=== PATIENT | male | born 1950 | race Caucasian/White ===

== ENCOUNTER 2016-03-26 00:15 | Emergency (ER) | payer OTHER ==
[~2016-03-26] VITALS: Ht 186.7 cm; Wt 114.0 kg
[2016-03-26 00:21] VITALS: TEMP 36.7; Ht 186.7 cm; Wt 114.0 kg
[2016-03-26] MEDS ORDERED: MoRPHine SULFATE 4 MG/ML 1 ML CARP\\VIAL IV STA (00:26)
[2016-03-26] MEDS ORDERED: ONDANSETRON INJ 2 MG/ML 2 ML VIAL IV STA (00:26)
[2016-03-26] MEDS ORDERED: LOSA1TAB38 PO (00:41)
[2016-03-26] MEDS ORDERED: METF500T PO (00:41)
[2016-03-26] MEDS ORDERED: AMLO10TA2 PO (00:41)
[2016-03-26 00:43] VITALS: O2SAT 94
[2016-03-26] MEDS ORDERED: FLUT0.0529 (00:52)
[2016-03-26] MEDS ORDERED: MULTTAB58 PO (00:52)
[2016-03-26] MEDS ORDERED: CHOL1TAB42 PO (00:52)
[2016-03-26] MEDS ORDERED: OMEGCAP2 PO (00:52)
[2016-03-26] MEDS ORDERED: VNTHFA/IN (00:52)
[2016-03-26] MEDS ORDERED: MOME200A (00:52)
[2016-03-26 01:03] LABS: ALT/SGPT 35 U/L (12-78); AST/SGOT 18 U/L (15-37); BLOOD UREA NITROGEN 23 mg/dl (7-18); BUN/CREATININE RATIO 23.7 (10-20); CARBON DIOXIDE 26 mmol/L (21-32); CHLORIDE 108 mmol/L (98-107); CREATININE 0.95 mg/dl (0.60-1.40); GLUCOSE 125 mg/dl (70-99); SODIUM 143 mmol/L (136-145)
[2016-03-26 01:06] LABS: ALB/GLOB RATIO 1.3 (0.9-2); ALKALINE PHOSPHATASE 40 U/L (45-117)
[2016-03-26 01:07] LABS: URINE APPEARANCE CLEAR (CLEAR); URINE BILIRUBIN NEG (NEG); URINE COLOR YELLOW; URINE EPITHELIAL CELL AUTO 0-5 /lpf (0-5); URINE NITRITE NEG (NEG); URINE SPECIFIC GRAVITY 1.016 (1.000-1.030); UROBILINOGEN NEG (NEG); ZZUR CULT IF INDIC CLEAN CATCH NO
[2016-03-26 01:13] LABS: MANUAL MICROSCOPIC REQUIRED? NO; REVIEW REQ? NO
[2016-03-26 01:13] LABS: HEMATOCRIT 41.5 % (42-52); MEAN CELL VOLUME 91.8 fL (80-100); MEAN CORPUSCULAR HEMOGLOBIN 32.7 pg (25-34); MEAN CORPUSCULAR HGB CONC 35.7 g/dl (32-36); MEAN PLATELET VOLUME 11.3 fL (7.4-10.4); PLATELET COUNT 93 K/uL (130-400); RED BLOOD COUNT 4.52 M/uL (4.7-6.1); WHITE BLOOD COUNT 14.36 K/uL (4.8-10.8)
[2016-03-26 01:26] LABS: BASO % 0.1 %; BASO ABS # 0.02 K/uL (0-0.2); COMPLETE YES; EOS % 1.4 %; IG% 0.3 %; LYMPH % 75.5 %; LYMPH ABS # 10.84 K/uL (1.2-3.4); MONO % 3.1 %; NEUT % 19.6 %; PLT ESTIMATE DECREASED
[2016-03-26] MEDS ORDERED: ONDANSETRON HOME PACK 4MG OD TAB PO ONE (01:45)
[2016-03-26] MEDS ORDERED: OXYCODONE IR HOME PACK PO ONE (01:45)
[2016-03-26 01:59] VITALS: BP 140/77; PULSE 70; O2SAT 95
--- NOTE | 2016-03-26 02:50 | EMERGENCY ROOM VISIT NOTE ---
ED Visit Note First contact with patient: 00:23 I have personally seen and evaluated the patient with the physician pastrycook's assistant. I agree with the diagnostic/management decisions and have personally been involved in these decisions and agree with the diagnosis.
--- NOTE | 2016-03-26 02:50 | EMERGENCY ROOM VISIT NOTE ---
History First contact with patient: 00:23 Chief Complaint: FLANK PAIN Stated Complaint: FLANK PAIN History of Present Illness The patient is a 65 year old male who presents to the Emergency Room with complaints of sudden onset of left flank pain that raised his groin for the past few hours. No history kidney stones. Patient has been urinating more without dysuria. He had prostate removal for prostate carcinoma. Patient denies chest pain, dyspnea, fever, chills, vomiting, diarrhea, penile pain, testicular pain, dysuria. Review of Systems See HPI for pertinent positives & negatives. A total of 10 systems reviewed and were otherwise negative. Past Medical/Surgical History DM2, HTN, Asthma, leukemia Social History Smoking Status: Never Smoker Smokeless Tobacco Use: No Alcohol Use: occasionally Drug Use: none Marital Status: Housing Status: lives with family Current/Historical Medications Scheduled Amlodipine Besylate (Norvasc), 10 MG PO QAM Cholecalciferol (Vitamin D), 5,000 INTUNIT PO QAM Losartan Potassium (Cozaar), 100 MG PO DAILY Metformin Hcl (Glucophage), 500 MG PO BID Mometasone Furoate-Formoterol (Dulera 200/5 Mcg), BID Multiple Vitamin (Multivitamin), PO QAM [place]-3 Fatty Acids (Fish Oil), PO QAM Miscellaneous Medications Albuterol Hfa (Ventolin Hfa) Fluticasone Propionate (Nasal) (Flonase) Allergies Coded Allergies: Sulfa Antibiotics (Verified Allergy, Mild, HIVES, 03/26/16) STACIE Inhibitors (Verified Adverse Reaction, Unknown, cough, 03/26/16) Physical Exam Vital Signs Date Time Temp Pulse Resp B/P Pulse Ox O2 Delivery O2 Flow Rate FiO2 03/26/16 01:59 70 19 140/77 95 03/26/16 00:43 94 Room Air 03/26/16 00:21 36.7 78 20 114/93 95 Room Air Pain Rating (0-10): 4.0 Physical Exam VITALS: Vitals are noted on the nurse's note and reviewed by myself. Vital signs stable. GENERAL: Pleasant male who feels more comfortable after receiving morphine and Zofran by EMS, in no acute distress, nondiaphoretic, well-developed well- nourished. SKIN: The skin was without rashes, erythema, edema, or bruising. There is no tenting of the skin. Capillary reflex less than 2 seconds. HEAD: Normocephalic atraumatic. EARS: External auditory canals clear, tympanic membranes pearly page without erythema or effusion bilaterally. EYES: Pupils equal round and reactive to light and accommodation. Conjunctivae without injection, sclerae without icterus. Extraocular movements intact. NOSE: Patent, turbinates without inflammation or discharge. MOUTH: Mucous membranes moist. Pharynx without erythema or exudate. Uvula midline. Airway patent. Tongue does not deviate. NECK: Supple without nuchal rigidity. No lymphadenopathy. No thyromegaly. Cervical spine is nontender. No JVD. HEART: Regular rate and rhythm LUNGS: Clear to auscultation bilaterally without wheezes, rales or rhonchi. No dullness to percussion. No retractions or accessory muscle use. ABDOMEN: Positive bowel sounds x 4. Normal tympanic percussion. Soft, nontender, without masses or organomegaly. Willett sign negative. No guarding or rebound tenderness. No CVA tenderness MUSCULOSKELETAL: No muscle atrophy, erythema, or edema noted. NEURO: Patient was alert and oriented to person place and time. Normal sensation to light and sharp touch. No focal neurological deficits. Medical Decision & Procedures Laboratory Results 03/26/16 00:10 Red Blood Count 4.52, Mean Corpuscular Volume 91.8, Mean Corpuscular Hemoglobin 32.7, Mean Corpuscular Hemoglobin Concent 35.7, Mean Platelet Volume 11.3, Neutrophils (%) (Auto) 19.6, Lymphocytes (%) (Auto) 75.5, Monocytes (%) (Auto) 3.1, Eosinophils (%) (Auto) 1.4, Basophils (%) (Auto) 0.1, Neutrophils # (Auto) 2.81, Lymphocytes # (Auto) 10.84, Monocytes # (Auto) 0.45, Eosinophils # (Auto) 0.20, Basophils # (Auto) 0.02 03/26/16 00:10 Test 03/26/16 00:10 03/26/16 00:40 White Blood Count 14.36 K/uL (4.8-10.8) Red Blood Count 4.52 M/uL (4.7-6.1) Hemoglobin 14.8 g/dL (14.0-18.0) Hematocrit 41.5 % (42-52) Mean Corpuscular Volume 91.8 fL (80-100) Mean Corpuscular Hemoglobin 32.7 pg (25-34) Mean Corpuscular Hemoglobin Concent 35.7 g/dl (32-36) Platelet Count 93 K/uL (130-400) Mean Platelet Volume 11.3 fL (7.4-10.4) Neutrophils (%) (Auto) 19.6 % Lymphocytes (%) (Auto) 75.5 % Monocytes (%) (Auto) 3.1 % Eosinophils (%) (Auto) 1.4 % Basophils (%) (Auto) 0.1 % Neutrophils # (Auto) 2.81 K/uL (1.4-6.5) Lymphocytes # (Auto) 10.84 K/uL (1.2-3.4) Monocytes # (Auto) 0.45 K/uL (0.11-0.59) Eosinophils # (Auto) 0.20 K/uL (0-0.5) Basophils # (Auto) 0.02 K/uL (0-0.2) RDW Standard Deviation 42.8 fL (36.4-46.3) RDW Coefficient of Variation 12.8 % (11.5-14.5) Immature Granulocyte % (Auto) 0.3 % Immature Granulocyte # (Auto) 0.04 K/uL (0.00-0.02) Platelet Estimate DECREASED Red Blood Cell Morphology Unremarkable Anion Gap 9.0 mmol/L (3-11) Est Creatinine Clear Calc Drug Dose 103.3 ml/min Estimated GFR () 97.0 Estimated GFR (Non- 83.7 BUN/Creatinine Ratio 23.7 (10-20) Calcium Level 9.0 mg/dl (8.5-10.1) Total Bilirubin 0.3 mg/dl (0.2-1) Direct Bilirubin < 0.1 mg/dl (0-0.2) Aspartate Amino Transf (AST/SGOT) 18 U/L (15-37) Alanine Aminotransferase (ALT/SGPT) 35 U/L (12-78) Alkaline Phosphatase 40 U/L (45-117) Total Protein 7.0 gm/dl (6.4-8.2) Albumin 4.0 gm/dl (3.4-5.0) Globulin 3.0 gm/dl (2.5-4.0) Albumin/Globulin Ratio 1.3 (0.9-2) Urine Color YELLOW Urine Appearance CLEAR (CLEAR) Urine pH 5.0 (4.5-7.5) Urine Specific [place] 1.016 (1.000-1.030) Urine Protein 1+ (NEG) Urine Glucose (UA) NEG (NEG) Urine Ketones NEG (NEG) Urine Occult Blood 3+ (NEG) Urine Nitrite NEG (NEG) Urine Bilirubin NEG (NEG) Urine Urobilinogen NEG (NEG) Urine Leukocyte Esterase NEG (NEG) Urine WBC (Auto) 1-5 /hpf (0-5) Urine RBC (Auto) 10-30 /hpf (0-4) Urine Hyaline Casts (Auto) 0 /lpf (0-5) Urine Epithelial Cells (Auto) 0-5 /lpf (0-5) Urine Bacteria (Auto) NEG (NEG) Medications Administered Medications (Trade) Dose Ordered Sig/Ned Route Start Time Stop Time Status Last Admin Dose Admin Oxycodone HCl (Roxicodone Immediate Rel 5MG Home Pack) 1 homepack UD ONCE PO 03/26/16 01:45 03/26/16 01:46 DC 03/26/16 01:45 1 HOMEPACK Ondansetron HCl (ZOFRAN ODT 4MG Home Pack) 1 homepack UD ONCE PO 03/26/16 01:45 03/26/16 01:46 DC 03/26/16 01:54 1 HOMEPACK ED Course Prior records/ancillary studies reviewed. Triage Nursing notes reviewed. Additional history obtained from the family. The patient's history was concerning for left flank pain. Differential diagnosis: Etiologies such as renal colic, appendicitis, diverticulitis, mesenteric ischemia, aortic pathology, infections, inflammatory bowel disease, PUD, biliary pathology, UTI, as well as others were entertained. Physical examination findings: As above. ER treatment provided: Morphine, Zofran, IV fluids On reassessment the patient felt better. Diagnostic interpretation by me: The labs revealed stable leukocytosis has known leukemia and currently followed by oncology not actively receiving treatment. Urinalysis revealed hematuria. There was no sign of UTI. Imaging studies: CT of the abdomen and pelvis read by stat radiology and reviewed by myself and concerning for kidney stone that is now currently in the bladder with multiple nonobstructing stones in the left kidney. It appears that the patient has isolated renal colic from a left sided stone. Patient felt much better after being medicated by EMS. He was asymptotic while in the ER. I did review his prior CBC and blood counts are the same. There is a minimal drop and his platelets. Patient's pain was managed. He was advised to follow-up with his urologist in a few days and to strain his urine. He was advised to return to the ER really for severe pain, fevers, vomiting, worsening signs or symptoms or as needed. By the evaluation outlined above emergent etiologies such as appendicitis, diverticulitis, mesenteric ischemia, aortic pathology, infections, inflammatory bowel disease, PUD, biliary pathology, UTI, as well as others were deemed relatively unlikely. The pt informed about the findings as listed above. All questions were answered and pleased with the treatment. Return instructions were outlined and the patient was discharged in stable condition. Outpatient prescription management: Oxy IR 5mg 1-2 po Q4 hrs prn Referral: The pt was referred to [facility] for follow up care regarding their stone. or The patient was referred back to their primary care physician for follow-up in 2 to 3 days for a recheck of the current condition. Case reviewed with my attending. Medical Decision As above Impression Primary Impression: Renal colic on left side Departure Information Dispostion Home / Self-Care Condition GOOD Forms HOME CARE DOCUMENTATION FORM, IMPORTANT VISIT INFORMATION Patient Instructions Kidney Stones - [facility], My [facility] Additional Instructions DO NOT drive, drink alcohol, operate machinery, or perform dangerous activities today. You were given medications in the ER that can affect your ability to safely function or operate a vehicle. Oxycodone Immediate Release (OxyIR) 5mg: Take 1-2 pills every four hours for pain. Avoid alcohol, operating machinery or dangerous equipment, working on ladders or roofs, DRIVING, or situations where being under the influence may be dangerous. It is recommended to use an [id number] stool softener such as Colace, 100mg twice daily while taking this medication to avoid constipation. Zofran 4 mg: Take one every six hours as needed for nausea. Avoid alcohol, operating machinery or dangerous equipment, working on ladders or roofs, DRIVING , or situations where being under the influence may be dangerous. Acetaminophen(Tylenol) may be used for fever or pain. Use 1000mg every six hours as needed. Avoid using more than 3000mg in a 24 hour period. This medication can be taken if you need to drive, work, or perform activities which may be dangerous when taking narcotic pain medication. Strain your urine and collect all the stones or debris for the urologists. Rest and avoid strenuous activity until your stone passes and symptoms resolve. Drink plenty of fluids. Continue current medications. Return to the ER for worsening abdominal or back pain, vomiting, fevers, passing out, or as needed. Follow up with your Urologist in 2-3 days. Call for appointment.
--- NOTE | 2016-03-26 07:24 | DIAGNOSTIC IMAGING REPORT ---
ABDOMEN AND PELVIS CT WITHOUT CONTRAST CT DOSE: 1662.58 mGy.cm HISTORY: left flank pain, ? Stone TECHNIQUE: Multiaxial CT images of the abdomen and pelvis were performed without the use of intravenous and oral contrast according to the standard department stone protocol. COMPARISON STUDY: None. FINDINGS: An 11 mm hypodense lesion within the lower pole the left kidney. This is incompletely characterized on this noncontrast study but statistically represents a cyst. There bilateral renal calculi, left greater than right. The largest in the left kidney measures 4 mm. No right-sided hydronephrosis. There is a 2 mm stone either within or just beyond the left ureterovesical junction. There is mild fullness of the left renal collecting system and left ureter. Multiple brachytherapy seeds within the prostate gland. Punctate calcified granulomas and a few small faint groundglass opacities within the lung bases. The unenhanced liver, gallbladder, pancreas, spleen, adrenal glands are unremarkable. No retroperitoneal lymphadenopathy. No bowel wall thickening or obstruction. Multiple colonic diverticula. Normal appendix. Degenerative changes within the lumbar spine. Questionable thickening of the sigmoid colon is likely due to muscular hypertrophy. IMPRESSION: 1. A 2 mm stone either within or just beyond the left ureterovesical junction. There is associated mild fullness within the left renal collecting system and left ureter. 2. Bilateral nephrolithiasis. 3. Colonic diverticulosis. 4. A few small patchy ground glass airspace opacities within the lung bases. This is nonspecific and could be due to an acute or chronic pneumonitis. Electronically signed by: Shahzad Amaya M.D. 03/26/2016 7:22 AM Dictated Date/Time: 03/26/2016 7:16 AM
== END 2016-03-26 02:01 | disposition home or self-care (01) ==
LOC: EDBD 00:15 → C.EDB 00:17
DX: N23 Unspecified renal colic (principal); E11.9 Type 2 diabetes mellitus without complications; I10 Essential (primary) hypertension; J45.909 Unspecified asthma, uncomplicated

== ENCOUNTER 2016-08-31 23:40 | Emergency (ER) | payer OTHER ==
[~2016-08-31] VITALS: Ht 188 cm; Wt 120.2 kg
[~2016-08-31 23:40] MED LIST: AMLO10TA2 PO; CHOL1TAB42 PO; FLUT0.0529; LOSA1TAB38 PO; METF500T PO; MOME200A; MULTTAB58 PO; OMEGCAP2 PO; VNTHFA/IN
[2016-08-31 23:42] VITALS: TEMP 36.8; Ht 188 cm; Wt 120.2 kg
[2016-08-31] MEDS ORDERED: SODIUM CHLORIDE 0.9% 1000ML 1,000 ML IV STA (23:59)
[2016-08-31] MEDS ORDERED: ONDANSETRON INJ 2 MG/ML 2 ML VIAL IV STA (23:59)
[2016-09-01] MEDS: MoRPHine SULFATE 4 MG/ML 1 ML CARP\\VIAL IV PRN ×2 (00:07→01:02)
--- NOTE | 2016-09-01 00:25 | EMERGENCY ROOM VISIT NOTE ---
History Report prepared by [place]: Kelly Dobson Under the Supervision of: Dr. Douglas Adrian D.O. First contact with patient: 23:57 Chief Complaint: FLANK PAIN Stated Complaint: BACK PAIN/FLANK PAIN History of Present Illness The patient is a 66 year old male who presents to the Emergency Room with complaints of persistent left sided flank pain that began around 2029 this evening. He was brought to the ED via EMS. He rates his pain as a 4/10 and states the Zofran and Fentanyl he was given en route provided minimal relief. He admits to a history of kidney stones with the most recent stone being in March 2016. He underwent a CT scan earlier this year and states several small stones were seen on CT. Source of History: patient Onset: 2029 this evening Position: back (left sided flank) Symptom Intensity: 4/10 Timing: other (persistent) Modifying Factors (Relieving): narcotics (Fentanyl), anti-emetics (Zofran) Review of Systems See HPI for pertinent positives & negatives. A total of 10 systems reviewed and were otherwise negative. Past Medical & Surgical Medical Problems: (1) Kidney stones (2) Leukemia (3) Prostate cancer Social History Smoking Status: Never Smoker Alcohol Use: occasionally Drug Use: none Marital Status: Housing Status: lives with family Occupation Status: retired Current/Historical Medications Scheduled Amlodipine Besylate (Norvasc), 10 MG PO QAM Fluticasone Propionate (Nasal) (Flonase Allergy Relief), 2 SPRY JOSE DAILY Losartan Potassium (Cozaar), 100 MG PO DAILY Metformin Hcl (Glucophage), 500 MG PO BID Mometasone Furoate-Formoterol (Dulera 200/5 Mcg), BID Multiple Vitamin (Multivitamin), PO QAM [place]-3 Fatty Acids (Fish Oil), PO QAM Tamsulosin Hcl (Flomax), 0.4 MG PO DAILY Scheduled PRN Oxycodone Immediate Rel Tab (Roxicodone Ir), 1-2 TAB PO Q4H PRN for Severe Pain Miscellaneous Medications Albuterol Hfa (Ventolin Hfa) Allergies Coded Allergies: Sulfa Antibiotics (Verified Allergy, Mild, HIVES, 09/01/16) STACIE Inhibitors (Verified Adverse Reaction, Unknown, cough, 09/01/16) Physical Exam Vital Signs Date Time Temp Pulse Resp B/P (MAP) Pulse Ox O2 Delivery O2 Flow Rate FiO2 09/01/16 02:06 82 16 142/81 95 Room Air 09/01/16 00:48 77 16 130/81 94 Room Air 08/31/16 23:56 83 08/31/16 23:42 36.8 77 20 153/78 95 Room Air Physical Exam GENERAL: Patient is awake, alert, very anxious appearing and appears to be in significant pain. EYES: The conjunctivae are clear. The pupils are round and reactive. EARS, NOSE, MOUTH AND THROAT: The nose is without any evidence of any deformity. Mucous membranes are moist tongue is midline NECK: The neck is nontender and supple. RESPIRATORY: Normal respiratory effort is noted there is no evidence of wheezing rhonchi or rales CARDIOVASCULAR: Regular rate and rhythm noted there no murmurs rubs or gallops normal S1 normal S2 GASTROINTESTINAL: The abdomen is mildly distended but soft. No specific guarding or rigidity noted. BACK: Left sided CVA tenderness to percussion. No midline tenderness noted. ROM appeared intact. MUSCULOSKELETAL/EXTREMITIES: There is no evidence of gross deformity full range of motion is noted in the hips and shoulders SKIN: There is no obvious evidence of any rash. There are no petechiae, pallor or cyanosis noted. NEUROLOGIC: Patient is awake alert and oriented x3 Medical Decision & Procedures ER Provider Diagnostic Interpretation: Radiology results as stated below per my review and interpretation: KUB X-RAY Multiple calcifications noted in the left hemipelvis. No acute disease. Calcifications could reflect distal ureteral calculi. Laboratory Results 08/31/16 23:02 Red Blood Count 4.61, Mean Corpuscular Volume 94.4, Mean Corpuscular Hemoglobin 32.3, Mean Corpuscular Hemoglobin Concent 34.3, Mean Platelet Volume 11.5, Neutrophils (%) (Auto) 24.7, Lymphocytes (%) (Auto) 69.8, Monocytes (%) (Auto) 3.9, Eosinophils (%) (Auto) 1.3, Basophils (%) (Auto) 0.1, Neutrophils # (Auto) 3.31, Lymphocytes # (Auto) 9.37, Monocytes # (Auto) 0.53, Eosinophils # (Auto) 0.17, Basophils # (Auto) 0.02 08/31/16 23:02 Test 08/31/16 23:02 08/31/16 23:55 White Blood Count 13.43 K/uL (4.8-10.8) Red Blood Count 4.61 M/uL (4.7-6.1) Hemoglobin 14.9 g/dL (14.0-18.0) Hematocrit 43.5 % (42-52) Mean Corpuscular Volume 94.4 fL (80-100) Mean Corpuscular Hemoglobin 32.3 pg (25-34) Mean Corpuscular Hemoglobin Concent 34.3 g/dl (32-36) Platelet Count 99 K/uL (130-400) Mean Platelet Volume 11.5 fL (7.4-10.4) Neutrophils (%) (Auto) 24.7 % Lymphocytes (%) (Auto) 69.8 % Monocytes (%) (Auto) 3.9 % Eosinophils (%) (Auto) 1.3 % Basophils (%) (Auto) 0.1 % Neutrophils # (Auto) 3.31 K/uL (1.4-6.5) Lymphocytes # (Auto) 9.37 K/uL (1.2-3.4) Monocytes # (Auto) 0.53 K/uL (0.11-0.59) Eosinophils # (Auto) 0.17 K/uL (0-0.5) Basophils # (Auto) 0.02 K/uL (0-0.2) RDW Standard Deviation 44.2 fL (36.4-46.3) RDW Coefficient of Variation 12.9 % (11.5-14.5) Immature Granulocyte % (Auto) 0.2 % Immature Granulocyte # (Auto) 0.03 K/uL (0.00-0.02) Platelet Estimate DECREASED Anion Gap 10.0 mmol/L (3-11) Est Creatinine Clear Calc Drug Dose 83.4 ml/min Estimated GFR () 72.6 Estimated GFR (Non- 62.6 BUN/Creatinine Ratio 19.7 (10-20) Calcium Level 9.0 mg/dl (8.5-10.1) Total Bilirubin 0.4 mg/dl (0.2-1) Direct Bilirubin < 0.1 mg/dl (0-0.2) Aspartate Amino Transf (AST/SGOT) 21 U/L (15-37) Alanine Aminotransferase (ALT/SGPT) 37 U/L (12-78) Alkaline Phosphatase 47 U/L (45-117) Total Protein 6.8 gm/dl (6.4-8.2) Albumin 3.9 gm/dl (3.4-5.0) Lipase 122 U/L (73-393) Urine Color YELLOW Urine Appearance CLEAR (CLEAR) Urine pH 5.0 (4.5-7.5) Urine Specific [place] 1.028 (1.000-1.030) Urine Protein 1+ (NEG) Urine Glucose (UA) NEG (NEG) Urine Ketones TRACE (NEG) Urine Occult Blood 3+ (NEG) Urine Nitrite NEG (NEG) Urine Bilirubin NEG (NEG) Urine Urobilinogen NEG (NEG) Urine Leukocyte Esterase NEG (NEG) Urine WBC (Auto) 1-5 /hpf (0-5) Urine RBC (Auto) >30 /hpf (0-4) Urine Hyaline Casts (Auto) 0 /lpf (0-5) Urine Epithelial Cells (Auto) 0-5 /lpf (0-5) Urine Bacteria (Auto) NEG (NEG) Laboratory results per my review. Medications Administered Medications (Trade) Dose Ordered Sig/Ned Route Start Time Stop Time Status Last Admin Dose Admin Morphine Sulfate (MoRPHine SULFATE INJ) 4 mg Q15M PRN IV 09/01/16 00:00 09/01/16 03:39 DC 09/01/16 01:02 4 MG Ondansetron HCl (Zofran Inj) 4 mg NOW STAT IV 08/31/16 23:59 09/01/16 00:00 DC 09/01/16 00:06 4 MG Sodium Chloride 1,000 ml @ 999 mls/hr Q1H1M STAT IV 08/31/16 23:59 09/01/16 00:59 DC 09/01/16 00:06 999 MLS/HR Tamsulosin HCl (Flomax Cap) 0.4 mg NOW ONCE PO 09/01/16 02:15 09/01/16 02:16 DC 09/01/16 02:25 0.4 MG Ondansetron HCl (ZOFRAN ODT 4MG Home Pack) 1 homepack UD ONCE PO 09/01/16 02:15 09/01/16 02:16 DC 09/01/16 02:25 1 HOMEPACK Oxycodone HCl (Roxicodone Immediate Rel 5MG Home Pack) 1 homepack UD ONCE PO 09/01/16 02:15 09/01/16 02:16 DC 09/01/16 02:25 1 HOMEPACK ED Course 2358: The patient was evaluated in room B4. A complete history and physical examination were performed. 2359: NSS 1000 ml @ 999 mls/hr IV, Zofran 4 mg IV. 0000: Morphine Sulfate 4 mg IV. 0155: I reevaluated the patient. He is feeling much better. I discussed his results and discharge instructions and he verbalized complete understanding and agreement. 0215: Oxycodone 5 mg 1 homepack PO, Zofran 4 mg 1 homepack PO, Flomax 0.4 mg PO. Medical Decision Prior records/ancillary studies reviewed. Triage Nursing notes reviewed. Additional history obtained from the family. The patient's history was concerning for kidney pain. Differential diagnosis: Etiologies such as renal colic, appendicitis, diverticulitis, mesenteric ischemia, aortic pathology, infections, inflammatory bowel disease, PUD, biliary pathology, UTI, as well as others were entertained. The patient is a 66-year-old male who presented to emergency department for evaluation of left flank pain. The patient has a history of kidney stone and his presentation appear to be consistent with renal colic. He was treated with IV fluids IV pain medicine and IV antiemetics. On subsequent reevaluation he was feeling much better. I discussed the patient's laboratory and radiographic studies with him. He was encouraged to rest and avoid any strenuous activity. He was also encouraged to follow-up with his urologist this week for reevaluation but return to the emergency Department immediately if symptoms change worsen or the need arises. Medication Reconcilliation Current Medication List: was personally reviewed by me Blood Pressure Screening Patient's blood pressure: Elevated blood pressure Blood pressure disposition: Elevated BP felt to be situational Impression Primary Impression: Kidney stone Additional Impression: Left flank pain Scribe Attestation The scribe's documentation has been prepared under my direction and personally reviewed by me in its entirety. I confirm that the note above accurately reflects all work, treatment, procedures, and medical decision making performed by me. Departure Information Dispostion Home / Self-Care Prescriptions Tamsulosin Hcl (FLOMAX) 0.4 Mg Cap 0.4 MG PO DAILY, #10 CAP Prov: Douglas Adrian, DO 09/01/16 Oxycodone Immediate Rel Tab (ROXICODONE IR) 5 Mg Tab 1-2 TAB PO Q4H Y for Severe Pain, #24 TAB Prov: Douglas Adrian, DO 09/01/16 Referrals Adriel Lopez M.D. (PCP) Patient Instructions Kidney Stones [facility], [facility] Additional Instructions Continue all medications as prescribed. Call the urologist in the morning to schedule a follow-up appointment. Drink plenty clear liquids. Continue using Motrin and Tylenol as directed for mild pain. Problem Qualifiers
[2016-09-01 00:28] LABS: URINE APPEARANCE CLEAR (CLEAR); URINE BILIRUBIN NEG (NEG); URINE COLOR YELLOW; URINE EPITHELIAL CELL AUTO 0-5 /lpf (0-5); URINE NITRITE NEG (NEG); URINE SPECIFIC GRAVITY 1.028 (1.000-1.030); UROBILINOGEN NEG (NEG)
[2016-09-01 00:38] LABS: ALT/SGPT 37 U/L (12-78); AST/SGOT 21 U/L (15-37); BLOOD UREA NITROGEN 24 mg/dl (7-18); BUN/CREATININE RATIO 19.7 (10-20); CARBON DIOXIDE 24 mmol/L (21-32); CHLORIDE 106 mmol/L (98-107); GLUCOSE 178 mg/dl (70-99); POTASSIUM 4.1 mmol/L (3.5-5.1); SODIUM 140 mmol/L (136-145)
[2016-09-01 00:41] LABS: ALKALINE PHOSPHATASE 47 U/L (45-117)
[2016-09-01 00:44] LABS: MANUAL MICROSCOPIC REQUIRED? NO; REVIEW REQ? NO
[2016-09-01 01:45] LABS: HEMATOCRIT 43.5 % (42-52); MEAN CELL VOLUME 94.4 fL (80-100); MEAN CORPUSCULAR HEMOGLOBIN 32.3 pg (25-34); MEAN CORPUSCULAR HGB CONC 34.3 g/dl (32-36); MEAN PLATELET VOLUME 11.5 fL (7.4-10.4); PLATELET COUNT 99 K/uL (130-400); RED BLOOD COUNT 4.61 M/uL (4.7-6.1); WHITE BLOOD COUNT 13.43 K/uL (4.8-10.8)
[2016-09-01] MEDS ORDERED: FLUT0.15 NAE (01:51)
[2016-09-01 02:06] VITALS: BP 142/81; PULSE 82; O2SAT 95
[2016-09-01] MEDS ORDERED: TAMS0.4C38 PO (02:12)
[2016-09-01] MEDS ORDERED: OXYC1TAB3 PO (02:12)
[2016-09-01] MEDS ORDERED: OXYCODONE IR HOME PACK PO ONE (02:15)
[2016-09-01] MEDS ORDERED: TAMSULOSIN HCL 0.4 MG CAP PO ONE (02:15)
[2016-09-01] MEDS ORDERED: ONDANSETRON HOME PACK 4MG OD TAB PO ONE (02:15)
[2016-09-01 02:21] LABS: BASO % 0.1 %; BASO ABS # 0.02 K/uL (0-0.2); COMPLETE YES; EOS % 1.3 %; IG% 0.2 %; LYMPH % 69.8 %; LYMPH ABS # 9.37 K/uL (1.2-3.4); MONO % 3.9 %; NEUT % 24.7 %; PLT ESTIMATE DECREASED
--- NOTE | 2016-09-01 06:45 | DIAGNOSTIC IMAGING REPORT ---
KUB HISTORY: 66 years-old Male acute left-sided flank pain, hx of kidney stones COMPARISON: CT abdomen and pelvis 03/26/2016 TECHNIQUE: KUB radiograph FINDINGS: Brachytherapy seeds noted within the prostate. There is a linear 4 x 2 mm calcification within the left hemipelvis which appears atypical for a phlebolith and is suspicious for left distal ureteral calculus. Phlebolith is noted within the right hemipelvis. The previously noted left-sided renal calculi seen on CT study dated 03/26/2016 are not as clearly seen on today's exam secondary to obscuring bowel gas pattern is nonobstructive. No fracture. Degenerative changes are seen within the lower lumbar spine. IMPRESSION: 1. 4 x 2 mm calcification of the left hemipelvis is suspicious for a calculus within the region of the distal left ureter. Alternatively, this may reflect a phlebolith. 2. Left-sided nephrolithiasis partially secured by bowel gas. The above report was generated using voice recognition software. It may contain grammatical, syntax or spelling errors. Electronically signed by: Nik Kapadia M.D. 09/01/2016 6:44 AM Dictated Date/Time: 09/01/2016 6:39 AM
== END 2016-09-01 02:28 | disposition home or self-care (01) ==
LOC: EDBD 23:40 → C.EDB 23:41
DX: N20.0 Calculus of kidney (principal); R10.32 Left lower quadrant pain; R10.12 Left upper quadrant pain; Z87.442 Personal history of urinary calculi; Z85.6 Personal history of leukemia; Z85.46 Personal history of malignant neoplasm of prostate; Z79.84 Long term (current) use of oral hypoglycemic drugs

== ENCOUNTER → 2016-11-27 | Outpatient (CLI) | payer OTHER ==
[~2016-11-27] MED LIST changes: -CHOL1TAB42 PO; -FLUT0.0529; +FLUT0.15 NAE; +OXYC1TAB3 PO
== END | disposition home or self-care (01) ==
LOC: C.LAB 11:12
PROVIDERS: ATTEND Internal Medicine Hematology & Oncology
DX: C91.10 Chronic lymphocytic leukemia of B-cell type not having achieved remission (principal)

== ENCOUNTER 2021-01-08 14:23 | Inpatient (IN) ==
--- NOTE | 2021-01-08 16:32 | XRay Report ---
XR chest 2V PA/lateral HISTORY: Shortness of breath. cough COMPARISON: None. FINDINGS: No pneumothorax. No pleural effusions. The cardiac silhouette is mildly enlarged. No eviden ce for pulmonary edema. The right lung appears clear. A few small linear scarlike densities within th e left midlung zone. Otherwise, no focal lung consolidations to suggest pneumonia. No evidence for pu lmonary edema. IMPRESSION: Mild cardiomegaly. Otherwise, no acute process within the chest. ACT 112: Negative or not required by law. Electronically signed by: Shahzad Amaya M.D. 01/08/2021 4:31 PM
[2021-01-08] MEDS ORDERED: SODIUM CHLORIDE 0.9% 1000ML 1,000 ML IV SCH (18:00)
[2021-01-08] MEDS ORDERED: ALBUT/IPRATROP 3MG/0.5MG NEB 3 ML VIAL NEB STA (18:16)
[2021-01-08] MEDS ORDERED: dexAMETHasone 6 MG in SYRINGE 0 ML IV ONE (18:39)
[2021-01-08] MEDS ORDERED: DEXAMETHASONE SOD INJ 4 MG/ML VIAL ONE (18:44)
[2021-01-08 18:47] LABS: Partial Thromboplastin Time 25.9 Seconds (21.0-31.0); Prothrombin Time 10.3 Seconds (9.0-12.0)
[2021-01-08 18:57] LABS: Alanine Aminotransferase 46 U/L (12-78); Aspartate Aminotransferase 37 U/L (15-37); BUN Creatinine Ratio 19.4 (10-20); Blood Urea Nitrogen 18 mg/dl (7-18); Calcium 9.4 mg/dl (8.5-10.1); Carbon Dioxide 24 mmol/L (21-32); Chloride 101 mmol/L (98-107); Creatinine Clr Calc Pharmacy 97.6 ml/min; Est GFR (African American) 94.8 ml/min; Est GFR (Non-African American) 81.8 ml/min; Glucose 137 mg/dl (70-99); Magnesium 2.4 mg/dl (1.8-2.4); Potassium 3.6 mmol/L (3.5-5.1); Sodium 133 mmol/L (136-145)
[2021-01-08 19:01] LABS: Alkaline Phosphatase 52 U/L (45-117); Bilirubin,Total 1.3 mg/dl (0.2-1); Globulin 4.1 gm/dl (2.5-4.0); Total Protein 8.1 gm/dl (6.4-8.2); Troponin I < 0.015 ng/ml (0-0.045)
--- NOTE | 2021-01-08 19:07 | Emergency Department Note ---
History of Present Illness General Chief complaint: Illness Stated complaint: ILLNESS, SOB Time Seen by Provider: 01/08/21 17:52 History of Present Illness Provider complaint: Cough difficulty breathing diarrhea fatigue muscle aches Onset (ago): day(s) 3 Maximum Pain Intensity: 2 Associated symptoms: + cough and + shortness of breath; no chest pain, no headaches or no nausea/vomiting 70-year-old male with history of CLL not on chemotherapy, asthma, and sarcoidosis presents emergency department for cough, difficulty breathing, diarrhea, fatigue, body aches. Patient states his is recently tested positive for COVID-19. He states his symptoms started 3 days ago. He reports subjective fevers. Home Medications Medication Instructions Recorded Confirmed Type albuterol sulfate 90 mcg/actuation 2 puff INHALATION Q4 PRN 08/10/19 01/08/21 History aerosol inhaler aspirin 81 mg chewable tablet 81 mg PO DAILY 08/10/19 01/08/21 History fluticasone furoate 100 1 ea INHALATION DAILY 08/10/19 01/08/21 History mcg-vilanterol 25 mcg/dose inhalation powder (Breo Ellipta) fluticasone propionate 50 2 spray INTRANASAL DAILY PRN 08/10/19 01/08/21 History mcg/actuation nasal spray,suspension (Flonase Allergy Relief) hydrochlorothiazide 12.5 mg capsule 12.5 mg PO DAILY 08/10/19 01/08/21 History losartan 100 mg tablet (Cozaar) 100 mg PO DAILY 08/10/19 01/08/21 History multivitamin 1 tab PO DAILY 08/10/19 01/08/21 History mupirocin 2 % topical ointment 1 applic TOPICAL BID PRN 08/10/19 01/08/21 History turmeric 400 mg capsule 400 mg PO DAILY 08/10/19 01/08/21 History amlodipine 10 mg tablet 10 mg PO DAILY 09/18/19 01/08/21 History lactobacillus combination no.4 3 3,000 mmu cells PO DAILY 01/08/21 01/08/21 History billion cell capsule (Probiotic) metformin 500 mg tablet 500 mg PO BID 01/08/21 01/08/21 History omega-3 fatty acids 1,000 mg PO DAILY 01/08/21 01/08/21 History tamsulosin 0.4 mg capsule 0.4 mg PO UD 01/08/21 01/08/21 History Allergies Allergy/AdvReac Type Severity Reaction Status Date / Time Sulfa (Sulfonamide Allergy Mild HIVES Verified 01/08/21 18:14 Antibiotics) clindamycin Allergy RED RASH, Verified 01/08/21 18:14 ITCHY STACIE Inhibitors AdvReac Unknown cough Verified 01/08/21 18:14 metoprolol AdvReac Cough Verified 01/08/21 18:14 mometasone furoate AdvReac sore throat Verified 01/08/21 18:14 [From Dulera] Past Med/Surg History Medical History (Updated 01/08/21 @ 20:34 by Rustam Coleman) Asthma CLL (chronic lymphocytic leukemia) Prostate cancer Status post brachytherapy 2008 Type 2 diabetes mellitus Surgical History H/O prostatectomy Hx of spinal fusion Family History Mother Diabetes Heart disease Hypertension Social History Smoking Status: Never smoker Hx Alcohol Use: Yes Hx Substance Use: No Preferred Language: Italian Visual Impairment: No Limitations Hearing Ability: Normal Beliefs That Will Affect Care: None marital status: Current Living Situation: Spouse current occupational status: retired Feels Safe at Home: Yes Review of Systems A total of 10 systems reviewed and were otherwise negative Physical Exam Vital Signs Vital Signs - 24 hr 01/08/21 14:31 01/08/21 18:06 01/08/21 18:41 Temperature 36.4 C L Temperature Source Temporal Artery Scan Pulse Rate 85 105 H Pulse Rate [Right Finger] Pulse Rate from SpO2 Sensor 105 H Pulse Rhythm Regular Pulse Strength Normal Respiratory Rate 20 16 Respiratory Effort / Characteristics Non-Labored Spontaneous Respiratory Depth Normal Respiratory Pattern Regular Blood Pressure 140/74 Blood Pressure [Right Arm] Blood Pressure Mean 96 Blood Pressure Mean [Right Arm] Blood Pressure Position Sitting Pulse Oximetry 96 96 97 Oxygen Delivery Method Room Air Room Air Oxygen Flow Rate Sepsis Recent Fever Within 48 Hours No Sepsis New/Unexplained Change in Mental Status No Sepsis Action Taken by Nursing No Action Required 01/08/21 18:42 01/08/21 19:15 Temperature Temperature Source Pulse Rate Pulse Rate [Right Finger] 100 H Pulse Rate from SpO2 Sensor Pulse Rhythm Pulse Strength Respiratory Rate 17 Respiratory Effort / Characteristics Non-Labored Respiratory Depth Respiratory Pattern Blood Pressure Blood Pressure [Right Arm] 168/73 H Blood Pressure Mean Blood Pressure Mean [Right Arm] 104 Blood Pressure Position Pulse Oximetry 89 L 94 Oxygen Delivery Method Room Air Nasal Cannula Oxygen Flow Rate 2 Sepsis Recent Fever Within 48 Hours Sepsis New/Unexplained Change in Mental Status Sepsis Action Taken by Nursing Physical Exam GENERAL: He is oriented to person, place, and time. He appears well-developed and well-nourished. He does not appear distressed. HENT: Exam performed. - Head: Normocephalic and atraumatic. - Right Ear: External ear normal. No mastoid tenderness. - Left Ear: External ear normal. No mastoid tenderness. - Mouth/Throat: The oropharynx is clear and moist. No trismus in the jaw. No dental abscesses or uvula swelling. No oropharyngeal exudate or tonsillar abscesses. EYES: Conjunctivae and EOM are normal. Pupils are equal, round, and reactive to light. Right eye exhibits no discharge. Left eye exhibits no discharge. No scleral icterus. NECK: Normal range of motion. Neck supple. No JVD present. No spinous process tenderness present. No carotid bruit present. No rigidity. No tracheal deviation and normal range of motion present. No Brudzinski's sign and no Kernig's sign noted. CV: Normal rate, regular rhythm, normal heart sounds and intact distal pulses. There is no peripheral edema. Palpable radial pulses bue. PULM/CHEST: Rhonchi bilaterally. ABD: The abdomen is soft. Bowel sounds are normal. He has no distension. No mass is present. There is no tenderness. There is no rebound, no guarding, no Willett's sign and no tenderness at McBurney's point. Rovsig negative. MUSC/SKEL: Normal range of motion. There is no peripheral edema, tenderness or deformity. LYMPH: No cervical adenopathy. NEURO: He is alert and oriented to person, place, and time. He has normal strength. No cranial nerve deficit or sensory deficit. Coordination and gait normal. GCS eye subscore is 4. GCS verbal subscore is 5. GCS motor subscore is 6. Cerebellar tests wnl. SKIN: Skin is warm and dry. He is not diaphoretic. PSYCH: He has a normal mood and affect. Behavior is normal. Judgment and thought content normal. Course Course 1751: The patient was evaluated in room A12. A complete history and physical exam was performed Cardiac monitoring: An order was placed for continuous cardiac monitoring. The monitor shows a rate of 90 with sinus rhythm Administered Medications Discontinued Medications Albuterol (Albut/Ipratrop 3mg/0.5mg Neb 3 Ml Vial) 3 ml NEB NOW STA Stop: 01/08/21 18:17 Last Admin: 01/08/21 18:35 Dose: 3 ml Documented by: [id number] Dexamethasone (Dexamethasone Sod Inj 4 Mg/Ml Vial) Confirm Administered Dose 8 mg .ROUTE .STK-MED ONE Stop: 01/08/21 18:45 Last Admin: 01/08/21 18:48 Dose: Not Given Documented by: [id number] Sodium Chloride (Nss 1000ml) 1,000 mls @ 999 mls/hr IV .Q1H1M JC Stop: 01/08/21 19:00 Last Admin: 01/08/21 18:35 Dose: 999 mls/hr Documented by: [id number] Dexamethasone 6 mg/ Syringe 1.5 mls @ 1 mls/min IV ONE ONE Stop: 01/08/21 18:40 Last Admin: 01/08/21 18:48 Dose: 1 mls/min Documented by: [id number] Ioversol (Optiray 320 125ml) 119 ml IV ONCE ONE Stop: 01/08/21 19:37 Last Admin: 01/08/21 19:40 Dose: 119 ml Documented by: [id number] Critical Care Time Critical Care Time: Yes Total Critical Care Time: 38 I have personally spent greater than 38 minutes of critical care time in the direct management of this patient. This includes bedside care, interpretation of diagnostic studies, and testing, discussion with consultants, patient, and family members, and other required patient management activities. This 38 minutes is in excess of all separately billable procedures. Medical Decision Making Laboratory Data Result diagrams: 01/08/21 18:22 01/08/21 18:22 Lab Results 01/08/21 01/08/21 01/08/21 Range/Units 18:22 18:22 18:22 WBC 9.83 (4.8-10.8) K/uL RBC 4.03 L (4.7-6.1) M/uL Hgb 13.7 L (14.0-18.0) g/dL Hct 39.4 L (42-52) % MCV 97.8 (80-100) fL MCH 34.0 (25-34) pg MCHC 34.8 (32-36) g/dL RDW Std Deviation 45.7 (36.4-46.3) fL RDW Coeff of Roxie 12.8 (11.5-14.5) % Plt Count 91 L (130-400) K/uL MPV 11.1 H (7.4-10.4) fL Immature Gran % (Auto) 0.3 % Neut % (Auto) 57.5 % Lymph % (Auto) 38.4 % [place] % (Auto) 3.7 % Eos % (Auto) 0.0 % Baso % (Auto) 0.1 % Neut # (Auto) 5.66 (1.4-6.5) K/uL Lymph # (Auto) 3.77 H (1.2-3.4) K/uL [place] # (Auto) 0.36 (0.11-0.59) K/uL Eos # (Auto) 0.00 (0-0.5) K/uL Baso # (Auto) 0.01 (0-0.2) K/uL Immature Gran # (Auto) 0.03 H (0.00-0.02) K/uL Platelet Estimate Decreased L (Normal) Polychromasia 1+ PT 10.3 (9.0-12.0) Seconds INR 1.0 (0.9-1.1) APTT 25.9 (21.0-31.0) Seconds PTT Ratio 1.0 Sodium 133 L (136-145) mmol/L Potassium 3.6 (3.5-5.1) mmol/L Chloride 101 (98-107) mmol/L Carbon Dioxide 24 (21-32) mmol/L Anion Gap 8.0 (3-11) BUN 18 (7-18) mg/dl Creatinine 0.94 (0.6-1.4) mg/dl Est Cr Clr Drug Dosing 97.6 ml/min Est GFR ( Amer) 94.8 ml/min Est GFR (Non-Af Amer) 81.8 ml/min BUN/Creatinine Ratio 19.4 (10-20) Glucose 137 H (70-99) mg/dl Lactate (0.4-2.0) mmol/L Calcium 9.4 (8.5-10.1) mg/dl Magnesium 2.4 (1.8-2.4) mg/dl Total Bilirubin 1.3 H (0.2-1) mg/dl AST 37 (15-37) U/L ALT 46 (12-78) U/L Alkaline Phosphatase 52 (45-117) U/L Troponin I < 0.015 (0-0.045) ng/ml Total Protein 8.1 (6.4-8.2) gm/dl Albumin 4.0 (3.4-5.0) gm/dl Globulin 4.1 H (2.5-4.0) gm/dl Albumin/Globulin Ratio 1.0 (0.9-2) Procalcitonin (0-0.5) ng/ml 01/08/21 01/08/21 Range/Units 18:22 18:22 WBC (4.8-10.8) K/uL RBC (4.7-6.1) M/uL Hgb (14.0-18.0) g/dL Hct (42-52) % MCV (80-100) fL MCH (25-34) pg MCHC (32-36) g/dL RDW Std Deviation (36.4-46.3) fL RDW Coeff of Roxie (11.5-14.5) % Plt Count (130-400) K/uL MPV (7.4-10.4) fL Immature Gran % (Auto) % Neut % (Auto) % Lymph % (Auto) % [place] % (Auto) % Eos % (Auto) % Baso % (Auto) % Neut # (Auto) (1.4-6.5) K/uL Lymph # (Auto) (1.2-3.4) K/uL [place] # (Auto) (0.11-0.59) K/uL Eos # (Auto) (0-0.5) K/uL Baso # (Auto) (0-0.2) K/uL Immature Gran # (Auto) (0.00-0.02) K/uL Platelet Estimate (Normal) Polychromasia PT (9.0-12.0) Seconds INR (0.9-1.1) APTT (21.0-31.0) Seconds PTT Ratio Sodium (136-145) mmol/L Potassium (3.5-5.1) mmol/L Chloride (98-107) mmol/L Carbon Dioxide (21-32) mmol/L Anion Gap (3-11) BUN (7-18) mg/dl Creatinine (0.6-1.4) mg/dl Est Cr Clr Drug Dosing ml/min Est GFR ( Amer) ml/min Est GFR (Non-Af Amer) ml/min BUN/Creatinine Ratio (10-20) Glucose (70-99) mg/dl Lactate 1.3 (0.4-2.0) mmol/L Calcium (8.5-10.1) mg/dl Magnesium (1.8-2.4) mg/dl Total Bilirubin (0.2-1) mg/dl AST (15-37) U/L ALT (12-78) U/L Alkaline Phosphatase (45-117) U/L Troponin I (0-0.045) ng/ml Total Protein (6.4-8.2) gm/dl Albumin (3.4-5.0) gm/dl Globulin (2.5-4.0) gm/dl Albumin/Globulin Ratio (0.9-2) Procalcitonin < 0.05 (0-0.5) ng/ml Imaging Data Radiologist's Impression: Chest X-Ray 01/08/21 14:36 XR chest 2V PA/lateral HISTORY: Shortness of breath. cough COMPARISON: None. FINDINGS: No pneumothorax. No pleural effusions. The cardiac silhouette is mildly enlarged. No evidence for pulmonary edema. The right lung appears clear. A few small linear scarlike densities within the left midlung zone. Otherwise, no focal lung consolidations to suggest pneumonia. No evidence for pulmonary edema. IMPRESSION: Mild cardiomegaly. Otherwise, no acute process within the chest. ACT 112: Negative or not required by law. Electronically signed by: Shahzad Amaya M.D. 01/08/2021 4:31 PM Chest CTA 01/08/21 18:16 CT angio chest PE protocol CLINICAL HISTORY: Cough and mild shortness of breath. Evaluate for pulmonary em bolus COMPARISON STUDY: Chest radiograph from 01/08/2021 CT DOSE: 587.53 mGy.cm TECHNIQUE: CT Angio of the chest was performed.followed by image post processing with coronal, and sagittal MIP reformats. Contrast Volume: Optiray 320, 119 ml FINDINGS: Vasculature: There is homogeneous perfusion of the pulmonary vasculature bilaterally. No intraluminal filling defects or evidence for pulmonary embolus is seen. Airway: The airway is clear. No endobronchial lesion is identified. Lungs: Patchy groundglass opacities are present throughout both lungs characteristic of a viral type pneumonitis and early Covid 19 pneumonia. The lungs are otherwise clear of confluent alveolar opacities, air bronchograms or pulmonary nodules. Pleura: There is no evidence for pleural effusion. There is no evidence for pneumothorax. Mediastinum: There is no evidence for pathologic adenopathy. The heart size is within normal limits. The thoracic aorta is within normal limits. There is no evidence for pericardial effusion. Upper abdomen:The adrenal glands are normal bilaterally. Osseous structures: There is no acute osseous pathology. Impression: 1. No CTA evidence for pulmonary embolus. 2. Patchy groundglass opacities are present throughout both lungs characteristic of a viral type pneumonitis and early Covid 19 pneumonia. ACT 112: Negative or not required by law. Electronically signed by: Pablo Bonner M.D. 01/08/2021 7:53 PM ECG Data Indication: + SOB/dyspnea Rate (beats per minute): 92 Rhythm: + normal sinus ECG Intervals/blocks: + Normal QRS, + Normal VA and + Normal QT-c ECG ST segments: + Normal ST segments ECG Findings: + PVCs MDM Narrative Patient became hypoxic on ambulation to the restroom. Patient was placed on supplemental oxygen which improved his oxygen saturation. Patient was treated with Decadron 6 mg IV push. CTA shows no PE. Labs within normal limits. Imaging does show Covid pneumonia. Patient will be admitted for Covid pneumonia and hypoxia discussed the case with [facility] hospitalist Dr. Shane who will evaluate the patient. Impression & Plan Hypoxia, Pneumonia due to Discharge Plan Visit Data Chief Complaint: Illness Stated Complaint: ILLNESS, SOB ED Provider: Rustam Coleman Discharge Problem: Hypoxia, Pneumonia due to V Patient Disposition: Admitted As Inpatient Forms Stand Alone Forms: [facility] Prescriptions Prescriptions: No Action amlodipine 10 mg tablet 10 mg PO DAILY RF: 0 multivitamin Tablet 1 tab PO DAILY RF: 0 hydrochlorothiazide 12.5 mg capsule 12.5 mg PO DAILY RF: 0 aspirin 81 mg Tablet,Chewable 81 mg PO DAILY RF: 0 mupirocin 2 % Ointment 1 applic TOPICAL BID PRN (Reason: apply to nares) RF: 0 albuterol sulfate 90 mcg/actuation HFA aerosol inhaler 2 puff INHALATION Q4 PRN (Reason: Shortness Of Breath) RF: 0 losartan [Cozaar] 100 mg tablet 100 mg PO DAILY RF: 0 fluticasone propionate [Flonase Allergy Relief] 50 mcg/actuation spray,suspension 2 spray INTRANASAL DAILY PRN (Reason: Nasal Congestion) RF: 0 Breo Ellipta 100-25 mcg/dose blister with device 1 ea INHALATION DAILY RF: 0 turmeric 400 mg Capsule 400 mg PO DAILY RF: 0 metformin 500 mg tablet 500 mg PO BID RF: 0 tamsulosin 0.4 mg capsule 0.4 mg PO UD RF: 0 [place] 3 Fish Oil Concentrate Capsule 1,000 mg PO DAILY RF: 0 Probiotic 3 billion cell Capsule 3,000 mmu cells PO DAILY RF: 0 Referrals Referrals: Adriel Lopez MD [Outside Practitioners] -
[2021-01-08] MEDS ORDERED: OPTIRAY 320 125ml IV ONE (19:36)
[2021-01-08 19:50] LABS: Basophils # (auto) 0.01 K/uL (0-0.2); Basophils % (auto) 0.1 %; Hematocrit (blood only) 39.4 % (42-52); Hemoglobin 13.7 g/dL (14.0-18.0); Immature Granulocytes # (auto) 0.03 K/uL (0.00-0.02); Immature Granulocytes % (auto) 0.3 %; Lymphocytes # (auto) 3.77 K/uL (1.2-3.4); Lymphocytes % (auto) 38.4 %; Mean Corpuscular Hgb Conc 34.8 g/dL (32-36); Mean Corpuscular Volume 97.8 fL (80-100); Mean Platelet Volume 11.1 fL (7.4-10.4); Monocytes # (auto) 0.36 K/uL (0.11-0.59); Monocytes % (auto) 3.7 %; Neutrophils # (auto) 5.66 K/uL (1.4-6.5); Neutrophils % (auto) 57.5 %; Platelet Count 91 K/uL (130-400); Platelet Estimate Decreased (Normal); Polychromasia 1+; RDW Coefficient of Variation 12.8 % (11.5-14.5); RDW Standard Deviation 45.7 fL (36.4-46.3); Red Blood Count 4.03 M/uL (4.7-6.1); White Blood Count 9.83 K/uL (4.8-10.8)
--- NOTE | 2021-01-08 19:54 | CT Scan Report ---
CT angio chest PE protocol CLINICAL HISTORY: Cough and mild shortness of breath. Evaluate for pulmonary embolus COMPARISON STUDY: Chest radiograph from 01/08/2021 CT DOSE: 587.53 mGy.cm TECHNIQUE: CT Angio of the chest was performed.followed by image post processing with coronal, and s agittal MIP reformats. Contrast Volume: Optiray 320, 119 ml FINDINGS: Vasculature: There is homogeneous perfusion of the pulmonary vasculature bilaterally. No intraluminal filling defects or evidence for pulmonary embolus is seen. Airway: The airway is clear. No endobronchial lesion is identified. Lungs: Patchy groundglass opacities are present throughout both lungs characteristic of a viral type pneumonitis and early Covid 19 pneumonia. The lungs are otherwise clear of confluent alveolar opaciti es, air bronchograms or pulmonary nodules. Pleura: There is no evidence for pleural effusion. There is no evidence for pneumothorax. Mediastinum: There is no evidence for pathologic adenopathy. The heart size is within normal limits. The thoracic aorta is within normal limits. There is no evidence for pericardial effusion. Upper abdomen:The adrenal glands are normal bilaterally. Osseous structures: There is no acute osseous pathology. Impression: 1. No CTA evidence for pulmonary embolus. 2. Patchy groundglass opacities are present throughout both lungs characteristic of a viral type pneu monitis and early Covid 19 pneumonia. ACT 112: Negative or not required by law. Electronically signed by: Pablo Bonner M.D. 01/08/2021 7:53 PM
[2021-01-08] MEDS ORDERED: POTASSIUM CHLORIDE CRTAB 20 MEQ TABCR PO STA (20:29)
[2021-01-08] MEDS ORDERED: DOXYCYCLINE HYCLATE 100 MG in DEXTROSE 5% 100 ML IV STA (20:54)
[2021-01-08] MEDS ORDERED: REMDESIVIR 200 MG in SODIUM CHLORIDE 0.9% 210 ML IV STA (20:57)
[2021-01-08] MEDS ORDERED: INSULIN GLARGINE SOLOSTAR 100 UNITS/ML 3 ML PEN SC STA (21:06)
--- NOTE | 2021-01-08 21:47 | History & Physical Report ---
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 (Patient was counseled regarding potential adverse effects from Remdesivir therapy and provided with patient education sheet.) Doxycycline for superimposed bacterial infection. MDI RTC given expiratory wheezes Pulmonary consult if without improvement. Basal insulin, ISS BG goal 1 10-1 40, carb count coverage. DVT prophylaxis SCDs RE thrombocytopenia Full code Text document was generated using [employer] voice recognition software. It may contain grammatical or spelling errors. Kindly contact undersigned for clarification of any documentation item in question. History of Present Illness Chief Complaint: Cough, shortness of breath, COVID-19 Primary Care Provider: Leonel Wang DO History obtained from patient and records. Medical history significant for hypertension, hyperlipidemia, asthma, ARCELIA on CPAP, lung nodules/hilar adenopathy as per records, DM2 on oral medications, prostate cancer status post radiation, CLL, chronic anemia (baseline hemoglobin of 13), chronic thrombocytopenia. 3 days history of cough symptoms later productive of junky yellow sputum with worsening shortness of breath. No actual chest pain as per patient. Illness somewhat different from usual asthma attack. Sick COVID-19 contacts at home. Patient completed COVID-19 vaccination. Outpatient COVID-19 test from 2 days ago was positive. Patient directed to ER by PCP's office. Lowest O2 sats at the ER 89% on room air Patient given Decadron and neb treatment at the ER. 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 Allergies Allergy/AdvReac Type Severity Reaction Status Date / Time Sulfa (Sulfonamide Allergy Mild HIVES Verified 01/08/21 18:14 Antibiotics) clindamycin Allergy RED RASH, Verified 01/08/21 18:14 ITCHY STACIE Inhibitors AdvReac Unknown cough Verified 01/08/21 18:14 metoprolol AdvReac Cough Verified 01/08/21 18:14 mometasone furoate AdvReac sore throat Verified 01/08/21 18:14 [From [facility]] Home Medications Medication Instructions Recorded Confirmed Type albuterol sulfate 90 mcg/actuation 2 puff INHALATION Q4 PRN 08/10/19 01/08/21 History aerosol inhaler aspirin 81 mg chewable tablet 81 mg PO DAILY 08/10/19 01/08/21 History fluticasone furoate 100 1 ea INHALATION DAILY 08/10/19 01/08/21 History mcg-vilanterol 25 mcg/dose inhalation powder (Breo Ellipta) fluticasone propionate 50 2 spray INTRANASAL DAILY PRN 08/10/19 01/08/21 History mcg/actuation nasal spray,suspension (Flonase Allergy Relief) hydrochlorothiazide 12.5 mg capsule 12.5 mg PO DAILY 08/10/19 01/08/21 History losartan 100 mg tablet (Cozaar) 100 mg PO DAILY 08/10/19 01/08/21 History multivitamin 1 tab PO DAILY 08/10/19 01/08/21 History mupirocin 2 % topical ointment 1 applic TOPICAL BID PRN 08/10/19 01/08/21 History turmeric 400 mg capsule 400 mg PO DAILY 08/10/19 01/08/21 History amlodipine 10 mg tablet 10 mg PO DAILY 09/18/19 01/08/21 History lactobacillus combination no.4 3 3,000 mmu cells PO DAILY 01/08/21 01/08/21 History billion cell capsule (Probiotic) metformin 500 mg tablet 500 mg PO BID 01/08/21 01/08/21 History omega-3 fatty acids 1,000 mg PO DAILY 01/08/21 01/08/21 History tamsulosin 0.4 mg capsule 0.4 mg PO UD 01/08/21 01/08/21 History Past Med/Surg History Medical History (Updated 01/09/21 @ 05:08 by Carlos Allen MD) Asthma CLL (chronic lymphocytic leukemia) Prostate cancer Status post brachytherapy 2008 Type 2 diabetes mellitus Surgical History H/O prostatectomy Hx of spinal fusion Family History Mother Diabetes Heart disease Hypertension Social History Smoking Status: Never smoker Hx Alcohol Use: Yes Hx Substance Use: No Preferred Language: Lithuanian Visual Impairment: No Limitations Hearing Ability: Normal Beliefs That Will Affect Care: None marital status: Current Living Situation: Spouse current occupational status: retired Feels Safe at Home: Yes Review of Systems Review of Systems: As per HPI, all 10 systems reviewed, all other ROS negative Physical Exam Physical Exam: GENERAL: Slightly uncomfortable, pleasant, obese, no respiratory distress SKIN: Normal color, warm HEENT: Partial alopecia, bespectacled, [place] palpebral conjunctivae, no ptosis, dry buccal mucosa, nasal cannula in place NECK : Supple, no tenderness CHEST : Decreased breath sounds, occasional expiratory wheezes, no tenderness HEART : RRR, no obvious murmurs ABDOMEN: Some distention, nontender EXTREMITIES : No LE swelling/tenderness, no other conspicuous deformities noted NEUROLOGIC : Coherent, no facial asymmetry, no other gross focality Results & Data Results & Data ([facility]) Vital Signs (Past 12 Hours) Vital Signs Temp Pulse Pulse Resp BP BP Pulse Ox 01/08/21 21:00 95 H 20 156/90 H 97 01/08/21 20:00 94 H 20 168/73 H 96 01/08/21 19:15 100 H 17 168/73 H 94 01/08/21 18:42 89 L 01/08/21 18:41 105 H 16 97 01/08/21 18:06 96 01/08/21 14:31 36.4 C L 85 20 140/74 96 Laboratory Results Laboratory Results WBC 9.83 K/uL (4.8-10.8) 01/08/21 18:22 RBC 4.03 M/uL (4.7-6.1) L 01/08/21 18:22 Hgb 13.7 g/dL (14.0-18.0) L 01/08/21 18:22 Hct 39.4 % (42-52) L 01/08/21 18:22 MCV 97.8 fL (80-100) 01/08/21 18:22 MCH 34.0 pg (25-34) 01/08/21 18: MCHC 34.8 g/dL (32-36) 01/08/21 18: RDW Std Deviation 45.7 fL (36.4-46.3) 01/08/21 18: RDW Coeff of Roxie 12.8 % (11.5-14.5) 01/08/21 18: Plt Count 91 K/uL (130-400) L 01/08/21 18: MPV 11.1 fL (7.4-10.4) H 01/08/21 18: Immature Gran % (Auto) 0.3 % 01/08/21 18: Neut % (Auto) 57.5 % 01/08/21 18: Lymph % (Auto) 38.4 % 01/08/21 18: [place] % (Auto) 3.7 % 01/08/21 18: Eos % (Auto) 0.0 % 01/08/21 18: Baso % (Auto) 0.1 % 01/08/21 18: Neut # (Auto) 5.66 K/uL (1.4-6.5) 01/08/21 18: Lymph # (Auto) 3.77 K/uL (1.2-3.4) H 01/08/21 18: [place] # (Auto) 0.36 K/uL (0.11-0.59) 01/08/21 18: Eos # (Auto) 0.00 K/uL (0-0.5) 01/08/21 18: Baso # (Auto) 0.01 K/uL (0-0.2) 01/08/21 18: Immature Gran # (Auto) 0.03 K/uL (0.00-0.02) H 01/08/21 18: Platelet Estimate Decreased (Normal) L 01/08/21 18: Polychromasia 1+ 01/08/21 18: PT 10.3 Seconds (9.0-12.0) 01/08/21 18: INR 1.0 (0.9-1.1) 01/08/21 18: APTT 25.9 Seconds (21.0-31.0) 01/08/21 18:22 PTT Ratio 1.0 01/08/21 18:22 Sodium 133 mmol/L (136-145) L 01/08/21 18:22 Potassium 3.6 mmol/L (3.5-5.1) 01/08/21 18:22 Chloride 101 mmol/L (98-107) 01/08/21 18:22 Carbon Dioxide 24 mmol/L (21-32) 01/08/21 18:22 Anion Gap 8.0 (3-11) 01/08/21 18:22 BUN 18 mg/dl (7-18) 01/08/21 18:22 Creatinine 0.94 mg/dl (0.6-1.4) 01/08/21 18: Est Cr Clr Drug Dosing 97.6 ml/min 01/08/21 18:22 Est GFR ( Amer) 94.8 ml/min 01/08/21 18:22 Est GFR (Non-Af Amer) 81.8 ml/min 01/08/21 18:22 BUN/Creatinine Ratio 19.4 (10-20) 01/08/21 18:22 Glucose 137 mg/dl (70-99) H 01/08/21 18:22 Lactate 1.3 mmol/L (0.4-2.0) 01/08/21 18: Calcium 9.4 mg/dl (8.5-10.1) 01/08/21 18: Magnesium 2.4 mg/dl (1.8-2.4) 01/08/21 18:22 Total Bilirubin 1.3 mg/dl (0.2-1) H 01/08/21 18:22 AST 37 U/L (15-37) 01/08/21 18:22 ALT 46 U/L (12-78) 01/08/21 18:22 Alkaline Phosphatase 52 U/L (45-117) 01/08/21 18:22 Troponin I < 0.015 ng/ml (0-0.045) 01/08/21 18:22 Total Protein 8.1 gm/dl (6.4-8.2) 01/08/21 18:22 Albumin 4.0 gm/dl (3.4-5.0) 01/08/21 18:22 Globulin 4.1 gm/dl (2.5-4.0) H 01/08/21 18:22 Albumin/Globulin Ratio 1.0 (0.9-2) 01/08/21 18:22 Procalcitonin < 0.05 ng/ml (0-0.5) 01/08/21 18:22 SARS-CoV-2 RNA ([facility]) Cancelled 01/08/21 14:35 Impressions Chest X-Ray 01/08/21 14:36 XR chest 2V PA/lateral HISTORY: Shortness of breath. cough COMPARISON: None. FINDINGS: No pneumothorax. No pleural effusions. The cardiac silhouette is mildly enlarged. No evidence for pulmonary edema. The right lung appears clear. A few small linear scarlike densities within the left midlung zone. Otherwise, no focal lung consolidations to suggest pneumonia. No evidence for pulmonary edema. IMPRESSION: Mild cardiomegaly. Otherwise, no acute process within the chest. ACT 112: Negative or not required by law. Electronically signed by: Shahzad Amaya M.D. 01/08/2021 4:31 PM Chest CTA 01/08/21 18:16 CT angio chest PE protocol CLINICAL HISTORY: Cough and mild shortness of breath. Evaluate for pulmonary embolus COMPARISON STUDY: Chest radiograph from 01/08/2021 CT DOSE: 587.53 mGy.cm TECHNIQUE: CT Angio of the chest was performed.followed by image post pro cessing with coronal, and sagittal MIP reformats. Contrast Volume: Optiray 320, 119 ml FINDINGS: Vasculature: There is homogeneous perfusion of the pulmonary vasculature bilaterally. No intraluminal filling defects or evidence for pulmonary embolus is seen. Airway: The airway is clear. No endobronchial lesion is identified. Lungs: Patchy groundglass opacities are present throughout both lungs characteristic of a viral type pneumonitis and early Covid 19 pneumonia. The lungs are otherwise clear of confluent alveolar opacities, air bronchograms or pulmonary nodules. Pleura: There is no evidence for pleural effusion. There is no evidence for pneumothorax. Mediastinum: There is no evidence for pathologic adenopathy. The heart size is within normal limits. The thoracic aorta is within normal limits. There is no evidence for pericardial effusion. Upper abdomen:The adrenal glands are normal bilaterally. Osseous structures: There is no acute osseous pathology. Impression: 1. No CTA evidence for pulmonary embolus. 2. Patchy groundglass opacities are present throughout both lungs characteristic of a viral type pneumonitis and early Covid 19 pneumonia. ACT 112: Negative or not required by law. Electronically signed by: Pablo Bonner M.D. 01/08/2021 7:53 PM Diagnostic Findings EKG as per my interpretation rate 90, NSR, normal axis, no ischemia, PVCs Code Status & VTE Plan VTE Prophylaxis Plan VTE Prophylaxis will be ordered: Yes
[2021-01-08] MEDS ORDERED: SODIUM CHLORIDE 0.9% 10ML FLUSH IV ONE (22:00)
[2021-01-08 22:08] LABS: Influenza A virus by PCR Negative (Neg); Influenza B virus by PCR Negative (Neg); RSV by PCR Negative (Neg)
[2021-01-08] MEDS: TAMSULOSIN HCL 0.4 MG CAP PO SCH (22:13)
[2021-01-08 22:16] LABS: SARS CoV2 RNA(COVID-19) InHosp POSITIVE (Negative)
[2021-01-08 23:21] LABS: Appearance Urine Clear (Clear); Bacteria Urine Automated Negative (Negative); Bilirubin Urine Negative (Negative); Blood Urine 3+ (Negative); Cast Urine Automated 0 /lpf (0-5); Color Urine Yellow; Epithelial Cell Urine Auto 0-5 /lpf (0-5); Glucose Urine UA Negative (Negative); Ketones Urine 3+ (Negative); Leukocyte Esterase Urine Negative (Negative); Nitrite Urine Negative (Negative); Protein Urine Trace (Negative); Specific Gravity Urine > 1.045 (1.000-1.030); Urobilinogen Urine Negative (Negative)
[2021-01-09] MEDS ORDERED: DEXTROSE 50% 50 ML SYRINGE IV PRN (00:20)
[2021-01-09] MEDS ORDERED: GLUCAGON FOR INJ 1 MG VIAL SQ PRN (00:20)
[2021-01-09] MEDS ORDERED: GLUCOSE 10 TABS/TUBE PO PRN (00:20)
[2021-01-09] MEDS ORDERED: CARBOHYDRATES FOR HYPOGLYCEMIA PO PRN (00:20)
[2021-01-09] MEDS ORDERED: PROMETHAZINE HCL 12.5 MG in SODIUM CHLORIDE 0.9% 50 ML IV PRN (00:20)
[2021-01-09] MEDS ORDERED: GLUCOSE 40% GEL 15 GM TUBE PO PRN (00:20)
[2021-01-09] MEDS: SODIUM CHLORIDE 0.9% 10ML FLUSH IV SCH ×2 (00:37→22:15)
[2021-01-09] MEDS: LEVALBUTEROL TARTRATE 15 GM HFA.AER.AD INH SCH ×2 (01:31→08:18)
[2021-01-09] MEDS: INSULIN ASPART 100 UNITS/ML 3 ML PEN SC SCH ×6 (02:55→21:49)
[2021-01-09 06:56] LABS: Hematocrit (blood only) 37.4 % (42-52); Hemoglobin 12.7 g/dL (14.0-18.0); Mean Corpuscular Hemoglobin 33.2 pg (25-34); Mean Corpuscular Volume 97.7 fL (80-100); Mean Platelet Volume 11.2 fL (7.4-10.4); Platelet Count 91 K/uL (130-400); RDW Coefficient of Variation 12.9 % (11.5-14.5); RDW Standard Deviation 45.9 fL (36.4-46.3); Red Blood Count 3.83 M/uL (4.7-6.1); White Blood Count 11.47 K/uL (4.8-10.8)
[2021-01-09 07:27] LABS: Basophils # (auto) 0.01 K/uL (0-0.2); Basophils % (auto) 0.1 %; Immature Granulocytes # (auto) 0.04 K/uL (0.00-0.02); Immature Granulocytes % (auto) 0.3 %; Lymphocytes # (auto) 5.14 K/uL (1.2-3.4); Lymphocytes % (auto) 44.8 %; Monocytes # (auto) 0.21 K/uL (0.11-0.59); Monocytes % (auto) 1.8 %; Neutrophils # (auto) 6.07 K/uL (1.4-6.5)
[2021-01-09 07:36] LABS: Albumin Level 3.4 gm/dl (3.4-5.0); BUN Creatinine Ratio 21.9 (10-20); Creatinine Clr Calc Pharmacy 110.5 ml/min; Est GFR (African American) 103.3 ml/min; Est GFR (Non-African American) 89.2 ml/min
[2021-01-09] MEDS: amLODIPine BESYLATE 5 MG TAB PO SCH (07:54)
[2021-01-09] MEDS: LOSARTAN POTASSIUM 50 MG TAB PO SCH (07:55)
[2021-01-09] MEDS: ADVANCED PROBIOTIC 1250 MG CAPSULE PO SCH (07:55)
[2021-01-09] MEDS: ASPIRIN 81 MG ECTAB PO SCH (07:55)
[2021-01-09] MEDS: MULTIVITAMIN TAB PO SCH (07:56)
[2021-01-09] MEDS: OMEGA-3 (PURIFIED FISH OIL) 1 GM CAP PO SCH (07:56)
[2021-01-09] MEDS: DOXYCYCLINE HYCLATE 100 MG CAP PO SCH ×2 (07:57→21:49)
[2021-01-09 08:15] LABS: Albumin Globulin Ratio 0.9 (0.9-2); Bilirubin,Total 0.7 mg/dl (0.2-1); C Reactive Protein 13.4 mg/dl (0-0.29); Globulin 3.9 gm/dl (2.5-4.0); Total Protein 7.3 gm/dl (6.4-8.2)
[2021-01-09] MEDS: dexAMETHasone 6 MG in SYRINGE 0 ML IV SCH (08:17)
[2021-01-09] MEDS: FLUTICASONE/VILANTEROL 100/25MCG 14 PUFFS/INHALER INH SCH (08:19)
[2021-01-09] MEDS ORDERED: INSULIN GLARGINE SOLOSTAR 100 UNITS/ML 3 ML PEN SC SCH (09:00)
[2021-01-09] MEDS ORDERED: PHARMACY GLYCEMIC MGMT CONSULT PRN (10:08)
[2021-01-09] MEDS ORDERED: INSULIN HUMAN NPH SC ONE (10:30)
[2021-01-09] MEDS ORDERED: INSULIN ASPART 100 UNITS/ML 3 ML PEN SC ONE (10:30)
--- NOTE | 2021-01-09 15:08 | Pharmacy Report ---
Pharmacy Glycemic Short Note 2 - Date of Service January 09, 2021 - Glycemic Short BSG Results (Last 24 hours): 01/08/21 01/09/21 01/09/21 18:22 03:24 06:29 Glucose 137 H 180 H POC Glucose 196 H 01/09/21 01/09/21 07:53 11:42 Glucose POC Glucose 192 H 158 H OUTPATIENT ANTIDIABETIC REGIMEN: * metformin 500mg PO BID * A1c = ? ASSESSMENT: * Type 2 diabetic admitted with COVID viral pna * He is managed with metformin monotherapy as outpt. Level of glycemic control with this therapy unclear. Will check A1c * Only mild hyperglycemia observed thus far despite receipt of IV dexamethasone. * Plan to increase current basal insulin order to "low" stress Lantus dosing based upon weight. May transition to NPH if pt later exhibits post-prandial hyperglycemia following steroid provision * Plan to continue Novolog CF / CR doses based upon weight and "severe" stress level PLAN FOR INPATIENT GLYCEMIC CONTROL: * Check A1c * Hold outpatient oral diabetes medications (metformin) * Basal insulin * Lantus 5 units SQ x 1 given this AM. Give additional 10 units x 1 w/ dinner. Then begin 15 units Q AM on 01/10 * Bolus insulin * NovoLog per scale ACHS or Q6hrs while NPO * Goal Range: Low 110 mg/dL - High 140 mg/dL * Correction Factor: 15 mg/dL/unit * Nutritional / Prandial insulin per carb ratio of 1 unit per 5 grams CHO consumed PLAN FOR DISCHARGE: * to be determined
[2021-01-09] MEDS ORDERED: FUROSEMIDE INJ 20 MG/2 ML VIAL IV ONE (16:07)
--- NOTE | 2021-01-09 16:12 | Hospitalist Progress Note ---
Date of Service January 09, 2021 Assessment & Plan (1) Acute hypoxemic respiratory failure: Plan: Acute respiratory failure with hypoxia COVID-19 pneumonia --CTA:Patchy groundglass opacities are present throughout both lungs characteristic of a viral type pneumonitis and early Covid 19 pneumonia. 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 DM II Hold oral medications HbA1c 6.8 Continue insulin therapy while hospitalized Monitor BGs Prostate cancer S/P radiation CLL Follows with [facility] Oncology Anemia of chronic disease 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 Monitor CBC Microscopic hematuria History of prostate cancer Follow-up with urology as outpatient unless develops gross hematuria We will recheck urinalysis tomorrow DVT Px: SCDs RE thrombocytopenia, Microscopic hematuria Code Status Full code Admission and Anticipated Discharge Date Admission Date: January 08, 2021 Subjective Patient is seen and examined bedside Dyspnea better since time of admission Still has productive cough Denies any chest pain, dizziness, nausea, abdominal pain, diarrhea Currently on 2 L supplemental oxygen Offers no other complaints Review of Systems Review of Systems: All systems reviewed & are unremarkable except as noted in Subjective Physical Exam Physical Exam: Physical Exam: Vitals signs as noted above General Appearance:Moderately built and nourished, no apparent distress Head: normocephalic, Atraumatic Eyes: normal inspection, EOMI Neck: supple, Trachea midline Respiratory/Chest: Decreased breath sounds, scattered wheezes and crackles at bases Cardiovascular: S1, S2, No murmur Abdomen/GI:Soft, Non tender, Bowel sounds present Extremities/Musculoskeletal:normal inspection, no edema Neurologic/Psych:AAOX3, grossly no focal neurological deficits Skin: normal color, warm Results & Data Results & Data ([facility]) Vital Signs (Past 12 Hours) Vital Signs Pulse Resp BP Pulse Ox 01/09/21 15:24 86 20 94 01/09/21 11:52 93 H 20 138/75 96 01/09/21 09:32 87 18 145/81 H 93 01/09/21 09:18 86 20 145/81 H 95 01/09/21 06:00 83 17 156/83 H 97 Laboratory Results Short CBC 01/08/21 01/09/21 Range/Units 18:22 06:29 WBC 9.83 11.47 H (4.8-10.8) K/uL Hgb 13.7 L 12.7 L (14.0-18.0) g/dL Hct 39.4 L 37.4 L (42-52) % Plt Count 91 L 91 L (130-400) K/uL BMP 01/08/21 01/09/21 18:22 06:29 Sodium 133 L 135 L Potassium 3.6 4.0 Chloride 101 106 Carbon Dioxide 24 22 BUN 18 18 Creatinine 0.94 0.83 Glucose 137 H 180 H Calcium 9.4 9.0 Cardiac Enzymes 01/08/21 Range/Units 18:22 Troponin I < 0.015 (0-0.045) ng/ml Liver Function 01/08/21 01/09/21 Range/Units 18:22 06:29 Total Bilirubin 1.3 H 0.7 D (0.2-1) mg/dl AST 37 35 (15-37) U/L ALT 46 45 (12-78) U/L Alkaline Phosphatase 52 45 (45-117) U/L Albumin 4.0 3.4 (3.4-5.0) gm/dl Urine 01/08/21 Range/Units 22:25 Urine Color Yellow Urine Appearance Clear (Clear) Urine pH 5.0 (4.5-7.5) Ur Specific [place] > 1.045 H (1.000-1.030) Urine Protein Trace H (Negative) Urine Glucose (UA) Negative (Negative)
[2021-01-09] MEDS ORDERED: INSULIN GLARGINE SOLOSTAR 100 UNITS/ML 3 ML PEN SC ONE (16:30)
[2021-01-09] MEDS: REMDESIVIR 100 MG in SODIUM CHLORIDE 0.9% 230 ML IV SCH (20:36)
[2021-01-09] MEDS: TAMSULOSIN HCL 0.4 MG CAP PO SCH (21:51)
[2021-01-10 06:12] LABS: Hematocrit (blood only) 37.2 % (42-52); Hemoglobin 12.5 g/dL (14.0-18.0); Mean Corpuscular Hemoglobin 33.2 pg (25-34); Mean Corpuscular Hgb Conc 33.6 g/dL (32-36); Mean Corpuscular Volume 98.7 fL (80-100); RDW Coefficient of Variation 13.2 % (11.5-14.5); RDW Standard Deviation 47.6 fL (36.4-46.3); Red Blood Count 3.77 M/uL (4.7-6.1); White Blood Count 16.12 K/uL (4.8-10.8)
[2021-01-10 06:33] LABS: Mean Platelet Volume 10.5 fL (7.4-10.4); Platelet Count 95 K/uL (130-400)
[2021-01-10 06:51] LABS: Albumin Level 3.2 gm/dl (3.4-5.0); BUN Creatinine Ratio 37.5 (10-20); Calcium 8.7 mg/dl (8.5-10.1); Creatinine Clr Calc Pharmacy 97.6 ml/min; Est GFR (African American) 94.8 ml/min; Est GFR (Non-African American) 81.8 ml/min; Potassium 3.8 mmol/L (3.5-5.1)
[2021-01-10 06:54] LABS: Albumin Globulin Ratio 0.9 (0.9-2); Bilirubin,Total 0.4 mg/dl (0.2-1); C Reactive Protein 6.48 mg/dl (0-0.29); Globulin 3.6 gm/dl (2.5-4.0); Total Protein 6.8 gm/dl (6.4-8.2)
[2021-01-10] MEDS: INSULIN ASPART 100 UNITS/ML 3 ML PEN SC SCH ×4 (07:49→21:36)
[2021-01-10 07:57] LABS: Estimated Average Glucose 143 mg/dl; Hemoglobin A1C 6.6 % (4.5-5.6)
[2021-01-10] MEDS: INSULIN HUMAN NPH SC SCH (08:36)
[2021-01-10] MEDS: dexAMETHasone 6 MG in SYRINGE 0 ML IV SCH (08:52)
[2021-01-10] MEDS: DOXYCYCLINE HYCLATE 100 MG CAP PO SCH ×2 (08:53→21:07)
[2021-01-10] MEDS: amLODIPine BESYLATE 5 MG TAB PO SCH (08:55)
[2021-01-10] MEDS: MULTIVITAMIN TAB PO SCH (08:55)
[2021-01-10] MEDS: ASPIRIN 81 MG ECTAB PO SCH (08:55)
[2021-01-10] MEDS: OMEGA-3 (PURIFIED FISH OIL) 1 GM CAP PO SCH (08:56)
[2021-01-10] MEDS: LOSARTAN POTASSIUM 50 MG TAB PO SCH (08:56)
[2021-01-10] MEDS: ADVANCED PROBIOTIC 1250 MG CAPSULE PO SCH (08:56)
[2021-01-10] MEDS ORDERED: INSULIN GLARGINE SOLOSTAR 100 UNITS/ML 3 ML PEN SC SCH (09:00)
[2021-01-10] MEDS: FLUTICASONE/VILANTEROL 100/25MCG 14 PUFFS/INHALER INH SCH (10:47)
--- NOTE | 2021-01-10 12:41 | Pharmacy Report ---
Pharmacy Glycemic Short Note 2 - Date of Service January 10, 2021 - Glycemic Short BSG Results (Last 24 hours): 01/09/21 01/09/21 01/10/21 16:44 21:33 05:59 Glucose 116 H POC Glucose 127 H 105 H 01/10/21 01/10/21 09:49 11:50 Glucose POC Glucose 115 H 118 H OUTPATIENT ANTIDIABETIC REGIMEN: * metformin 500mg PO BID * A1c = 6.6% ASSESSMENT: 01/10 * BSGs well controlled over last 24 hrs * Fasting BSG 116 this AM w/ 15 units Lantus + 30 units NPH on board - will continue this combo today however will likely d/c Lantus tomorrow given new A1c results * Post-prandial BSGs well controlled with current Novolog doses. Given several post-prandial BSGs less than 140, will reduce NPH dose given in AM 01/09 * Type 2 diabetic admitted with COVID viral pna * He is managed with metformin monotherapy as outpt. Level of glycemic control with this therapy unclear. Will check A1c * Only mild hyperglycemia observed thus far despite receipt of IV dexamethasone. * Plan to increase current basal insulin order to "low" stress Lantus dosing based upon weight. May transition to NPH if pt later exhibits post-prandial hyperglycemia following steroid provision * Plan to continue Novolog CF / CR doses based upon weight and "severe" stress level PLAN FOR INPATIENT GLYCEMIC CONTROL: * Check A1c * Hold outpatient oral diabetes medications (metformin) * Basal insulin * Lantus 51 units SQ x 1 given this AM. Reevaluate need tomorrow AM * NPH 20 units SQ Q AM w/ IV dexamethasone * Bolus insulin * NovoLog per scale ACHS or Q6hrs while NPO * Goal Range: Low 110 mg/dL - High 140 mg/dL * Correction Factor: 15 mg/dL/unit * Nutritional / Prandial insulin per carb ratio of 1 unit per 5 grams CHO consumed PLAN FOR DISCHARGE: * to be determined
[2021-01-10] MEDS ORDERED: FUROSEMIDE 40 MG/4 ML VIAL IV ONE (17:30)
--- NOTE | 2021-01-10 18:08 | Hospitalist Progress Note ---
Date of Service January 10, 2021 Assessment & Plan (1) Acute hypoxemic respiratory failure: Plan: Acute respiratory failure with hypoxia COVID-19 pneumonia --CTA:Patchy groundglass opacities are present throughout both lungs characteristic of a viral type pneumonitis and early Covid 19 pneumonia. 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 DM II Hold oral medications HbA1c 6.8 Continue insulin therapy while hospitalized Monitor BGs Prostate cancer S/P radiation CLL Follows with [facility] Oncology Anemia of chronic disease 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 Monitor CBC Microscopic hematuria History of prostate cancer Follow-up with urology as outpatient unless develops gross hematuria No hematuria currently DVT Px: SCDs RE thrombocytopenia, Microscopic hematuria Code Status Full code Admission and Anticipated Discharge Date Admission Date: January 08, 2021 Subjective Patient is seen and examined bedside States feeling better today Less dyspnea and cough No new complaints Denies any chest pain, dizziness, nausea, abdominal pain, diarrhea Currently on 2 L supplemental oxygen Review of Systems Review of Systems: All systems reviewed & are unremarkable except as noted in Subjective Physical Exam Physical Exam: Physical Exam: Vitals signs as noted above General Appearance:Moderately built and nourished, no apparent distress Head: normocephalic, Atraumatic Eyes: normal inspection, EOMI Neck: supple, Trachea midline Respiratory/Chest: Decreased breath sounds, minimal crackles at bases Cardiovascular: S1, S2, No murmur Abdomen/GI:Soft, Non tender, Bowel sounds present Extremities/Musculoskeletal:normal inspection, no edema Neurologic/Psych:AAOX3, grossly no focal neurological deficits Skin: normal color, warm Results & Data Results & Data ([facility]) Vital Signs (Past 12 Hours) Vital Signs Pulse Pulse Resp BP BP Pulse Ox Pulse Ox 01/10/21 10:50 79 18 142/77 H 93 01/10/21 07:47 95 01/10/21 06:30 75 21 139/67 94 Laboratory Results Short CBC 01/10/21 Range/Units 05:59 WBC 16.12 H (4.8-10.8) K/uL Hgb 12.5 L (14.0-18.0) g/dL Hct 37.2 L (42-52) % Plt Count 95 L (130-400) K/uL BMP 01/10/21 05:59 Sodium 138 Potassium 3.8 Chloride 108 H Carbon Dioxide 24 BUN 35 H D Creatinine 0.94 Glucose 116 H Calcium 8.7 Liver Function 01/10/21 Range/Units 05:59 Total Bilirubin 0.4 (0.2-1) mg/dl AST 43 H (15-37) U/L ALT 49 (12-78) U/L Alkaline Phosphatase 43 L (45-117) U/L Albumin 3.2 L (3.4-5.0) gm/dl
[2021-01-10 18:45] LABS: Appearance Urine Clear (Clear); Bilirubin Urine Negative (Negative); Blood Urine Negative (Negative); Color Urine Yellow; Glucose Urine UA Negative (Negative); Ketones Urine Negative (Negative); Leukocyte Esterase Urine Negative (Negative); Nitrite Urine Negative (Negative); Protein Urine Negative (Negative); Specific Gravity Urine 1.019 (1.000-1.030); Urobilinogen Urine Negative (Negative); pH Urine 5.5 (4.5-7.5)
[2021-01-10] MEDS: REMDESIVIR 100 MG in SODIUM CHLORIDE 0.9% 230 ML IV SCH (20:03)
[2021-01-10] MEDS: TAMSULOSIN HCL 0.4 MG CAP PO SCH (21:07)
[2021-01-10] MEDS: SODIUM CHLORIDE 0.9% 10ML FLUSH IV SCH (21:48)
[2021-01-11] MEDS: dexAMETHasone 6 MG in SYRINGE 0 ML IV SCH (08:28)
[2021-01-11] MEDS: FLUTICASONE/VILANTEROL 100/25MCG 14 PUFFS/INHALER INH SCH (08:29)
[2021-01-11] MEDS: ASPIRIN 81 MG ECTAB PO SCH (08:30)
[2021-01-11] MEDS: MULTIVITAMIN TAB PO SCH (08:30)
[2021-01-11] MEDS: DOXYCYCLINE HYCLATE 100 MG CAP PO SCH ×2 (08:30→20:42)
[2021-01-11] MEDS: OMEGA-3 (PURIFIED FISH OIL) 1 GM CAP PO SCH (08:30)
[2021-01-11] MEDS: ADVANCED PROBIOTIC 1250 MG CAPSULE PO SCH (08:30)
[2021-01-11] MEDS: amLODIPine BESYLATE 5 MG TAB PO SCH (08:31)
[2021-01-11] MEDS: INSULIN ASPART 100 UNITS/ML 3 ML PEN SC SCH ×4 (08:34→20:38)
[2021-01-11] MEDS: INSULIN HUMAN NPH SC SCH (08:37)
[2021-01-11] MEDS: LOSARTAN POTASSIUM 50 MG TAB PO SCH (08:37)
[2021-01-11] MEDS: INSULIN GLARGINE SOLOSTAR 100 UNITS/ML 3 ML PEN SC SCH (09:50)
[2021-01-11 10:22] LABS: Hematocrit (blood only) 41.1 % (42-52); Hemoglobin 13.7 g/dL (14.0-18.0); Mean Corpuscular Hgb Conc 33.3 g/dL (32-36); Mean Platelet Volume 11.2 fL (7.4-10.4); Platelet Count 130 K/uL (130-400); RDW Coefficient of Variation 13.1 % (11.5-14.5); RDW Standard Deviation 47.4 fL (36.4-46.3); Red Blood Count 4.15 M/uL (4.7-6.1); White Blood Count 18.99 K/uL (4.8-10.8)
[2021-01-11 10:50] LABS: Albumin Level 3.6 gm/dl (3.4-5.0); BUN Creatinine Ratio 36.5 (10-20); Calcium 8.8 mg/dl (8.5-10.1); Creatinine Clr Calc Pharmacy 91.7 ml/min; Est GFR (Non-African American) 75.9 ml/min; Potassium 3.6 mmol/L (3.5-5.1)
[2021-01-11 10:53] LABS: Albumin Globulin Ratio 0.9 (0.9-2); Bilirubin,Total 0.6 mg/dl (0.2-1); Globulin 3.9 gm/dl (2.5-4.0); Total Protein 7.5 gm/dl (6.4-8.2)
--- NOTE | 2021-01-11 10:56 | Pharmacy Report ---
Pharmacy Glycemic Short Note 2 - Date of Service January 11, 2021 - Glycemic Short BSG Results (Last 24 hours): 01/10/21 01/10/21 01/10/21 11:50 18:36 21:05 Glucose POC Glucose 118 H 149 H 162 H 01/11/21 01/11/21 08:13 09:26 Glucose 213 H POC Glucose 105 H OUTPATIENT ANTIDIABETIC REGIMEN: * metformin 500mg PO BID * A1c = 6.6% ASSESSMENT: 01/11 * BSGs agin well controlled * Fasting BSG 105 this AM w/ 15 units Lantus and 20 units NPH given yesterday. Pt also received 2 units correctional insulin last night. Will titrate down Lantus today as we approach steady state with repeat insulin doses. * Post-prandial BSGs well controlled with current Novolog parameters - no change * Dexamethasone 6mg IV Q AM continues 01/10 * BSGs well controlled over last 24 hrs * Fasting BSG 116 this AM w/ 15 units Lantus + 30 units NPH on board - will continue this combo today however will likely d/c Lantus tomorrow given new A1c results * Post-prandial BSGs well controlled with current Novolog doses. Given several post-prandial BSGs less than 140, will reduce NPH dose given in AM 01/09 * Type 2 diabetic admitted with COVID viral pna * He is managed with metformin monotherapy as outpt. Level of glycemic control with this therapy unclear. Will check A1c * Only mild hyperglycemia observed thus far despite receipt of IV dexamethasone. * Plan to increase current basal insulin order to "low" stress Lantus dosing based upon weight. May transition to NPH if pt later exhibits post-prandial hyperglycemia following steroid provision * Plan to continue Novolog CF / CR doses based upon weight and "severe" stress level PLAN FOR INPATIENT GLYCEMIC CONTROL: * Check A1c * Hold outpatient oral diabetes medications (metformin) * Basal insulin * Lantus 10 units SQ Q AM * NPH 20 units SQ Q AM w/ IV dexamethasone * Bolus insulin * NovoLog per scale ACHS or Q6hrs while NPO * Goal Range: Low 110 mg/dL - High 140 mg/dL * Correction Factor: 15 mg/dL/unit * Nutritional / Prandial insulin per carb ratio of 1 unit per 5 grams CHO consumed * Reevaluate insulin doses if steroid dose changes or d/c'd PLAN FOR DISCHARGE: * to be determined
[2021-01-11] MEDS: POLYETHYLENE (MIRALAX) 17 GM PACK PO PRN (15:56)
[2021-01-11] MEDS: DOCUSATE SODIUM 100 MG CAP PO PRN (15:57)
[2021-01-11] MEDS ORDERED: FUROSEMIDE INJ 20 MG/2 ML VIAL IV SCH (16:16)
[2021-01-11] MEDS ORDERED: FUROSEMIDE INJ 20 MG/2 ML VIAL IV ONE (16:16)
--- NOTE | 2021-01-11 19:41 | Hospitalist Progress Note ---
Date of Service January 11, 2021 Assessment & Plan (1) Acute hypoxemic respiratory failure: Plan: Acute respiratory failure with hypoxia COVID-19 pneumonia --CTA:Patchy groundglass opacities are present throughout both lungs characteristic of a viral type pneumonitis and early Covid 19 pneumonia. 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 DM II Hold oral medications HbA1c 6.8 Continue insulin therapy while hospitalized Monitor BGs Prostate cancer S/P radiation CLL Follows with [facility] [place] Oncology Anemia of chronic disease 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 Monitor CBC Thrombocytopenia resolved H/O nephrolithiasis Microscopic hematuria History of prostate cancer Follow-up with urology as outpatient unless develops gross hematuria No hematuria currently DVT Px: SCDs Initially RE thrombocytopenia, Microscopic hematuria Trial on Heparin SQ Code Status Full code Admission and Anticipated Discharge Date Admission Date: January 08, 2021 Subjective Patient is seen and examined bedside Subjectively feels improving Less dyspnea today Still has some cough with expectoration Denies any chest pain, dizziness, nausea, abdominal pain, diarrhea Currently on 4 L supplemental oxygen Review of Systems Review of Systems: All systems reviewed & are unremarkable except as noted in Subjective Physical Exam Physical Exam: Physical Exam: Vitals signs as noted above General Appearance:Moderately built and nourished, no apparent distress Head: normocephalic, Atraumatic Eyes: normal inspection, EOMI Neck: supple, Trachea midline Respiratory/Chest: Decreased breath sounds, minimal crackles at bases Cardiovascular: S1, S2, No murmur Abdomen/GI:Soft, Non tender, Bowel sounds present Extremities/Musculoskeletal:normal inspection, no edema Neurologic/Psych:AAOX3, grossly no focal neurological deficits Skin: normal color, warm Results & Data Results & Data ([facility]) Vital Signs (Past 12 Hours) Vital Signs Temp Pulse Pulse Resp BP BP Pulse Ox 01/11/21 16:30 66 01/11/21 15:40 36.6 C 77 20 134/72 93 01/11/21 11:39 36.7 C 76 20 129/71 92 01/11/21 08:03 37.0 C 76 20 127/73 92 Laboratory Results Short CBC 01/11/21 Range/Units 09:26 WBC 18.99 H (4.8-10.8) K/uL Hgb 13.7 L (14.0-18.0) g/dL Hct 41.1 L (42-52) % Plt Count 130 (130-400) K/uL BMP 01/11/21 09:26 Sodium 138 Potassium 3.6 Chloride 104 Carbon Dioxide 26 BUN 37 H Creatinine 1.00 Glucose 213 H Calcium 8.8 Liver Function 01/11/21 Range/Units 09:26 Total Bilirubin 0.6 (0.2-1) mg/dl AST 51 H (15-37) U/L ALT 61 (12-78) Alkaline Phosphatase 50 (45-117) U/L Albumin 3.6 (3.4-5.0) gm/dl
[2021-01-11] MEDS: REMDESIVIR 100 MG in SODIUM CHLORIDE 0.9% 230 ML IV SCH (19:43)
[2021-01-11] MEDS: SODIUM CHLORIDE 0.9% 10ML FLUSH IV SCH (20:39)
[2021-01-11] MEDS: TAMSULOSIN HCL 0.4 MG CAP PO SCH (20:42)
[2021-01-11] MEDS: HEPARIN SOD 5,000 UNIT/0.5 ML VIAL SQ SCH (20:57)
--- NOTE | 2021-01-12 08:08 | XRay Report ---
XR chest 1V portable CLINICAL HISTORY: COVID COMPARISON STUDY: Chest radiograph and chest CT January 08, 2021. FINDINGS: There is no pneumothorax or pleural effusion. Cardiomegaly is unchanged. There is no eviden ce for pulmonary edema. Bilateral airspace opacities, greater on the left are again noted. Left basil ar opacity is slightly progressed. IMPRESSION: Slight progression of bilateral airspace opacities, greater within the left lung, consis tent with viral pneumonia. ACT 112: Negative or not required by law. Electronically signed by: Cyrus Green M.D. 01/12/2021 8:07 AM
[2021-01-12] MEDS: dexAMETHasone 6 MG in SYRINGE 0 ML IV SCH (09:01)
[2021-01-12] MEDS: amLODIPine BESYLATE 5 MG TAB PO SCH (09:02)
[2021-01-12] MEDS: ADVANCED PROBIOTIC 1250 MG CAPSULE PO SCH (09:02)
[2021-01-12] MEDS: OMEGA-3 (PURIFIED FISH OIL) 1 GM CAP PO SCH (09:02)
[2021-01-12] MEDS: MULTIVITAMIN TAB PO SCH (09:02)
[2021-01-12] MEDS: LOSARTAN POTASSIUM 50 MG TAB PO SCH (09:02)
[2021-01-12] MEDS: ASPIRIN 81 MG ECTAB PO SCH (09:02)
[2021-01-12] MEDS: DOXYCYCLINE HYCLATE 100 MG CAP PO SCH ×2 (09:02→19:53)
[2021-01-12] MEDS: FLUTICASONE/VILANTEROL 100/25MCG 14 PUFFS/INHALER INH SCH (09:03)
[2021-01-12] MEDS: INSULIN HUMAN NPH SC SCH (09:05)
[2021-01-12] MEDS: INSULIN GLARGINE SOLOSTAR 100 UNITS/ML 3 ML PEN SC SCH (09:05)
[2021-01-12] MEDS: INSULIN ASPART 100 UNITS/ML 3 ML PEN SC SCH ×4 (09:06→21:16)
[2021-01-12] MEDS: HEPARIN SOD 5,000 UNIT/0.5 ML VIAL SQ SCH ×2 (10:31→19:52)
[2021-01-12 11:33] LABS: Hematocrit (blood only) 40.5 % (42-52); Hemoglobin 13.5 g/dL (14.0-18.0); Mean Corpuscular Hgb Conc 33.3 g/dL (32-36); Mean Platelet Volume 10.9 fL (7.4-10.4); Platelet Count 140 K/uL (130-400); RDW Coefficient of Variation 12.9 % (11.5-14.5); RDW Standard Deviation 46.8 fL (36.4-46.3); Red Blood Count 4.09 M/uL (4.7-6.1)
[2021-01-12 11:56] LABS: Albumin Level 3.4 gm/dl (3.4-5.0); BUN Creatinine Ratio 39.5 (10-20); C Reactive Protein 2.89 mg/dl (0-0.29); Calcium 9.1 mg/dl (8.5-10.1); Creatinine Clr Calc Pharmacy 109.2 ml/min; Est GFR (African American) 102.8 ml/min; Est GFR (Non-African American) 88.7 ml/min; Potassium 3.4 mmol/L (3.5-5.1)
[2021-01-12 11:59] LABS: Albumin Globulin Ratio 0.8 (0.9-2); Bilirubin,Total 0.6 mg/dl (0.2-1); Total Protein 7.4 gm/dl (6.4-8.2)
[2021-01-12] MEDS ORDERED: POTASSIUM CHLORIDE CRTAB 20 MEQ TABCR PO ONE (13:24)
[2021-01-12] MEDS ORDERED: FUROSEMIDE INJ 20 MG/2 ML VIAL IV ONE (13:26)
[2021-01-12] MEDS: POLYETHYLENE (MIRALAX) 17 GM PACK PO PRN (14:26)
--- NOTE | 2021-01-12 15:38 | Hospitalist Progress Note ---
Date of Service January 12, 2021 Assessment & Plan (1) Acute hypoxemic respiratory failure: Plan: Acute respiratory failure with hypoxia COVID-19 pneumonia --CTA:Patchy groundglass opacities are present throughout both lungs characteristic of a viral type pneumonitis and early Covid 19 pneumonia. No PE -Had COVID Vaccination in May 2020 per patient H/O Asthma H/O ARCELIA on CPAP Procalcitonin 0.05 CRP 13.4> 6.48 Blood cultures: Negative to date -Continue remdesivir Day #5/5 Continue dexamethasone Also on doxycycline Lasix , Nebs as needed Continue home inhalers Currently on 4 L supplemental oxygen Encourage to prone on heparin SQ for DVT prophylaxis Continue current management Hypertension Continue amlodipine, losartan Also on tamsulosin ARCELIA on CPAP Lung nodules/hilar adenopathy as per records [place] [facility] [place] DM II Hold oral medications HbA1c 6.8 Continue insulin therapy while hospitalized Monitor BGs Prostate cancer S/P radiation CLL [place] [facility] [place] Anemia of chronic disease 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 Monitor CBC Thrombocytopenia resolved H/O nephrolithiasis Microscopic hematuria History of prostate cancer Follow-up with urology as outpatient unless develops gross hematuria No hematuria currently DVT Px: SCDs Initially RE thrombocytopenia, Microscopic hematuria Heparin SQ--monitor platelets, normal hemoglobin Code Status Full code Admission and Anticipated Discharge Date Admission Date: January 08, 2021 Subjective Patient is seen and examined bedside No new complaints Had small bowel movement Cough, dyspnea much improved Denies any chest pain, dizziness, nausea, abdominal pain, diarrhea Currently on 4 L supplemental oxygen Review of Systems Review of Systems: All systems reviewed & are unremarkable except as noted in Subjective Physical Exam Physical Exam: Physical Exam: Vitals signs as noted above General Appearance:Moderately built and nourished, no apparent distress Head: normocephalic, Atraumatic Eyes: normal inspection, EOMI Neck: supple, Trachea midline Respiratory/Chest: Decreased breath sounds, CTA Cardiovascular: S1, S2, No murmur Abdomen/GI:Soft, Non tender, Bowel sounds present Extremities/Musculoskeletal:normal inspection, no edema Neurologic/Psych:AAOX3, grossly no focal neurological deficits Skin: normal color, warm Results & Data Results & Data ([facility]) Vital Signs (Past 12 Hours) Vital Signs Temp Pulse Pulse Resp BP Pulse Ox 01/12/21 11:59 37.1 C 76 18 123/71 92 01/12/21 08:02 36.9 C 70 20 147/77 H 95 01/12/21 07:36 76 Laboratory Results Short CBC 01/12/21 Range/Units 10:02 WBC 16.20 H (4.8-10.8) K/uL Hgb 13.5 L (14.0-18.0) g/dL Hct 40.5 L (42-52) % Plt Count 140 (130-400) K/uL BMP 01/12/21 10:02 Sodium 140 Potassium 3.4 L Chloride 104 Carbon Dioxide 26 BUN 33 H Creatinine 0.84 Glucose 141 H Calcium 9.1 Liver Function 01/12/21 Range/Units 10:02 Total Bilirubin 0.6 (0.2-1) mg/dl AST 48 H (15-37) U/L ALT 66 (12-78) Alkaline Phosphatase 55 (45-117) U/L Albumin 3.4 (3.4-5.0) gm/dl
[2021-01-12] MEDS: SODIUM CHLORIDE 0.9% 10ML FLUSH IV SCH (19:52)
[2021-01-12] MEDS: REMDESIVIR 100 MG in SODIUM CHLORIDE 0.9% 230 ML IV SCH (19:52)
[2021-01-12] MEDS: TAMSULOSIN HCL 0.4 MG CAP PO SCH (19:53)
[2021-01-13] MEDS ORDERED: COUGH DROP (SUGAR FREE) LOZ 24 LOZ/1 BOX BUCCAL ONE (04:53)
[2021-01-13] MEDS: LEVALBUTEROL TARTRATE 15 GM HFA.AER.AD INH PRN (05:05)
[2021-01-13] MEDS ORDERED: ALBUT/IPRATROP 3MG/0.5MG NEB 3 ML VIAL NEB STA (05:27)
[2021-01-13] MEDS ORDERED: dexAMETHasone 6 MG in SYRINGE 0 ML IV SCH (05:30)
[2021-01-13] MEDS: FLUTICASONE PROPIONATE NA SPR 16 GM BTL PRN (05:35)
[2021-01-13 06:09] LABS: Allen Test Pos (Pos); Base Excess ABG 0.7 mEq/L (-9-1.8); HCO3 ABG 24 mmol/L (19-24); Oxygen Saturation ABG 90.4 % (90-95); PCO2 ABG 32 mmHg (35-46); PO2 ABG 56 mmHg (80-95); pH ABG 7.48 (7.35-7.45)
[2021-01-13 06:38] LABS: Albumin Globulin Ratio 0.8 (0.9-2); Albumin Level 3.1 gm/dl (3.4-5.0); Bilirubin,Total 0.8 mg/dl (0.2-1); Creatinine Clr Calc Pharmacy 125.7 ml/min; Est GFR (African American) 108.9 ml/min; Globulin 3.7 gm/dl (2.5-4.0); Magnesium 2.9 mg/dl (1.8-2.4); Potassium 3.9 mmol/L (3.5-5.1); Total Protein 6.8 gm/dl (6.4-8.2)
[2021-01-13 06:40] LABS: C Reactive Protein 3.51 mg/dl (0-0.29)
--- NOTE | 2021-01-13 07:20 | XRay Report ---
XR chest 1V portable CLINICAL HISTORY: low o2 COMPARISON STUDY: Chest CT January 08, 2021. Chest radiograph January 12, 2021. FINDINGS: Lung volumes are normal. There is no pneumothorax or pleural effusion. Bilateral airspace o pacities, greater within the left lung, persists. Appearance is similar to prior exam. Cardiomegaly i s unchanged. IMPRESSION: No significant change in bilateral airspace opacities suggestive of viral pneumonia. ACT 112: Negative or not required by law. Electronically signed by: yCrus Green M.D. 01/13/2021 7:19 AM
[2021-01-13] MEDS ORDERED: INSULIN HUMAN NPH SC SCH (08:30)
[2021-01-13] MEDS: amLODIPine BESYLATE 5 MG TAB PO SCH (09:09)
[2021-01-13] MEDS: ASPIRIN 81 MG ECTAB PO SCH (09:09)
[2021-01-13] MEDS: DOXYCYCLINE HYCLATE 100 MG CAP PO SCH ×2 (09:09→20:53)
[2021-01-13] MEDS: MULTIVITAMIN TAB PO SCH (09:09)
[2021-01-13] MEDS: ADVANCED PROBIOTIC 1250 MG CAPSULE PO SCH (09:09)
[2021-01-13] MEDS: LOSARTAN POTASSIUM 50 MG TAB PO SCH (09:09)
[2021-01-13] MEDS: OMEGA-3 (PURIFIED FISH OIL) 1 GM CAP PO SCH (09:09)
[2021-01-13] MEDS: HEPARIN SOD 5,000 UNIT/0.5 ML VIAL SQ SCH ×2 (09:10→20:52)
[2021-01-13] MEDS: FLUTICASONE/VILANTEROL 100/25MCG 14 PUFFS/INHALER INH SCH (09:10)
[2021-01-13] MEDS: INSULIN GLARGINE SOLOSTAR 100 UNITS/ML 3 ML PEN SC SCH (09:16)
[2021-01-13] MEDS: INSULIN ASPART 100 UNITS/ML 3 ML PEN SC SCH ×4 (09:20→20:52)
[2021-01-13] MEDS ORDERED: FUROSEMIDE INJ 20 MG/2 ML VIAL IV ONE (11:10)
--- NOTE | 2021-01-13 12:41 | Pharmacy Report ---
Pharmacy Glycemic Short Note 2 - Date of Service January 13, 2021 - Glycemic Short BSG Results (Last 24 hours): 01/12/21 01/12/21 01/13/21 16:29 20:04 05:41 Glucose 115 H POC Glucose 171 H 147 H 01/13/21 01/13/21 07:52 11:45 Glucose POC Glucose 127 H 289 H OUTPATIENT ANTIDIABETIC REGIMEN: * Metformin 500 mg PO BIDM * HbA1c = 6.6% (01/10/21) ASSESSMENT: 01/13: * Abbe received a total of 63 units of insulin yesterday (10 units Lantus + 20 units NPH + 33 units bolus) * BSGs were acceptable: 25-240-327-147 mg/dL * Fasting BSG was 127 mg/dL this AM - at goal * Despite being at goal, fasting BSG is trending upwards so will increase Lantus slightly this AM * BSGs continue to increase throughout the day, likely due to IV steroids * Increased NPH to be given with IV dexamethasone * No adjustment to Novolog today. May need to tighten parameters with breakfast tomorrow. 01/11: * BSGs agin well controlled * Fasting BSG 105 this AM w/ 15 units Lantus and 20 units NPH given yesterday. Pt also received 2 units correctional insulin last night. Will titrate down Lantus today as we approach steady state with repeat insulin doses. * Post-prandial BSGs well controlled with current Novolog parameters - no change * Dexamethasone 6mg IV Q AM continues PLAN FOR INPATIENT GLYCEMIC CONTROL: * Hold outpatient oral diabetes medications (metformin) * Basal insulin - increased Lantus and NPH * Lantus 15 units SC AM * NPH 25 units SC AM with IV dexamethasone * Bolus insulin * NovoLog per scale ACHS or Q6hrs while NPO * Goal Range: Low 110 mg/dL - High 140 mg/dL * Correction Factor: 15 mg/dL/unit * Nutritional / Prandial insulin per carb ratio of 1 unit per 5 grams CHO consumed PLAN FOR DISCHARGE: * HbA1c was 6.6% from this admission which is at goal. No adjustments necessary to outpatient insulin regimen.
[2021-01-13] MEDS: POLYETHYLENE (MIRALAX) 17 GM PACK PO PRN (14:14)
[2021-01-13] MEDS: DOCUSATE SODIUM 100 MG CAP PO PRN (14:14)
--- NOTE | 2021-01-13 19:31 | Hospitalist Progress Note ---
Date of Service January 13, 2021 Assessment & Plan (1) Acute hypoxemic respiratory failure: Plan: Acute respiratory failure with hypoxia COVID-19 pneumonia --CTA:Patchy groundglass opacities are present throughout both lungs characteristic of a viral type pneumonitis and early Covid 19 pneumonia. No PE -Had COVID Vaccination in May 2020 per patient H/O Asthma H/O ARCELIA on CPAP Procalcitonin 0.05 CRP 13.4> 6.48 Blood cultures: Negative to date -Completed Remdesivir course for 5 days Continue dexamethasone Also on doxycycline Lasix , Nebs as needed Continue home inhalers Encourage to prone on heparin SQ for DVT prophylaxis Currently on 9 L supplemental oxygen Hypertension Continue amlodipine, losartan Also on tamsulosin ARCELIA on CPAP Lung nodules/hilar adenopathy as per records [place] [facility] [place] DM II Hold oral medications HbA1c 6.8 Continue insulin therapy while hospitalized Monitor BGs Prostate cancer S/P radiation CLL Follows [place] [facility] [place] Anemia of chronic disease 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 Monitor CBC Thrombocytopenia resolved H/O nephrolithiasis Microscopic hematuria History of prostate cancer Follow-up with urology as outpatient unless develops gross hematuria No hematuria currently DVT Px: SCDs Initially RE thrombocytopenia, Microscopic hematuria Heparin SQ--monitor platelets, normal hemoglobin Code Status Full code Admission and Anticipated Discharge Date Admission Date: January 08, 2021 Subjective Patient is seen and examined bedside Patient's oxygen requirement trending up Subjectively feels no significant change from yesterday Cough, dyspnea about the same as yesterday Denies any chest pain, dizziness, nausea, abdominal pain, diarrhea Currently on 9 L supplemental oxygen Review of Systems Review of Systems: All systems reviewed & are unremarkable except as noted in Subjective Physical Exam Physical Exam: Physical Exam: Vitals signs as noted above General Appearance:Moderately built and nourished, no apparent distress Head: normocephalic, Atraumatic Eyes: normal inspection, EOMI Neck: supple, Trachea midline Respiratory/Chest: Decreased breath sounds, scattered wheezes Cardiovascular: S1, S2, No murmur Abdomen/GI:Soft, Non tender, Bowel sounds present Extremities/Musculoskeletal:normal inspection, no edema Neurologic/Psych:AAOX3, grossly no focal neurological deficits Skin: normal color, warm Results & Data Results & Data ([facility]) Vital Signs (Past 12 Hours) Vital Signs Temp Pulse Pulse Resp BP Pulse Ox 01/13/21 17:09 36.7 C 81 24 131/68 89 L 01/13/21 15:00 83 01/13/21 12:04 36.7 C 79 20 144/76 H 94 01/13/21 07:38 37.0 C 111 H 18 168/64 H 96 Laboratory Results [facility] 01/13/21 05:41 Sodium 138 Potassium 3.9 Chloride 108 H Carbon Dioxide 23 BUN 34 H Creatinine 0.73 Glucose 115 H Calcium 9.0 Liver Function 01/13/21 Range/Units 05:41 Total Bilirubin 0.8 (0.2-1) mg/dl AST 34 (15-37) U/L ALT 60 (12-78) Alkaline Phosphatase 52 (45-117) U/L Albumin 3.1 L (3.4-5.0) gm/dl
[2021-01-13] MEDS: TAMSULOSIN HCL 0.4 MG CAP PO SCH (20:53)
[2021-01-14] MEDS ORDERED: XOPENEX/ATROVENT 1.25mg/0.5MG NEB COMBO NEB PRN (06:31)
[2021-01-14] MEDS: LEVALBUTEROL TARTRATE 15 GM HFA.AER.AD INH PRN (06:31)
[2021-01-14] MEDS: dexAMETHasone 6 MG in SYRINGE 0 ML IV SCH (06:39)
[2021-01-14] MEDS ORDERED: LEVALBUTEROL 1.25MG/0.5ML NEB INH SCH (07:00)
[2021-01-14] MEDS ORDERED: IPRATROPIUM BROMIDE NEB SOLN 0.02% 2.5 ML VIAL INH SCH (07:00)
[2021-01-14] MEDS: IPRATROPIUM BROMIDE NEB SOLN 0.02% 2.5 ML VIAL INH PRN ×2 (07:10→21:19)
[2021-01-14] MEDS: LEVALBUTEROL 1.25MG/0.5ML NEB INH PRN ×2 (07:10→21:19)
[2021-01-14 07:32] LABS: Hematocrit (blood only) 38.1 % (42-52); Hemoglobin 12.9 g/dL (14.0-18.0); Mean Corpuscular Hemoglobin 33.6 pg (25-34); Mean Corpuscular Hgb Conc 33.9 g/dL (32-36); Mean Corpuscular Volume 99.2 fL (80-100); Mean Platelet Volume 10.6 fL (7.4-10.4); Platelet Count 118 K/uL (130-400); RDW Standard Deviation 46.9 fL (36.4-46.3); Red Blood Count 3.84 M/uL (4.7-6.1); White Blood Count 9.89 K/uL (4.8-10.8)
[2021-01-14 08:03] LABS: BUN Creatinine Ratio 37.7 (10-20); C Reactive Protein 6.87 mg/dl (0-0.29); Calcium 9.2 mg/dl (8.5-10.1); Est GFR (African American) 102.8 ml/min; Est GFR (Non-African American) 88.7 ml/min; Potassium 4.4 mmol/L (3.5-5.1)
[2021-01-14] MEDS: LOSARTAN POTASSIUM 50 MG TAB PO SCH (08:25)
[2021-01-14] MEDS: DOXYCYCLINE HYCLATE 100 MG CAP PO SCH ×2 (08:25→20:56)
[2021-01-14] MEDS: amLODIPine BESYLATE 5 MG TAB PO SCH (08:26)
[2021-01-14] MEDS: ADVANCED PROBIOTIC 1250 MG CAPSULE PO SCH (08:26)
[2021-01-14] MEDS: MULTIVITAMIN TAB PO SCH (08:26)
[2021-01-14] MEDS: ASPIRIN 81 MG ECTAB PO SCH (08:26)
[2021-01-14] MEDS: FLUTICASONE/VILANTEROL 100/25MCG 14 PUFFS/INHALER INH SCH (08:28)
[2021-01-14] MEDS: HEPARIN SOD 5,000 UNIT/0.5 ML VIAL SQ SCH ×2 (08:28→20:55)
[2021-01-14] MEDS: INSULIN HUMAN NPH SC SCH (08:29)
[2021-01-14] MEDS: OMEGA-3 (PURIFIED FISH OIL) 1 GM CAP PO SCH (08:29)
[2021-01-14] MEDS: INSULIN GLARGINE SOLOSTAR 100 UNITS/ML 3 ML PEN SC SCH (08:30)
[2021-01-14] MEDS: INSULIN ASPART 100 UNITS/ML 3 ML PEN SC SCH ×4 (08:32→20:57)
--- NOTE | 2021-01-14 18:15 | Hospitalist Progress Note ---
Date of Service January 14, 2021 Assessment & Plan (1) Acute hypoxemic respiratory failure: Plan: Acute respiratory failure with hypoxia COVID-19 pneumonia --CTA:Patchy groundglass opacities are present throughout both lungs characteristic of a viral type pneumonitis and early Covid 19 pneumonia. 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 DM II Hold oral medications HbA1c 6.8 Continue insulin therapy while hospitalized Monitor BGs Prostate cancer S/P radiation CLL Follows with [facility] [place] Anemia of chronic disease 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 Monitor CBC Thrombocytopenia resolved H/O nephrolithiasis Microscopic hematuria History of prostate cancer Follow-up with urology as outpatient unless develops gross hematuria No hematuria currently DVT Px: SCDs Initially RE thrombocytopenia, Microscopic hematuria Heparin SQ--monitor platelets, normal hemoglobin Code Status Full code Admission and Anticipated Discharge Date Admission Date: January 08, 2021 Subjective Patient is seen and examined bedside Continue on oxygen mask Blood pressure relatively low today States that his dyspnea worsens at bedtime Poor appetite Less cough, congestion today Offers no other complaints Proning during my encounter Review of Systems Review of Systems: All systems reviewed & are unremarkable except as noted in Subjective Physical Exam Physical Exam: Physical Exam: Vitals signs as noted above General Appearance:Moderately built and nourished, no apparent distress Head: normocephalic, Atraumatic Eyes: normal inspection, EOMI Neck: supple, Trachea midline Respiratory/Chest: Decreased breath sounds, CTA Cardiovascular: S1, S2, No murmur Abdomen/GI:Soft, Non tender, Bowel sounds present Extremities/Musculoskeletal:normal inspection, no edema Neurologic/Psych:AAOX3, grossly no focal neurological deficits Skin: normal color, warm Results & Data Results & Data ([facility]) Vital Signs (Past 12 Hours) Vital Signs Temp Pulse Pulse Resp BP Pulse Ox 01/14/21 15:30 82 01/14/21 15:04 36.8 C 103 H 20 95/60 L 91 01/14/21 11:06 37.1 C 84 20 128/72 90 01/14/21 07:59 37.6 C 69 20 103/54 L 91 01/14/21 07:32 72 01/14/21 07:11 88 18 91 01/14/21 06:24 85 L Laboratory Results Short CBC 01/14/21 Range/Units 06:59 WBC 9.89 (4.8-10.8) K/uL Hgb 12.9 L (14.0-18.0) g/dL Hct 38.1 L (42-52) % Plt Count 118 L (130-400) K/uL BMP 01/14/21 06:59 Sodium 137 Potassium 4.4 Chloride 105 Carbon Dioxide 26 BUN 32 H Creatinine 0.84 Glucose 141 H Calcium 9.2
[2021-01-14] MEDS: TAMSULOSIN HCL 0.4 MG CAP PO SCH (20:57)
[2021-01-14] MEDS: FLUTICASONE PROPIONATE NA SPR 16 GM BTL PRN (21:01)
[2021-01-14] MEDS ORDERED: methylPREDNISolone 40 MG in SYRINGE 0 ML IV STA (21:42)
[2021-01-14 22:58] LABS: Allen Test POS (Pos); HCO3 ABG 21 mmol/L (19-24); Oxygen Saturation ABG 95.7 % (90-95); PCO2 ABG 28 mmHg (35-46); PO2 ABG 71 mmHg (80-95)
[2021-01-14] MEDS ORDERED: Nursing to Pharmacy Communication SCH (23:00)
[2021-01-15 06:59] LABS: Hematocrit (blood only) 36.2 % (42-52); Hemoglobin 11.8 g/dL (14.0-18.0); Mean Corpuscular Hemoglobin 33.1 pg (25-34); Mean Corpuscular Hgb Conc 32.6 g/dL (32-36); Mean Corpuscular Volume 101.4 fL (80-100); Mean Platelet Volume 10.7 fL (7.4-10.4); Platelet Count 128 K/uL (130-400); RDW Coefficient of Variation 12.8 % (11.5-14.5); RDW Standard Deviation 47.3 fL (36.4-46.3); Red Blood Count 3.57 M/uL (4.7-6.1); White Blood Count 9.38 K/uL (4.8-10.8)
[2021-01-15] MEDS: OMEGA-3 (PURIFIED FISH OIL) 1 GM CAP PO SCH (07:00)
[2021-01-15] MEDS: dexAMETHasone 6 MG in SYRINGE 0 ML IV SCH (07:00)
[2021-01-15] MEDS: DOXYCYCLINE HYCLATE 100 MG CAP PO SCH (07:01)
[2021-01-15] MEDS: FLUTICASONE/VILANTEROL 100/25MCG 14 PUFFS/INHALER INH SCH (07:01)
[2021-01-15] MEDS: HEPARIN SOD 5,000 UNIT/0.5 ML VIAL SQ SCH ×2 (07:02→21:19)
[2021-01-15] MEDS: MULTIVITAMIN TAB PO SCH (07:05)
[2021-01-15] MEDS: ASPIRIN 81 MG ECTAB PO SCH (07:05)
[2021-01-15] MEDS: ADVANCED PROBIOTIC 1250 MG CAPSULE PO SCH (07:06)
--- NOTE | 2021-01-15 07:12 | XRay Report ---
XR chest 1V portable CLINICAL HISTORY: low o2. Bilateral airspace opacities COMPARISON STUDY: 01/13/2021 TECHNIQUE: 1 view of the chest FINDINGS: Single frontal view of the chest demonstrates the cardiomediastinal silhouette to be within normal li mits. Compared to the previous examination, there has been slight interval worsening of bilateral int erstitial and alveolar opacities, particularly at the left lung base. The presence of small left pleu ral effusion cannot be excluded. There is no evidence for vascular congestion. There is no acute osse ous pathology. IMPRESSION: Slight interval worsening of bilateral interstitial and alveolar opacities particularly a t the left lung base with findings also suspicious for left pleural effusion. The findings are again characteristic of a viral type pneumonitis and Covid pneumonia. ACT 112: Negative or not required by law. Electronically signed by: Pablo Bonner M.D. 01/15/2021 7:11 AM
[2021-01-15 07:40] LABS: Calcium 8.9 mg/dl (8.5-10.1); Est GFR (African American) 102.8 ml/min; Est GFR (Non-African American) 88.7 ml/min; Magnesium 2.9 mg/dl (1.8-2.4); Potassium 4.7 mmol/L (3.5-5.1)
[2021-01-15 07:41] LABS: C Reactive Protein 9.43 mg/dl (0-0.29); Phosphorus 4.9 mg/dl (2.5-4.9)
--- NOTE | 2021-01-15 08:36 | XRay Report ---
XR chest 1V portable CLINICAL HISTORY: covid COMPARISON STUDY: Chest CT January 08, 2021. Chest radiograph January 14, 2021. FINDINGS: There is no pneumothorax or pleural effusion. Cardiomediastinal silhouette is stable. Moder ate multifocal bilateral airspace opacities are similar to prior examination. There is no evidence fo r pulmonary edema. IMPRESSION: No significant change in moderate bilateral airspace opacities consistent with viral pne umonia. ACT 112: Negative or not required by law. Electronically signed by: Cyrus Green M.D. 01/15/2021 8:35 AM
[2021-01-15] MEDS: INSULIN GLARGINE SOLOSTAR 100 UNITS/ML 3 ML PEN SC SCH ×2 (08:48→09:14)
[2021-01-15] MEDS: INSULIN ASPART 100 UNITS/ML 3 ML PEN SC SCH ×5 (08:48→21:21)
[2021-01-15] MEDS: INSULIN HUMAN NPH SC SCH (08:49)
[2021-01-15] MEDS ORDERED: LOSARTAN POTASSIUM 50 MG TAB PO SCH (09:00)
--- NOTE | 2021-01-15 09:47 | Pulmonary Consultation ---
Date of Consultation January 15, 2021 Assessment & Plan (1) Pneumonia due to 2019-nCoV: (2) Acute hypoxemic respiratory failure: (3) ARCELIA (obstructive sleep apnea): (4) DVT prophylaxis: Attending: Dr. Morgan Impression: 70-year-old male that was fully vaccinated with second vaccination 05/09/2020. Admitted 01/08/2021 for shortness of breath and hypoxia. Symptoms started the Wednesday before admission. Patient received 5 days of remdesivir. He continues on dexamethasone 6 mg IV daily. (Day #8). ARCELIA at home with CPAP. Patient using his own mask with hospital machine HS. currently on high flow oxygen 60 L/min and FiO2 of 80%. Respiratory rate 18. No use of accessory muscles. No acute respiratory distress. Chest x-ray yesterday showed some moderate increase in infiltrate and possible left pleural effusion. Chest x-ray this morning is stable. Recommendations: 1. Covid19/ARDS: * Patient with positive serology 01/08/2021 for COVID-19 * Status post 5 days remdesivir. Continues on dexamethasone 6 mg IV (day #8) * Patient is outside of the window for baricitinib or tocilizumab although his CRP is still above 8. * Will continue with high flow supplemental oxygen and encourage self proning * Explained to patient this could be a prolonged admission until we get oxygen levels down * At this time, we will continue with high flow oxygen during the day and CPAP at night and continue self proning as frequently as possible * Continue with flutter valve. We will also add incentive spirometry * Continue to monitor on Covid unit * If patient symptoms should worsen, consult bookkeeping machine mechanic for intubation and mechanical ventilation 2. Obstructive sleep apnea: * Home CPAP compliance. * Continue CPAP at bedtime 3. Acute hypoxia: * No hypercapnia * BMI 29.9 kg/m * No history of pulmonary disease * No tobacco abuse history * Attributed to COVID-19 * Continue supportive care and titrate supplemental oxygen as tolerated to maintain SaO2 greater than 90% 4. DVT prophylaxis: * No new evidence for Wells criteria to support PE * If patient does worsen, will consider repeat CTA of chest to rule out PE * Currently patient is on heparin 5000 units every 12 hours subcutaneously. Would consider changing to enoxaparin twice daily dosing as Covid is a hypercoagulable disorder. Thank you for including us in the care of this patient. Please refer to Dr. Morgan's addendum for further recommendations and corrections. At this time the pulmonary service will sign off. Please feel free to consult the bookkeeping machine mechanic should the patient condition deteriorate and is felt to need endotracheal intubation with mechanical ventilation. Supervising Physician Co-Signing Physician Notes Patient seen and examined. EMR reviewed. Discussed with critical care PAULINA and agree with assessment plan as noted. No utility in continuing to trend CRP at this point in time. Patient is outside the window for additional immunosuppressive agents. He had minimal parenchymal disease on his initial CT scan and his chest x-ray does not appear markedly worse. Additional work-up for his hypoxemia including echocardiogram with b ubble study could be considered to evaluate for shunt physiology. Unclear if this would have any significant impact in his overall treatment. CO2 levels were appropriate. CT angiogram performed on presentation over a week ago was negative however given the patient has been hospitalized and immobile with escalation of his oxygen requirement, a CT angiogram might be appropriate to exclude PE and allow for better assessment of the pulmonary parenchyma. Discontinue doxycycline as his procalcitonin was normal his white count is normal and there is no evidence of fever or lower respiratory infectious symptomatology. We will sign off. Should the patient's clinical status worsen requiring intu bation mechanical ventilation (inability to maintain oxygen saturations on max noninvasive delivery, increased work of breathing, tachypnea, or respiratory muscle fatigue), please let us know. Would be appropriate to address CODE STATUS in this 70-year-old gentleman should he deteriorate. These discussions sitting include potential need for tracheostomy, long-term ventilatory support, renal replacement therapy etc. This is deferred to the primary admitting service. History of Present Illness Reason for Consultation: COVID19 ARDs Requesting Physician: Portia Attending Physician: Junito Bernard MD History of Present Illness Attending Dr. Morgan This is a 70 yo male with PMH of IDDMII, HTN, arthritis, CLL, kidney stones, prostate CA, ARCELIA on CPAP at home Patient admitted for SOB with hypoxia secondary to COVID-19. Serology positive. Vaccinated X 2 with last dose 05/09/2020. Currently requiring High [place] O2 at 60L/min and FiO2 0f 80%. Using CPAP at night HS. No chest pain or tightness. No fever or chills. Difficult to self prone but will continue to try. No other acute complaints. Patient admitted 01/08/2021. Completed remdesivir. Elevated CRP. Symptoms started the Wednesday before admission. Day #8 Dexamethasone 6mg IV. Heparin 5000 units SQ Q12h. Never a smoker. Compliant with home CPAP. Allergies Allergy/AdvReac Type Severity Reaction Status Date / Time Sulfa (Sulfonamide Allergy Mild HIVES Verified 01/08/21 18:14 Antibiotics) clindamycin Allergy RED RASH, Verified 01/08/21 18:14 ITCHY STACIE Inhibitors AdvReac Unknown cough Verified 01/08/21 18:14 metoprolol AdvReac Cough Verified 01/08/21 18:14 mometasone furoate AdvReac sore throat Verified 01/08/21 18:14 [From [facility]] Home Medications Medication Instructions Recorded Confirmed Type albuterol sulfate 90 mcg/actuation 2 puff INHALATION Q4 PRN 08/10/19 01/08/21 History aerosol inhaler aspirin 81 mg chewable tablet 81 mg PO DAILY 08/10/19 01/08/21 History fluticasone furoate 100 1 ea INHALATION DAILY 08/10/19 01/08/21 History mcg-vilanterol 25 mcg/dose inhalation powder (Breo Ellipta) fluticasone propionate 50 2 spray INTRANASAL DAILY PRN 08/10/19 01/08/21 History mcg/actuation nasal spray,suspension (Flonase Allergy Relief) hydrochlorothiazide 12.5 mg capsule 12.5 mg PO DAILY 08/10/19 01/08/21 History losartan 100 mg tablet (Cozaar) 100 mg PO DAILY 08/10/19 01/08/21 History multivitamin 1 tab PO DAILY 08/10/19 01/08/21 History mupirocin 2 % topical ointment 1 applic TOPICAL BID PRN 08/10/19 01/08/21 History turmeric 400 mg capsule 400 mg PO DAILY 08/10/19 01/08/21 History amlodipine 10 mg tablet 10 mg PO DAILY 09/18/19 01/08/21 History lactobacillus combination no.4 3 3,000 mmu cells PO DAILY 01/08/21 01/08/21 History billion cell capsule (Probiotic) metformin 500 mg tablet 500 mg PO BID 01/08/21 01/08/21 History omega-3 fatty acids 1,000 mg PO DAILY 01/08/21 01/08/21 History tamsulosin 0.4 mg capsule 0.4 mg PO UD 01/08/21 01/08/21 History Patient History Medical History (Updated 01/15/21 @ 09:53 by Lee Mesa PA-C) Asthma CLL (chronic lymphocytic leukemia) ARCELIA (obstructive sleep apnea) Prostate cancer Status post brachytherapy 2008 Type 2 diabetes mellitus Surgical History H/O prostatectomy Hx of spinal fusion Family History Mother Diabetes Heart disease Hypertension Social History Smoking Status: Never smoker Hx Alcohol Use: Yes Alcohol type: beer Hx Substance Use: No Preferred Language: Greek Communication Ability: Effective Visual Impairment: No Limitations Hearing Ability: Normal Electric Serviceman Required: No Beliefs That Will Affect Care: None marital status: Current Living Situation: Spouse current occupational status: retired Feels Safe at Home: Yes Safety Concerns: Feels Safe At This Time Assistive Devices: Glasses and Oxygen - Continuous Review of Systems Review of Systems: All systems reviewed & are unremarkable except as noted in Subjective Physical Exam Constitutional: No acute distress. Pleasant Eyes: PERRL, conjunctivae normal, anicteric sclerae Neck: No appreciation of stridor or carotid bruits Respiratory: normal respiratory effort; no respiratory distress Auscultation: lungs clear to auscultation bilaterally and + diminished lung sounds Cardiovascular: Rate/Rhythm: regular rate and regular rhythm Musculoskeletal: Head/Neck/Chest: + abnormal palpation of chest wall Neurologic: A&OX3. Results & Data Results & Data ([facility]) Vital Signs (Past 12 Hours) Vital Signs Temp Pulse Pulse Resp BP BP Pulse Ox 01/15/21 09:34 73 01/15/21 08:19 83 20 94 01/15/21 07:58 36.5 C 94 H 20 144/79 H 90 01/15/21 03:28 24 89 L 01/15/21 03:15 36.9 C 70 20 122/69 94 01/15/21 01:00 88 01/14/21 23:20 26 H 94 01/14/21 23:07 37.3 C 89 20 131/74 97 01/14/21 22:04 88 22 98 Laboratory Results 01/15/21 05:41 01/15/21 05:41 01/13/21 01/14/21 05:47 22:41 ABG pH 7.48 H 7.50 H ABG pCO2 32 L 28 L ABG pO2 56 L 71 L ABG HCO3 24 21 ABG O2 Saturation 90.4 95.7 H ABG Base Excess 0.7 -1.0 COVID-19 Results 01/08/21 14:35 SARS-CoV-2 (PCR) POSITIVE A* Diagnostic Findings Chest X-Ray 01/14/21 21:43 XR chest 1V portable CLINICAL HISTORY: low o2. Bilateral airspace opacities COMPARISON STUDY: 01/13/2021 TECHNIQUE: 1 view of the chest FINDINGS: Single frontal view of the chest demonstrates the cardiomediastinal silhouette to be within normal limits. Compared to the previous examination, there has been slight interval worsening of bilateral interstitial and alveolar opacities, particularly at the left lung base. The presence of small left pleural effusion cannot be excluded. There is no evidence for vascular congestion. There is no acute osseous pathology. IMPRESSION: Slight interval worsening of bilateral interstitial and alveolar opacities particularly at the left lung base with findings also suspicious for left pleural effusion. The findings are again characteristic of a viral type pneumonitis and Covid pneumonia. ACT 112: Negative or not required by law. Electronically signed by: Pablo Bonner M.D. 01/15/2021 7:11 AM Chest X-Ray 01/15/21 07:00 XR chest 1V portable CLINICAL HISTORY: covid COMPARISON STUDY: Chest CT January 08, 2021. Chest radiograph January 14, 2021. FINDINGS: There is no pneumothorax or pleural effusion. Cardiomediastinal silhouette is stable. Moderate multifocal bilateral airspace opacities are similar to prior examination. There is no evidence for pulmonary edema. IMPRESSION: No significant change in moderate bilateral airspace opacities consistent with viral pneumonia. ACT 112: Negative or not required by law. Electronically signed by: Cyrus Green M.D. 01/15/2021 8:35 AM PG Care Time/CCT Total # of Minutes Spent Total Time Spent with Patient: Total time spent is greater than 50% in coordination of care (as documented) at patient's floor/unit and/or counseling patient: 60 minutes Coding Level of Care Code 87192 Inpt Consult Level 4 Diagnoses Pneumonia due to 2019-nCoV U07.1; J12.82 Acute hypoxemic respiratory failure J96.01 ARCELIA (obstructive sleep apnea) G47.33 DVT prophylaxis Z29.9 Time Spent (min) 60
--- NOTE | 2021-01-15 10:15 | Hospitalist Progress Note ---
Date of Service January 15, 2021 Assessment & Plan (1) Acute hypoxemic respiratory failure: Plan: Acute respiratory failure with hypoxia COVID-19 pneumonia --CTA:Patchy groundglass opacities are present throughout both lungs kvein acteristic of a viral type pneumonitis and early Covid 19 pneumonia. 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 DM II Hold oral medications HbA1c 6.8 Continue insulin therapy while hospitalized Monitor BGs Prostate cancer S/P radiation CLL Follows with [facility] Oncology Anemia of chronic disease 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 failure d/t covid 19 pna Was on 8-9L yesterday, but now on HF NC Pulmonary medicine consulted Currently he is sitting up on the edge of the bed, he is able to speak in full sentences, not in acute distress No accessory muscle use or increased work of breathing No chest pain, fever chills, abdominal pain nausea vomiting Review of Systems Review of Systems: All systems reviewed & are unremarkable except as noted in Subjective Physical Exam Physical Exam: General Appearance:Moderately built and nourished, no apparent distress, on HF NC Head: normocephalic, Atraumatic Eyes: normal inspection, EOMI Neck: supple Respiratory/Chest: Decreased breath sounds, CTA Cardiovascular: S1, S2, No murmur Abdomen/GI:Soft, Non tender, Bowel sounds present Extremities/Musculoskeletal:normal inspection, no edema Neurologic/Psych:AAOX3, no facial symmetry, speech fluent, moves extremities Skin: normal color, warm Results & Data Results & Data ([facility]) Vital Signs (Past 12 Hours) Vital Signs Temp Pulse Pulse Resp BP BP Pulse Ox 01/15/21 09:34 73 01/15/21 08:19 83 20 94 01/15/21 07:58 36.5 C 94 H 20 144/79 H 90 01/15/21 03:28 24 89 L 01/15/21 03:15 36.9 C 70 20 122/69 94 01/15/21 01:00 88 01/14/21 23:20 26 H 94 01/14/21 23:07 37.3 C 89 20 131/74 97 Laboratory Results 01/15/21 01/15/21 01/15/21 Range/Units 07:46 05:41 05:41 WBC 9.38 (4.8-10.8) K/uL RBC 3.57 L (4.7-6.1) M/uL Hgb 11.8 L (14.0-18.0) g/dL Hct 36.2 L (42-52) % MCV 101.4 H (80-100) fL MCH 33.1 (25-34) pg MCHC 32.6 (32-36) g/dL RDW Std Deviation 47.3 H (36.4-46.3) fL RDW Coeff of Roxie 12.8 (11.5-14.5) % Plt Count 128 L (130-400) K/uL MPV 10.7 H (7.4-10.4) fL ABG pH (7.35-7.45) ABG pCO2 (35-46) mmHg ABG pO2 (80-95) mmHg ABG HCO3 (19-24) mmol/L ABG O2 Saturation (90-95) % ABG Base Excess (-9-1.8) mEq/L Suresh Test (Pos) Barometric Pressure mm/Hg Oxygen Given Sodium 136 (136-145) mmol/L Potassium 4.7 (3.5-5.1) mmol/L Chloride 105 (98-107) mmol/L Carbon Dioxide 27 (21-32) mmol/L Anion Gap 4.0 (3-11) BUN 34 H (7-18) mg/dl Creatinine 0.84 (0.6-1.4) mg/dl Est Cr Clr Drug Dosing 106.0 ml/min Est GFR ( Amer) 102.8 ml/min Est GFR (Non-Af Amer) 88.7 ml/min BUN/Creatinine Ratio 41.0 H (10-20) Glucose 163 H (70-99) mg/dl POC Glucose 157 H (70-99) mg/dl Calcium 8.9 (8.5-10.1) mg/dl Phosphorus 4.9 (2.5-4.9) mg/dl Magnesium 2.9 H (1.8-2.4) mg/dl C-Reactive Protein 9.43 H (0-0.29) mg/dl 01/14/21 01/14/21 01/14/21 Range/Units 22:41 20:36 16:18 WBC (4.8-10.8) K/uL RBC (4.7-6.1) M/uL Hgb (14.0-18.0) g/dL Hct (42-52) % MCV (80-100) fL MCH (25-34) pg MCHC (32-36) g/dL RDW Std Deviation (36.4-46.3) fL RDW Coeff of Roxie (11.5-14.5) % Plt Count (130-400) K/uL MPV (7.4-10.4) fL ABG pH 7.50 H (7.35-7.45) ABG pCO2 28 L (35-46) mmHg ABG pO2 71 L (80-95) mmHg ABG HCO3 21 (19-24) mmol/L ABG O2 Saturation 95.7 H (90-95) % ABG Base Excess -1.0 (-9-1.8) mEq/L Suresh Test POS (Pos) Barometric Pressure 735.1 mm/Hg Oxygen Given 80% FiO2 Sodium (136-145) mmol/L Potassium (3.5-5.1) mmol/L Chloride (98-107) mmol/L Carbon Dioxide (21-32) mmol/L Anion Gap (3-11) BUN (7-18) mg/dl Creatinine (0.6-1.4) mg/dl Est Cr Clr Drug Dosing ml/min Est GFR ( Amer) ml/min Est GFR (Non-Af Amer) ml/min BUN/Creatinine Ratio (10-20) Glucose (70-99) mg/dl POC Glucose 94 102 H (70-99) mg/dl Calcium (8.5-10.1) mg/dl Phosphorus (2.5-4.9) mg/dl Magnesium (1.8-2.4) mg/dl C-Reactive Protein (0-0.29) mg/dl 01/14/21 01/14/21 Range/Units 11:17 06:59 WBC (4.8-10.8) K/uL RBC (4.7-6.1) M/uL Hgb (14.0-18.0) g/dL Hct (42-52) % MCV (80-100) fL MCH (25-34) pg MCHC (32-36) g/dL RDW Std Deviation (36.4-46.3) fL RDW Coeff of Roxie (11.5-14.5) % Plt Count (130-400) K/uL MPV (7.4-10.4) fL ABG pH (7.35-7.45) ABG pCO2 (35-46) mmHg ABG pO2 (80-95) mmHg ABG HCO3 (19-24) mmol/L ABG O2 Saturation (90-95) % ABG Base Excess (-9-1.8) mEq/L Suresh Test (Pos) Barometric Pressure mm/Hg Oxygen Given Sodium (136-145) mmol/L Potassium (3.5-5.1) mmol/L Chloride (98-107) mmol/L Carbon Dioxide (21-32) mmol/L Anion Gap (3-11) BUN (7-18) mg/dl Creatinine (0.6-1.4) mg/dl Est Cr Clr Drug Dosing ml/min Est GFR ( Amer) ml/min Est GFR (Non-Af Amer) ml/min BUN/Creatinine Ratio (10-20) Glucose (70-99) mg/dl POC Glucose 291 H (70-99) mg/dl Calcium (8.5-10.1) mg/dl Phosphorus (2.5-4.9) mg/dl Magnesium 2.7 H (1.8-2.4) mg/dl C-Reactive Protein (0-0.29) mg/dl Medications Administered Current Inpatient Medications Acetaminophen (Acetaminophen 325 Mg Tab) 650 mg PO Q4H PRN PRN Reason: Pain or Fever Stop: 02/08/21 00:19 Amlodipine Besylate (Amlodipine Besylate 5 Mg Tab) 10 mg PO DAILY [facility] Stop: 02/08/21 08:59 Last Admin: 01/14/21 08:26 Dose: 10 mg Documented by: Aspirin (Aspirin 81 Mg Ectab) 81 mg PO DAILY JC Stop: 02/08/21 08:59 Last Admin: 01/15/21 07:05 Dose: 81 mg Documented by: Dextrose (Dextrose 50% 50 Ml Syringe) 25 - 50 ml IV UD PRN; Protocol PRN Reason: Hypoglycemia Protocol Stop: 02/08/21 00:19 Docusate Sodium (Docusate Sodium 100 Mg Cap) 100 mg PO BID PRN PRN Reason: Constipation Stop: 02/10/21 20:59 Last Admin: 01/13/21 14:14 Dose: 100 mg Documented by: Doxycycline Hyclate (Doxycycline Hyclate 100 Mg Cap) 100 mg PO BID [facility] Stop: 01/16/21 08:59 Last Admin: 01/15/21 07:01 Dose: 100 mg Documented by: Fish Oil ([place]-3 (Purified Fish Oil) 1 Gm Cap) 1 gm PO DAILY JC Stop: 02/08/21 08:59 Last Admin: 01/15/21 07:00 Dose: 1 gm Documented by: Fluticasone Propionate (Fluticasone Propionate Na Spr 16 Gm Btl) 2 sprays NA DAILY PRN PRN Reason: Nasal Congestion Stop: 02/08/21 00:19 Last Admin: 01/14/21 21:01 Dose: 2 sprays Documented by: Fluticasone/Vilanterol (Fluticasone/Vilanterol 100/25mcg 14 Puffs/Inhaler) 1 puffs INH DAILY JC Stop: 02/08/21 08:59 Last Admin: 01/15/21 07:01 Dose: 1 puffs Documented by: Glucagon (Glucagon For Inj 1 Mg Vial) 1 mg SQ UD PRN; Protocol PRN Reason: Hypoglycemia Protocol Stop: 02/08/21 00:19 Glucose (Glucose 10 Tabs/Tube) 4 - 8 tabs PO UD PRN; Protocol PRN Reason: Hypoglycemia Protocol Stop: 02/08/21 00:19 Glucose (Glucose 40% Gel 15 Gm Tube) 15 - 30 gm PO UD PRN; Protocol PRN Reason: Hypoglycemia Protocol Stop: 02/08/21 00:19 Heparin Sodium (Porcine) (Heparin Sod 5,000 Unit/0.5 Ml Vial) 5,000 units SQ Q12 [facility] Stop: 02/10/21 20:59 Last Admin: 01/15/21 07:02 Dose: 5,000 units Documented by: Promethazine HCl 12.5 mg/ (Sodium Chloride) 50.5 mls @ 202 mls/hr IV Q6H PRN PRN Reason: Nausea And Vomiting Stop: 02/08/21 00:19 Dexamethasone 6 mg/ Syringe 1.5 mls @ 1 mls/min IV DAILY JC Stop: 02/13/21 06:44 Last Admin: 01/15/21 07:00 Dose: 1 mls/min Documented by: Insulin Aspart (Insulin Aspart 100 Units/Ml 3 Ml Pen) 0 units SC ACHS [facility]; Protocol Stop: 02/08/21 00:59 Last Admin: 01/15/21 08:48 Dose: 15 units Documented by: Insulin Glargine (Insulin Glargine Solostar 100 Units/Ml 3 Ml Pen) 20 units SC QAM [facility]; Protocol Stop: 02/12/21 08:59 Last Admin: 01/15/21 09:14 Dose: Not Given Documented by: Insulin Human NPH (Insulin Human Nph) 25 units SC Q24H [facility]; Protocol Stop: 02/13/21 08:59 Last Admin: 01/15/21 08:49 Dose: 25 units Documented by: Ipratropium [place] (Ipratropium [place] Neb Soln 0.02% 2.5 Ml Vial) 0.5 mg INH Q4R PRN PRN Reason: Shortness Of Breath Or Wheezing Stop: 02/13/21 06:59 Last Admin: 01/14/21 21:19 Dose: 0.5 mg Documented by: Lactobacillus Acidoph/Casei/[place]ham[place] (Advanced Probiotic 1250 Mg Capsule) 2 cap PO DAILY [facility] Stop: 02/08/21 08:59 Last Admin: 01/15/21 07:06 Dose: 2 cap Documented by: Levalbuterol HCl (Levalbuterol Tartrate 15 Gm Hfa.Aer.Ad) 2 puffs INH Q4R PRN PRN Reason: Shortness Of Breath Or Wheezing Stop: 02/08/21 10:59 Last Admin: 12/07/21 06:31 Dose: 2 puffs Documented by: Levalbuterol HCl (Levalbuterol 1.25mg/0.5ml Neb) 1.25 mg INH Q4R PRN PRN Reason: Shortness Of Breath Or Wheezing Stop: 02/13/21 06:59 Last Admin: 01/14/21 21:19 Dose: 1.25 mg Documented by: Losartan Potassium (Losartan Potassium 50 Mg Tab) 50 mg PO DAILY [facility] Stop: 02/14/21 08:59 Last Admin: 01/15/21 07:07 Dose: 50 mg Documented by: Miscellaneous (Carbohydrates For Hypoglycemia ) 15 - 30 gm PO UD PRN PRN Reason: Hypoglycemia Protocol Stop: 02/08/21 00:19 Miscellaneous Information (Pharmacy Glycemic Mgmt Consult) 1 ea N/A UD PRN PRN Reason: Consult Stop: 02/08/21 10:07 Multivitamins (Multivitamin Tab) 1 tab PO QAM [facility] Stop: 02/08/21 08:59 Last Admin: 01/15/21 07:05 Dose: 1 tab Documented by: Polyethylene Glycol (Polyethylene (Miralax) 17 Gm Pack) 17 gm PO DAILY PRN PRN Reason: Constipation Stop: 02/10/21 14:11 Last Admin: 01/13/21 14:14 Dose: 17 gm Documented by: Tamsulosin HCl (Tamsulosin Hcl 0.4 Mg Cap) 0.4 mg PO DAILY@1700 [facility] Stop: 02/07/21 23:59
--- NOTE | 2021-01-15 13:31 | Pharmacy Report ---
Pharmacy Glycemic Short Note 2 - Date of Service January 15, 2021 - Glycemic Short BSG Results (Last 24 hours): 01/14/21 01/14/21 01/15/21 16:18 20:36 05:41 Glucose 163 H POC Glucose 102 H 94 01/15/21 01/15/21 07:46 11:56 Glucose POC Glucose 157 H 163 H OUTPATIENT ANTIDIABETIC REGIMEN: * Metformin 500 mg PO BIDM * HbA1c = 6.6% (01/10/21) ASSESSMENT: 01/15: * Patient received a total of 84 units of insulin (25 units NPH + 15 units Lantus + 44 units Novolog) * BSGs were acceptable: 330-247-803-94 mg/dL * Fasting BSG was 157 today - acceptable * Plan to increase Lantus tomorrow to get fasting BSGs at goal * After lunch, BSGs trended down yesterday. Will monitor today and may need to adjust carb ratio/correction factor * Remains on 6 mg of IV dexamethasone 01/13: * Abbe received a total of 63 units of insulin yesterday (10 units Lantus + 20 units NPH + 33 units bolus) * BSGs were acceptable: [phone] mg/dL * Fasting BSG was 127 mg/dL this AM - at goal * Despite being at goal, fasting BSG is trending upwards so will increase Lantus slightly this AM * BSGs continue to increase throughout the day, likely due to IV steroids * Increased NPH to be given with IV dexamethasone * No adjustment to Novolog today. May need to tighten parameters with breakfast tomorrow. PLAN FOR INPATIENT GLYCEMIC CONTROL: * Hold outpatient oral diabetes medications (metformin) * Basal insulin * Lantus 15 units SC AM * NPH 25 units SC AM with IV dexamethasone * Bolus insulin - tightened with breakfast * NovoLog per scale ACHS or Q6hrs while NPO * Goal Range: Low 110 mg/dL - High 140 mg/dL * Breakfast: Correction Factor: 12 mg/dL/unit; Nutritional / Prandial insulin per carb ratio of 1 unit per 4 grams CHO consumed * Lunch, Dinner, Bedtime: Correction Factor: 15 mg/dL/unit; Nutritional / Prandial insulin per carb ratio of 1 unit per 5 grams CHO consumed PLAN FOR DISCHARGE: * HbA1c was 6.6% from this admission which is at goal. No adjustments necessary to outpatient insulin regimen.
[2021-01-15] MEDS: TAMSULOSIN HCL 0.4 MG CAP PO SCH (17:06)
[2021-01-15] MEDS: LEVALBUTEROL 1.25MG/0.5ML NEB INH PRN (17:20)
[2021-01-15] MEDS: IPRATROPIUM BROMIDE NEB SOLN 0.02% 2.5 ML VIAL INH PRN (17:20)
[2021-01-15] MEDS: LEVALBUTEROL TARTRATE 15 GM HFA.AER.AD INH PRN (22:37)
[2021-01-16] MEDS: BENZONATATE 100 MG CAPSULE PO PRN ×2 (03:12→16:12)
--- NOTE | 2021-01-16 07:10 | Hospitalist Progress Note ---
Date of Service January 16, 2021 Assessment & Plan (1) Acute hypoxemic respiratory failure: Plan: Acute respiratory failure with hypoxia COVID-19 pneumonia --CTA:Patchy groundglass opacities are present throughout both lungs kevin acteristic of a viral type pneumonitis and early Covid 19 pneumonia. No PE -Had COVID Vaccination in May 2020 per patient H/O Asthma H/O ARCELIA on CPAP Procalcitonin 0.05 CRP 13.4> 6.48 Blood cultures: Negative to date -Completed Remdesivir course for 5 days Continue dexamethasone (day 9) Also on doxycycline - now stopped (01/16) Lasix , Nebs as needed Continue home inhalers Encourage to prone on heparin SQ for DVT prophylaxis Currently on HF NC Pulmonary medicine consulted, appreciate their input Hypertension Hold amlodipine, losartan Also on tamsulosin BP controlled ARCELIA on CPAP Lung nodules/hilar adenopathy as per records [place] [facility] [place] tester DM II Hold oral medications HbA1c 6.8 Continue insulin therapy while hospitalized Monitor BGs Prostate cancer S/P radiation CLL [place] [facility] [place] Anemia of chronic disease 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 failure d/t Covid 19 pna Was on 8-9L but then yesterday on HF NC Pulmonary medicine consulted This morning made aware by nursing staff, that patient was on max high flow nasal cannula, and in addition on oxygen mask Breathing treatment given Patient more anxious, with some increased work of breathing No accessory muscle use on my exam Patient is able to speak, in full sentences, he is alert and oriented Health Information Management Director/electromechanical equipment tester made aware Patient's also updated over the phone this morning. She says patient is Sikh, and would appreciate if senior administrative assistant could stop by however explained that unfortunately due to Covid status, this would not be possible. Pt denies any chest pain, fever chills, abdominal pain nausea vomiting STAT chest x-ray, STAT ABG ordered as well Review of Systems Review of Systems: All systems reviewed & are unremarkable except as noted in Subjective Physical Exam Physical Exam: General Appearance:Moderately built and nourished,on HF NC, + somewhat anxious Head: normocephalic, Atraumatic Eyes: normal inspection, EOMI Neck: supple Respiratory/Chest: Decreased breath sounds, CTA Cardiovascular: S1, S2, No murmur Abdomen/GI: Soft, Non tender, Bowel sounds present Extremities/Musculoskeletal: normal inspection, no edema Neurologic/Psych: AAOX3, no facial asymmetry, speech fluent, moves extremities Skin: normal color, warm Results & Data Results & Data ([facility]) Vital Signs (Past 12 Hours) Vital Signs Temp Pulse Pulse Resp BP BP Pulse Ox 01/16/21 04:03 36.9 C 89 18 132/85 91 01/16/21 02:50 100 H 24 90 01/16/21 00:06 36.9 C 81 20 142/83 H 92 01/15/21 23:39 94 H 01/15/21 22:42 97 H 24 95 01/15/21 22:38 102 H 24 85 L 01/15/21 21:00 01/15/21 20:15 89 20 90 01/15/21 20:10 37.0 C 86 20 150/71 H 90 Pulse Ox 01/16/21 04:03 01/16/21 02:50 01/16/21 00:06 01/15/21 23:39 01/15/21 22:42 01/15/21 22:38 01/15/21 21:00 91 01/15/21 20:15 01/15/21 20:10 Laboratory Results 01/16/21 01/16/21 01/15/21 Range/Units 08:14 07:50 20:23 ABG pH 7.48 H (7.35-7.45) ABG pCO2 32 L (35-46) mmHg ABG pO2 84 (80-95) mmHg ABG HCO3 23 (19-24) mmol/L ABG O2 Saturation 97.0 H (90-95) % ABG Base Excess 0.5 (-9-1.8) mEq/L Suresh Test Pos (Pos) Barometric Pressure 734.7 mm/Hg Oxygen Given 60% POC Glucose 147 H 151 H (70-99) mg/dl 01/15/21 01/15/21 Range/Units 16:27 11:56 ABG pH (7.35-7.45) ABG pCO2 (35-46) mmHg ABG pO2 (80-95) mmHg ABG HCO3 (19-24) mmol/L ABG O2 Saturation (90-95) % ABG Base Excess (-9-1.8) mEq/L Suresh Test (Pos) Barometric Pressure mm/Hg Oxygen Given POC Glucose 131 H 163 H (70-99) mg/dl Medications Administered Current Inpatient Medications Acetaminophen (Acetaminophen 325 Mg Tab) 650 mg PO Q4H PRN PRN Reason: Pain or Fever Stop: 02/08/21 00:19 Amlodipine Besylate (Amlodipine Besylate 5 Mg Tab) 10 mg PO DAILY JC Stop: 02/08/21 08:59 Last Admin: 01/14/21 08:26 Dose: 10 mg Documented by: Aspirin (Aspirin 81 Mg Ectab) 81 mg PO DAILY JC Stop: 02/08/21 08:59 Last Admin: 01/15/21 07:05 Dose: 81 mg Documented by: Benzonatate (Benzonatate 100 Mg Capsule) 100 mg PO TID PRN PRN Reason: Cough Stop: 02/15/21 03:02 Last Admin: 01/16/21 03:12 Dose: 100 mg Documented by: Dextrose (Dextrose 50% 50 Ml Syringe) 25 - 50 ml IV UD PRN; Protocol PRN Reason: Hypoglycemia Protocol Stop: 02/08/21 00:19 Docusate Sodium (Docusate Sodium 100 Mg Cap) 100 mg PO BID PRN PRN Reason: Constipation Stop: 02/10/21 20:59 Last Admin: 01/13/21 14:14 Dose: 100 mg Documented by: Fish Oil ([place]-3 (Purified Fish Oil) 1 Gm Cap) 1 gm PO DAILY JC Stop: 02/08/21 08:59 Last Admin: 01/15/21 07:00 Dose: 1 gm Documented by: Fluticasone Propionate (Fluticasone Propionate Na Spr 16 Gm Btl) 2 sprays NA DAILY PRN PRN Reason: Nasal Congestion Stop: 02/08/21 00:19 Last Admin: 01/14/21 21:01 Dose: 2 sprays Documented by: Fluticasone/Vilanterol (Fluticasone/Vilanterol 100/25mcg 14 Puffs/Inhaler) 1 puffs INH DAILY JC Stop: 02/08/21 08:59 Last Admin: 01/15/21 07:01 Dose: 1 puffs Documented by: Glucagon (Glucagon For Inj 1 Mg Vial) 1 mg SQ UD PRN; Protocol PRN Reason: Hypoglycemia Protocol Stop: 02/08/21 00:19 Glucose (Glucose 10 Tabs/Tube) 4 - 8 tabs PO UD PRN; Protocol PRN Reason: Hypoglycemia Protocol Stop: 02/08/21 00:19 Glucose (Glucose 40% Gel 15 Gm Tube) 15 - 30 gm PO UD PRN; Protocol PRN Reason: Hypoglycemia Protocol Stop: 02/08/21 00:19 Guaifenesin (Guaifenesin 600 Mg Tabcr) 600 mg PO Q12 [facility] Stop: 02/15/21 08:59 Heparin Sodium (Porcine) (Heparin Sod 5,000 Unit/0.5 Ml Vial) 5,000 units SQ Q12 [facility] Stop: 02/10/21 20:59 Last Admin: 01/15/21 21:19 Dose: 5,000 units Documented by: Promethazine HCl 12.5 mg/ (Sodium Chloride) 50.5 mls @ 202 mls/hr IV Q6H PRN PRN Reason: Nausea And Vomiting Stop: 02/08/21 00:19 Dexamethasone 6 mg/ Syringe 1.5 mls @ 1 mls/min IV DAILY [facility] Stop: 02/13/21 06:44 Last Admin: 01/15/21 07:00 Dose: 1 mls/min Documented by: Insulin Aspart (Insulin Aspart 100 Units/Ml 3 Ml Pen) 0 units NE 0730 [facility]; Protocol Stop: 02/08/21 00:59 Last Admin: 01/15/21 17:08 Dose: 10 units Documented by: Insulin Aspart (Insulin Aspart 100 Units/Ml 3 Ml Pen) 0 units SC 1130,1630,2100 [facility]; Protocol Stop: 02/14/21 16:29 Last Admin: 01/15/21 21:21 Dose: 1 units Documented by: Insulin Glargine (Insulin Glargine Solostar 100 Units/Ml 3 Ml Pen) 20 units SC QAM [facility]; Protocol Stop: 02/12/21 08:59 Last Admin: 01/15/21 09:14 Dose: Not Given Documented by: Insulin Human NPH (Insulin Human Nph) 25 units SC Q24H [facility]; Protocol Stop: 02/13/21 08:59 Last Admin: 01/15/21 08:49 Dose: 25 units Documented by: Ipratropium Counce (Ipratropium Counce Neb Soln 0.02% 2.5 Ml Vial) 0.5 mg INH Q4R PRN PRN Reason: Shortness Of Breath Or Wheezing Stop: 02/13/21 06:59 Last Admin: 01/15/21 17:20 Dose: 0.5 mg Documented by: Lactobacillus Acidoph/Casei/Rhamnos (Advanced Probiotic 1250 Mg Capsule) 2 cap PO DAILY [facility] Stop: 02/08/21 08:59 Last Admin: 01/15/21 07:06 Dose: 2 cap Documented by: Levalbuterol HCl (Levalbuterol Tartrate 15 Gm Hfa.Aer.Ad) 2 puffs INH Q4R PRN PRN Reason: Shortness Of Breath Or Wheezing Stop: 02/08/21 10:59 Last Admin: 01/15/21 22:37 Dose: 2 puffs Documented by: Levalbuterol HCl (Levalbuterol 1.25mg/0.5ml Neb) 1.25 mg INH Q4R PRN PRN Reason: Shortness Of Breath Or Wheezing Stop: 02/13/21 06:59 Last Admin: 01/15/21 17:20 Dose: 1.25 mg Documented by: Losartan Potassium (Losartan Potassium 50 Mg Tab) 50 mg PO DAILY [facility] Stop: 02/14/21 08:59 Last Admin: 01/15/21 07:07 Dose: 50 mg Documented by: Miscellaneous (Carbohydrates For Hypoglycemia ) 15 - 30 gm PO UD PRN PRN Reason: Hypoglycemia Protocol Stop: 02/08/21 00:19 Miscellaneous Information (Pharmacy Glycemic Mgmt Consult) 1 ea N/A UD PRN PRN Reason: Consult Stop: 02/08/21 10:07 Multivitamins (Multivitamin Tab) 1 tab PO QAM [facility] Stop: 02/08/21 08:59 Last Admin: 01/15/21 07:05 Dose: 1 tab Documented by: Polyethylene Glycol (Polyethylene (Miralax) 17 Gm Pack) 17 gm PO DAILY PRN PRN Reason: Constipation Stop: 02/10/21 14:11 Last Admin: 01/13/21 14:14 Dose: 17 gm Documented by: Tamsulosin HCl (Tamsulosin Hcl 0.4 Mg Cap) 0.4 mg PO DAILY@1700 [facility] Stop: 02/07/21 23:59 Last Admin: 01/15/21 17:06 Dose: 0.4 mg Documented by:
[2021-01-16 08:30] LABS: Base Excess ABG 0.5 mEq/L (-9-1.8); HCO3 ABG 23 mmol/L (19-24); PCO2 ABG 32 mmHg (35-46); PO2 ABG 84 mmHg (80-95); pH ABG 7.48 (7.35-7.45)
[2021-01-16 08:31] LABS: Allen Test Pos (Pos)
[2021-01-16] MEDS: ASPIRIN 81 MG ECTAB PO SCH (08:31)
[2021-01-16] MEDS: guaiFENesin 600 MG TABCR PO SCH ×2 (08:31→20:02)
--- NOTE | 2021-01-16 08:31 | XRay Report ---
XR chest 1V portable CLINICAL HISTORY: incr. O2 req. TECHNIQUE: Single frontal radiograph of the chest was obtained. Comparison: Comparison is made to chest one view 01/15/2031 FINDINGS: No lines and tubes are seen. The cardiomediastinal silhouette is normal. Multifocal airspace opacitie s are seen. No evidence of pleural effusion or pneumothorax. IMPRESSION: Multifocal airspace opacities may represent atelectasis, pneumonia, and/or aspiration. ACT 112: Negative or not required by law. Electronically signed by: Huber Allen M.D. 01/16/2021 8:30 AM
[2021-01-16] MEDS: ADVANCED PROBIOTIC 1250 MG CAPSULE PO SCH (08:32)
[2021-01-16] MEDS: HEPARIN SOD 5,000 UNIT/0.5 ML VIAL SQ SCH ×2 (08:34→20:02)
[2021-01-16] MEDS: dexAMETHasone 6 MG in SYRINGE 0 ML IV SCH (08:34)
[2021-01-16] MEDS: FLUTICASONE/VILANTEROL 100/25MCG 14 PUFFS/INHALER INH SCH (08:37)
[2021-01-16] MEDS: MULTIVITAMIN TAB PO SCH (08:37)
[2021-01-16] MEDS: OMEGA-3 (PURIFIED FISH OIL) 1 GM CAP PO SCH (08:38)
[2021-01-16] MEDS: INSULIN GLARGINE SOLOSTAR 100 UNITS/ML 3 ML PEN SC SCH (08:45)
[2021-01-16] MEDS: INSULIN HUMAN NPH SC SCH (08:45)
--- NOTE | 2021-01-16 11:43 | Pulmonology Progress Note ---
Date of Service January 16, 2021 Assessment & Plan (1) Pneumonia due to 2019-nCoV: (2) Acute hypoxemic respiratory failure: (3) ARCELIA (obstructive sleep apnea): (4) DVT prophylaxis: Plan: Impression: 70-year-old male that was fully vaccinated with second v accination 05/09/2020. Admitted 01/08/2021 for shortness of breath and hypoxia. Patient received 5 days of remdesivir. He continues on dexamethasone 6 mg IV daily. (Day #9). ARCELIA at home with CPAP. Patient using his own mask with hospital machine HS. currently on high flow oxygen 60 L/min and FiO2 of 80% with supplemental FM oxygen and appears comfortable. Respiratory rate 18. No use of accessory muscles. No acute respiratory distress. Chest x-ray stable. Recommendations: 1. Covid19/ARDS: Patient completed remdesivir as well as dexamethasone. He remains on dexamethasone 6 mg a day as well as several inhalers. Will defer increasing his steroids until we are able to see what kind of parenchymal opacities he has on his CT scan. Agree with high flow oxygen supplemented by facemask currently. Only indication for intubation would be increased work of breathing, tachypnea, or refractory hypoxemia, none of which he needs currently. 2. Obstructive sleep apnea: Continue nocturnal CPAP with comments as noted above. 3. Acute hypoxia: Appears out of proportion to the infiltrate noted on the patient's chest x-ray. Would recommend proceeding with a CT angiogram to exclude potential PE contributing to his hypoxemia. This would also allow for interrogation of the patient's pulmonary parenchyma. Patient is comfortable currently. Could consider additional work-up including echocardiogram with bubble study to evaluate for intracardiac or intrapulmonary shunts. Would await CT scan. We'll recheck a BnP as well. Patient remains critically ill at this point in time with significant possibility of clinical deterioration and/or . We'll continue to follow closely with you. Total of 35 minutes critical care time was spent in evaluation management stabilization as patient including discussion with respiratory therapy, hospitalist service, and critical care PAULINA. Admission and Anticipated Discharge Date Admission Date: January 08, 2021 Subjective Asked by hospitalist to reevaluate this patient. He is seen and examined. He reports that his breathing is okay currently. He is currently on high flow supplemented by facemask. He states he gets winded with any significant physical activity but as long as he sits still he does okay. He was on BiPAP last night. He is trying to proning as much as possible. He is currently comfortable Review of Systems Review of Systems: All systems reviewed & are unremarkable except as noted in Subjective Physical Exam Constitutional: WD/WN, vitals as above Neck: trachea midline, no thyromegaly Respiratory: normal respiratory effort; no respiratory distress, no labored breathing and not tachypneic Auscultation: + crackles Cardiovascular: RRR, no murmur, no edema Gastrointestinal (Abdomen): normal bowel sounds, soft, nontender, no hepatosplenomegaly Musculoskeletal: Extremities: extremities normal to inspection Skin: no rashes, warm and dry Neurologic: Nonfocal exam Lymphatic: no cervical lymphadenopathy Results & Data Results & Data ([facility]) Vital Signs (Past 12 Hours) Vital Signs Temp Pulse Pulse Resp BP BP Pulse Ox 01/16/21 11:26 37.4 C 88 20 123/74 96 01/16/21 09:27 78 01/16/21 08:30 87 24 91 01/16/21 08:29 37.1 C 84 20 125/71 94 01/16/21 04:03 36.9 C 89 18 132/85 91 01/16/21 02:50 100 H 24 90 01/16/21 00:06 36.9 C 81 20 142/83 H 92 01/15/21 23:39 94 H Laboratory Results 01/15/21 05:41 01/15/21 05:41 Critical Care Results & Data Vital Signs (Past 12 Hours) Vital Signs Temp Pulse Pulse Resp BP BP Pulse Ox 01/16/21 11:26 37.4 C 88 20 123/74 96 01/16/21 09:27 78 01/16/21 08:30 87 24 91 01/16/21 08:29 37.1 C 84 20 125/71 94 01/16/21 04:03 36.9 C 89 18 132/85 91 01/16/21 02:50 100 H 24 90 01/16/21 00:06 36.9 C 81 20 142/83 H 92 Lab & Micro Results (Past 24 Hours) No Data to Display No Data to Display Blood Gas Barometric Pressure 734.7 mm/Hg 01/16/21 08:14 01/16/21 Arterial Blood pH 7.48 (7.35-7.45) H 01/16/21 08:14 01/16/21 Arterial Blood Partial Pressure CO2 32 mmHg (35-46) L 01/16/21 08:14 01/16/21 Arterial Blood Partial Pressure O2 84 mmHg (80-95) 01/16/21 08:14 01/16/21 Arterial Blood HCO3 23 mmol/L (19-24) 01/16/21 08:14 01/16/21 Arterial Blood Base Excess 0.5 mEq/L (-9-1.8) 01/16/21 08:14 01/16/21 Arterial Blood Oxygen Saturation 97.0 % (90-95) H 01/16/21 08:14 01/16/21 Blood Gas Oxygen Given 60% 01/16/21 08:14 01/16/21 Suresh Test Pos (Pos) 01/16/21 08:14 01/16/21 Blood Gas Barometric Pressure 734.7 mm/Hg 01/16/21 08:14 01/16/21 Diagnostic Findings (Past 24 Hours) Chest X-Ray 01/16/21 07:41 XR chest 1V portable CLINICAL HISTORY: incr. O2 req. TECHNIQUE: Single frontal radiograph of the chest was obtained. Comparison: Comparison is made to chest one view 01/15/2031 FINDINGS: No lines and tubes are seen. The cardiomediastinal silhouette is normal. Multifocal airspace opacities are seen. No evidence of pleural effusion or pneumothorax. IMPRESSION: Multifocal airspace opacities may represent atelectasis, pneumonia, and/or aspiration. ACT 112: Negative or not required by law. Electronically signed by: Huber Allen M.D. 01/16/2021 8:30 AM I & O Totals 24 Hours 01/15/21 01/16/21 01/17/21 06:59 06:59 06:59 Intake Total 360 / 360 890 / 890 Output Total 800 / 800 1375 / 1375 Balance -440 / -440 -485 / -485 Cumulative 01/08/21 14:08 thru 01/16/21 06:40 Intake Total 6020 Output Total 3726 Balance -2706 RT Ventilator Mngmt (Last Documented) Ventilator Ordered Settings Respiratory Rate 20 01/16/21 11:26 Fraction of Inspired Oxygen 95 12/09/21 08:30 Ventilator - PT Measurements Respiratory Rate 20 PG Care Time/CCT Total # of Minutes Spent Total Time Spent with Patient: Total time spent is greater than 50% in coordination of care (as documented) at patient's floor/unit and/or counseling patient: Coding Level of Care Code Critical Care 1st 30-74 mins Diagnoses Pneumonia due to 2019-nCoV U07.1; J12.82 Acute hypoxemic respiratory failure J96.01 ARCELIA (obstructive sleep apnea) G47.33 DVT prophylaxis Z29.9 Time Spent (min) 35
[2021-01-16] MEDS: INSULIN ASPART 100 UNITS/ML 3 ML PEN SC SCH ×4 (12:34→20:44)
[2021-01-16 12:45] LABS: Hematocrit (blood only) 38.7 % (42-52); Hemoglobin 12.9 g/dL (14.0-18.0); Mean Corpuscular Hemoglobin 33.6 pg (25-34); Mean Corpuscular Hgb Conc 33.3 g/dL (32-36); Mean Corpuscular Volume 100.8 fL (80-100); Mean Platelet Volume 10.8 fL (7.4-10.4); Platelet Count 147 K/uL (130-400); RDW Coefficient of Variation 12.7 % (11.5-14.5); RDW Standard Deviation 46.7 fL (36.4-46.3); Red Blood Count 3.84 M/uL (4.7-6.1); White Blood Count 11.53 K/uL (4.8-10.8)
[2021-01-16 13:03] LABS: BUN Creatinine Ratio 39.8 (10-20); Calcium 9.2 mg/dl (8.5-10.1); Creatinine Clr Calc Pharmacy 99.1 ml/min; Est GFR (African American) 99.9 ml/min; Est GFR (Non-African American) 86.2 ml/min; Potassium 4.8 mmol/L (3.5-5.1)
[2021-01-16 13:10] LABS: C Reactive Protein 9.51 mg/dl (0-0.29)
[2021-01-16] MEDS: IPRATROPIUM BROMIDE NEB SOLN 0.02% 2.5 ML VIAL INH SCH ×4 (13:43→23:08)
[2021-01-16] MEDS: LEVALBUTEROL 1.25MG/0.5ML NEB INH SCH ×4 (13:44→23:09)
[2021-01-16] MEDS ORDERED: OPTIRAY 320 125ml IV ONE (15:22)
--- NOTE | 2021-01-16 15:38 | CT Scan Report ---
CT angio chest PE protocol CLINICAL HISTORY: PE Covid pneumonia. TECHNIQUE: Multidetector row helical CT of the chest was performed. Coronal and sagittal reformations were obtained. Automated dose lowering techniques and/or adjustment according to patient size were u tilized for this exam. Comparison: Comparison is made to CT chest 01/08/2021 FINDINGS: Lungs and pleura: Multifocal groundglass opacities are again seen. Heart and pericardium: There is cardiomegaly without evidence of pericardial effusion. Vessels: No evidence of pulmonary embolism. Mediastinum and khari: Nodes are seen measuring up to 14 mm in diameter. Scattered calcified lymph nod es are also seen. Chest wall and lower neck: Unremarkable. Abdomen: Unremarkable. Bones: Unremarkable. IMPRESSION: 1. No evidence of pulmonary embolism. 2. Multifocal groundglass opacities compatible with viral pneumonia. Reactive lymphadenopathy is see n. ACT 112: Negative or not required by law. Electronically signed by: Huber Allen M.D. 01/16/2021 3:37 PM
[2021-01-16] MEDS: LEVALBUTEROL TARTRATE 15 GM HFA.AER.AD INH PRN (15:48)
[2021-01-16] MEDS: TAMSULOSIN HCL 0.4 MG CAP PO SCH (16:13)
[2021-01-17] MEDS: IPRATROPIUM BROMIDE NEB SOLN 0.02% 2.5 ML VIAL INH SCH ×4 (04:45→14:13)
[2021-01-17] MEDS: LEVALBUTEROL 1.25MG/0.5ML NEB INH SCH ×3 (04:45→11:45)
[2021-01-17 06:42] LABS: Hemoglobin 12.3 g/dL (14.0-18.0); Mean Corpuscular Hemoglobin 33.1 pg (25-34); Mean Corpuscular Hgb Conc 33.2 g/dL (32-36); Mean Corpuscular Volume 99.5 fL (80-100); Mean Platelet Volume 10.4 fL (7.4-10.4); Platelet Count 130 K/uL (130-400); RDW Coefficient of Variation 12.6 % (11.5-14.5); RDW Standard Deviation 45.9 fL (36.4-46.3); Red Blood Count 3.72 M/uL (4.7-6.1); White Blood Count 9.35 K/uL (4.8-10.8)
[2021-01-17 07:24] LABS: BUN Creatinine Ratio 35.5 (10-20); Calcium 8.4 mg/dl (8.5-10.1); Creatinine Clr Calc Pharmacy 108.7 ml/min; Est GFR (African American) 103.8 ml/min; Est GFR (Non-African American) 89.6 ml/min; Potassium 4.2 mmol/L (3.5-5.1)
[2021-01-17 07:34] LABS: Phosphorus 3.4 mg/dl (2.5-4.9)
--- NOTE | 2021-01-17 08:07 | Hospitalist Progress Note ---
Date of Service January 17, 2021 Assessment & Plan (1) Acute hypoxemic respiratory failure: Plan: Acute respiratory failure with hypoxia COVID-19 pneumonia --CTA:Patchy groundglass opacities are present throughout both lungs jayme racteristic of a viral type pneumonitis and early Covid 19 pneumonia. No PE -Had COVID Vaccination in May 2020 per patient H/O Asthma H/O ARCELIA on CPAP Procalcitonin 0.05 CRP 13.4> 6.48 Blood cultures: Negative to date -Completed Remdesivir course for 5 days Continue dexamethasone (day 10) Also on doxycycline - now stopped (01/16) Lasix , Nebs as needed Continue home inhalers Encourage to prone on heparin SQ for DVT prophylaxis Currently on HF NC Pulmonary medicine consulted, appreciate their input Repeat CT PE - negative for PE, Multifocal groundglass opacities compatible with viral pneumonia. Reactive lymphadenopathy is seen. 01/17 - patient has been on high flow nasal cannula, however now tiring. 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 failure d/t Covid 19 pna Patient has been on high flow nasal cannula However this morning seems to be tiring Contacted by pulmonary/shrimp picker doctor about the plan to intubate Currently patient is alert oriented answering questions appropriately, anesthesia at the bedside, with plan to intubate the patient Tried to contact patient's and update her, only able to leave a message for now When I discussed with patient's yesterday,she said patient was Druze, and would appreciate if inverform machine operator could stop by however I explained that unfortunately due to Covid status, this would not be possible. Review of Systems Review of Systems: All systems reviewed & are unremarkable except as noted in Subjective Physical Exam Physical Exam: General Appearance:Moderately built and nourished,on HF NC, + somewhat anxious Head: normocephalic, Atraumatic Eyes: normal inspection, EOMI Neck: supple Respiratory/Chest: Decreased breath sounds, CTA Cardiovascular: S1, S2, No murmur Abdomen/GI: Soft, Non tender, Bowel sounds present Extremities/Musculoskeletal: normal inspection, no edema Neurologic/Psych: AAOX3, no facial asymmetry, speech fluent, moves extremities Skin: normal color, warm Results & Data Results & Data ([facility]) Vital Signs (Past 12 Hours) Vital Signs Temp Pulse Pulse Resp BP BP Pulse Ox 01/17/21 07:58 86 01/17/21 07:31 36.9 C 95 H 22 146/70 H 87 L 01/17/21 07:09 91 H 26 H 91 01/17/21 06:48 104 H 01/17/21 03:22 82 20 92 01/17/21 03:00 37.0 C 90 20 152/84 H 94 01/16/21 23:10 95 H 24 96 01/16/21 22:41 37.9 C H 102 H 22 142/84 H 86 L 01/16/21 21:00 01/16/21 20:08 37.4 C 104 H 24 147/76 H 90 Pulse Ox 01/17/21 07:58 01/17/21 07:31 01/17/21 07:09 01/17/21 06:48 01/17/21 03:22 01/17/21 03:00 01/16/21 23:10 01/16/21 22:41 01/16/21 21:00 90 01/16/21 20:08 Laboratory Results 01/17/21 01/17/21 01/17/21 Range/Units 08:00 06:28 06:28 WBC 9.35 (4.8-10.8) K/uL RBC 3.72 L (4.7-6.1) M/uL Hgb 12.3 L (14.0-18.0) g/dL Hct 37.0 L (42-52) % MCV 99.5 (80-100) fL MCH 33.1 (25-34) pg MCHC 33.2 (32-36) g/dL RDW Std Deviation 45.9 (36.4-46.3) fL RDW Coeff of Roxie 12.6 (11.5-14.5) % Plt Count 130 (130-400) K/uL MPV 10.4 (7.4-10.4) fL ABG pH (7.35-7.45) ABG pCO2 (35-46) mmHg ABG pO2 (80-95) mmHg ABG HCO3 (19-24) mmol/L ABG O2 Saturation (90-95) % ABG Base Excess (-9-1.8) mEq/L Suresh Test (Pos) Barometric Pressure mm/Hg Oxygen Given Sodium 138 (136-145) mmol/L Potassium 4.2 (3.5-5.1) mmol/L Chloride 106 (98-107) mmol/L Carbon Dioxide 26 (21-32) mmol/L Anion Gap 7.0 (3-11) BUN 29 H (7-18) mg/dl Creatinine 0.82 (0.6-1.4) mg/dl Est Cr Clr Drug Dosing 108.7 ml/min Est GFR ( Amer) 103.8 ml/min Est GFR (Non-Af Amer) 89.6 ml/min BUN/Creatinine Ratio 35.5 H (10-20) Glucose 150 H (70-99) mg/dl POC Glucose 155 H (70-99) mg/dl Calcium 8.4 L (8.5-10.1) mg/dl Phosphorus 3.4 (2.5-4.9) mg/dl Magnesium 3.0 H (1.8-2.4) mg/dl C-Reactive Protein (0-0.29) mg/dl NT-Pro-B Natriuret Pep (0-900) pg/ml 01/16/21 01/16/21 01/16/21 Range/Units 19:58 16:21 11:52 WBC (4.8-10.8) K/uL RBC (4.7-6.1) M/uL Hgb (14.0-18.0) g/dL Hct (42-52) % MCV (80-100) fL MCH (25-34) pg MCHC (32-36) g/dL RDW Std Deviation (36.4-46.3) fL RDW Coeff of Roxie (11.5-14.5) % Plt Count (130-400) K/uL MPV (7.4-10.4) fL ABG pH (7.35-7.45) ABG pCO2 (35-46) mmHg ABG pO2 (80-95) mmHg ABG HCO3 (19-24) mmol/L ABG O2 Saturation (90-95) % ABG Base Excess (-9-1.8) mEq/L Suresh Test (Pos) Barometric Pressure mm/Hg Oxygen Given Sodium (136-145) mmol/L Potassium (3.5-5.1) mmol/L Chloride (98-107) mmol/L Carbon Dioxide (21-32) mmol/L Anion Gap (3-11) BUN (7-18) mg/dl Creatinine (0.6-1.4) mg/dl Est Cr Clr Drug Dosing ml/min Est GFR ( Amer) ml/min Est GFR (Non-Af Amer) ml/min BUN/Creatinine Ratio (10-20) Glucose (70-99) mg/dl POC Glucose 149 H 132 H 167 H (70-99) mg/dl Calcium (8.5-10.1) mg/dl Phosphorus (2.5-4.9) mg/dl Magnesium (1.8-2.4) mg/dl C-Reactive Protein (0-0.29) mg/dl NT-Pro-B Natriuret Pep (0-900) pg/ml 01/16/21 01/16/21 01/16/21 Range/Units 08:14 08:07 08:07 WBC 11.53 H (4.8-10.8) K/uL RBC 3.84 L (4.7-6.1) M/uL Hgb 12.9 L (14.0-18.0) g/dL Hct 38.7 L (42-52) % MCV 100.8 H (80-100) fL MCH 33.6 (25-34) pg MCHC 33.3 (32-36) g/dL RDW Std Deviation 46.7 H (36.4-46.3) fL RDW Coeff of Roxie 12.7 (11.5-14.5) % Plt Count 147 (130-400) K/uL MPV 10.8 H (7.4-10.4) fL ABG pH 7.48 H (7.35-7.45) ABG pCO2 32 L (35-46) mmHg ABG pO2 84 (80-95) mmHg ABG HCO3 23 (19-24) mmol/L ABG O2 Saturation 97.0 H (90-95) % ABG Base Excess 0.5 (-9-1.8) mEq/L Suresh Test Pos (Pos) Barometric Pressure 734.7 mm/Hg Oxygen Given 60% Sodium 136 (136-145) mmol/L Potassium 4.8 (3.5-5.1) mmol/L Chloride 104 (98-107) mmol/L Carbon Dioxide 27 (21-32) mmol/L Anion Gap 5.0 (3-11) BUN 36 H (7-18) mg/dl Creatinine 0.90 (0.6-1.4) mg/dl Est Cr Clr Drug Dosing 99.1 ml/min Est GFR ( Amer) 99.9 ml/min Est GFR (Non-Af Amer) 86.2 ml/min BUN/Creatinine Ratio 39.8 H (10-20) Glucose 154 H (70-99) mg/dl POC Glucose (70-99) mg/dl Calcium 9.2 (8.5-10.1) mg/dl Phosphorus (2.5-4.9) mg/dl Magnesium (1.8-2.4) mg/dl C-Reactive Protein 9.51 H (0-0.29) mg/dl NT-Pro-B Natriuret Pep 183 (0-900) pg/ml Medications Administered Current Inpatient Medications Acetaminophen (Acetaminophen 325 Mg Tab) 650 mg PO Q4H PRN PRN Reason: Pain or Fever Stop: 02/08/21 00:19 Amlodipine Besylate (Amlodipine Besylate 5 Mg Tab) 10 mg PO DAILY FOR[facility], [facility]1983 Stop: 02/08/21 08:59 Last Admin: 01/14/21 08:26 Dose: 10 mg Documented by: Aspirin (Aspirin 81 Mg Ectab) 81 mg PO DAILY JC Stop: 02/08/21 08:59 Last Admin: 01/16/21 08:31 Dose: 81 mg Documented by: Benzonatate (Benzonatate 100 Mg Capsule) 100 mg PO TID PRN PRN Reason: Cough Stop: 02/15/21 03:02 Last Admin: 01/16/21 16:12 Dose: 100 mg Documented by: Dextrose (Dextrose 50% 50 Ml Syringe) 25 - 50 ml IV UD PRN; Protocol PRN Reason: Hypoglycemia Protocol Stop: 02/08/21 00:19 Docusate Sodium (Docusate Sodium 100 Mg Cap) 100 mg PO BID PRN PRN Reason: Constipation Stop: 02/10/21 20:59 Last Admin: 01/13/21 14:14 Dose: 100 mg Documented by: Fish Oil (Weston-3 (Purified Fish Oil) 1 Gm Cap) 1 gm PO DAILY JC Stop: 02/08/21 08:59 Last Admin: 01/16/21 08:38 Dose: 1 gm Documented by: Fluticasone Propionate (Fluticasone Propionate Na Spr 16 Gm Btl) 2 sprays NA DAILY PRN PRN Reason: Nasal Congestion Stop: 02/08/21 00:19 Last Admin: 01/14/21 21:01 Dose: 2 sprays Documented by: Fluticasone/Vilanterol (Fluticasone/Vilanterol 100/25mcg 14 Puffs/Inhaler) 1 puffs INH DAILY JC Stop: 02/08/21 08:59 Last Admin: 01/16/21 08:37 Dose: 1 puffs Documented by: Glucagon (Glucagon For Inj 1 Mg Vial) 1 mg SQ UD PRN; Protocol PRN Reason: Hypoglycemia Protocol Stop: 02/08/21 00:19 Glucose (Glucose 10 Tabs/Tube) 4 - 8 tabs PO UD PRN; Protocol PRN Reason: Hypoglycemia Protocol Stop: 02/08/21 00:19 Glucose (Glucose 40% Gel 15 Gm Tube) 15 - 30 gm PO UD PRN; Protocol PRN Reason: Hypoglycemia Protocol Stop: 02/08/21 00:19 Guaifenesin (Guaifenesin 600 Mg Tabcr) 600 mg PO Q12 JC Stop: 02/15/21 08:59 Last Admin: 01/16/21 20:02 Dose: 600 mg Documented by: Heparin Sodium (Porcine) (Heparin Sod 5,000 Unit/0.5 Ml Vial) 5,000 units SQ Q12 JC Stop: 02/10/21 20:59 Last Admin: 01/16/21 20:02 Dose: 5,000 units Documented by: Promethazine HCl 12.5 mg/ (Sodium Chloride) 50.5 mls @ 202 mls/hr IV Q6H PRN PRN Reason: Nausea And Vomiting Stop: 02/08/21 00:19 Dexamethasone 6 mg/ Syringe 1.5 mls @ 1 mls/min IV DAILY [facility], [facility]1983 Stop: 02/13/21 06:44 Last Admin: 01/16/21 08:34 Dose: 1 mls/min Documented by: Insulin Aspart (Insulin Aspart 100 Units/Ml 3 Ml Pen) 0 units SC 0730 [facility], [facility]; Protocol Stop: 02/08/21 00:59 Last Admin: 01/15/21 17:08 Dose: 10 units Documented by: Insulin Aspart (Insulin Aspart 100 Units/Ml 3 Ml Pen) 0 units SC 1130,1630,2100 [facility], [facility]; Protocol Stop: 02/14/21 16:29 Last Admin: 01/16/21 20:44 Dose: 1 units Documented by: Insulin Glargine (Insulin Glargine Solostar 100 Units/Ml 3 Ml Pen) 20 units SC QAM [facility], [facility]; Protocol Stop: 02/12/21 08:59 Last Admin: 01/16/21 08:45 Dose: 20 units Documented by: Insulin Human NPH (Insulin Human Nph) 25 units SC Q24H [facility], [facility]; Protocol Stop: 02/13/21 08:59 Last Admin: 01/16/21 08:45 Dose: 25 units Documented by: Ipratropium [place] (Ipratropium [place] Neb Soln 0.02% 2.5 Ml Vial) 0.5 mg INH Q4R JC Stop: 02/15/21 10:59 Last Admin: 01/17/21 07:09 Dose: 0.5 mg Documented by: Lactobacillus Acidoph/Casei/Rhamnos (Advanced Probiotic 1250 Mg Capsule) 2 cap PO DAILY [facility], [facility]1983 Stop: 02/08/21 08:59 Last Admin: 01/16/21 08:32 Dose: 2 cap Documented by: Levalbuterol HCl (Levalbuterol Tartrate 15 Gm Hfa.Aer.Ad) 2 puffs INH Q4R PRN PRN Reason: Shortness Of Breath Or Wheezing Stop: 02/08/21 10:59 Last Admin: 01/16/21 15:48 Dose: 2 puffs Documented by: Levalbuterol HCl (Levalbuterol 1.25mg/0.5ml Neb) 1.25 mg INH Q4R JC Stop: 02/15/21 10:59 Last Admin: 01/17/21 07:09 Dose: 1.25 mg Documented by: Losartan Potassium (Losartan Potassium 50 Mg Tab) 50 mg PO DAILY [facility], [facility]1983 Stop: 02/14/21 08:59 Last Admin: 01/15/21 07:07 Dose: 50 mg Documented by: Miscellaneous (Carbohydrates For Hypoglycemia ) 15 - 30 gm PO UD PRN PRN Reason: Hypoglycemia Protocol Stop: 02/08/21 00:19 Miscellaneous Information (Pharmacy Glycemic Mgmt Consult) 1 ea N/A UD PRN PRN Reason: Consult Stop: 02/08/21 10:07 Multivitamins (Multivitamin Tab) 1 tab PO QAM [facility] Stop: 02/08/21 08:59 Last Admin: 01/16/21 08:37 Dose: 1 tab Documented by: Polyethylene Glycol (Polyethylene (Miralax) 17 Gm Pack) 17 gm PO DAILY PRN PRN Reason: Constipation Stop: 02/10/21 14:11 Last Admin: 01/13/21 14:14 Dose: 17 gm Documented by: Tamsulosin HCl (Tamsulosin Hcl 0.4 Mg Cap) 0.4 mg PO DAILY@1700 [facility], [facility]1983 Stop: 02/07/21 23:59 Last Admin: 01/16/21 16:13 Dose: 0.4 mg Documented by:
[2021-01-17] MEDS: dexAMETHasone 6 MG in SYRINGE 0 ML IV SCH (08:34)
[2021-01-17] MEDS: guaiFENesin 600 MG TABCR PO SCH ×3 (08:36→20:40)
[2021-01-17] MEDS: OMEGA-3 (PURIFIED FISH OIL) 1 GM CAP PO SCH ×2 (08:37→08:43)
[2021-01-17] MEDS: ASPIRIN 81 MG ECTAB PO SCH (08:43)
[2021-01-17] MEDS: MULTIVITAMIN TAB PO SCH (08:43)
[2021-01-17] MEDS: ADVANCED PROBIOTIC 1250 MG CAPSULE PO SCH (08:43)
[2021-01-17] MEDS: INSULIN ASPART 100 UNITS/ML 3 ML PEN SC SCH ×4 (09:18→20:34)
[2021-01-17] MEDS: INSULIN GLARGINE SOLOSTAR 100 UNITS/ML 3 ML PEN SC SCH (09:20)
[2021-01-17] MEDS: INSULIN HUMAN NPH SC SCH (09:23)
[2021-01-17] MEDS: FLUTICASONE/VILANTEROL 100/25MCG 14 PUFFS/INHALER INH SCH (09:24)
[2021-01-17] MEDS ORDERED: PROPOFOL IV EMULSION 10 MG/ML 100 ML VIAL IV ONE (09:26)
[2021-01-17] MEDS ORDERED: STAT IV Infusion **Titration per Protocol STA ×2 (09:27)
[2021-01-17] MEDS ORDERED: CISATRACURIUM BOLUS FROM BAG IV ONE (09:45)
[2021-01-17] MEDS: propofoL 1,000 MG/100 ML VIAL IV SCH ×5 (09:50→22:15)
[2021-01-17] MEDS: fentaNYL DRIP 1,250 MCG/250 ML BAG IV SCH ×2 (10:30→19:35)
[2021-01-17] MEDS: MIDAZOLAM HCL 125 MG/250 ML BAG IV SCH (10:30)
--- NOTE | 2021-01-17 11:29 | Anesthesia Procedure Note ---
Anesthesia Procedure Note Arterial Line Note Patient medical history, medications, allergies and vitals reviewed. Date of procedure: 01/17/21 Consent: Risk / Benefits Reviewed With: PT / POA / Parent / Guardian, Accepts Plan and Emergency Monitors attached: Blood Pressure, CO2, EKG and Pulse Oximetry Oxygen delivery method: ETT Time out completed: Yes Premedication: None Laterality: Right Location: Radial Hand hygeine: Soap and water and Alcohol based hand rub Equipment/Supplies: Cap, Mask, Sterile gown, Sterile gloves and Sterile procedures used Skin prep: Chloraprep Ultrasound used: No Attempts: 1 Procedure Summary: 20 gauge angiocath advanced until return of bright red blood. Catheter threaded using seldinger technique with return of pulsatile, bright red blood. Catheter secured with tape and covered with occlusive dressing. Waveform consistent with correct arterial placement. After placement, normal perfusion was observed distal to the site of catheter placement. Post-Procedure: Pt hemodynamically stable, Pt tolerates well and No complication Central Line Note Last set of vitals: Patient medical history, medications, allergies and vitals reviewed. Date of procedure: 01/17/21 Consent: Risk / Benefits Reviewed With: PT / POA / Parent / Guardian, Accepts Plan, Informed Consent Obtained and All Questions Answered Monitors attached: Blood Pressure, CO2, EKG and Pulse Oximetry Oxygen delivery method: ETT Time out completed: Yes Premedication: None Laterality: Right Location: Internal Jugular Surgical Prep: Hand hygeine: Soap and water and Alcohol based hand rub Equipment/Supplies: Cap, Mask, Sterile gown, Sterile gloves, Sterile drapes and Sterile procedures used Skin prep: Chloraprep Ultrasound Guidance: Ultrasound used: Yes US equipment and supplies: Sterile Gel and Sterile Probe Cover Central line lumen: Triple Catheter sutured at: CM Attempts: 2 Procedure Summary: Patient was positioned with cannulated vein in dependent position. Good return of dark, nonpulsatile blood after needle placement. Guidewire threaded easily and was verified in the vein by ultrasound. Accessed vessel was transduced prior to dilation. After dilation, unable to pass catheter. The guidewire may have passed through the vein. no signs of hematoma on ultrasound. Decision made to replace the catheter following the above steps again. After dilation, the catheter advanced easily over the guide wire. Guide wire was removed and the catheter was sutured in place. Antibiotic disc placed and site covered with occlusive dressing. All ports aspirated and flushed Post-Procedure: Pt hemodynamically stable, Pt tolerates well, No complication and Post placement CXR ordered Intubation Note Vital Signs: Patient medical history, medication, allergies and vitals reviewed. Indication for intubation: Failure to oxygenate and Unable to maintain airway patency Consent: Risk / Benefits Reviewed With: PT / POA / Parent / Guardian, Accepts Plan, All Questions Answered and Emergency Monitors attached: Blood Pressure, CO2, EKG and Pulse Oximetry Time out completed: Yes Premedication: Propofol (mg) (100) Paralytic medication: Succinylcholine (mg) (100) Intubation technique: RSI and Cricoid pressure Equipment: Glidescope View: Grade 1 Endotracheal tube: Oral (8.5), with Stylet, Tube secured @ cm (26) and Balloon inflated Attempts: 1 and Atraumatic Tube placement confirmation: auscultation and Positive CO2 detection Post-procedure: Pt hemodynamically stable, Pt tolerates well, No complication and Post placement CXR ordered Anesthesia Charges Arterial Line A Line Charges: 80253 Insert Art line Samp/Mon/Beckman
--- NOTE | 2021-01-17 11:38 | XRay Report ---
XR chest 1V portable CLINICAL HISTORY: intubation, central line placement. COMPARISON STUDY: 01/16/2021 TECHNIQUE: 1 view of the chest FINDINGS: Single frontal view of the chest demonstrates the heart size to be at the upper limits of normal to m ildly enlarged. Endotracheal tube has been placed with its tip approximately 6.5 cm above the gaviota. Right jugular catheter is in place with its tip in the distal SVC. There is no evidence for pneumoth orax. NG tube is in place with its tip extending into the upper body of the stomach. There is been interval development of left basilar atelectasis and small left pleural effusion. Mild interstitial and alveolar opacities are again seen bilaterally . There is no evidence for vascular co ngestion. There is no acute osseous pathology. IMPRESSION: 1. Tubes and catheters appear in satisfactory position as described. 2. Left basilar atelectasis and small left pleural effusion. 3. Mild interstitial and alveolar opacities are again seen bilaterally. ACT 112: Negative or not required by law. Electronically signed by: Pablo Bonner M.D. 01/17/2021 11:37 AM
--- NOTE | 2021-01-17 11:48 | Critical Care Progress Note ---
Date of Service January 17, 2021 Assessment & Plan (1) Pneumonia due to 2019-nCoV: (2) Acute hypoxemic respiratory failure: (3) ARCELIA (obstructive sleep apnea): (4) DVT prophylaxis: Plan: Impression: 70-year-old male that was fully vaccinated with second vaccination 05/09/2020. Admitted 01/08/2021 for shortness of breath and hypoxia. Patient received 5 days of remdesivir. He continues on dexamethasone 6 mg IV daily. (Day #9). ARCELIA at home with CPAP. Patient using his own mask with hospital machine HS. currently on high flow oxygen 60 L/min and FiO2 of 80% with supplemental FM oxygen and appears comfortable. Respiratory rate 18. No use of accessory muscles. No acute respiratory distress. Chest x-ray stable. 24-hour events: The patient is now failing positive pressure ventilation in the form of CPAP as he states he is short of breath and we cannot maintain his oxygen saturations. In addition his saturations are in the mid 80% range despite her high flow oxygen. Long discussion with the patient. He is agreeable to intubation mechanical ventilation. We discussed other interventions which may be necessary including tracheostomy, PEG tube, and dialysis. He is open to us doing what ever needs to be done. We did briefly discuss CPR. He is aware of the poor outcomes in patients undergoing CPR once they are ventilated. He is agreeable to not have CPR performed however would like to have all other interventions conducted if he can save his life. Recommendations: 1. Neuro: Patient will be intubated. Will initiate sedation with propofol, fentanyl, and Versed. Will initiate neuromuscular blockade initially and see how the patient does. He may require proning. 2. Cardiovascular: Hemodynamically stable but may develop hypotension associated with sedation. Norepinephrine as needed. 3. Pulmonary: Severe ARDS. Intubation by anesthesia with central line and arterial line. [place] ARDS net ventilator strategy with low PEEP high FiO2 to prevent additional barotrauma. No PE identified on CT angiogram. Diffuse groundglass opacities were identified. Continue dexamethasone 6 mg daily. We will trend CRP. If it increases, may consider increase to late-phase ARDS protocol. Not a candidate for Baricitinib or ECMO. may consider inhaled flolan or MARTÍN depending on course. 4. Renal: No acute issues. Electrolyte replacement protocol will be initiated. Hold on diuresis for now. Keep I/O even. 5. GI: We will hold on tube feeds until we see how he does. GI prophylaxis will be initiated. 6. ID: No current issues. Will obtain respiratory cultures as baseline. We will request PJP/fungal stains given the atypical appearance on his CT scan. 7. Heme-onc: No current issues. Continue to follow for now. Continue DVT proph. 8. Endocrine: ICU glycemic protocol. The patient's overall prognosis is guarded at this point time. He understands the implications of being intubated. Again he did agree to no compressions in the event he should suffer a cardiac arrest. CODE STATUS will be updated. Patient remains critically ill at this point in time with significant possibility of clinical deterioration and/or . We'll continue to follow closely with you. Total of 85 minutes critical care time was spent in evaluation management stabilization as patient including discussion with respiratory therapy, hospitalist service, and critical care PAULINA. Admission and Anticipated Discharge Date Admission Date: January 08, 2021 Subjective Patient seen and examined this morning. He is experiencing increased work of breathing and despite maximal high flow settings, his oxygen saturations are in the mid 80% range. He feels that he is fatiguing out. He did use CPAP overnight but felt very short of breath with it and states he could not catch his breath despite oxygen bleed in high settings. We discussed intubation mechanical ventilation this morning and the patient is agreeable to proceed. He thinks he is wearing out. He understands the potential mortality and is also amenable to tracheostomy and PEG tube placement if it should be necessary. He is coughing and expectorating some clear phlegm. Review of Systems Review of Systems: All systems reviewed & are unremarkable except as noted in Subjective Physical Exam Constitutional: Increased respiratory rate. Mildly tachypneic. Desaturates with conversation. Neck: trachea midline, no thyromegaly Respiratory: + labored breathing and + tachypneic Auscultation: + crackles Cardiovascular: RRR, no murmur, no edema Gastrointestinal (Abdomen): normal bowel sounds, soft, nontender, no hepatosplenomegaly Musculoskeletal: Extremities: extremities normal to inspection Skin: no rashes, warm and dry Lymphatic: no cervical lymphadenopathy Results & Data Results & Data ([facility]) Vital Signs (Past 12 Hours) Vital Signs Temp Pulse Pulse Pulse Resp BP BP 01/17/21 10:40 92 H 24 140/73 01/17/21 10:30 92 H 24 130/70 01/17/21 10:15 91 H 24 122/70 01/17/21 10:10 93 H 24 128/69 01/17/21 10:05 95 H 24 132/72 01/17/21 10:00 99 H 24 116/66 01/17/21 09:50 97 H 24 139/70 01/17/21 09:46 97 H 24 126/67 01/17/21 09:45 100 H 24 126/67 01/17/21 09:40 100 H 166/87 H 01/17/21 09:35 96 H 01/17/21 09:30 98 H 20 01/17/21 07:58 86 01/17/21 07:31 36.9 C 95 H 22 01/17/21 07:09 91 H 26 H 01/17/21 06:48 104 H 01/17/21 03:22 82 20 01/17/21 03:00 37.0 C 90 20 152/84 H BP Pulse Ox 01/17/21 10:40 94 01/17/21 10:30 96 01/17/21 10:15 96 01/17/21 10:10 95 01/17/21 10:05 95 01/17/21 10:00 96 01/17/21 09:50 93 01/17/21 09:46 94 01/17/21 09:45 94 01/17/21 09:40 93 01/17/21 09:35 92 01/17/21 09:30 90 01/17/21 07:58 01/17/21 07:31 146/70 H 87 L 01/17/21 07:09 91 01/17/21 06:48 01/17/21 03:22 92 01/17/21 03:00 94 Critical Care Results & Data Vital Signs (Past 12 Hours) Vital Signs Temp Pulse Pulse Pulse Resp BP BP 01/17/21 10:40 92 H 24 140/73 01/17/21 10:30 92 H 24 130/70 01/17/21 10:15 91 H 24 122/70 01/17/21 10:10 93 H 24 128/69 01/17/21 10:05 95 H 24 132/72 01/17/21 10:00 99 H 24 116/66 01/17/21 09:50 97 H 24 139/70 01/17/21 09:46 97 H 24 126/67 01/17/21 09:45 100 H 24 126/67 01/17/21 09:40 100 H 166/87 H 01/17/21 09:35 96 H 01/17/21 09:30 98 H 20 01/17/21 07:58 86 01/17/21 07:31 36.9 C 95 H 22 01/17/21 07:09 91 H 26 H 01/17/21 06:48 104 H 01/17/21 03:22 82 20 01/17/21 03:00 37.0 C 90 20 152/84 H BP Pulse Ox 01/17/21 10:40 94 01/17/21 10:30 96 01/17/21 10:15 96 01/17/21 10:10 95 01/17/21 10:05 95 01/17/21 10:00 96 01/17/21 09:50 93 01/17/21 09:46 94 01/17/21 09:45 94 01/17/21 09:40 93 01/17/21 09:35 92 01/17/21 09:30 90 01/17/21 07:58 01/17/21 07:31 146/70 H 87 L 01/17/21 07:09 91 01/17/21 06:48 01/17/21 03:22 92 01/17/21 03:00 94 Lab & Micro Results (Past 24 Hours) RBC 3.72 M/uL (4.7-6.1) L 01/17/21 WBC 9.35 K/uL (4.8-10.8) 01/17/21 Hgb 12.3 g/dL (14.0-18.0) L 01/17/21 Hct 37.0 % (42-52) L 01/17/21 MCV 99.5 fL (80-100) 01/17/21 MCH 33.1 pg (25-34) 01/17/21 MCHC 33.2 g/dL (32-36) 01/17/21 RDW Standard Deviation 45.9 fL (36.4-46.3) 01/17/21 RDW Coefficient of Variation 12.6 % (11.5-14.5) 01/17/21 Plt Count 130 K/uL (130-400) 01/17/21 MPV 10.4 fL (7.4-10.4) 01/17/21 Na 138 mmol/L (136-145) 01/17/21 K 4.2 mmol/L (3.5-5.1) 01/17/21 Cl 106 mmol/L (98-107) 01/17/21 CO2 26 mmol/L (21-32) 01/17/21 Anion Gap 7.0 (3-11) 01/17/21 BUN 29 mg/dl (7-18) H 01/17/21 Creatinine 0.82 mg/dl (0.6-1.4) 01/17/21 Estimated GFR ( Amer) 103.8 ml/min 01/17/21 Estimated GFR (Non-Af Amer) 89.6 ml/min 01/17/21 BUN/Creatinine Ratio 35.5 (10-20) H 01/17/21 Glu 150 mg/dl (70-99) H 01/17/21 Ca 8.4 mg/dl (8.5-10.1) L 01/17/21 Phosphorus Level 3.4 mg/dl (2.5-4.9) 01/17/21 Mg 3.0 mg/dl (1.8-2.4) H 01/17/21 06:28 01/17/21 Calcium Level 8.4 mg/dl (8.5-10.1) L 01/17/21 06:28 01/17/21 Diagnostic Findings (Past 24 Hours) Chest CTA 01/16/21 11:39 CT angio chest PE protocol CLINICAL HISTORY: PE Covid pneumonia. TECHNIQUE: Multidetector row helical CT of the chest was performed. Coronal and sagittal reformations were obtained. Automated dose lowering techniques and/or adjustment according to patient size were utilized for this exam. Comparison: Comparison is made to CT chest 01/08/2021 FINDINGS: Lungs and pleura: Multifocal groundglass opacities are again seen. Heart and pericardium: There is cardiomegaly without evidence of pericardial effusion. Vessels: No evidence of pulmonary embolism. Mediastinum and khari: Nodes are seen measuring up to 14 mm in diameter. Scattered calcified lymph nodes are also seen. Chest wall and lower neck: Unremarkable. Abdomen: Unremarkable. Bones: Unremarkable. IMPRESSION: 1. No evidence of pulmonary embolism. 2. Multifocal groundglass opacities compatible with viral pneumonia. Reactive lymphadenopathy is seen. ACT 112: Negative or not required by law. Electronically signed by: Huber Allen M.D. 01/16/2021 3:37 PM Chest X-Ray 01/17/21 10:48 XR chest 1V portable CLINICAL HISTORY: intubation, central line placement. COMPARISON STUDY: 01/16/2021 TECHNIQUE: 1 view of the chest FINDINGS: Single frontal view of the chest demonstrates the heart size to be at the upper limits of normal to mildly enlarged. Endotracheal tube has been placed with its tip approximately 6.5 cm above the g[place]. Right jugular catheter is in place with its tip in the distal SVC. There is no evidence for pneumothorax. NG tube is in place with its tip extending into the upper body of the stomach. There is been interval development of left basilar atelectasis and small left pleural effusion. Mild interstitial and alveolar opacities are again seen bilaterally . There is no evidence for vascular congestion. There is no acute osseous pathology. IMPRESSION: 1. Tubes and catheters appear in satisfactory position as described. 2. Left basilar atelectasis and small left pleural effusion. 3. Mild interstitial and alveolar opacities are again seen bilaterally. ACT 112: Negative or not required by law. Electronically signed by: Pablo Bonner M.D. 01/17/2021 11:37 AM I & O Totals 24 Hours 01/16/21 01/17/21 01/18/21 06:59 06:59 06:59 Intake Total 890 / 890 51.41 / 51.41 Output Total 1375 / 1375 125 / 125 75 / 75 Balance -485 / -485 -125 / -125 -23.59 / -23.59 Cumulative 01/08/21 14:08 thru 01/17/21 11:36 Intake Total 6071.41 Output Total 8926 Balance -2854.59 RT Ventilator Mngmt (Last Documented) Ventilator Ordered Settings Ventilator Support Mode Assist Control 01/17/21 09:55 Respiratory Rate 24 01/17/21 10:40 Ventilator Tidal Volume 450 01/17/21 09:55 Setting Minute Ventilation 10.8 01/17/21 09:45 Positive End Expiratory 12 01/17/21 09:55 Pressure Fraction of Inspired Oxygen 100 01/17/21 10:40 Ventilator - PT Measurements Respiratory Rate 24 Exhaled Tidal Volume 455 Minute Ventilation 10.8 Peak Inspiratory Airway 24 Pressure Plateau Pressure 20 Respiratory Cycle Inspiratory: 1:2.6 Expiratory Ratio Inspiratory Phase Time 0.7 Static Lung Compliance 56.88 Dynamic Lung Compliance 37.92 Normal Static Lung Compliance 48.00 Coding Level of Care Code Critical Care ea addt'l 30 min Diagnoses Pneumonia due to 2019-nCoV U07.1; J12.82 Acute hypoxemic respiratory failure J96.01 ARCELIA (obstructive sleep apnea) G47.33 DVT prophylaxis Z29.9 Time Spent (min) 85 Comment [id number] and [id number]
[2021-01-17] MEDS: CISATRACURIUM BESYLATE 40 MG in 0.9 % SODIUM CHLORIDE 80 ML IV SCH ×4 (11:49→22:38)
[2021-01-17] MEDS: HEPARIN SOD 5,000 UNIT/0.5 ML VIAL SQ SCH ×3 (11:51→21:05)
[2021-01-17 12:01] LABS: iSTAT Allen Test Pass; iSTAT Arterial Blood Gas HCO3 24 meg/L (19-24); iSTAT Arterial Blood Gas pCO2 43 mmHg (35-46); iSTAT Arterial Blood Gas pH 7.35 (7.35-7.45); iSTAT Arterial Blood Gas pO2 143 mmHg (80-95); iSTAT Carbon Dioxide 25 mmol/L (24-31); iSTAT FiO2 100 %; iSTAT Site R Radial
[2021-01-17] MEDS ORDERED: PROPOFOL IV EMULSION 10 MG/ML 20 ML VIAL IV ONE (12:07)
[2021-01-17] MEDS ORDERED: SUCCINYLCHOLINE CHLORIDE 20 MG/ML 10 ML VIAL IV ONE (12:07)
--- NOTE | 2021-01-17 12:13 | Pharmacy Report ---
Pharmacy Glycemic Short Note 2 - Date of Service January 17, 2021 - Glycemic Short BSG Results (Last 24 hours): 01/16/21 01/16/21 01/16/21 08:07 16:21 19:58 Glucose 154 H POC Glucose 132 H 149 H 01/17/21 01/17/21 06:28 08:00 Glucose 150 H POC Glucose 155 H OUTPATIENT ANTIDIABETIC REGIMEN: * Metformin 500 mg PO BIDM * HbA1c = 6.6% (01/10/21) ASSESSMENT: 01/17 * BSG's had been well controlled on current regimen and still are at this time. 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 * Will change to q4h Novolog * Will eliminate AM Lantus for now * BSG's may decrease 2nd NPO or increase 2nd increased stressors - may require PM adjustments today 01/15: * Patient received a total of 84 units of insulin (25 units NPH + 15 units Lantus + 44 units Novolog) * BSGs were acceptable: [phone] mg/dL * Fasting BSG was 157 today - acceptable * Plan to increase Lantus tomorrow to get fasting BSGs at goal * After lunch, BSGs trended down yesterday. Will monitor today and may need to adjust carb ratio/correction factor * Remains on 6 mg of IV dexamethasone 01/13: * Abbe received a total of 63 units of insulin yesterday (10 units Lantus + 20 units NPH + 33 units bolus) * BSGs were acceptable: [phone] mg/dL * Fasting BSG was 127 mg/dL this AM - at goal * Despite being at goal, fasting BSG is trending upwards so will increase Lantus slightly this AM * BSGs continue to increase throughout the day, likely due to IV steroids * Increased NPH to be given with IV dexamethasone * No adjustment to Novolog today. May need to tighten parameters with breakfast tomorrow. PLAN FOR INPATIENT GLYCEMIC CONTROL: * Hold outpatient oral diabetes medications (metformin) * Basal insulin * Lantus 15 units SC AM * NPH 25 units SC AM with IV dexamethasone * Bolus insulin - tightened with breakfast * NovoLog per scale ACHS or Q6hrs while NPO * Goal Range: Low 110 mg/dL - High 140 mg/dL * Breakfast: Correction Factor: 12 mg/dL/unit; Nutritional / Prandial insulin per carb ratio of 1 unit per 4 grams CHO consumed * Lunch, Dinner, Bedtime: Correction Factor: 15 mg/dL/unit; Nutritional / Prandial insulin per carb ratio of 1 unit per 5 grams CHO consumed PLAN FOR DISCHARGE: * HbA1c was 6.6% from this admission which is at goal. No adjustments necessary to outpatient insulin regimen.
[2021-01-17] MEDS: NOREPINEPHRINE/D5W 8 MG/508 ML BAG IV SCH (14:39)
[2021-01-17] MEDS: SENNOSIDES 8.8 MG/5 ML UDC PO SCH ×2 (15:03→20:05)
[2021-01-17] MEDS: ARTIFICIAL TEARS OP OINT 3.5 GM TUBE OP SCH ×4 (15:03→20:05)
[2021-01-17] MEDS: PANTOprazole 40 MG in SYRINGE 0 ML IV SCH (15:03)
[2021-01-17] MEDS: ICU ELECTROLYTE REPLACEMENT PROTOCOL SCH (17:04)
[2021-01-18] MEDS: INSULIN ASPART 100 UNITS/ML 3 ML PEN SC SCH
[2021-01-18] MEDS: propofoL 1,000 MG/100 ML VIAL IV SCH ×10 (01:17→23:40)
[2021-01-18] MEDS: ARTIFICIAL TEARS OP OINT 3.5 GM TUBE OP SCH ×6 (01:23→21:41)
[2021-01-18] MEDS: CISATRACURIUM BESYLATE 40 MG in 0.9 % SODIUM CHLORIDE 80 ML IV SCH ×5 (02:45→23:41)
[2021-01-18] MEDS: INSULIN ASPART PER UNIT SC SCH ×5 (04:30→20:39)
[2021-01-18 05:00] LABS: iSTAT Arterial Blood Gas HCO3 26 meg/L (19-24); iSTAT Arterial Blood Gas pCO2 38 mmHg (35-46); iSTAT Arterial Blood Gas pH 7.44 (7.35-7.45); iSTAT Arterial Blood Gas pO2 54 mmHg (80-95); iSTAT Carbon Dioxide 27 mmol/L (24-31); iSTAT FiO2 60 %; iSTAT Site Art Line
[2021-01-18] MEDS: PROPOFOL BOLUS FROM BAG IV PRN (06:25)
[2021-01-18] MEDS: HEPARIN SOD 5,000 UNIT/0.5 ML VIAL SQ SCH ×3 (06:26→21:41)
[2021-01-18] MEDS: fentaNYL DRIP 1,250 MCG/250 ML BAG IV SCH ×2 (06:27→17:41)
[2021-01-18] MEDS: MIDAZOLAM BOLUS FROM BAG IV PRN (06:37)
--- NOTE | 2021-01-18 07:27 | Hospitalist Progress Note ---
Date of Service January 18, 2021 Assessment & Plan (1) Acute hypoxemic respiratory failure: Plan: Acute respiratory failure with hypoxia COVID-19 pneumonia --CTA:Patchy groundglass opacities are present throughout both lungs jayme racteristic of a viral type pneumonitis and early Covid 19 pneumonia. No PE -Had COVID Vaccination in May 2020 per patient H/O Asthma H/O ARCELIA on CPAP Procalcitonin 0.05 CRP 13.4> 6.48 Blood cultures: Negative to date -Completed Remdesivir course for 5 days Continue dexamethasone (day 10) Also on doxycycline - now stopped (01/16) Lasix , Nebs as needed Continued home inhalers Pulmonary medicine consulted, appreciate their input 01/17 - intubated, sedated (propofol, fentanyl, and Versed) Repeat CT PE - negative for PE, Multifocal groundglass opacities compatible with viral pneumonia. Reactive lymphadenopathy is seen. P/F 77 consistent with severe ARDS. Advance steroids to 20 mg a day for 5 days followed by 10 mg a day for 5 days. Not a candidate for Baricitinib or ECMO. 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 failure d/t Covid 19 pna, ards Pt was intubated yesterday Now febrile Pulmonary/ ICU following closely Review of Systems Review of Systems: Unobtainable due to cognitive status and Unobtainable due to endotracheal tube Physical Exam Physical Exam: General Appearance:Moderately built and nourished,intubated, sedated Head: normocephalic, Atraumatic Eyes: normal inspection Respiratory/Chest: Decreased breath sounds, CTA Cardiovascular: S1, S2, No murmur Abdomen/GI: Soft, Non tender, Bowel sounds present Extremities/Musculoskeletal: normal inspection, no edema Neurologic/Psych: AAOX3, no facial asymmetry, speech fluent, moves extremities Skin: normal color, warm Results & Data Results & Data ([facility]) Vital Signs (Past 12 Hours) Vital Signs Temp Pulse Resp BP Pulse Ox Pulse Ox 01/18/21 06:00 85 24 137/71 93 01/18/21 05:45 79 24 120/65 93 01/18/21 05:30 69 24 119/60 94 01/18/21 05:15 66 24 106/62 94 01/18/21 05:00 65 24 106/60 93 01/18/21 04:46 24 01/18/21 04:45 66 24 109/59 L 92 01/18/21 04:30 66 24 114/64 91 01/18/21 04:15 68 24 91 01/18/21 04:00 37.2 C 84 24 122/50 L 91 01/18/21 03:45 69 24 135/73 91 01/18/21 03:30 69 24 132/73 92 01/18/21 03:15 73 24 133/73 90 01/18/21 03:00 75 24 126/75 91 01/18/21 02:45 71 24 90 01/18/21 02:30 73 23 127/73 90 01/18/21 02:27 70 24 91 01/18/21 02:15 75 24 149/78 H 90 01/18/21 02:00 76 24 89 L 01/18/21 01:45 75 24 139/76 88 L 01/18/21 01:30 73 24 90 01/18/21 01:15 72 24 140/75 90 01/18/21 01:00 73 24 138/73 90 01/18/21 00:45 77 24 01/18/21 00:30 72 24 01/18/21 00:15 72 24 145/74 H 91 01/18/21 00:00 36.9 C 71 24 92 01/17/21 23:45 72 24 01/17/21 23:30 72 24 01/17/21 23:15 70 24 143/73 H 92 01/17/21 23:01 70 24 92 01/17/21 23:00 75 24 01/17/21 22:45 71 24 144/77 H 92 01/17/21 22:30 69 24 01/17/21 22:15 71 24 01/17/21 22:00 70 24 01/17/21 21:45 71 24 01/17/21 21:30 70 24 01/17/21 21:15 70 24 145/76 H 92 01/17/21 21:00 71 24 93 01/17/21 20:45 69 24 01/17/21 20:30 72 24 146/75 H 92 01/17/21 20:15 64 24 89 L 01/17/21 20:00 36.8 C 74 24 150/77 H 92 01/17/21 19:45 72 24 01/17/21 19:30 70 24 Laboratory Results 01/18/21 01/18/21 01/18/21 Range/Units 12:52 08:10 07:08 WBC (4.8-10.8) K/uL RBC (4.7-6.1) M/uL Hgb (14.0-18.0) g/dL Hct (42-52) % MCV (80-100) fL MCH (25-34) pg MCHC (32-36) g/dL RDW Std Deviation (36.4-46.3) fL RDW Coeff of Roxie (11.5-14.5) % Plt Count (130-400) K/uL MPV (7.4-10.4) fL Sample Site POC pH (7.35-7.45) POC pCO2 (35-46) mmHg POC pO2 (80-95) mmHg POC HCO3 (19-24) magaly/L POC Total CO2 (24-31) mmol/L POC Base Excess (-9-1.8) magaly/L POC ABG O2 Sat (90-95) % Suresh Test O2 Delivery Device POC O2 Rate Minute Ventilation POC FiO2 % Tidal Volume PEEP Sodium 139 (136-145) mmol/L Potassium 4.0 (3.5-5.1) mmol/L Chloride 108 H (98-107) mmol/L Carbon Dioxide 25 (21-32) mmol/L Anion Gap 6.0 (3-11) BUN 22 H (7-18) mg/dl Creatinine 0.57 L (0.6-1.4) mg/dl Est Cr Clr Drug Dosing 156.4 ml/min Est GFR ( Amer) 120.6 ml/min Est GFR (Non-Af Amer) 104.0 ml/min BUN/Creatinine Ratio 38.6 H (10-20) Glucose 126 H (70-99) mg/dl POC Glucose 132 H 110 H (70-99) mg/dl POC Glucose (other) (70-99) mg/dl Calcium 8.1 L (8.5-10.1) mg/dl Phosphorus 2.5 (2.5-4.9) mg/dl Magnesium 3.2 H (1.8-2.4) mg/dl C-Reactive Protein 15.00 H (0-0.29) mg/dl 01/18/21 01/18/21 01/18/21 Range/Units 07:08 04:43 04:18 WBC 7.39 (4.8-10.8) K/uL RBC 3.50 L (4.7-6.1) M/uL Hgb 11.5 L (14.0-18.0) g/dL Hct 34.8 L (42-52) % MCV 99.4 (80-100) fL MCH 32.9 (25-34) pg MCHC 33.0 (32-36) g/dL RDW Std Deviation 46.5 H (36.4-46.3) fL RDW Coeff of Roxie 12.8 (11.5-14.5) % Plt Count 127 L (130-400) K/uL MPV 10.7 H (7.4-10.4) fL Sample Site Art Line POC pH 7.44 (7.35-7.45) POC pCO2 38 (35-46) mmHg POC pO2 54 L (80-95) mmHg POC HCO3 26 H (19-24) magaly/L POC Total CO2 27 (24-31) mmol/L POC Base Excess 2.0 H (-9-1.8) magaly/L POC ABG O2 Sat 89.0 L (90-95) % Suresh Test NA O2 Delivery Device Ventilator POC O2 Rate 24 Minute Ventilation 10.8 POC FiO2 60 % Tidal Volume 450 PEEP 10 Sodium (136-145) mmol/L Potassium (3.5-5.1) mmol/L Chloride (98-107) mmol/L Carbon Dioxide (21-32) mmol/L Anion Gap (3-11) BUN (7-18) mg/dl Creatinine (0.6-1.4) mg/dl Est Cr Clr Drug Dosing ml/min Est GFR ( Amer) ml/min Est GFR (Non-Af Amer) ml/min BUN/Creatinine Ratio (10-20) Glucose (70-99) mg/dl POC Glucose 135 H (70-99) mg/dl POC Glucose (other) (70-99) mg/dl Calcium (8.5-10.1) mg/dl Phosphorus (2.5-4.9) mg/dl Magnesium (1.8-2.4) mg/dl C-Reactive Protein (0-0.29) mg/dl 01/17/21 01/17/21 Range/Units 23:55 16:58 WBC (4.8-10.8) K/uL RBC (4.7-6.1) M/uL Hgb (14.0-18.0) g/dL Hct (42-52) % MCV (80-100) fL MCH (25-34) pg MCHC (32-36) g/dL RDW Std Deviation (36.4-46.3) fL RDW Coeff of Roxie (11.5-14.5) % Plt Count (130-400) K/uL MPV (7.4-10.4) fL Sample Site POC pH (7.35-7.45) POC pCO2 (35-46) mmHg POC pO2 (80-95) mmHg POC HCO3 (19-24) magaly/L POC Total CO2 (24-31) mmol/L POC Base Excess (-9-1.8) magaly/L POC ABG O2 Sat (90-95) % Suresh Test O2 Delivery Device POC O2 Rate Minute Ventilation POC FiO2 % Tidal Volume PEEP Sodium (136-145) mmol/L Potassium (3.5-5.1) mmol/L Chloride (98-107) mmol/L Carbon Dioxide (21-32) mmol/L Anion Gap (3-11) BUN (7-18) mg/dl Creatinine (0.6-1.4) mg/dl Est Cr Clr Drug Dosing ml/min Est GFR ( Amer) ml/min Est GFR (Non-Af Amer) ml/min BUN/Creatinine Ratio (10-20) Glucose (70-99) mg/dl POC Glucose 185 H (70-99) mg/dl POC Glucose (other) 175 H (70-99) mg/dl Calcium (8.5-10.1) mg/dl Phosphorus (2.5-4.9) mg/dl Magnesium (1.8-2.4) mg/dl C-Reactive Protein (0-0.29) mg/dl Medications Administered Current Inpatient Medications Acetaminophen (Acetaminophen 325 Mg Tab) 650 mg PO Q4H PRN PRN Reason: Pain or Fever Stop: 02/08/21 00:19 Aspirin (Aspirin 81 Mg Ectab) 81 mg PO DAILY JC Stop: 02/08/21 08:59 Last Admin: 01/17/21 08:43 Dose: Not Given Documented by: Benzonatate (Benzonatate 100 Mg Capsule) 100 mg PO TID PRN PRN Reason: Cough Stop: 02/15/21 03:02 Last Admin: 01/16/21 16:12 Dose: 100 mg Documented by: Dextrose (Dextrose 50% 50 Ml Syringe) 25 - 50 ml IV UD PRN; Protocol PRN Reason: Hypoglycemia Protocol Stop: 02/08/21 00:19 Docusate Sodium (Docusate Sodium 100 Mg Cap) 100 mg PO BID PRN PRN Reason: Constipation Stop: 02/10/21 20:59 Last Admin: 01/13/21 14:14 Dose: 100 mg Documented by: Fentanyl Citrate (Fentanyl Bolus From Bag) 50 mcg IV Q60M PRN PRN Reason: Pain or Agitation Stop: 01/31/21 09:26 Fish Oil ([place]-3 (Purified Fish Oil) 1 Gm Cap) 1 gm PO DAILY JC Stop: 02/08/21 08:59 Last Admin: 01/17/21 08:43 Dose: Not Given Documented by: Fluticasone Propionate (Fluticasone Propionate Na Spr 16 Gm Btl) 2 sprays NA DAILY PRN PRN Reason: Nasal Congestion Stop: 02/08/21 00:19 Last Admin: 01/14/21 21:01 Dose: 2 sprays Documented by: Fluticasone/Vilanterol (Fluticasone/Vilanterol 100/25mcg 14 Puffs/Inhaler) 1 puffs INH DAILY JC Stop: 02/08/21 08:59 Last Admin: 01/17/21 09:24 Dose: Not Given Documented by: Glucagon (Glucagon For Inj 1 Mg Vial) 1 mg SQ UD PRN; Protocol PRN Reason: Hypoglycemia Protocol Stop: 02/08/21 00:19 Glucose (Glucose 10 Tabs/Tube) 4 - 8 tabs PO UD PRN; Protocol PRN Reason: Hypoglycemia Protocol Stop: 02/08/21 00:19 Glucose (Glucose 40% Gel 15 Gm Tube) 15 - 30 gm PO UD PRN; Protocol PRN Reason: Hypoglycemia Protocol Stop: 02/08/21 00:19 Guaifenesin (Guaifenesin 600 Mg Tabcr) 600 mg PO Q12 JC Stop: 02/15/21 08:59 Last Admin: 01/17/21 20:40 Dose: Not Given Documented by: Heparin Sodium (Porcine) (Heparin Sod 5,000 Unit/0.5 Ml Vial) 5,000 units SQ Q8 [facility] Stop: 02/16/21 13:59 Last Admin: 01/18/21 06:26 Dose: 5,000 units Documented by: Promethazine HCl 12.5 mg/ (Sodium Chloride) 50.5 mls @ 202 mls/hr IV Q6H PRN PRN Reason: Nausea And Vomiting Stop: 02/08/21 00:19 Dexamethasone 6 mg/ Syringe 1.5 mls @ 1 mls/min IV DAILY [facility] Stop: 02/13/21 06:44 Last Admin: 01/17/21 08:34 Dose: 1 mls/min Documented by: Cisatracurium Besylate 40 mg/ (Sodium Chloride) 100 mls @ 12.3 mls/hr IV .Q8H8M JC; Protocol Stop: 02/16/21 09:29 Last Admin: 01/18/21 02:45 Dose: 2 mcg/kg/min, 24.6 mls/hr Documented by: Propofol (Diprivan) 1,000 mg in 100 mls @ 31.8 mls/hr IV .Q3H9M JC; Protocol Stop: 01/20/21 09:29 Last Titration: 01/18/21 06:40 Dose: 50 mcg/kg/min, 31.8 mls/hr Documented by: Midazolam HCl (Versed) 125 mg in 250 mls @ 8 mls/hr IV .[id number] JC; Protocol Stop: 02/16/21 09:29 Last Titration: 01/18/21 06:37 Dose: 4 mg/hr, 8 mls/hr Documented by: Fentanyl Citrate (Fentanyl Drip) 1,250 mcg in 250 mls @ 25 mls/hr IV .Q10H [facility]; Protocol Stop: 01/31/21 09:29 Last Admin: 01/18/21 06:27 Dose: 125 mcg/hr, 25 mls/hr Documented by: Norepinephrine Bitartrate (Levophed/D5w) 8 mg in 508 mls @ 0 mls/hr IV .Q0M [facility]; Protocol Stop: 02/16/21 09:29 Last Titration: 01/18/21 04:05 Dose: 0 mcg/kg/min, 0 mls/hr Documented by: Pantoprazole Sodium 40 mg/ (Syringe) 10 mls @ 5 mls/min IV DAILY@1100 JC Stop: 02/16/21 11:59 Last Admin: 01/17/21 15:03 Dose: 5 mls/min Documented by: Insulin Aspart (Insulin Aspart Per Unit) 0 units SC Q4 [facility]; Protocol Stop: 02/17/21 03:59 Last Admin: 01/18/21 04:30 Dose: Not Given Documented by: Insulin Human NPH (Insulin Human Nph) 25 units SC Q24H [facility]; Protocol Stop: 02/13/21 08:59 Last Admin: 01/17/21 09:23 Dose: 25 units Documented by: Lactobacillus Acidoph/Casei/Rhamnos (Advanced Probiotic 1250 Mg Capsule) 2 cap PO DAILY [facility] Stop: 02/08/21 08:59 Last Admin: 01/17/21 08:43 Dose: Not Given Documented by: Midazolam HCl (Midazolam Bolus From Bag) 2 mg IV Q60M PRN PRN Reason: Sedation Stop: 02/16/21 09:26 Last Admin: 01/18/21 06:37 Dose: 2 mg Documented by: Miscellaneous (Carbohydrates For Hypoglycemia ) 15 - 30 gm PO UD PRN PRN Reason: Hypoglycemia Protocol Stop: 02/08/21 00:19 Miscellaneous (Icu Electrolyte Replacement Protocol) 1 ea N/A BID@06,18 [facility]; Protocol Stop: 01/24/21 17:59 Last Admin: 01/17/21 17:04 Dose: Not Given Documented by: Miscellaneous Information (Pharmacy Glycemic Mgmt Consult) 1 ea N/A UD PRN PRN Reason: Consult Stop: 02/08/21 10:07 Multi-Ingredient Cream (Artificial Tears Op Oint 3.5 Gm Tube) 1 appln OP Q4H [facility] Stop: 02/16/21 09:29 Last Admin: 01/18/21 06:37 Dose: 1 appln Documented by: Multivitamins (Multivitamin Tab) 1 tab PO QAM [facility] Stop: 02/08/21 08:59 Last Admin: 01/17/21 08:43 Dose: Not Given Documented by: Polyethylene Glycol (Polyethylene (Miralax) 17 Gm Pack) 17 gm PO DAILY PRN PRN Reason: Constipation Stop: 02/10/21 14:11 Last Admin: 01/13/21 14:14 Dose: 17 gm Documented by: Propofol (Propofol Bolus From Bag) 20 mg IV Q5M PRN PRN Reason: Sedation Stop: 01/20/21 09:26 Last Admin: 01/18/21 06:25 Dose: 20 mg Documented by: Sennosides (Sennosides 8.8 Mg/5 Ml Udc) 8.8 mg PO BID [facility] Stop: 02/16/21 11:59 Last Admin: 01/17/21 20:05 Dose: 8.8 mg Documented by:
[2021-01-18 07:36] LABS: Hematocrit (blood only) 34.8 % (42-52); Hemoglobin 11.5 g/dL (14.0-18.0); Mean Corpuscular Hemoglobin 32.9 pg (25-34); Mean Corpuscular Volume 99.4 fL (80-100); Mean Platelet Volume 10.7 fL (7.4-10.4); Platelet Count 127 K/uL (130-400); RDW Coefficient of Variation 12.8 % (11.5-14.5); RDW Standard Deviation 46.5 fL (36.4-46.3); White Blood Count 7.39 K/uL (4.8-10.8)
[2021-01-18 08:10] LABS: BUN Creatinine Ratio 38.6 (10-20); Calcium 8.1 mg/dl (8.5-10.1); Creatinine Clr Calc Pharmacy 156.4 ml/min; Est GFR (African American) 120.6 ml/min; Magnesium 3.2 mg/dl (1.8-2.4)
[2021-01-18 08:30] LABS: Phosphorus 2.5 mg/dl (2.5-4.9)
[2021-01-18] MEDS: ICU ELECTROLYTE REPLACEMENT PROTOCOL SCH ×2 (08:39→18:07)
[2021-01-18] MEDS ORDERED: SODIUM PHOSPHATE 3 MMOL/1 ML INFUSION IV STA (08:40)
[2021-01-18] MEDS ORDERED: SODIUM PHOSPHATE 15 MMOL in SODIUM CHLORIDE 0.9% 250 ML IV ONE (09:00)
--- NOTE | 2021-01-18 09:13 | XRay Report ---
XR chest 1V portable CLINICAL HISTORY: resp failure. Follow-up bilateral interstitial and alveolar opacities, left lower lobe atelectasis and left pleural effusion COMPARISON STUDY: 01/17/2021 TECHNIQUE: 1 view of the chest FINDINGS: Single frontal view of the chest demonstrates the heart to again be enlarged. Tubes and catheters are unchanged. There are again diffuse interstitial and alveolar opacities present bilaterally. There is again evidence for left lower lobe atelectasis/collapse and left pleural effusion. There is also rig ht basilar atelectasis. There is no definite right pleural effusion. There is no evidence for vascula r congestion. There is no acute osseous pathology. IMPRESSION: Bilateral interstitial and alveolar opacities are again seen along with left lower lobe a telectasis/collapse and left pleural effusion. There is also been interval development of right basil ar atelectasis. ACT 112: Negative or not required by law. Electronically signed by: Pablo Bonner M.D. 01/18/2021 9:11 AM
[2021-01-18] MEDS: PANTOprazole 40 MG in SYRINGE 0 ML IV SCH (09:28)
[2021-01-18] MEDS: dexAMETHasone 6 MG in SYRINGE 0 ML IV SCH (09:31)
[2021-01-18] MEDS: FLUTICASONE/VILANTEROL 100/25MCG 14 PUFFS/INHALER INH SCH (09:32)
[2021-01-18] MEDS: ASPIRIN 81 MG ECTAB PO SCH (09:32)
[2021-01-18] MEDS: guaiFENesin 600 MG TABCR PO SCH (09:32)
[2021-01-18] MEDS: OMEGA-3 (PURIFIED FISH OIL) 1 GM CAP PO SCH (09:32)
[2021-01-18] MEDS: INSULIN HUMAN NPH SC SCH (09:34)
[2021-01-18] MEDS: MULTIVITAMIN TAB PO SCH (09:36)
[2021-01-18] MEDS: SENNOSIDES 8.8 MG/5 ML UDC PO SCH ×2 (09:37→21:39)
[2021-01-18] MEDS: ADVANCED PROBIOTIC 1250 MG CAPSULE PO SCH (09:37)
[2021-01-18] MEDS: ACETAMINOPHEN 325 MG TAB PO PRN (11:02)
--- NOTE | 2021-01-18 12:43 | Critical Care Progress Note ---
Date of Service January 18, 2021 Assessment & Plan (1) Pneumonia due to 2019-nCoV: (2) Acute hypoxemic respiratory failure: (3) ARCELIA (obstructive sleep apnea): (4) DVT prophylaxis: Plan: Impression: 70-year-old male that was fully vaccinated with second vaccination 05/09/2020. Admitted 01/08/2021 for shortness of breath and hypoxia. Patient received 5 days of remdesivir. He continues on dexamethasone 6 mg IV daily. (Day #9). ARCELIA at home with CPAP. Patient using his own mask with hospital machine HS. currently on high flow oxygen 60 L/min and FiO2 of 80% with supplemental FM oxygen and appears comfortable. Respiratory rate 18. No use of accessory muscles. No acute respiratory distress. Chest x-ray stable. 24-hour events: Patient intubated and central line and arterial line placed. He was initiated on 100% oxygen through the ventilator but this has been weaned down to 60 or 70%. He has been hemodynamically stable. He is now febrile. Recommendations: 1. Neuro: Patient will be intubated. Will initiate sedation with propofol, fentanyl, and Versed. Will initiate neuromuscular blockade initially and see how the patient does. He may require proning. 2. Cardiovascular: Hemodynamically stable but may develop hypotension associated with sedation. Norepinephrine as needed. 3. Pulmonary: Severe ARDS. Continue ARDS net ventilator strategy with low PEEP high FiO2 to prevent additional barotrauma. Current vent settings assist control: 24/450/12/0.7 with a plateau of 23. Most recent blood gas 7.44/38/54. P/F 77 consistent with severe ARDS. Poor lung compliance. No PE identified on CT angiogram. Diffuse groundglass opacities were identified. CRP is climbing so we will advance steroids to 20 mg a day for 5 days followed by 10 mg a day for 5 days. Not a candidate for Baricitinib or ECMO. may consider inhaled flolan or MARTÍN depending on course. Continue daily chest x-ray 4. Renal: No acute issues. Electrolyte replacement protocol will be continued. Hold on diuresis for now. Keep I/O even. 5. GI: Hold tube feeding until we can ascertain whether or not the patient needs proning or not GI prophylaxis will be initiated. 6. ID: No current issues. Will obtain respiratory cultures as baseline. We will request PJP/fungal stains given the atypical appearance on his CT scan. Depending on clinical course may consider bronchoscopy with BAL. 7. Heme-onc: No current issues. Continue to follow for now. Continue DVT proph. 8. Endocrine: ICU glycemic protocol. The patient's overall prognosis is guarded at this point time. Patient remains critically ill at this point in time with significant possibility of clinical deterioration and/or . We'll continue to follow closely with you. Total of 50 minutes critical care time was spent in evaluation management stabilization as patient including discussion with respiratory therapy, hospitalist service, and critical care PAULINA. Admission and Anticipated Discharge Date Admission Date: January 08, 2021 Subjective Patient is intubated sedated and paralyzed Review of Systems Review of Systems: Unobtainable due to endotracheal tube Physical Exam Constitutional: WD/WN, vitals as above Neck: trachea midline, no thyromegaly Respiratory: + labored breathing and + tachypneic Auscultation: + crackles Cardiovascular: RRR, no murmur, no edema Gastrointestinal (Abdomen): normal bowel sounds, soft, nontender, no hepatosplenomegaly Musculoskeletal: Extremities: extremities normal to inspection Skin: no rashes, warm and dry Lymphatic: no cervical lymphadenopathy Results & Data Results & Data ([facility]) Vital Signs (Past 12 Hours) Vital Signs Temp Pulse Resp BP Pulse Ox 01/18/21 11:30 91 H 24 124/68 88 L 01/18/21 11:15 89 24 130/72 88 L 01/18/21 11:00 89 24 114/65 87 L 01/18/21 10:45 86 24 125/64 87 L 01/18/21 10:30 91 H 24 140/74 86 L 01/18/21 10:15 86 24 109/64 90 01/18/21 10:00 85 24 109/62 89 L 01/18/21 09:45 87 24 107/59 L 90 01/18/21 09:30 86 24 116/60 91 01/18/21 09:15 86 24 109/59 L 90 01/18/21 09:14 87 24 90 01/18/21 09:00 38.2 C H 84 24 116/61 90 01/18/21 08:45 84 24 118/60 90 01/18/21 08:30 84 24 110/59 L 89 L 01/18/21 08:15 81 24 118/62 87 L 12/11/21 08:00 78 24 100/46 L 87 L 01/18/21 07:45 78 24 99/53 L 87 L 01/18/21 07:30 83 17 106/59 L 01/18/21 07:15 83 24 121/65 90 01/18/21 07:00 87 24 133/71 81 L 01/18/21 06:45 89 24 145/69 H 88 L 01/18/21 06:30 91 H 24 153/79 H 89 L 01/18/21 06:15 97 H 24 150/83 H 95 01/18/21 06:00 85 24 137/71 93 01/18/21 05:45 79 24 120/65 93 01/18/21 05:30 69 24 119/60 94 01/18/21 05:15 66 24 106/62 94 01/18/21 05:00 65 24 106/60 93 01/18/21 04:46 24 01/18/21 04:45 66 24 109/59 L 92 01/18/21 04:30 66 24 114/64 91 01/18/21 04:15 68 24 91 01/18/21 04:00 37.2 C 84 24 122/50 L 91 01/18/21 03:45 69 24 135/73 91 01/18/21 03:30 69 24 132/73 92 01/18/21 03:15 73 24 133/73 90 01/18/21 03:00 75 24 126/75 91 01/18/21 02:45 71 24 90 01/18/21 02:30 73 23 127/73 90 01/18/21 02:27 70 24 91 01/18/21 02:15 75 24 149/78 H 90 01/18/21 02:00 76 24 89 L 01/18/21 01:45 75 24 139/76 88 L 01/18/21 01:30 73 24 90 01/18/21 01:15 72 24 140/75 90 01/18/21 01:00 73 24 138/73 90 01/18/21 00:45 77 24 Critical Care Results & Data Vital Signs (Past 12 Hours) Vital Signs Temp Pulse Resp BP Pulse Ox 01/18/21 11:30 91 H 24 124/68 88 L 01/18/21 11:15 89 24 130/72 88 L 01/18/21 11:00 89 24 114/65 87 L 01/18/21 10:45 86 24 125/64 87 L 01/18/21 10:30 91 H 24 140/74 86 L 01/18/21 10:15 86 24 109/64 90 01/18/21 10:00 85 24 109/62 89 L 01/18/21 09:45 87 24 107/59 L 90 01/18/21 09:30 86 24 116/60 91 01/18/21 09:15 86 24 109/59 L 90 01/18/21 09:14 87 24 90 01/18/21 09:00 38.2 C H 84 24 116/61 90 01/18/21 08:45 84 24 118/60 90 01/18/21 08:30 84 24 110/59 L 89 L 01/18/21 08:15 81 24 118/62 87 L 01/18/21 08:00 78 24 100/46 L 87 L 01/18/21 07:45 78 24 99/53 L 87 L 01/18/21 07:30 83 17 106/59 L 01/18/21 07:15 83 24 121/65 90 01/18/21 07:00 87 24 133/71 81 L 01/18/21 06:45 89 24 145/69 H 88 L 01/18/21 06:30 91 H 24 153/79 H 89 L 01/18/21 06:15 97 H 24 150/83 H 95 01/18/21 06:00 85 24 137/71 93 01/18/21 05:45 79 24 120/65 93 01/18/21 05:30 69 24 119/60 94 01/18/21 05:15 66 24 106/62 94 01/18/21 05:00 65 24 106/60 93 01/18/21 04:46 24 01/18/21 04:45 66 24 109/59 L 92 01/18/21 04:30 66 24 114/64 91 01/18/21 04:15 68 24 91 01/18/21 04:00 37.2 C 84 24 122/50 L 91 01/18/21 03:45 69 24 135/73 91 01/18/21 03:30 69 24 132/73 92 01/18/21 03:15 73 24 133/73 90 01/18/21 03:00 75 24 126/75 91 01/18/21 02:45 71 24 90 01/18/21 02:30 73 23 127/73 90 01/18/21 02:27 70 24 91 01/18/21 02:15 75 24 149/78 H 90 01/18/21 02:00 76 24 89 L 01/18/21 01:45 75 24 139/76 88 L 01/18/21 01:30 73 24 90 01/18/21 01:15 72 24 140/75 90 01/18/21 01:00 73 24 138/73 90 01/18/21 00:45 77 24 Lab & Micro Results (Past 24 Hours) RBC 3.50 M/uL (4.7-6.1) L 01/18/21 WBC 7.39 K/uL (4.8-10.8) 01/18/21 Hgb 11.5 g/dL (14.0-18.0) L 01/18/21 Hct 34.8 % (42-52) L 01/18/21 MCV 99.4 fL (80-100) 01/18/21 MCH 32.9 pg (25-34) 01/18/21 MCHC 33.0 g/dL (32-36) 01/18/21 RDW Standard Deviation 46.5 fL (36.4-46.3) H 01/18/21 RDW Coefficient of Variation 12.8 % (11.5-14.5) 01/18/21 Plt Count 127 K/uL (130-400) L 01/18/21 MPV 10.7 fL (7.4-10.4) H 01/18/21 Na 139 mmol/L (136-145) 01/18/21 K 4.0 mmol/L (3.5-5.1) 01/18/21 Cl 108 mmol/L (98-107) H 01/18/21 CO2 25 mmol/L (21-32) 01/18/21 Anion Gap 6.0 (3-11) 01/18/21 BUN 22 mg/dl (7-18) H 01/18/21 Creatinine 0.57 mg/dl (0.6-1.4) L 01/18/21 Estimated GFR ( Amer) 120.6 ml/min 01/18/21 Estimated GFR (Non-Af Amer) 104.0 ml/min 01/18/21 BUN/Creatinine Ratio 38.6 (10-20) H 01/18/21 Glu 126 mg/dl (70-99) H 01/18/21 Ca 8.1 mg/dl (8.5-10.1) L 01/18/21 Phosphorus Level 2.5 mg/dl (2.5-4.9) 01/18/21 Mg 3.2 mg/dl (1.8-2.4) H 01/18/21 07:08 01/18/21 Calcium Level 8.1 mg/dl (8.5-10.1) L 01/18/21 07:08 01/18/21 Suresh Test NA 01/18/21 04:43 01/18/21 Diagnostic Findings (Past 24 Hours) Chest X-Ray 01/18/21 07:00 XR chest 1V portable CLINICAL HISTORY: resp failure. Follow-up bilateral interstitial and alveolar opacities, left lower lobe atelectasis and left pleural effusion COMPARISON STUDY: 01/17/2021 TECHNIQUE: 1 view of the chest FINDINGS: Single frontal view of the chest demonstrates the heart to again be enlarged. Tu bes and catheters are unchanged. There are again diffuse interstitial and alveolar opacities present bilaterally. There is again evidence for left lower lobe atelectasis/collapse and left pleural effusion. There is also right basilar atelectasis. There is no definite right pleural effusion. There is no evidence for vascular congestion. There is no acute osseous pathology. IMPRESSION: Bilateral interstitial and alveolar opacities are again seen along with left lower lobe atelectasis/collapse and left pleural effusion. There is also been interval development of right basilar atelectasis. ACT 112: Negative or not required by law. Electronically signed by: Pablo Bonner M.D. 01/18/2021 9:11 AM I & O Totals 24 Hours 01/17/21 01/18/21 01/19/21 06:59 06:59 06:59 Intake Total 1586.126 / 1586.126 173.127 / 173.127 Output Total 125 / 125 1090 / 1090 140 / 140 Balance -125 / -125 496.126 / 496.126 33.127 / 33.127 Cumulative 01/08/21 14:08 thru 01/18/21 10:19 Intake Total 7779.253 Output Total 51742 Balance -2301.747 RT Ventilator Mngmt (Last Documented) Ventilator Ordered Settings Ventilator Support Mode Assist Control 01/18/21 09:14 Respiratory Rate 24 01/18/21 11:30 Ventilator Tidal Volume 450 01/18/21 09:14 Setting Minute Ventilation 10.8 01/18/21 09:14 Positive End Expiratory 12 01/18/21 09:14 Pressure Fraction of Inspired Oxygen 70 01/18/21 09:14 Machine Comment Change made post ABG 01/18/21 04:46 Ventilator - PT Measurements Respiratory Rate 24 Exhaled Tidal Volume 450 Minute Ventilation 10.8 Peak Inspiratory Airway 28 Pressure Plateau Pressure 23 Respiratory Cycle Inspiratory: 1:2.6 Expiratory Ratio Inspiratory Phase Time 0.70 End-Tidal CO2 31 Static Lung Compliance 40.91 Dynamic Lung Compliance 28.13 Normal Static Lung Compliance 47.00 Coding Level of Care Code Critical Care 1st 30-74 mins Diagnoses Pneumonia due to 2019-nCoV U07.1; J12.82 Acute hypoxemic respiratory failure J96.01 ARCELIA (obstructive sleep apnea) G47.33 DVT prophylaxis Z29.9 Time Spent (min) 50
[2021-01-18] MEDS ORDERED: INSULIN GLARGINE SOLOSTAR 100 UNITS/ML 3 ML PEN SC STA (14:51)
[2021-01-19] MEDS: INSULIN ASPART PER UNIT SC SCH ×6 (00:53→20:55)
[2021-01-19] MEDS: ARTIFICIAL TEARS OP OINT 3.5 GM TUBE OP SCH ×6 (00:54→21:10)
[2021-01-19] MEDS: CISATRACURIUM BESYLATE 40 MG in 0.9 % SODIUM CHLORIDE 80 ML IV SCH ×2 (04:00→08:45)
[2021-01-19] MEDS: propofoL 1,000 MG/100 ML VIAL IV SCH ×8 (04:00→23:13)
[2021-01-19] MEDS: fentaNYL DRIP 1,250 MCG/250 ML BAG IV SCH ×2 (04:14→14:52)
[2021-01-19 05:05] LABS: iSTAT Arterial Blood Gas HCO3 26 meg/L (19-24); iSTAT Arterial Blood Gas pCO2 44 mmHg (35-46); iSTAT Arterial Blood Gas pH 7.38 (7.35-7.45); iSTAT Arterial Blood Gas pO2 80 mmHg (80-95); iSTAT Carbon Dioxide 27 mmol/L (24-31); iSTAT FiO2 50 %; iSTAT Site Art Line
[2021-01-19] MEDS: HEPARIN SOD 5,000 UNIT/0.5 ML VIAL SQ SCH ×3 (05:42→21:19)
[2021-01-19] MEDS: MIDAZOLAM HCL 125 MG/250 ML BAG IV SCH ×2 (06:10→21:19)
[2021-01-19 07:01] LABS: Eosinophils # (auto) 0.02 K/uL (0-0.5); Eosinophils % (auto) 0.2 %; Hematocrit (blood only) 34.4 % (42-52); Hemoglobin 11.1 g/dL (14.0-18.0); Immature Granulocytes # (auto) 0.02 K/uL (0.00-0.02); Immature Granulocytes % (auto) 0.2 %; Lymphocytes % (auto) 33.5 %; Mean Corpuscular Hemoglobin 33.2 pg (25-34); Mean Corpuscular Hgb Conc 32.3 g/dL (32-36); Mean Platelet Volume 11.1 fL (7.4-10.4); Monocytes # (auto) 0.13 K/uL (0.11-0.59); Monocytes % (auto) 1.5 %; Neutrophils # (auto) 5.78 K/uL (1.4-6.5); Neutrophils % (auto) 64.6 %; Platelet Count 157 K/uL (130-400); RDW Standard Deviation 49.4 fL (36.4-46.3); Red Blood Count 3.34 M/uL (4.7-6.1); White Blood Count 8.95 K/uL (4.8-10.8)
--- NOTE | 2021-01-19 07:35 | Hospitalist Progress Note ---
Date of Service January 19, 2021 Assessment & Plan (1) Acute hypoxemic respiratory failure: Plan: Acute respiratory failure with hypoxia COVID-19 pneumonia --CTA:Patchy groundglass opacities are present throughout both lungs jayme racteristic of a viral type pneumonitis and early Covid 19 pneumonia. No PE -Had COVID Vaccination in May 2020 per patient H/O Asthma H/O ARCELIA on CPAP Procalcitonin 0.05 CRP 13.4> 6.48 Blood cultures: Negative to date -Completed Remdesivir course for 5 days Continue dexamethasone (day 10) Also on doxycycline - now stopped (01/16) Lasix , Nebs as needed Continued home inhalers Pulmonary medicine consulted, appreciate their input 01/17 - intubated, sedated (propofol, fentanyl, and Versed) Repeat CT PE - negative for PE, Multifocal groundglass opacities compatible with viral pneumonia. Reactive lymphadenopathy is seen. P/F 77 consistent with severe ARDS. Advance steroids to 20 mg a day for 5 days followed by 10 mg a day for 5 days. Not a candidate for Baricitinib or ECMO. 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 failure d/t Covid 19 pna, ards Pt is intubated, sedated Fi O2 down P/F improved from yesterday Pulmonary/ ICU following closely Review of Systems Review of Systems: Unobtainable due to cognitive status and Unobtainable due to endotracheal tube Physical Exam Physical Exam: General Appearance:Moderately built and nourished,intubated, sedated Head: normocephalic, Atraumatic Eyes: normal inspection Respiratory/Chest: Decreased breath sounds, CTA Cardiovascular: S1, S2, No murmur Abdomen/GI: Soft, Non tender, Bowel sounds present Extremities/Musculoskeletal: normal inspection, no edema Neurologic/Psych: intubated, sedated Skin: normal color, warm Results & Data Results & Data ([facility]) Vital Signs (Past 12 Hours) Vital Signs Temp Pulse Resp BP Pulse Ox Pulse Ox 01/19/21 07:30 37.3 C 01/19/21 07:05 90 24 89 L 01/19/21 06:30 89 24 121/67 90 01/19/21 06:15 86 24 124/67 89 L 01/19/21 06:00 88 24 127/70 89 L 01/19/21 05:45 91 H 24 116/73 89 L 01/19/21 05:30 89 24 127/66 89 L 01/19/21 05:15 87 24 124/70 89 L 01/19/21 05:00 86 24 128/70 89 L 01/19/21 04:45 86 24 126/73 92 01/19/21 04:30 88 24 129/73 93 01/19/21 04:15 88 24 131/71 93 01/19/21 04:00 37.2 C 85 24 138/76 93 01/19/21 03:45 85 24 133/73 93 01/19/21 03:30 83 24 135/72 93 01/19/21 03:15 85 24 130/74 93 01/19/21 03:00 86 24 137/71 93 01/19/21 02:45 85 24 132/74 93 01/19/21 02:30 83 24 130/72 93 01/19/21 02:15 86 24 134/74 93 01/19/21 02:00 85 24 138/74 94 01/19/21 01:45 84 24 134/72 93 01/19/21 01:30 85 24 133/73 93 01/19/21 01:15 85 24 136/73 93 01/19/21 01:00 85 24 133/74 93 01/19/21 00:45 83 24 132/74 93 01/19/21 00:30 80 24 134/69 92 01/19/21 00:15 83 24 137/72 92 01/19/21 00:00 36.8 C 82 24 140/71 92 01/18/21 23:45 83 24 133/71 92 01/18/21 23:30 82 24 136/70 92 01/18/21 23:15 83 24 138/74 95 01/18/21 23:10 78 24 92 01/18/21 23:00 83 24 137/70 92 01/18/21 22:45 85 24 131/69 91 01/18/21 22:30 84 24 91 01/18/21 22:15 81 24 144/72 H 93 01/18/21 22:00 83 24 125/71 93 01/18/21 21:45 87 24 92 01/18/21 21:30 82 24 141/70 H 92 01/18/21 21:15 83 24 135/71 92 01/18/21 21:00 82 24 142/72 H 93 92 01/18/21 20:45 82 24 134/71 93 01/18/21 20:30 83 24 135/70 94 01/18/21 20:16 72 24 93 01/18/21 20:15 84 24 129/70 92 01/18/21 20:00 37.0 C 84 24 132/72 92 01/18/21 19:45 84 24 133/69 92 Medications Administered Current Inpatient Medications Acetaminophen (Acetaminophen 325 Mg Tab) 650 mg PO Q4H PRN PRN Reason: Pain or Fever Stop: 02/08/21 00:19 Last Admin: 01/18/21 11:02 Dose: 650 mg Documented by: Aspirin (Aspirin 81 Mg Ectab) 81 mg PO DAILY JC Stop: 02/08/21 08:59 Last Admin: 01/18/21 09:32 Dose: Not Given Documented by: Dextrose (Dextrose 50% 50 Ml Syringe) 25 - 50 ml IV UD PRN; Protocol PRN Reason: Hypoglycemia Protocol Stop: 02/08/21 00:19 Docusate Sodium (Docusate Sodium 100 Mg Cap) 100 mg PO BID PRN PRN Reason: Constipation Stop: 02/10/21 20:59 Last Admin: 01/13/21 14:14 Dose: 100 mg Documented by: Fentanyl Citrate (Fentanyl Bolus From Bag) 50 mcg IV Q60M PRN PRN Reason: Pain or Agitation Stop: 01/31/21 09:26 Fluticasone Propionate (Fluticasone Propionate Na Spr 16 Gm Btl) 2 sprays NA DAILY PRN PRN Reason: Nasal Congestion Stop: 02/08/21 00:19 Last Admin: 01/14/21 21:01 Dose: 2 sprays Documented by: Fluticasone/Vilanterol (Fluticasone/Vilanterol 100/25mcg 14 Puffs/Inhaler) 1 puffs INH DAILY [facility] Stop: 02/08/21 08:59 Last Admin: 01/18/21 09:32 Dose: Not Given Documented by: Glucagon (Glucagon For Inj 1 Mg Vial) 1 mg SQ UD PRN; Protocol PRN Reason: Hypoglycemia Protocol Stop: 02/08/21 00:19 Glucose (Glucose 10 Tabs/Tube) 4 - 8 tabs PO UD PRN; Protocol PRN Reason: Hypoglycemia Protocol Stop: 02/08/21 00:19 Glucose (Glucose 40% Gel 15 Gm Tube) 15 - 30 gm PO UD PRN; Protocol PRN Reason: Hypoglycemia Protocol Stop: 02/08/21 00:19 Heparin Sodium (Porcine) (Heparin Sod 5,000 Unit/0.5 Ml Vial) 5,000 units SQ Q8 [facility] Stop: 02/16/21 13:59 Last Admin: 01/19/21 05:42 Dose: 5,000 units Documented by: Promethazine HCl 12.5 mg/ (Sodium Chloride) 50.5 mls @ 202 mls/hr IV Q6H PRN PRN Reason: Nausea And Vomiting Stop: 02/08/21 00:19 Cisatracurium Besylate 40 mg/ (Sodium Chloride) 100 mls @ 12.3 mls/hr IV .Q8H8M [facility]; Protocol Stop: 02/16/21 09:29 Last Admin: 01/19/21 04:00 Dose: 2 mcg/kg/min, 24.6 mls/hr Documented by: Propofol (Diprivan) 1,000 mg in 100 mls @ 25.44 mls/hr IV .Q3H56M [facility]; Protocol Stop: 01/20/21 09:29 Last Admin: 01/19/21 04:00 Dose: 40 mcg/kg/min, 25.4 mls/hr Documented by: Midazolam HCl (Versed) 125 mg in 250 mls @ 6 mls/hr IV .[id number] [facility]; Protocol Stop: 02/16/21 09:29 Last Admin: 01/19/21 06:10 Dose: 3 mg/hr, 6 mls/hr Documented by: Fentanyl Citrate (Fentanyl Drip) 1,250 mcg in 250 mls @ 25 mls/hr IV .Q10H [facility]; Protocol Stop: 01/31/21 09:29 Last Admin: 01/19/21 04:14 Dose: 125 mcg/hr, 25 mls/hr Documented by: Norepinephrine Bitartrate (Levophed/D5w) 8 mg in 508 mls @ 12.116 mls/hr IV .Q24H [facility]; Protocol Stop: 02/16/21 09:29 Last Titration: 01/18/21 16:36 Dose: 0.03 mcg/kg/min, 12.1 mls/hr Documented by: Pantoprazole Sodium 40 mg/ (Syringe) 10 mls @ 5 mls/min IV DAILY@1100 JC Stop: 02/16/21 11:59 Last Admin: 01/18/21 09:28 Dose: 5 mls/min Documented by: Dexamethasone 20 mg/ Dextrose 30 mls @ 0.833 mls/min IV QAM [facility] Stop: 02/18/21 08:59 Insulin Aspart (Insulin Aspart Per Unit) 0 units SC Q4 [facility]; Protocol Stop: 02/17/21 03:59 Last Admin: 01/19/21 04:58 Dose: Not Given Documented by: Insulin Human NPH (Insulin Human Nph) 25 units SC Q24H [facility]; Protocol Stop: 02/13/21 08:59 Last Admin: 01/18/21 09:34 Dose: 25 units Documented by: Lactobacillus Acidoph/Casei/Rhamnos (Advanced Probiotic 1250 Mg Capsule) 2 cap PO DAILY [facility] Stop: 02/08/21 08:59 Last Admin: 01/18/21 09:37 Dose: 2 cap Documented by: Midazolam HCl (Midazolam Bolus From Bag) 2 mg IV Q60M PRN PRN Reason: Sedation Stop: 02/16/21 09:26 Last Admin: 01/18/21 06:37 Dose: 2 mg Documented by: Miscellaneous (Carbohydrates For Hypoglycemia ) 15 - 30 gm PO UD PRN PRN Reason: Hypoglycemia Protocol Stop: 02/08/21 00:19 Miscellaneous (Icu Electrolyte Replacement Protocol) 1 ea N/A BID@,18 [facility]; Protocol Stop: 01/24/21 17:59 Last Admin: 01/18/21 18:07 Dose: Not Given Documented by: Miscellaneous Information (Pharmacy Glycemic Mgmt Consult) 1 ea N/A UD PRN PRN Reason: Consult Stop: 02/08/21 10:07 Multi-Ingredient Cream (Artificial Tears Op Oint 3.5 Gm Tube) 1 appln OP Q4H [facility] Stop: 02/16/21 09:29 Last Admin: 01/19/21 05:02 Dose: 1 appln Documented by: Polyethylene Glycol (Polyethylene (Miralax) 17 Gm Pack) 17 gm PO DAILY PRN PRN Reason: Constipation Stop: 02/10/21 14:11 Last Admin: 01/13/21 14:14 Dose: 17 gm Documented by: Propofol (Propofol Bolus From Bag) 20 mg IV Q5M PRN PRN Reason: Sedation Stop: 01/20/21 09:26 Last Admin: 01/18/21 06:25 Dose: 20 mg Documented by: Sennosides (Sennosides 8.8 Mg/5 Ml Udc) 8.8 mg PO BID [facility] Stop: 02/16/21 11:59 Last Admin: 01/18/21 21:39 Dose: 8.8 mg Documented by:
[2021-01-19 07:36] LABS: BUN Creatinine Ratio 37.6 (10-20); Calcium 8.1 mg/dl (8.5-10.1); Creatinine Clr Calc Pharmacy 139.3 ml/min; Est GFR (Non-African American) 99.2 ml/min; Magnesium 3.4 mg/dl (1.8-2.4); Phosphorus 2.5 mg/dl (2.5-4.9); Potassium 4.3 mmol/L (3.5-5.1)
[2021-01-19] MEDS: ICU ELECTROLYTE REPLACEMENT PROTOCOL SCH ×2 (08:29→18:08)
[2021-01-19] MEDS ORDERED: POT PHOSPHATE MONOBASIC W/ SOD TAB NG ONE (08:31)
[2021-01-19] MEDS: ASPIRIN 81 MG ECTAB PO SCH (08:46)
[2021-01-19] MEDS: FLUTICASONE/VILANTEROL 100/25MCG 14 PUFFS/INHALER INH SCH (08:47)
[2021-01-19] MEDS: SENNOSIDES 8.8 MG/5 ML UDC PO SCH ×2 (08:48→21:10)
[2021-01-19] MEDS: ADVANCED PROBIOTIC 1250 MG CAPSULE PO SCH (08:48)
[2021-01-19] MEDS: INSULIN HUMAN NPH SC SCH (08:50)
[2021-01-19] MEDS ORDERED: dexAMETHasone 20 MG in SYRINGE 0 ML IV SCH (09:00)
[2021-01-19] MEDS: dexAMETHasone 20 MG in DEXTROSE 5% 25 ML IV SCH (09:01)
--- NOTE | 2021-01-19 10:05 | XRay Report ---
XR chest 1V portable CLINICAL HISTORY: f/u TECHNIQUE: Single frontal radiograph of the chest was obtained. Comparison: Comparison is made to chest one view 01/18/2021 FINDINGS: Lines and tubes are stable. The cardiomediastinal silhouette is normal. Stable multifocal airspace op acities. No evidence of pleural effusion or pneumothorax. IMPRESSION: Stable multifocal airspace opacities. ACT 112: Negative or not required by law. Electronically signed by: Huber Allen M.D. 01/19/2021 10:03 AM
--- NOTE | 2021-01-19 11:01 | Pharmacy Report ---
Pharmacy Glycemic Short Note 2 - Date of Service January 19, 2021 - Glycemic Short BSG Results (Last 24 hours): 01/18/21 01/18/21 01/18/21 12:52 16:50 20:36 Glucose POC Glucose 132 H 151 H POC Glucose (other) 164 H 01/19/21 01/19/21 01/19/21 00:06 04:36 06:26 Glucose 129 H POC Glucose 130 H 129 H POC Glucose (other) 01/19/21 08:15 Glucose POC Glucose 110 H POC Glucose (other) OUTPATIENT ANTIDIABETIC REGIMEN: * Metformin 500 mg PO BIDM * HbA1c = 6.6% (01/10/21) ASSESSMENT: 01/19: * Abbe remains intubated on Nimbex and Levophed. Received 6 mg of IV dex amethasone yesterday but this has been increased to 20 mg daily starting today. No tube feeds started yet. * Received a total of 38 units of insulin yesterday (25 units NPH + 10 units Lantus + 3 units Novolog) * BSGs were well controlled: [phone] mg/dL * Fasting BSG remains well controlled this AM at 110 mg/dL' * No change in insulin regimen at this time. Expecting NPH and Novolog to nee d increased as 20 mg of Dexamethasone reaches steady state. Monitor for start of tube feeds. 01/17: * BSG's had been well controlled on current regimen and still are at this time. However, patient was intubated this morning, diet was discontinued, pressors were initiated, and cook specialty is considering increasing dexamethasone dose (dependent on patient condition). * Will change to q4h Novolog * Will eliminate AM Lantus for now * BSG's may decrease 2nd NPO or increase 2nd increased stressors - may require PM adjustments today PLAN FOR INPATIENT GLYCEMIC CONTROL: * Hold outpatient oral diabetes medications (metformin) * Basal insulin * Lantus 10 units SC AM * NPH 25 units SC AM with IV dexamethasone * Bolus insulin * NovoLog per scale q4h * Goal Range: Low 110 mg/dL - High 140 mg/dL * Correction Factor: 15 mg/dL/unit * Nutritional / Prandial insulin per carb ratio of 1 unit per 5 grams CHO consumed PLAN FOR DISCHARGE: * HbA1c was 6.6% from this admission which is at goal. No adjustments necessary to outpatient insulin regimen.
[2021-01-19] MEDS ORDERED: SODIUM PHOSPHATE 3 MMOL/1 ML INFUSION IV STA (11:17)
[2021-01-19] MEDS: INSULIN GLARGINE SOLOSTAR 100 UNITS/ML 3 ML PEN SC SCH (11:19)
[2021-01-19] MEDS: PANTOprazole 40 MG in SYRINGE 0 ML IV SCH (11:19)
[2021-01-19] MEDS ORDERED: SODIUM PHOSPHATE 15 MMOL in SODIUM CHLORIDE 0.9% 250 ML IV ONE (11:30)
--- NOTE | 2021-01-19 12:11 | Critical Care Progress Note ---
Date of Service January 19, 2021 Assessment & Plan (1) Pneumonia due to 2019-nCoV: (2) Acute hypoxemic respiratory failure: (3) ARCELIA (obstructive sleep apnea): (4) DVT prophylaxis: Plan: Impression: 70-year-old male that was fully vaccinated with second vaccination 05/09/2020. Admitted 01/08/2021 for shortness of breath and hypoxia. Patient received 5 days of remdesivir. He continues on dexamethasone 6 mg IV daily. (Day #9). ARCELIA at home with CPAP. Patient using his own mask with hospital machine HS. currently on high flow oxygen 60 L/min and FiO2 of 80% with supplemental FM oxygen and appears comfortable. Respiratory rate 18. No use of accessory muscles. No acute respiratory distress. Chest x-ray stable. 24-hour events: Patient remained sedated and paralyzed. We have been able to make some progress weaning his FiO2 and PEEP. He has been hemodynamically stable. Recommendations: 1. Neuro: continue sedation with propofol, fentanyl, and Versed. Discontinue neuromuscular blockade at this point time given his improvement with mechanical ventilation 2. Cardiovascular: Hemodynamically stable. Continue to follow closely. 3. Pulmonary: Severe ARDS. Continue ARDS net ventilator strategy with low PEEP high FiO2 to prevent additional barotrauma. Current vent settings assist control: 24/450/14/0.4 with a plateau of 25. Most recent blood gas 7.38/44/80. P/F 200 significantly improved compared to yesterday. Poor lung compliance. No PE identified on CT angiogram. Diffuse groundglass opacities were identified. Continue late-phase ARDS dexamethasone protocol with 20 mg a day for 5 days followed by 10 mg a day for 5 days. Not a candidate for Baricitinib or ECMO. x- ray today is stable. He has made clinical progress with regards to his ventilator requirements over the last 24 hours 4. Renal: No acute issues. Electrolyte replacement protocol will be continued. Hold on diuresis for now. Keep I/O even. 5. GI: Dietary consult for initiation of tube feeding. On bowel protocol with senna and as needed MiraLAX. GI prophylaxis in place 6. ID: No current issues. Will obtain respiratory cultures as baseline. Await PJP/fungal stains given the atypical appearance on his CT scan. No indication for bronchoscopy or BAL given his clinical improvement 7. Heme-onc: No current issues. Continue to follow for now. Continue DVT proph. 8. Endocrine: ICU glycemic protocol. Patient remains critically ill at this point in time with significant possibility of clinical deterioration and/or . We'll continue to follow closely with you. Total of 48 minutes critical care time was spent in evaluation management stabilization as patient including discussion with respiratory therapy, as well as bedside critical care nurse. Family will be updated by the primary service Admission and Anticipated Discharge Date Admission Date: January 08, 2021 Subjective Patient intubated sedated and paralyzed Review of Systems Review of Systems: Unobtainable due to endotracheal tube Physical Exam Neck: trachea midline, no thyromegaly Respiratory: Auscultation: + crackles Cardiovascular: RRR, no murmur, no edema Gastrointestinal (Abdomen): normal bowel sounds, soft, nontender, no hepatosplenomegaly Musculoskeletal: Extremities: extremities normal to inspection Skin: no rashes, warm and dry Lymphatic: no cervical lymphadenopathy Results & Data Results & Data ([facility]) Vital Signs (Past 12 Hours) Vital Signs Temp Pulse Resp BP Pulse Ox 01/19/21 11:15 97 H 24 107/61 88 L 01/19/21 11:00 101 H 24 136/73 90 01/19/21 10:45 96 H 24 102/66 89 L 01/19/21 10:30 97 H 24 104/64 89 L 01/19/21 10:15 98 H 24 107/61 90 01/19/21 10:00 98 H 24 124/64 91 01/19/21 09:45 98 H 24 127/67 92 01/19/21 09:43 88 01/19/21 09:30 94 H 24 124/68 92 01/19/21 09:15 93 H 24 117/63 91 01/19/21 09:00 92 H 24 112/64 90 01/19/21 08:45 93 H 24 110/63 90 01/19/21 08:30 95 H 24 104/61 90 01/19/21 08:15 93 H 24 127/66 89 L 01/19/21 08:00 92 H 24 122/65 88 L 01/19/21 07:45 91 H 24 122/67 87 L 01/19/21 07:30 37.3 C 92 H 24 123/66 88 L 01/19/21 07:15 92 H 24 124/72 88 L 01/19/21 07:05 90 24 89 L 01/19/21 07:00 89 24 126/68 90 01/19/21 06:45 89 24 128/68 89 L 01/19/21 06:30 89 24 121/67 90 01/19/21 06:15 86 24 124/67 89 L 01/19/21 06:00 88 24 127/70 89 L 01/19/21 05:45 91 H 24 116/73 89 L 01/19/21 05:30 89 24 127/66 89 L 01/19/21 05:15 87 24 124/70 89 L 01/19/21 05:00 86 24 128/70 89 L 01/19/21 04:45 86 24 126/73 92 01/19/21 04:30 88 24 129/73 93 01/19/21 04:15 88 24 131/71 93 01/19/21 04:00 37.2 C 85 24 138/76 93 01/19/21 03:45 85 24 133/73 93 01/19/21 03:30 83 24 135/72 93 01/19/21 03:15 85 24 130/74 93 01/19/21 03:00 86 24 137/71 93 01/19/21 02:45 85 24 132/74 93 01/19/21 02:30 83 24 130/72 93 01/19/21 02:15 86 24 134/74 93 01/19/21 02:00 85 24 138/74 94 01/19/21 01:45 84 24 134/72 93 01/19/21 01:30 85 24 133/73 93 01/19/21 01:15 85 24 136/73 93 01/19/21 01:00 85 24 133/74 93 01/19/21 00:45 83 24 132/74 93 01/19/21 00:30 80 24 134/69 92 01/19/21 00:15 83 24 137/72 92 Laboratory Results 01/13/21 01/14/21 01/16/21 05:47 22:41 08:14 POC pCO2 POC pO2 ABG pH 7.48 H 7.50 H 7.48 H ABG pCO2 32 L 28 L 32 L ABG pO2 56 L 71 L 84 ABG HCO3 24 21 23 ABG O2 Saturation 90.4 95.7 H 97.0 H ABG Base Excess 0.7 -1.0 0.5 01/17/21 01/18/21 01/19/21 11:38 04:43 04:44 POC pCO2 43 38 44 POC pO2 143 H 54 L 80 ABG pH ABG pCO2 ABG pO2 ABG HCO3 ABG O2 Saturation ABG Base Excess Critical Care Results & Data Vital Signs (Past 12 Hours) Vital Signs Temp Pulse Resp BP Pulse Ox 01/19/21 11:15 97 H 24 107/61 88 L 01/19/21 11:00 101 H 24 136/73 90 01/19/21 10:45 96 H 24 102/66 89 L 01/19/21 10:30 97 H 24 104/64 89 L 01/19/21 10:15 98 H 24 107/61 90 01/19/21 10:00 98 H 24 124/64 91 01/19/21 09:45 98 H 24 127/67 92 01/19/21 09:43 88 01/19/21 09:30 94 H 24 124/68 92 01/19/21 09:15 93 H 24 117/63 91 01/19/21 09:00 92 H 24 112/64 90 01/19/21 08:45 93 H 24 110/63 90 01/19/21 08:30 95 H 24 104/61 90 01/19/21 08:15 93 H 24 127/66 89 L 01/19/21 08:00 92 H 24 122/65 88 L 01/19/21 07:45 91 H 24 122/67 87 L 01/19/21 07:30 37.3 C 92 H 24 123/66 88 L 01/19/21 07:15 92 H 24 124/72 88 L 01/19/21 07:05 90 24 89 L 01/19/21 07:00 89 24 126/68 90 01/19/21 06:45 89 24 128/68 89 L 01/19/21 06:30 89 24 121/67 90 01/19/21 06:15 86 24 124/67 89 L 01/19/21 06:00 88 24 127/70 89 L 01/19/21 05:45 91 H 24 116/73 89 L 01/19/21 05:30 89 24 127/66 89 L 01/19/21 05:15 87 24 124/70 89 L 01/19/21 05:00 86 24 128/70 89 L 01/19/21 04:45 86 24 126/73 92 01/19/21 04:30 88 24 129/73 93 01/19/21 04:15 88 24 131/71 93 01/19/21 04:00 37.2 C 85 24 138/76 93 01/19/21 03:45 85 24 133/73 93 01/19/21 03:30 83 24 135/72 93 01/19/21 03:15 85 24 130/74 93 01/19/21 03:00 86 24 137/71 93 01/19/21 02:45 85 24 132/74 93 01/19/21 02:30 83 24 130/72 93 01/19/21 02:15 86 24 134/74 93 01/19/21 02:00 85 24 138/74 94 01/19/21 01:45 84 24 134/72 93 01/19/21 01:30 85 24 133/73 93 01/19/21 01:15 85 24 136/73 93 01/19/21 01:00 85 24 133/74 93 01/19/21 00:45 83 24 132/74 93 01/19/21 00:30 80 24 134/69 92 01/19/21 00:15 83 24 137/72 92 Lab & Micro Results (Past 24 Hours) RBC 3.34 M/uL (4.7-6.1) L 01/19/21 WBC 8.95 K/uL (4.8-10.8) 01/19/21 Hgb 11.1 g/dL (14.0-18.0) L 01/19/21 Hct 34.4 % (42-52) L 01/19/21 MCV 103.0 fL (80-100) H 01/19/21 MCH 33.2 pg (25-34) 01/19/21 MCHC 32.3 g/dL (32-36) 01/19/21 RDW Standard Deviation 49.4 fL (36.4-46.3) H 01/19/21 RDW Coefficient of Variation 13.0 % (11.5-14.5) 01/19/21 Plt Count 157 K/uL (130-400) 01/19/21 MPV 11.1 fL (7.4-10.4) H 01/19/21 Neutrophils (%) (Auto) 64.6 % 01/19/21 Lymphocytes (%) (Auto) 33.5 % 01/19/21 Monocytes # (Auto) 0.13 K/uL (0.11-0.59) 01/19/21 Eosinophils # (Auto) 0.02 K/uL (0-0.5) 01/19/21 Immature Granulocyte % (Auto) 0.2 % 01/19/21 Neutrophils # (Auto) 5.78 K/uL (1.4-6.5) 01/19/21 Lymphocytes # (Auto) 3.00 K/uL (1.2-3.4) 01/19/21 Monocytes # (Auto) 0.13 K/uL (0.11-0.59) 01/19/21 Eosinophils # (Auto) 0.02 K/uL (0-0.5) 01/19/21 Basophils # (Auto) 0.00 K/uL (0-0.2) 01/19/21 Immature Granulocyte # (Auto) 0.02 K/uL (0.00-0.02) 01/19/21 Na 139 mmol/L (136-145) 01/19/21 K 4.3 mmol/L (3.5-5.1) 01/19/21 Cl 107 mmol/L (98-107) 01/19/21 CO2 26 mmol/L (21-32) 01/19/21 Anion Gap 6.0 (3-11) 01/19/21 BUN 24 mg/dl (7-18) H 01/19/21 Creatinine 0.64 mg/dl (0.6-1.4) 01/19/21 Estimated GFR ( Amer) 115.0 ml/min 01/19/21 Estimated GFR (Non-Af Amer) 99.2 ml/min 01/19/21 BUN/Creatinine Ratio 37.6 (10-20) H 01/19/21 Glu 129 mg/dl (70-99) H 01/19/21 Ca 8.1 mg/dl (8.5-10.1) L 01/19/21 Phosphorus Level 2.5 mg/dl (2.5-4.9) 01/19/21 Mg 3.4 mg/dl (1.8-2.4) H 01/19/21 06:26 01/19/21 Calcium Level 8.1 mg/dl (8.5-10.1) L 01/19/21 06:26 01/19/21 Suresh Test NA 01/19/21 04:44 01/19/21 Diagnostic Findings (Past 24 Hours) Chest X-Ray 01/19/21 07:00 XR chest 1V portable CLINICAL HISTORY: f/u TECHNIQUE: Single frontal radiograph of the chest was obtained. Comparison: Comparison is made to chest one view 01/18/2021 FINDINGS: Lines and tubes are stable. The cardiomediastinal silhouette is normal. Stable multifocal airspace opacities. No evidence of pleural effusion or pneumothorax. IMPRESSION: Stable multifocal airspace opacities. ACT 112: Negative or not required by law. Electronically signed by: Huber Allen M.D. 01/19/2021 10:03 AM I & O Totals 24 Hours 01/18/21 01/19/21 01/20/21 06:59 06:59 06:59 Intake Total 1586.126 / 8059.308 3474.534 / 1998.534 503.59 / 503.59 Output Total 1090 / 1090 995 / 995 135 / 135 Balance 496.126 / 703.161 3661.534 / 1004.534 368.59 / 368.59 Cumulative 01/08/21 14:08 thru 01/19/21 12:06 Intake Total 97644.250 Output Total 88012 Balance -961.750 RT Ventilator Mngmt (Last Documented) Ventilator Ordered Settings Ventilator Support Mode Assist Control 01/19/21 07:05 Respiratory Rate 24 01/19/21 11:15 Ventilator Tidal Volume 450 01/19/21 07:05 Setting Minute Ventilation 10.8 01/19/21 07:05 Positive End Expiratory 14 01/19/21 07:05 Pressure Fraction of Inspired Oxygen 40 01/19/21 07:30 Machine Comment fio2 decreased to 50% from 55% 01/18/21 23:10 Ventilator - PT Measurements Respiratory Rate 24 Exhaled Tidal Volume 450 Minute Ventilation 10.8 Peak Inspiratory Airway 30 Pressure Plateau Pressure 25 Respiratory Cycle Inspiratory: 1:2.6 Expiratory Ratio Inspiratory Phase Time 0.7 End-Tidal CO2 34 Static Lung Compliance 40.91 Dynamic Lung Compliance 28.13 Normal Static Lung Compliance 47.00 Patient Measurements Comment circuit full of water, pt disconnected and water dumped out. Coding Level of Care Code Critical Care 1st 30-74 mins Diagnoses Pneumonia due to 2019-nCoV U07.1; J12.82 Acute hypoxemic respiratory failure J96.01 RACELIA (obstructive sleep apnea) G47.33 DVT prophylaxis Z29.9 Time Spent (min) 48
[2021-01-19] MEDS: NOREPINEPHRINE/D5W 8 MG/508 ML BAG IV SCH ×2 (20:25→23:12)
[2021-01-19] MEDS: POLYETHYLENE (MIRALAX) 17 GM PACK PO PRN (20:55)
[2021-01-20] MEDS: fentaNYL DRIP 1,250 MCG/250 ML BAG IV SCH ×3 (00:20→18:07)
[2021-01-20] MEDS: INSULIN ASPART PER UNIT SC SCH ×6 (00:23→21:07)
[2021-01-20] MEDS: ARTIFICIAL TEARS OP OINT 3.5 GM TUBE OP SCH ×6 (01:27→20:30)
[2021-01-20] MEDS: propofoL 1,000 MG/100 ML VIAL IV SCH ×6 (03:05→23:45)
[2021-01-20 04:21] LABS: iSTAT Arterial Blood Gas HCO3 27 meg/L (19-24); iSTAT Arterial Blood Gas pCO2 43 mmHg (35-46); iSTAT Arterial Blood Gas pO2 58 mmHg (80-95); iSTAT Carbon Dioxide 28 mmol/L (24-31); iSTAT FiO2 45 %; iSTAT Site Art Line
[2021-01-20] MEDS: HEPARIN SOD 5,000 UNIT/0.5 ML VIAL SQ SCH ×3 (05:49→20:30)
[2021-01-20 07:59] LABS: Hematocrit (blood only) 31.4 % (42-52); Immature Granulocytes # (auto) 0.01 K/uL (0.00-0.02); Immature Granulocytes % (auto) 0.2 %; Lymphocytes # (auto) 1.95 K/uL (1.2-3.4); Lymphocytes % (auto) 32.4 %; Mean Corpuscular Hemoglobin 32.7 pg (25-34); Mean Corpuscular Hgb Conc 31.8 g/dL (32-36); Mean Corpuscular Volume 102.6 fL (80-100); Mean Platelet Volume 11.1 fL (7.4-10.4); Monocytes # (auto) 0.06 K/uL (0.11-0.59); Neutrophils # (auto) 3.99 K/uL (1.4-6.5); Neutrophils % (auto) 66.4 %; Platelet Count 143 K/uL (130-400); RDW Coefficient of Variation 12.9 % (11.5-14.5); Red Blood Count 3.06 M/uL (4.7-6.1); White Blood Count 6.01 K/uL (4.8-10.8)
--- NOTE | 2021-01-20 07:59 | Hospitalist Progress Note ---
Date of Service January 20, 2021 Assessment & Plan (1) Acute hypoxemic respiratory failure: Plan: Acute respiratory failure with hypoxia COVID-19 pneumonia Severe ARDS CTA:Patchy groundglass opacities are present throughout both lungs characteristic of a viral type pneumonitis and early Covid 19 pneumonia. No PE Had COVID Vaccination in May 2020 per patient H/O Asthma H/O ARCELIA on CPAP Procalcitonin 0.05 CRP 13.4> 6.48 Blood cultures: Negative to date -Completed Remdesivir course for 5 days Continue dexamethasone Also on doxycycline - now stopped (01/16) Lasix , Nebs as needed Continued home inhalers Pulmonary medicine consulted, appreciate their input 01/17 - intubated, sedated (propofol, fentanyl, and Versed) Repeat CT PE - negative for PE, Multifocal groundglass opacities compatible with viral pneumonia. Reactive lymphadenopathy is seen. P/F 77 consistent with severe ARDS. Advance steroids to 20 mg a day for 5 days followed by 10 mg a day for 5 days. Not a candidate for Baricitinib or ECMO. 01/19 - P/F 200 significantly improved compared to yesterday 01/20 - P/F decreased from yesterday. Continue late-phase ARDS dexamethasone protocol with 20 mg a day for 5 days followed by 10 mg a day for 5 days. 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 failure d/t Covid 19 PNA, ARDS Pt is intubated, sedated (intubated on 01/17) FiO2 45% PEEP 12 Pulmonary/ ICU following closely Review of Systems Review of Systems: Unobtainable due to cognitive status and Unobtainable due to endotracheal tube Physical Exam Physical Exam: General Appearance:Moderately built and nourished,intubated, sedated Head: normocephalic, Atraumatic Eyes: normal inspection Respiratory/Chest:CTAB Cardiovascular: S1, S2, No murmur Abdomen/GI: Soft, Bowel sounds present Extremities/Musculoskeletal: normal inspection, no edema Neurologic/Psych: intubated, sedated Skin: normal color, warm Results & Data Results & Data ([facility]) Vital Signs (Past 12 Hours) Vital Signs Temp Pulse Resp BP Pulse Ox Pulse Ox 01/20/21 04:45 66 24 89 L 01/20/21 04:30 63 24 89 L 01/20/21 04:15 66 24 90 01/20/21 04:00 37.2 C 62 24 113/48 L 91 01/20/21 03:45 65 24 105/56 L 91 01/20/21 03:30 64 24 91 01/20/21 03:15 62 24 91 01/20/21 03:04 65 24 91 01/20/21 03:00 65 24 91 01/20/21 02:45 64 24 91 01/20/21 02:30 67 24 90 01/20/21 02:15 68 24 90 01/20/21 02:00 79 24 91 01/20/21 01:45 73 24 127/64 90 01/20/21 01:30 73 24 89 L 01/20/21 01:15 73 24 89 L 01/20/21 01:00 70 24 116/63 88 L 01/20/21 00:45 72 24 92 01/20/21 00:30 73 24 91 01/20/21 00:15 74 24 91 01/20/21 00:05 74 24 93 01/20/21 00:00 37.1 C 72 24 119/67 93 01/19/21 23:45 71 24 92 01/19/21 23:30 73 24 92 01/19/21 23:15 75 24 121/69 93 01/19/21 23:00 76 24 92 01/19/21 22:45 74 24 91 01/19/21 22:30 77 24 91 01/19/21 22:15 78 24 117/68 92 01/19/21 22:00 81 24 127/72 92 01/19/21 21:45 79 24 91 01/19/21 21:30 79 24 91 01/19/21 21:15 82 24 90 01/19/21 21:00 79 24 122/68 92 91 01/19/21 20:45 79 24 112/66 92 01/19/21 20:30 79 24 113/65 92 01/19/21 20:21 78 24 91 01/19/21 20:15 77 24 111/65 91 01/19/21 20:00 37.2 C 75 24 113/65 92 Laboratory Results 01/20/21 01/20/21 01/20/21 Range/Units 16:35 15:30 12:06 WBC (4.8-10.8) K/uL RBC (4.7-6.1) M/uL Hgb (14.0-18.0) g/dL Hct (42-52) % MCV (80-100) fL MCH (25-34) pg MCHC (32-36) g/dL RDW Std Deviation (36.4-46.3) fL RDW Coeff of Roxie (11.5-14.5) % Plt Count (130-400) K/uL MPV (7.4-10.4) fL Immature Gran % (Auto) % Neut % (Auto) % Lymph % (Auto) % [place] % (Auto) % Eos % (Auto) % Baso % (Auto) % Neut # (Auto) (1.4-6.5) K/uL Lymph # (Auto) (1.2-3.4) K/uL [place] # (Auto) (0.11-0.59) K/uL Eos # (Auto) (0-0.5) K/uL Baso # (Auto) (0-0.2) K/uL Immature Gran # (Auto) (0.00-0.02) K/uL Sample Site POC pH (7.35-7.45) POC pCO2 (35-46) mmHg POC pO2 (80-95) mmHg POC HCO3 (19-24) magaly/L POC Total CO2 (24-31) mmol/L POC Base Excess (-9-1.8) magaly/L POC ABG O2 Sat (90-95) % Suresh Test O2 Delivery Device POC O2 Rate POC FiO2 % Tidal Volume PEEP Sodium (136-145) mmol/L Potassium (3.5-5.1) mmol/L Chloride (98-107) mmol/L Carbon Dioxide (21-32) mmol/L Anion Gap (3-11) BUN (7-18) mg/dl Creatinine (0.6-1.4) mg/dl Est Cr Clr Drug Dosing ml/min Est GFR ( Amer) ml/min Est GFR (Non-Af Amer) ml/min BUN/Creatinine Ratio (10-20) Glucose (70-99) mg/dl POC Glucose 198 H 138 H (70-99) mg/dl POC Glucose (other) (70-99) mg/dl Calcium (8.5-10.1) mg/dl Phosphorus (2.5-4.9) mg/dl Magnesium (1.8-2.4) mg/dl Pneumocystis Source Pending Pneumocyst jiroveci PCR Pending 01/20/21 01/20/21 01/20/21 Range/Units 08:10 07:13 07:13 WBC 6.01 (4.8-10.8) K/uL RBC 3.06 L (4.7-6.1) M/uL Hgb 10.0 L (14.0-18.0) g/dL Hct 31.4 L (42-52) % MCV 102.6 H (80-100) fL MCH 32.7 (25-34) pg MCHC 31.8 L (32-36) g/dL RDW Std Deviation 49.0 H (36.4-46.3) fL RDW Coeff of Roxie 12.9 (11.5-14.5) % Plt Count 143 (130-400) K/uL MPV 11.1 H (7.4-10.4) fL Immature Gran % (Auto) 0.2 % Neut % (Auto) 66.4 % Lymph % (Auto) 32.4 % [place] % (Auto) 1.0 % Eos % (Auto) 0.0 % Baso % (Auto) 0.0 % Neut # (Auto) 3.99 (1.4-6.5) K/uL Lymph # (Auto) 1.95 (1.2-3.4) K/uL [place] # (Auto) 0.06 L (0.11-0.59) K/uL Eos # (Auto) 0.00 (0-0.5) K/uL Baso # (Auto) 0.00 (0-0.2) K/uL Immature Gran # (Auto) 0.01 (0.00-0.02) K/uL Sample Site POC pH (7.35-7.45) POC pCO2 (35-46) mmHg POC pO2 (80-95) mmHg POC HCO3 (19-24) magaly/L POC Total CO2 (24-31) mmol/L POC Base Excess (-9-1.8) magaly/L POC ABG O2 Sat (90-95) % Suresh Test O2 Delivery Device POC O2 Rate POC FiO2 % Tidal Volume PEEP Sodium 138 (136-145) mmol/L Potassium 4.6 (3.5-5.1) mmol/L Chloride 107 (98-107) mmol/L Carbon Dioxide 28 (21-32) mmol/L Anion Gap 3.0 (3-11) BUN 30 H (7-18) mg/dl Creatinine 0.59 L (0.6-1.4) mg/dl Est Cr Clr Drug Dosing 151.1 ml/min Est GFR ( Amer) 118.9 ml/min Est GFR (Non-Af Amer) 102.6 ml/min BUN/Creatinine Ratio 50.3 H (10-20) Glucose 152 H (70-99) mg/dl POC Glucose 127 H (70-99) mg/dl POC Glucose (other) (70-99) mg/dl Calcium 7.8 L (8.5-10.1) mg/dl Phosphorus 2.6 (2.5-4.9) mg/dl Magnesium 3.5 H (1.8-2.4) mg/dl Pneumocystis Source Pneumocyst jiroveci PCR 01/20/21 01/20/21 01/20/21 Range/Units 04:55 04:08 00:20 WBC (4.8-10.8) K/uL RBC (4.7-6.1) M/uL Hgb (14.0-18.0) g/dL Hct (42-52) % MCV (80-100) fL MCH (25-34) pg MCHC (32-36) g/dL RDW Std Deviation (36.4-46.3) fL RDW Coeff of Roxie (11.5-14.5) % Plt Count (130-400) K/uL MPV (7.4-10.4) fL Immature Gran % (Auto) % Neut % (Auto) % Lymph % (Auto) % [place] % (Auto) % Eos % (Auto) % Baso % (Auto) % Neut # (Auto) (1.4-6.5) K/uL Lymph # (Auto) (1.2-3.4) K/uL [place] # (Auto) (0.11-0.59) K/uL Eos # (Auto) (0-0.5) K/uL Baso # (Auto) (0-0.2) K/uL Immature Gran # (Auto) (0.00-0.02) K/uL Sample Site Art Line POC pH 7.40 (7.35-7.45) POC pCO2 43 (35-46) mmHg POC pO2 58 L (80-95) mmHg POC HCO3 27 H (19-24) magaly/L POC Total CO2 28 (24-31) mmol/L POC Base Excess 2.0 H (-9-1.8) magaly/L POC ABG O2 Sat 90.0 (90-95) % Suresh Test NA O2 Delivery Device Ventilator POC O2 Rate 24 POC FiO2 45 % Tidal Volume 450 PEEP 12 Sodium (136-145) mmol/L Potassium (3.5-5.1) mmol/L Chloride (98-107) mmol/L Carbon Dioxide (21-32) mmol/L Anion Gap (3-11) BUN (7-18) mg/dl Creatinine (0.6-1.4) mg/dl Est Cr Clr Drug Dosing ml/min Est GFR ( Amer) ml/min Est GFR (Non-Af Amer) ml/min BUN/Creatinine Ratio (10-20) Glucose (70-99) mg/dl POC Glucose 155 H (70-99) mg/dl POC Glucose (other) 189 H (70-99) mg/dl Calcium (8.5-10.1) mg/dl Phosphorus (2.5-4.9) mg/dl Magnesium (1.8-2.4) mg/dl Pneumocystis Source Pneumocyst jiroveci PCR 01/19/21 Range/Units 20:23 WBC (4.8-10.8) K/uL RBC (4.7-6.1) M/uL Hgb (14.0-18.0) g/dL Hct (42-52) % MCV (80-100) fL MCH (25-34) pg MCHC (32-36) g/dL RDW Std Deviation (36.4-46.3) fL RDW Coeff of Roxie (11.5-14.5) % Plt Count (130-400) K/uL MPV (7.4-10.4) fL Immature Gran % (Auto) % Neut % (Auto) % Lymph % (Auto) % [place] % (Auto) % Eos % (Auto) % Baso % (Auto) % Neut # (Auto) (1.4-6.5) K/uL Lymph # (Auto) (1.2-3.4) K/uL [place] # (Auto) (0.11-0.59) K/uL Eos # (Auto) (0-0.5) K/uL Baso # (Auto) (0-0.2) K/uL Immature Gran # (Auto) (0.00-0.02) K/uL Sample Site POC pH (7.35-7.45) POC pCO2 (35-46) mmHg POC pO2 (80-95) mmHg POC HCO3 (19-24) magaly/L POC Total CO2 (24-31) mmol/L POC Base Excess (-9-1.8) magaly/L POC ABG O2 Sat (90-95) % Suresh Test O2 Delivery Device POC O2 Rate POC FiO2 % Tidal Volume PEEP Sodium (136-145) mmol/L Potassium (3.5-5.1) mmol/L Chloride (98-107) mmol/L Carbon Dioxide (21-32) mmol/L Anion Gap (3-11) BUN (7-18) mg/dl Creatinine (0.6-1.4) mg/dl Est Cr Clr Drug Dosing ml/min Est GFR ( Amer) ml/min Est GFR (Non-Af Amer) ml/min BUN/Creatinine Ratio (10-20) Glucose (70-99) mg/dl POC Glucose (70-99) mg/dl POC Glucose (other) 198 H (70-99) mg/dl Calcium (8.5-10.1) mg/dl Phosphorus (2.5-4.9) mg/dl Magnesium (1.8-2.4) mg/dl Pneumocystis Source Pneumocyst jiroveci PCR Medications Administered Current Inpatient Medications Acetaminophen (Acetaminophen 325 Mg Tab) 650 mg PO Q4H PRN PRN Reason: Pain or Fever Stop: 02/08/21 00:19 Last Admin: 01/18/21 11:02 Dose: 650 mg Documented by: Aspirin (Aspirin 81 Mg Ectab) 81 mg PO DAILY [facility] Stop: 02/08/21 08:59 Last Admin: 01/19/21 08:46 Dose: Not Given Documented by: Dextrose (Dextrose 50% 50 Ml Syringe) 25 - 50 ml IV UD PRN; Protocol PRN Reason: Hypoglycemia Protocol Stop: 02/08/21 00:19 Docusate Sodium (Docusate Sodium 100 Mg Cap) 100 mg PO BID PRN PRN Reason: Constipation Stop: 02/10/21 20:59 Last Admin: 01/13/21 14:14 Dose: 100 mg Documented by: Fentanyl Citrate (Fentanyl Bolus From Bag) 50 mcg IV Q60M PRN PRN Reason: Pain or Agitation Stop: 01/31/21 09:26 Glucagon (Glucagon For Inj 1 Mg Vial) 1 mg SQ UD PRN; Protocol PRN Reason: Hypoglycemia Protocol Stop: 02/08/21 00:19 Glucose (Glucose 10 Tabs/Tube) 4 - 8 tabs PO UD PRN; Protocol PRN Reason: Hypoglycemia Protocol Stop: 02/08/21 00:19 Glucose (Glucose 40% Gel 15 Gm Tube) 15 - 30 gm PO UD PRN; Protocol PRN Reason: Hypoglycemia Protocol Stop: 02/08/21 00:19 Heparin Sodium (Porcine) (Heparin Sod 5,000 Unit/0.5 Ml Vial) 5,000 units SQ Q8 [facility] Stop: 02/16/21 13:59 Last Admin: 01/20/21 05:49 Dose: 5,000 units Documented by: Propofol (Diprivan) 1,000 mg in 100 mls @ 28.62 mls/hr IV .Q3H30M [facility]; Protocol Stop: 01/20/21 09:29 Last Admin: 01/20/21 03:05 Dose: 45 mcg/kg/min, 28.6 mls/hr Documented by: Midazolam HCl (Versed) 125 mg in 250 mls @ 8 mls/hr IV .[id number] [facility]; Protocol Stop: 02/16/21 09:29 Last Admin: 01/19/21 21:19 Dose: Not Given Documented by: Fentanyl Citrate (Fentanyl Drip) 1,250 mcg in 250 mls @ 30 mls/hr IV .Q8H20M [facility]; Protocol Stop: 01/31/21 09:29 Last Admin: 01/20/21 00:20 Dose: 150 mcg/hr, 30 mls/hr Documented by: Norepinephrine Bitartrate (Levophed/D5w) 8 mg in 508 mls @ 8.077 mls/hr IV .Q24H [facility]; Protocol Stop: 02/16/21 09:29 Last Admin: 01/19/21 23:12 Dose: 0.02 mcg/kg/min, 8.1 mls/hr Documented by: Pantoprazole Sodium 40 mg/ (Syringe) 10 mls @ 5 mls/min IV DAILY@1100 [facility] Stop: 02/16/21 11:59 Last Admin: 01/19/21 11:19 Dose: 5 mls/min Documented by: Dexamethasone 20 mg/ Dextrose 30 mls @ 0.833 mls/min IV QAM [facility] Stop: 02/18/21 08:59 Last Infusion: 01/19/21 09:26 Dose: Infused Documented by: Insulin Aspart (Insulin Aspart Per Unit) 0 units SC Q4 [facility]; Protocol Stop: 02/17/21 03:59 Last Admin: 01/20/21 04:57 Dose: 2 units Documented by: Insulin Glargine (Insulin Glargine Solostar 100 Units/Ml 3 Ml Pen) 10 units SC DAILY [facility]; Protocol Stop: 02/18/21 09:59 Last Admin: 01/19/21 11:19 Dose: 10 units Documented by: Insulin Human NPH (Insulin Human Nph) 25 units SC Q24H [facility]; Protocol Stop: 02/13/21 08:59 Last Admin: 01/19/21 08:50 Dose: 25 units Documented by: Midazolam HCl (Midazolam Bolus From Bag) 2 mg IV Q60M PRN PRN Reason: Sedation Stop: 02/16/21 09:26 Last Admin: 01/18/21 06:37 Dose: 2 mg Documented by: Miscellaneous (Carbohydrates For Hypoglycemia ) 15 - 30 gm PO UD PRN PRN Reason: Hypoglycemia Protocol Stop: 02/08/21 00:19 Miscellaneous (Icu Electrolyte Replacement Protocol) 1 ea N/A BID@06,18 [facility]; Protocol Stop: 01/24/21 17:59 Last Admin: 01/19/21 18:08 Dose: Not Given Documented by: Miscellaneous Information (Pharmacy Glycemic Mgmt Consult) 1 ea N/A UD PRN PRN Reason: Consult Stop: 02/08/21 10:07 Multi-Ingredient Cream (Artificial Tears Op Oint 3.5 Gm Tube) 1 appln OP Q4H [facility] Stop: 02/16/21 09:29 Last Admin: 01/20/21 04:46 Dose: 1 appln Documented by: Nutritional Formula (Peptamen Intense Vhp 1.0 Hossein 1,000 Ml Bag) 1,000 ml OG UD [facility]; Protocol Stop: 02/18/21 15:29 Polyethylene Glycol (Polyethylene (Miralax) 17 Gm Pack) 17 gm PO DAILY PRN PRN Reason: Constipation Stop: 02/10/21 14:11 Last Admin: 01/19/21 20:55 Dose: 17 gm Documented by: Propofol (Propofol Bolus From Bag) 20 mg IV Q5M PRN PRN Reason: Sedation Stop: 01/20/21 09:26 Last Admin: 01/18/21 06:25 Dose: 20 mg Documented by: Sennosides (Sennosides 8.8 Mg/5 Ml Udc) 8.8 mg PO BID [facility] Stop: 02/16/21 11:59 Last Admin: 01/19/21 21:10 Dose: 8.8 mg Documented by:
[2021-01-20] MEDS: ASPIRIN 81 MG ECTAB PO SCH (08:22)
[2021-01-20] MEDS: INSULIN HUMAN NPH SC SCH (08:31)
[2021-01-20] MEDS: SENNOSIDES 8.8 MG/5 ML UDC PO SCH ×2 (08:31→20:30)
[2021-01-20] MEDS: INSULIN GLARGINE SOLOSTAR 100 UNITS/ML 3 ML PEN SC SCH (08:31)
[2021-01-20 08:32] LABS: BUN Creatinine Ratio 50.3 (10-20); Calcium 7.8 mg/dl (8.5-10.1); Creatinine Clr Calc Pharmacy 151.1 ml/min; Est GFR (African American) 118.9 ml/min; Est GFR (Non-African American) 102.6 ml/min; Magnesium 3.5 mg/dl (1.8-2.4); Potassium 4.6 mmol/L (3.5-5.1)
[2021-01-20 08:33] LABS: Phosphorus 2.6 mg/dl (2.5-4.9)
[2021-01-20] MEDS: ICU ELECTROLYTE REPLACEMENT PROTOCOL SCH ×2 (09:06→18:17)
[2021-01-20] MEDS: dexAMETHasone 20 MG in DEXTROSE 5% 25 ML IV SCH ×2 (09:07→09:11)
--- NOTE | 2021-01-20 10:11 | XRay Report ---
SINGLE VIEW CHEST CLINICAL HISTORY: Respiratory failure. FINDINGS: An AP, portable, upright chest radiograph is compared to study dated 01/19/2021 and correla garth with chest CT dated 01/16/2021. The examination is degraded by portable technique and patient rota tion. An endotracheal tube, an enteric tube, and a right internal jugular central venous catheter are unchanged in position. The heart is enlarged. Multifocal airspace consolidation has not appreciably changed from yesterday. Small pleural effusions are noted. No pneumothorax is seen. The skeletal stru ctures are osteopenic. The bony thorax is grossly intact. IMPRESSION: 1. Stable lines and tubes. 2. Multifocal airspace consolidation has not appreciably changed from yesterday. 3. Small pleural effusions. ACT 112: Negative or not required by law. Electronically signed by: Lee Sosa M.D. 01/20/2021 10:09 AM
[2021-01-20] MEDS: PANTOprazole 40 MG in SYRINGE 0 ML IV SCH (11:00)
[2021-01-20] MEDS: LACTULOSE SYRUP 20 GM/30 ML UDC PO SCH (12:32)
[2021-01-20] MEDS: ASPIRIN 81 MG CHEW PO SCH (12:32)
--- NOTE | 2021-01-20 15:09 | Pharmacy Report ---
Pharmacy Glycemic Short Note 2 - Date of Service January 20, 2021 - Glycemic Short BSG Results (Last 24 hours): 01/19/21 01/19/21 01/20/21 16:54 20:23 00:20 Glucose POC Glucose 194 H POC Glucose (other) 198 H 189 H 01/20/21 01/20/21 01/20/21 04:55 07:13 08:10 Glucose 152 H POC Glucose 155 H 127 H POC Glucose (other) 01/20/21 12:06 Glucose POC Glucose 138 H POC Glucose (other) OUTPATIENT ANTIDIABETIC REGIMEN: * Metformin 500 mg PO BIDM * HbA1c = 6.6% (01/10/21) ASSESSMENT: 01/20: * BSGs well controlled over the past 24 hours. Will monitor evening BSGs to ensure no consistent uptrending at this time. Will continue with current Lantus, NPH and NovoLog dosing. * Patient continues on dex 20mg. 01/19: * Abbe remains intubated on Nimbex and Levophed. Received 6 mg of IV dexamethasone yesterday but this has been increased to 20 mg daily starting today. No tube feeds started yet. * Received a total of 38 units of insulin yesterday (25 units NPH + 10 units Lantus + 3 units Novolog) * BSGs were well controlled: [phone] mg/dL * Fasting BSG remains well controlled this AM at 110 mg/dL' * No change in insulin regimen at this time. Expecting NPH and Novolog to need increased as 20 mg of Dexamethasone reaches steady state. Monitor for start of tube feeds. 01/17: * BSG's had been well controlled on current regimen and still are at this time. 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 * Will change to q4h Novolog * Will eliminate AM Lantus for now * BSG's may decrease 2nd NPO or increase 2nd increased stressors - may require PM adjustments today PLAN FOR INPATIENT GLYCEMIC CONTROL: * Hold outpatient oral diabetes medications (metformin) * Basal insulin * Lantus 10 units SC AM * NPH 25 units SC AM with IV dexamethasone * Bolus insulin * NovoLog per scale q4h * Goal Range: Low 110 mg/dL - High 140 mg/dL * Correction Factor: 15 mg/dL/unit * Nutritional / Prandial insulin per carb ratio of 1 unit per 5 grams CHO consumed PLAN FOR DISCHARGE: * HbA1c was 6.6% from this admission which is at goal. No adjustments necessary to outpatient insulin regimen.
--- NOTE | 2021-01-20 15:19 | Critical Care Progress Note ---
Date of Service January 20, 2021 Assessment & Plan (1) Pneumonia due to 2019-nCoV: (2) Acute hypoxemic respiratory failure: (3) ARCELIA (obstructive sleep apnea): (4) DVT prophylaxis: Plan: Impression: 70-year-old male that was fully vaccinated with second vaccination 05/09/2020. Admitted 01/08/2021 for shortness of breath and hypoxia. Patient received 5 days of remdesivir. He failed conservative management and was intubated 01/17/2021 due to increased work of breathing and progressive hypoxemic respiratory failure 24-hour events: Patient remained sedated. Working on weaning his ventilatory requirements. Tube feeding is been initiated per dietary. Recommendations: 1. Neuro: continue sedation with propofol, fentanyl, and Versed. Discontinue neuromuscular blockade at this point time given his improvement with mechanical ventilation 2. Cardiovascular: Hemodynamically stable. Continue to follow closely. 3. Pulmonary: Severe ARDS. Day #3 mechanical ventilation continue ARDS net ventilator strategy with low PEEP high FiO2 to prevent additional barotrauma. Current vent settings assist control: 24/450/12/0.45 with a plateau of 25. Most recent blood gas 7.40/43/58. P/F 128 decreased compared to yesterday. Poor lung compliance. No PE identified on CT angiogram. Diffuse groundglass opacities were identified. Continue late-phase ARDS dexamethasone protocol with 20 mg a day for 5 days followed by 10 mg a day for 5 days. Not a candidate for Baricitinib or ECMO. His ventilatory requirements are stable compared to yesterday. His x-ray looks about the same 4. Renal: No acute issues. Electrolyte replacement protocol will be continued. Hold on diuresis for now. Keep I/O even. 5. GI: Continue tube feeding per dietary. On bowel protocol with senna and as needed MiraLAX. GI prophylaxis in place 6. ID: No current issues. Will obtain respiratory cultures as baseline. May consider bronchoscopy if the patient fails to show any significant improvement over the next 24 to 48 hours. 7. Heme-onc: Mild anemia. No indication for transfusion currently. Continue to follow for now. Continue DVT proph. 8. Endocrine: ICU glycemic protocol. Patient remains critically ill at this point in time with significant possibility of clinical deterioration and/or . Total of 44 minutes critical care time was spent in evaluation management stabilization as patient including discussion with respiratory therapy, as well as bedside critical care nurse. Family will be updated by the primary service Admission and Anticipated Discharge Date Admission Date: January 08, 2021 Subjective Intubated and sedated Review of Systems Review of Systems: Unobtainable due to endotracheal tube Physical Exam Constitutional: WD/WN, vitals as above Neck: trachea midline, no thyromegaly Respiratory: Auscultation: + crackles Cardiovascular: RRR, no murmur, no edema Gastrointestinal (Abdomen): normal bowel sounds, soft, nontender, no hepato splenomegaly Musculoskeletal: Extremities: extremities normal to inspection Skin: no rashes, warm and dry Lymphatic: no cervical lymphadenopathy Results & Data Results & Data ([facility]) Vital Signs (Past 12 Hours) Vital Signs Temp Pulse Resp BP Pulse Ox 01/20/21 14:07 64 24 90 01/20/21 12:00 125/54 L 01/20/21 10:40 70 24 89 L 01/20/21 10:00 67 110/57 L 87 L 01/20/21 09:45 69 88 L 01/20/21 09:30 66 88 L 01/20/21 09:15 69 88 L 01/20/21 09:00 70 119/61 89 L 01/20/21 08:45 76 89 L 01/20/21 08:30 74 88 L 01/20/21 08:15 71 116/59 L 87 L 01/20/21 08:00 65 114/48 L 90 01/20/21 07:45 63 89 L 01/20/21 07:30 65 88 L 01/20/21 07:28 65 24 89 L 01/20/21 07:15 62 89 L 01/20/21 07:00 65 89 L 01/20/21 06:45 64 107/58 L 89 L 01/20/21 04:45 66 24 89 L 01/20/21 04:30 63 24 89 L 01/20/21 04:15 66 24 90 01/20/21 04:00 37.2 C 62 24 113/48 L 91 01/20/21 03:45 65 24 105/56 L 91 01/20/21 03:30 64 24 91 01/20/21 03:15 62 24 91 Critical Care Results & Data Vital Signs (Past 12 Hours) Vital Signs Temp Pulse Resp BP Pulse Ox 01/20/21 14:07 64 24 90 12/13/21 12:00 125/54 L 01/20/21 10:40 70 24 89 L 01/20/21 10:00 67 110/57 L 87 L 01/20/21 09:45 69 88 L 01/20/21 09:30 66 88 L 01/20/21 09:15 69 88 L 01/20/21 09:00 70 119/61 89 L 01/20/21 08:45 76 89 L 01/20/21 08:30 74 88 L 01/20/21 08:15 71 116/59 L 87 L 01/20/21 08:00 65 114/48 L 90 01/20/21 07:45 63 89 L 01/20/21 07:30 65 88 L 01/20/21 07:28 65 24 89 L 01/20/21 07:15 62 89 L 01/20/21 07:00 65 89 L 01/20/21 06:45 64 107/58 L 89 L 01/20/21 04:45 66 24 89 L 01/20/21 04:30 63 24 89 L 01/20/21 04:15 66 24 90 01/20/21 04:00 37.2 C 62 24 113/48 L 91 01/20/21 03:45 65 24 105/56 L 91 01/20/21 03:30 64 24 91 01/20/21 03:15 62 24 91 Lab & Micro Results (Past 24 Hours) RBC 3.06 M/uL (4.7-6.1) L 01/20/21 WBC 6.01 K/uL (4.8-10.8) 01/20/21 Hgb 10.0 g/dL (14.0-18.0) L 01/20/21 Hct 31.4 % (42-52) L 01/20/21 MCV 102.6 fL (80-100) H 01/20/21 MCH 32.7 pg (25-34) 01/20/21 MCHC 31.8 g/dL (32-36) L 01/20/21 RDW Standard Deviation 49.0 fL (36.4-46.3) H 01/20/21 RDW Coefficient of Variation 12.9 % (11.5-14.5) 01/20/21 Plt Count 143 K/uL (130-400) 01/20/21 MPV 11.1 fL (7.4-10.4) H 01/20/21 Neutrophils (%) (Auto) 66.4 % 01/20/21 Lymphocytes (%) (Auto) 32.4 % 01/20/21 Monocytes # (Auto) 0.06 K/uL (0.11-0.59) L 01/20/21 Eosinophils # (Auto) 0.00 K/uL (0-0.5) 01/20/21 Immature Granulocyte % (Auto) 0.2 % 01/20/21 Neutrophils # (Auto) 3.99 K/uL (1.4-6.5) 01/20/21 Lymphocytes # (Auto) 1.95 K/uL (1.2-3.4) 01/20/21 Monocytes # (Auto) 0.06 K/uL (0.11-0.59) L 01/20/21 Eosinophils # (Auto) 0.00 K/uL (0-0.5) 01/20/21 Basophils # (Auto) 0.00 K/uL (0-0.2) 01/20/21 Immature Granulocyte # (Auto) 0.01 K/uL (0.00-0.02) 01/20/21 Na 138 mmol/L (136-145) 01/20/21 K 4.6 mmol/L (3.5-5.1) 01/20/21 Cl 107 mmol/L (98-107) 01/20/21 CO2 28 mmol/L (21-32) 01/20/21 Anion Gap 3.0 (3-11) 01/20/21 BUN 30 mg/dl (7-18) H 01/20/21 Creatinine 0.59 mg/dl (0.6-1.4) L 01/20/21 Estimated GFR ( Amer) 118.9 ml/min 01/20/21 Estimated GFR (Non-Af Amer) 102.6 ml/min 01/20/21 BUN/Creatinine Ratio 50.3 (10-20) H 01/20/21 Glu 152 mg/dl (70-99) H 01/20/21 Ca 7.8 mg/dl (8.5-10.1) L 01/20/21 Phosphorus Level 2.6 mg/dl (2.5-4.9) 01/20/21 Mg 3.5 mg/dl (1.8-2.4) H 01/20/21 07:13 01/20/21 Calcium Level 7.8 mg/dl (8.5-10.1) L 01/20/21 07:13 01/20/21 Suresh Test NA 01/20/21 04:08 01/20/21 Diagnostic Findings (Past 24 Hours) Chest X-Ray 01/20/21 07:00 SINGLE VIEW CHEST CLINICAL HISTORY: Respiratory failure. FINDINGS: An AP, portable, upright chest radiograph is compared to study dated 01/19/2021 and correlated with chest CT dated 01/16/2021. The examination is degraded by portable technique and patient rotation. An endotracheal tube, an enteric tube, and a right internal jugular central venous catheter are unchanged in position. The heart is enlarged. Multifocal airspace consolidation has not appreciably changed from yesterday. Small pleural effusions are noted. No pneumothorax is seen. The skeletal structures are osteopenic. The bony thorax is grossly intact. IMPRESSION: 1. Stable lines and tubes. 2. Multifocal airspace consolidation has not appreciably changed from yesterday. 3. Small pleural effusions. ACT 112: Negative or not required by law. Electronically signed by: Lee Sosa M.D. 01/20/2021 10:09 AM I & O Totals 24 Hours 01/19/21 01/20/21 01/21/21 06:59 06:59 06:59 Intake Total 1998.534 / 2145.892 5334.457 / 2297.457 985.245 / 985.245 Output Total 995 / 995 1245 / 1245 465 / 465 Balance 1004.534 / 4406.546 0286.457 / 1052.457 520.245 / 520.245 Cumulative 01/08/21 14:08 thru 01/20/21 14:27 Intake Total 96616.362 Output Total 57517 Balance 242.362 RT Ventilator Mngmt (Last Documented) Ventilator Ordered Settings Ventilator Support Mode Assist Control 01/20/21 14:07 Respiratory Rate 24 01/20/21 14:07 Ventilator Tidal Volume 450 01/20/21 14:07 Setting Minute Ventilation 10.8 01/20/21 14:07 Positive End Expiratory 12 01/20/21 14:07 Pressure Fraction of Inspired Oxygen 45 01/20/21 14:07 Machine Comment peep dropped due to spo2 94%- 01/20/21 00:05 attempting to get pt in ardnset box Ventilator - PT Measurements Respiratory Rate 24 Exhaled Tidal Volume 450 Minute Ventilation 10.8 Peak Inspiratory Airway 29 Pressure Plateau Pressure 24 Respiratory Cycle Inspiratory: 1:2.6 Expiratory Ratio Inspiratory Phase Time 0.7 End-Tidal CO2 33 Static Lung Compliance 37.50 Dynamic Lung Compliance 26.47 Normal Static Lung Compliance 47.00 Patient Measurements Comment etc02 not working Coding Level of Care Code Critical Care 1st 30-74 mins Diagnoses Pneumonia due to 2019-nCoV U07.1; J12.82 Acute hypoxemic respiratory failure J96.01 ARCELIA (obstructive sleep apnea) G47.33 DVT prophylaxis Z29.9
[2021-01-20] MEDS: MIDAZOLAM HCL 125 MG/250 ML BAG IV SCH (18:55)
[2021-01-20 21:36] LABS: Fungitell (1-3)-B-D-Glucan <31 pg/mL
[2021-01-21] MEDS: PROPOFOL BOLUS FROM BAG IV PRN (00:20)
[2021-01-21] MEDS: INSULIN ASPART PER UNIT SC SCH ×6 (00:46→19:37)
[2021-01-21] MEDS: ARTIFICIAL TEARS OP OINT 3.5 GM TUBE OP SCH ×6 (01:05→20:32)
[2021-01-21] MEDS: NOREPINEPHRINE/D5W 8 MG/508 ML BAG IV SCH (01:06)
[2021-01-21] MEDS: propofoL 1,000 MG/100 ML VIAL IV SCH ×10 (01:07→23:30)
[2021-01-21] MEDS: fentaNYL DRIP 1,250 MCG/250 ML BAG IV SCH ×4 (02:13→19:19)
[2021-01-21 04:54] LABS: iSTAT Arterial Blood Gas HCO3 26 meg/L (19-24); iSTAT Arterial Blood Gas pCO2 42 mmHg (35-46); iSTAT Arterial Blood Gas pO2 50 mmHg (80-95); iSTAT Carbon Dioxide 28 mmol/L (24-31); iSTAT FiO2 50 %; iSTAT Site Art Line
[2021-01-21 06:17] LABS: Basophils # (auto) 0.01 K/uL (0-0.2); Basophils % (auto) 0.2 %; Hematocrit (blood only) 29.7 % (42-52); Hemoglobin 9.5 g/dL (14.0-18.0); Immature Granulocytes # (auto) 0.01 K/uL (0.00-0.02); Immature Granulocytes % (auto) 0.2 %; Lymphocytes # (auto) 2.06 K/uL (1.2-3.4); Lymphocytes % (auto) 42.7 %; Mean Corpuscular Hemoglobin 32.8 pg (25-34); Mean Corpuscular Volume 102.4 fL (80-100); Mean Platelet Volume 10.7 fL (7.4-10.4); Monocytes # (auto) 0.08 K/uL (0.11-0.59); Monocytes % (auto) 1.7 %; Neutrophils # (auto) 2.67 K/uL (1.4-6.5); Neutrophils % (auto) 55.2 %; Platelet Count 148 K/uL (130-400); White Blood Count 4.83 K/uL (4.8-10.8)
[2021-01-21] MEDS: HEPARIN SOD 5,000 UNIT/0.5 ML VIAL SQ SCH ×3 (06:35→21:05)
[2021-01-21 06:44] LABS: Potassium 4.5 mmol/L (3.5-5.1)
[2021-01-21 06:48] LABS: BUN Creatinine Ratio 54.2 (10-20); Calcium 7.6 mg/dl (8.5-10.1); Creatinine Clr Calc Pharmacy 146.2 ml/min; Est GFR (African American) 117.3 ml/min; Est GFR (Non-African American) 101.2 ml/min; Magnesium 3.4 mg/dl (1.8-2.4); Phosphorus 2.5 mg/dl (2.5-4.9)
--- NOTE | 2021-01-21 08:07 | XRay Report ---
XR chest 1V portable HISTORY: 70 years-old Male resp failure acute respiratory failure COMPARISON: Chest radiograph 01/20/2014 TECHNIQUE: Portable AP view of the chest FINDINGS: The cardiomediastinal and hilar silhouettes are unchanged. Endotracheal tube overlies the midline dann roximately 4 cm superior to the gav[place]. Right IJ central venous catheter is in stable positioning. En teric tube courses below the diaphragm with distal tip outside the [id number]. No pneumothorax. Sm all pleural effusions redemonstrated. No pneumothorax. Interstitial coarsening with multifocal airspa ce opacities redemonstrated which appear stable from prior. No acute fracture. IMPRESSION: 1. Lines and tubes as above. 2. Unchanged multifocal airspace opacities with small pleural effusions. 3. No pneumothorax. ACT 112: Negative or not required by law. The above report was generated using voice recognition software. It may contain grammatical, syntax o r spelling errors. Electronically signed by: Mitesh Kapadia M.D. 01/21/2021 8:05 AM
[2021-01-21] MEDS: ASPIRIN 81 MG CHEW PO SCH (09:03)
[2021-01-21] MEDS: DOCUSATE SODIUM 100 MG CAP PO PRN (09:03)
[2021-01-21] MEDS: SENNOSIDES 8.8 MG/5 ML UDC PO SCH ×2 (09:04→20:31)
[2021-01-21] MEDS: LACTULOSE SYRUP 20 GM/30 ML UDC PO SCH (09:05)
[2021-01-21] MEDS: INSULIN HUMAN NPH SC SCH (09:05)
[2021-01-21] MEDS: INSULIN GLARGINE SOLOSTAR 100 UNITS/ML 3 ML PEN SC SCH (09:05)
[2021-01-21] MEDS: dexAMETHasone 20 MG in DEXTROSE 5% 25 ML IV SCH (09:06)
[2021-01-21] MEDS ORDERED: SODIUM PHOSPHATE 3 MMOL/1 ML INFUSION IV STA (09:24)
[2021-01-21] MEDS: ICU ELECTROLYTE REPLACEMENT PROTOCOL SCH ×2 (09:25→17:05)
[2021-01-21] MEDS: PEPTAMEN INTENSE VHP 1.0 CAL 1,000 ML BAG OG SCH (10:00)
[2021-01-21] MEDS ORDERED: SODIUM PHOSPHATE 15 MMOL in SODIUM CHLORIDE 0.9% 250 ML IV ONE (10:00)
[2021-01-21] MEDS ORDERED: STAT IV Infusion **Titration per Protocol STA (11:04)
[2021-01-21 11:45] LABS: iSTAT Arterial Blood Gas HCO3 26 meg/L (19-24); iSTAT Arterial Blood Gas pCO2 45 mmHg (35-46); iSTAT Arterial Blood Gas pH 7.37 (7.35-7.45); iSTAT Arterial Blood Gas pO2 59 mmHg (80-95); iSTAT Carbon Dioxide 27 mmol/L (24-31); iSTAT FiO2 60 %; iSTAT Site Art Line
[2021-01-21] MEDS: DEXMEDETOMIDINE HCL 200 MCG in SODIUM CHLORIDE 0.9% 48 ML IV SCH ×3 (11:45→23:05)
[2021-01-21] MEDS: PANTOprazole 40 MG in SYRINGE 0 ML IV SCH (12:12)
[2021-01-21] MEDS: ACETAMINOPHEN 325 MG TAB PO PRN (12:48)
--- NOTE | 2021-01-21 13:33 | Hospitalist Progress Note ---
Date of Service January 21, 2021 Assessment & Plan (1) Acute hypoxemic respiratory failure: Plan: Acute respiratory failure with hypoxia COVID-19 pneumonia Severe ARDS CTA:Patchy groundglass opacities are present throughout both lungs characteristic of a viral type pneumonitis and early Covid 19 pneumonia. No PE Had COVID Vaccination in May 2020 per patient H/O Asthma H/O ARCELIA on CPAP Procalcitonin 0.05 CRP 13.4> 6.48 Blood cultures: Negative to date -Completed Remdesivir course for 5 days Continue dexamethasone Also on doxycycline - now stopped (01/16) Lasix , Nebs as needed Continued home inhalers Pulmonary medicine consulted, appreciate their input 01/17 - intubated, sedated (propofol, fentanyl, and Versed) Repeat CT PE - negative for PE, Multifocal groundglass opacities compatible with viral pneumonia. Reactive lymphadenopathy is seen. P/F 77 consistent with severe ARDS. Advance steroids to 20 mg a day for 5 days followed by 10 mg a day for 5 days. Not a candidate for Baricitinib or ECMO. 01/19 - P/F 200 significantly improved compared to yesterday 01/20 - P/F decreased from yesterday. Continue late-phase ARDS dexamethasone protocol with 20 mg a day for 5 days followed by 10 mg a day for 5 days. 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 failure d/t Covid 19 PNA, ARDS Pt is intubated, sedated (intubated on 01/17) Pulmonary/ ICU following closely Pt's updated over the phone Update: Patient has 2 gram-negative rods identified in sputum - Zosyn started per ICU team Review of Systems Review of Systems: Unobtainable due to cognitive status and Unobtainable due to endotracheal tube Physical Exam Physical Exam: General Appearance:Moderately built and nourished,intubated, sedated Head: normocephalic, Atraumatic Eyes: normal inspection Respiratory/Chest:CTAB Cardiovascular: S1, S2, No murmur Abdomen/GI: Soft, Bowel sounds present Extremities/Musculoskeletal: normal inspection, no edema Neurologic/Psych: intubated, sedated Skin: normal color, warm Results & Data Results & Data ([facility]) Vital Signs (Past 12 Hours) Vital Signs Temp Pulse Resp BP Pulse Ox 01/21/21 12:00 98/45 L 01/21/21 11:39 38.3 C H 01/21/21 11:30 92 H 20 86 L 01/21/21 11:15 91 H 22 109/54 L 86 L 01/21/21 11:05 62 24 90 01/21/21 11:00 38.3 C H 91 H 25 H 01/21/21 10:45 95 H 25 H 87 L 01/21/21 10:30 90 24 111/56 L 87 L 01/21/21 10:15 91 H 23 126/65 87 L 01/21/21 10:00 90 21 117/63 87 L 01/21/21 09:45 87 27 H 89 L 01/21/21 09:30 93 H 25 H 88 L 01/21/21 09:15 87 26 H 88 L 01/21/21 09:00 84 24 90 01/21/21 08:45 82 23 119/64 93 01/21/21 08:30 78 23 109/59 L 90 01/21/21 08:15 74 25 H 102/56 L 90 01/21/21 08:00 76 28 H 125/65 90 01/21/21 07:55 37.2 C 01/21/21 07:45 62 24 97/56 L 90 01/21/21 07:40 62 24 90 01/21/21 07:30 60 23 93/53 L 89 L 01/21/21 07:15 61 25 H 102/56 L 89 L 01/21/21 07:00 61 25 H 90 01/21/21 06:45 63 25 H 90 01/21/21 06:30 66 29 H 97/54 L 90 01/21/21 06:15 63 24 98/53 L 90 01/21/21 06:00 61 24 89 L 01/21/21 05:45 58 L 24 88 L 01/21/21 05:30 54 L 24 89 L 01/21/21 05:15 55 L 24 99/50 L 89 L 01/21/21 05:00 55 L 24 90 01/21/21 04:45 55 L 24 101/53 L 90 01/21/21 04:30 56 L 24 91 01/21/21 04:15 57 L 24 95/46 L 90 01/21/21 04:00 37.3 C 58 L 24 116/48 L 86 L 01/21/21 03:57 60 28 H 88 L 01/21/21 03:45 54 L 24 89 L 01/21/21 03:30 54 L 24 89 L 01/21/21 03:15 54 L 24 89 L 01/21/21 03:00 53 L 24 89 L 01/21/21 02:45 56 L 24 89 L 01/21/21 02:30 54 L 24 105/52 L 89 L 01/21/21 02:15 55 L 24 88 L 01/21/21 02:00 57 L 24 106/52 L 87 L 01/21/21 01:45 55 L 24 86 L Laboratory Results 01/21/21 01/21/21 01/21/21 Range/Units 11:32 11:29 07:38 WBC (4.8-10.8) K/uL RBC (4.7-6.1) M/uL Hgb (14.0-18.0) g/dL Hct (42-52) % MCV (80-100) fL MCH (25-34) pg MCHC (32-36) g/dL RDW Std Deviation (36.4-46.3) fL RDW Coeff of Roxie (11.5-14.5) % Plt Count (130-400) K/uL MPV (7.4-10.4) fL Immature Gran % (Auto) % Neut % (Auto) % Lymph % (Auto) % Dundy % (Auto) % Eos % (Auto) % Baso % (Auto) % Neut # (Auto) (1.4-6.5) K/uL Lymph # (Auto) (1.2-3.4) K/uL Dundy # (Auto) (0.11-0.59) K/uL Eos # (Auto) (0-0.5) K/uL Baso # (Auto) (0-0.2) K/uL Immature Gran # (Auto) (0.00-0.02) K/uL Sample Site Art Line POC pH 7.37 (7.35-7.45) POC pCO2 45 (35-46) mmHg POC pO2 59 L (80-95) mmHg POC HCO3 26 H (19-24) magaly/L POC Total CO2 27 (24-31) mmol/L POC Base Excess 0.0 (-9-1.8) magaly/L POC ABG O2 Sat 89.0 L (90-95) % Suresh Test NA O2 Delivery Device Ventilator POC O2 Rate 24 Minute Ventilation POC FiO2 60 % Tidal Volume 450 PEEP 12 Sodium (136-145) mmol/L Potassium (3.5-5.1) mmol/L Chloride (98-107) mmol/L Carbon Dioxide (21-32) mmol/L Anion Gap (3-11) BUN (7-18) mg/dl Creatinine (0.6-1.4) mg/dl Est Cr Clr Drug Dosing ml/min Est GFR ( Amer) ml/min Est GFR (Non-Af Amer) ml/min BUN/Creatinine Ratio (10-20) Glucose (70-99) mg/dl POC Glucose 135 H 143 H (70-99) mg/dl POC Glucose (other) (70-99) mg/dl Calcium (8.5-10.1) mg/dl Phosphorus (2.5-4.9) mg/dl Magnesium (1.8-2.4) mg/dl Pneumocystis Source Pneumocyst jiroveci PCR Beta-(1,3)-D-Glucan pg/mL B-(1,3)-D-Glucan Intrp 01/21/21 01/21/21 01/21/21 Range/Units 05:58 05:58 04:02 WBC 4.83 (4.8-10.8) K/uL RBC 2.90 L (4.7-6.1) M/uL Hgb 9.5 L (14.0-18.0) g/dL Hct 29.7 L (42-52) % MCV 102.4 H (80-100) fL MCH 32.8 (25-34) pg MCHC 32.0 (32-36) g/dL RDW Std Deviation 49.0 H (36.4-46.3) fL RDW Coeff of Roxie 13.0 (11.5-14.5) % Plt Count 148 (130-400) K/uL MPV 10.7 H (7.4-10.4) fL Immature Gran % (Auto) 0.2 % Neut % (Auto) 55.2 % Lymph % (Auto) 42.7 % Dundy % (Auto) 1.7 % Eos % (Auto) 0.0 % Baso % (Auto) 0.2 % Neut # (Auto) 2.67 (1.4-6.5) K/uL Lymph # (Auto) 2.06 (1.2-3.4) K/uL Dundy # (Auto) 0.08 L (0.11-0.59) K/uL Eos # (Auto) 0.00 (0-0.5) K/uL Baso # (Auto) 0.01 (0-0.2) K/uL Immature Gran # (Auto) 0.01 (0.00-0.02) K/uL Sample Site Art Line POC pH 7.40 (7.35-7.45) POC pCO2 42 (35-46) mmHg POC pO2 50 L (80-95) mmHg POC HCO3 26 H (19-24) magaly/L POC Total CO2 28 (24-31) mmol/L POC Base Excess 2.0 H (-9-1.8) magaly/L POC ABG O2 Sat 85.0 L (90-95) % Suresh Test NA O2 Delivery Device Ventilator POC O2 Rate 24 Minute Ventilation 10.8 POC FiO2 50 % Tidal Volume 450 PEEP 12 Sodium 139 (136-145) mmol/L Potassium 4.5 (3.5-5.1) mmol/L Chloride 107 (98-107) mmol/L Carbon Dioxide 27 (21-32) mmol/L Anion Gap 5.0 (3-11) BUN 33 H (7-18) mg/dl Creatinine 0.61 (0.6-1.4) mg/dl Est Cr Clr Drug Dosing 146.2 ml/min Est GFR ( Amer) 117.3 ml/min Est GFR (Non-Af Amer) 101.2 ml/min BUN/Creatinine Ratio 54.2 H (10-20) Glucose 135 H (70-99) mg/dl POC Glucose (70-99) mg/dl POC Glucose (other) (70-99) mg/dl Calcium 7.6 L (8.5-10.1) mg/dl Phosphorus 2.5 (2.5-4.9) mg/dl Magnesium 3.4 H (1.8-2.4) mg/dl Pneumocystis Source Pneumocyst jiroveci PCR Beta-(1,3)-D-Glucan pg/mL B-(1,3)-D-Glucan Intrp 01/21/21 01/21/21 01/20/21 Range/Units 03:42 00:36 19:59 WBC (4.8-10.8) K/uL RBC (4.7-6.1) M/uL Hgb (14.0-18.0) g/dL Hct (42-52) % MCV (80-100) fL MCH (25-34) pg MCHC (32-36) g/dL RDW Std Deviation (36.4-46.3) fL RDW Coeff of Roxie (11.5-14.5) % Plt Count (130-400) K/uL MPV (7.4-10.4) fL Immature Gran % (Auto) % Neut % (Auto) % Lymph % (Auto) % Dundy % (Auto) % Eos % (Auto) % Baso % (Auto) % Neut # (Auto) (1.4-6.5) K/uL Lymph # (Auto) (1.2-3.4) K/uL Dundy # (Auto) (0.11-0.59) K/uL Eos # (Auto) (0-0.5) K/uL Baso # (Auto) (0-0.2) K/uL Immature Gran # (Auto) (0.00-0.02) K/uL Sample Site POC pH (7.35-7.45) POC pCO2 (35-46) mmHg POC pO2 (80-95) mmHg POC HCO3 (19-24) magaly/L POC Total CO2 (24-31) mmol/L POC Base Excess (-9-1.8) magaly/L POC ABG O2 Sat (90-95) % Suresh Test O2 Delivery Device POC O2 Rate Minute Ventilation POC FiO2 % Tidal Volume PEEP Sodium (136-145) mmol/L Potassium (3.5-5.1) mmol/L Chloride (98-107) mmol/L Carbon Dioxide (21-32) mmol/L Anion Gap (3-11) BUN (7-18) mg/dl Creatinine (0.6-1.4) mg/dl Est Cr Clr Drug Dosing ml/min Est GFR ( Amer) ml/min Est GFR (Non-Af Amer) ml/min BUN/Creatinine Ratio (10-20) Glucose (70-99) mg/dl POC Glucose 122 H 152 H (70-99) mg/dl POC Glucose (other) 201 H (70-99) mg/dl Calcium (8.5-10.1) mg/dl Phosphorus (2.5-4.9) mg/dl Magnesium (1.8-2.4) mg/dl Pneumocystis Source Pneumocyst jiroveci PCR Beta-(1,3)-D-Glucan pg/mL B-(1,3)-D-Glucan Intrp 01/20/21 01/20/21 01/17/21 Range/Units 16:35 15:30 06:28 WBC (4.8-10.8) K/uL RBC (4.7-6.1) M/uL Hgb (14.0-18.0) g/dL Hct (42-52) % MCV (80-100) fL MCH (25-34) pg MCHC (32-36) g/dL RDW Std Deviation (36.4-46.3) fL RDW Coeff of Roxie (11.5-14.5) % Plt Count (130-400) K/uL MPV (7.4-10.4) fL Immature Gran % (Auto) % Neut % (Auto) % Lymph % (Auto) % Dundy % (Auto) % Eos % (Auto) % Baso % (Auto) % Neut # (Auto) (1.4-6.5) K/uL Lymph # (Auto) (1.2-3.4) K/uL Dundy # (Auto) (0.11-0.59) K/uL Eos # (Auto) (0-0.5) K/uL Baso # (Auto) (0-0.2) K/uL Immature Gran # (Auto) (0.00-0.02) K/uL Sample Site POC pH (7.35-7.45) POC pCO2 (35-46) mmHg POC pO2 (80-95) mmHg POC HCO3 (19-24) magaly/L POC Total CO2 (24-31) mmol/L POC Base Excess (-9-1.8) magaly/L POC ABG O2 Sat (90-95) % Suresh Test O2 Delivery Device POC O2 Rate Minute Ventilation POC FiO2 % Tidal Volume PEEP Sodium (136-145) mmol/L Potassium (3.5-5.1) mmol/L Chloride (98-107) mmol/L Carbon Dioxide (21-32) mmol/L Anion Gap (3-11) BUN (7-18) mg/dl Creatinine (0.6-1.4) mg/dl Est Cr Clr Drug Dosing ml/min Est GFR ( Amer) ml/min Est GFR (Non-Af Amer) ml/min BUN/Creatinine Ratio (10-20) Glucose (70-99) mg/dl POC Glucose 198 H (70-99) mg/dl POC Glucose (other) (70-99) mg/dl Calcium (8.5-10.1) mg/dl Phosphorus (2.5-4.9) mg/dl Magnesium (1.8-2.4) mg/dl Pneumocystis Source Pending Pneumocyst jiroveci PCR Pending Beta-(1,3)-D-Glucan <31 pg/mL B-(1,3)-D-Glucan Intrp NEGATIVE Medications Administered Current Inpatient Medications Acetaminophen (Acetaminophen 325 Mg Tab) 650 mg PO Q4H PRN PRN Reason: Pain or Fever Stop: 02/08/21 00:19 Last Admin: 01/21/21 12:48 Dose: 650 mg Documented by: Aspirin (Aspirin 81 Mg Chew) 81 mg PO DAILY [facility] Stop: 02/20/21 08:59 Last Admin: 01/21/21 09:03 Dose: 81 mg Documented by: Dextrose (Dextrose 50% 50 Ml Syringe) 25 - 50 ml IV UD PRN; Protocol PRN Reason: Hypoglycemia Protocol Stop: 02/08/21 00:19 Docusate Sodium (Docusate Sodium 100 Mg Cap) 100 mg PO BID PRN PRN Reason: Constipation Stop: 02/10/21 20:59 Last Admin: 01/21/21 09:03 Dose: 100 mg Documented by: Fentanyl Citrate (Fentanyl Bolus From Bag) 50 mcg IV Q60M PRN PRN Reason: Pain or Agitation Stop: 01/31/21 09:26 Glucagon (Glucagon For Inj 1 Mg Vial) 1 mg SQ UD PRN; Protocol PRN Reason: Hypoglycemia Protocol Stop: 02/08/21 00:19 Glucose (Glucose 10 Tabs/Tube) 4 - 8 tabs PO UD PRN; Protocol PRN Reason: Hypoglycemia Protocol Stop: 02/08/21 00:19 Glucose (Glucose 40% Gel 15 Gm Tube) 15 - 30 gm PO UD PRN; Protocol PRN Reason: Hypoglycemia Protocol Stop: 02/08/21 00:19 Heparin Sodium (Porcine) (Heparin Sod 5,000 Unit/0.5 Ml Vial) 5,000 units SQ Q8 JC Stop: 02/16/21 13:59 Last Admin: 01/21/21 06:35 Dose: 5,000 units Documented by: Propofol (Diprivan) 1,000 mg in 100 mls @ 25.44 mls/hr IV .Q3H56M [facility]; Protocol Stop: 01/22/21 16:00 Last Titration: 01/21/21 12:54 Dose: 40 mcg/kg/min, 25.4 mls/hr Documented by: Midazolam HCl (Versed) 125 mg in 250 mls @ 16 mls/hr IV .[id number] [facility]; Protocol Stop: 02/16/21 09:29 Last Titration: 01/21/21 12:20 Dose: 8 mg/hr, 16 mls/hr Documented by: Fentanyl Citrate (Fentanyl Drip) 1,250 mcg in 250 mls @ 40 mls/hr IV .Q6H15M [facility]; Protocol Stop: 01/31/21 09:29 Last Titration: 01/21/21 12:21 Dose: 200 mcg/hr, 40 mls/hr Documented by: Norepinephrine Bitartrate (Levophed/D5w) 8 mg in 508 mls @ 0 mls/hr IV .Q0M JC; Protocol Stop: 02/16/21 09:29 Last Titration: 01/21/21 04:45 Dose: 0 mcg/kg/min, 0 mls/hr Documented by: Pantoprazole Sodium 40 mg/ (Syringe) 10 mls @ 5 mls/min IV DAILY@1100 [facility] Stop: 02/16/21 11:59 Last Admin: 01/21/21 12:12 Dose: 5 mls/min Documented by: Dexamethasone 20 mg/ Dextrose 30 mls @ 0.833 mls/min IV QAM [facility] Stop: 02/18/21 08:59 Last Infusion: 01/21/21 10:13 Dose: Infused Documented by: Dexmedetomidine HCl 200 mcg/ (Sodium Chloride) 50 mls @ 7.95 mls/hr IV .Q6H18M [facility]; Protocol Stop: 01/25/21 11:14 Last Titration: 01/21/21 12:47 Dose: 0.3 mcg/kg/hr, 8 mls/hr Documented by: Insulin Aspart (Insulin Aspart Per Unit) 0 units SC Q4 [facility]; Protocol Stop: 02/17/21 03:59 Last Admin: 01/21/21 12:10 Dose: 3 units Documented by: Insulin Glargine (Insulin Glargine Solostar 100 Units/Ml 3 Ml Pen) 10 units SC DAILY [facility]; Protocol Stop: 02/18/21 09:59 Last Admin: 01/21/21 09:05 Dose: 10 units Documented by: Insulin Human NPH (Insulin Human Nph) 25 units SC Q24H [facility]; Protocol Stop: 02/13/21 08:59 Last Admin: 01/21/21 09:05 Dose: 25 units Documented by: Lactulose (Lactulose Syrup 20 Gm/30 Ml Udc) 20 gm PO DAILY [facility] Stop: 02/19/21 11:59 Last Admin: 01/21/21 09:05 Dose: 20 gm Documented by: Midazolam HCl (Midazolam Bolus From Bag) 2 mg IV Q60M PRN PRN Reason: Sedation Stop: 02/16/21 09:26 Last Admin: 01/18/21 06:37 Dose: 2 mg Documented by: Miscellaneous (Carbohydrates For Hypoglycemia ) 15 - 30 gm PO UD PRN PRN Reason: Hypoglycemia Protocol Stop: 02/08/21 00:19 Miscellaneous (Icu Electrolyte Replacement Protocol) 1 ea N/A BID@ [facility]; Protocol Stop: 01/24/21 17:59 Last Admin: 01/21/21 09:25 Dose: 1 ea Documented by: Miscellaneous Information (Pharmacy Glycemic Mgmt Consult) 1 ea N/A UD PRN PRN Reason: Consult Stop: 02/08/21 10:07 Multi-Ingredient Cream (Artificial Tears Op Oint 3.5 Gm Tube) 1 appln OP Q4H [facility] Stop: 02/16/21 09:29 Last Admin: 01/21/21 11:51 Dose: Not Given Documented by: Nutritional Formula (Peptamen Intense Vhp 1.0 Hossein 1,000 Ml Bag) 1,000 ml OG UD [facility]; Protocol Stop: 02/18/21 15:29 Propofol (Propofol Bolus From Bag) 20 mg IV Q5M PRN PRN Reason: Sedation Stop: 01/22/21 16:00 Last Admin: 01/21/21 00:20 Dose: 20 mg Documented by: Sennosides (Sennosides 8.8 Mg/5 Ml Udc) 8.8 mg PO BID [facility] Stop: 02/16/21 11:59 Last Admin: 01/21/21 09:04 Dose: 8.8 mg Documented by:
--- NOTE | 2021-01-21 15:32 | Critical Care Progress Note ---
Date of Service January 21, 2021 Assessment & Plan (1) Pneumonia due to 2019-nCoV: (2) Acute hypoxemic respiratory failure: (3) ARCELIA (obstructive sleep apnea): (4) DVT prophylaxis: Plan: Impression: 70-year-old male that was fully vaccinated with second vaccination 05/09/2020. Admitted 01/08/2021 for shortness of breath and hypoxia. Patient received 5 days of remdesivir. He failed conservative management and was intubated 01/17/2021 due to increased work of breathing and progressive hypoxemic respiratory failure 24-hour events: Oxygenation has been variable overnight. Has been intermittently up to 70% but is back down to 60% this morning. He is sedated on propofol fentanyl and Versed. Continue restraints Recommendations: 1. Neuro: continue sedation with propofol, fentanyl, and Versed. Keep sedated until ventilatory parameters would allow for spontaneous breathing trials and daily sedation breaks. Will check triglyceride disease been on propofol for several days. May need to consider transition to Precedex. 2. Cardiovascular: Hemodynamically stable. Continue to follow closely. 3. Pulmonary: Severe ARDS. Day #5 mechanical ventilation continue ARDS net ventilator strategy with low PEEP high FiO2 to prevent additional barotrauma. Current vent settings assist control: 24/450/12/0.6 with a plateau of 28. Most recent blood gas 7. 3 7/45/59. P/F 98 decreased compared to yesterday. Poor lung compliance. No PE identified on CT angiogram. Diffuse groundglass opacities were identified. Continue late-phase ARDS dexamethasone protocol with 20 mg a day for 5 days followed by 10 mg a day for 5 days. Not a candidate for Baricitinib or ECMO. x-ray is unchanged but unfortunately oxygenation appears to be trending in the wrong direction. We are still able to maintain PaO2 greater than 55. If we have to escalate his oxygen requirement above 60%, would have a low threshold for trial of proning to see if this offers him a clinical benefit. 4. Renal: No acute issues. Electrolyte replacement protocol will be continued. Hold on diuresis for now. Keep I/O even. 5. GI: Continue tube feeding per dietary. On bowel protocol with senna, lactulose and as needed MiraLAX. GI prophylaxis in place 6. ID: Patient has 2 gram-negative rods identified in sputum. Will initiate Zosyn and await speciation as well as antibiotic sensitivities. Pharmacy to assist with dosing 7. Heme-onc: Mild anemia. No indication for transfusion currently. Continue to follow for now. Continue DVT proph. 8. Endocrine: ICU glycemic protocol. Patient remains critically ill at this point in time with significant possibility of clinical deterioration and/or . Total of 48 minutes critical care time was spent in evaluation management stabilization as patient including discussion with respiratory therapy, as well as bedside critical care nurse. Family will be updated by the primary service Admission and Anticipated Discharge Date Admission Date: January 08, 2021 Subjective Patient is intubated and sedated. Review of Systems Review of Systems: Unobtainable due to endotracheal tube Physical Exam Constitutional: WD/WN, vitals as above Neck: trachea midline, no thyromegaly Respiratory: Auscultation: + crackles Cardiovascular: RRR, no murmur, no edema Gastrointestinal (Abdomen): normal bowel sounds, soft, nontender, no hepato splenomegaly Musculoskeletal: Extremities: extremities normal to inspection Skin: no rashes, warm and dry Lymphatic: no cervical lymphadenopathy Results & Data Results & Data ([facility]) Vital Signs (Past 12 Hours) Vital Signs Temp Pulse Resp BP Pulse Ox 01/21/21 14:28 66 01/21/21 14:16 38.4 C H 01/21/21 12:00 98/45 L 01/21/21 11:39 38.3 C H 01/21/21 11:30 92 H 20 86 L 01/21/21 11:15 91 H 22 109/54 L 86 L 01/21/21 11:05 62 24 90 01/21/21 11:00 38.3 C H 91 H 25 H 01/21/21 10:45 95 H 25 H 87 L 01/21/21 10:30 90 24 111/56 L 87 L 01/21/21 10:15 91 H 23 126/65 87 L 01/21/21 10:00 90 21 117/63 87 L 01/21/21 09:45 87 27 H 89 L 01/21/21 09:30 93 H 25 H 88 L 01/21/21 09:15 87 26 H 88 L 01/21/21 09:00 84 24 90 01/21/21 08:45 82 23 119/64 93 01/21/21 08:30 78 23 109/59 L 90 01/21/21 08:15 74 25 H 102/56 L 90 01/21/21 08:00 76 28 H 125/65 90 01/21/21 07:55 37.2 C 01/21/21 07:45 62 24 97/56 L 90 01/21/21 07:40 62 24 90 01/21/21 07:30 60 23 93/53 L 89 L 01/21/21 07:15 61 25 H 102/56 L 89 L 01/21/21 07:00 61 25 H 90 01/21/21 06:45 63 25 H 90 01/21/21 06:30 66 29 H 97/54 L 90 01/21/21 06:15 63 24 98/53 L 90 01/21/21 06:00 61 24 89 L 01/21/21 05:45 58 L 24 88 L 01/21/21 05:30 54 L 24 89 L 01/21/21 05:15 55 L 24 99/50 L 89 L 01/21/21 05:00 55 L 24 90 01/21/21 04:45 55 L 24 101/53 L 90 01/21/21 04:30 56 L 24 91 01/21/21 04:15 57 L 24 95/46 L 90 01/21/21 04:00 37.3 C 58 L 24 116/48 L 86 L 01/21/21 03:57 60 28 H 88 L 01/21/21 03:45 54 L 24 89 L 01/21/21 03:30 54 L 24 89 L Critical Care Results & Data Vital Signs (Past 12 Hours) Vital Signs Temp Pulse Resp BP Pulse Ox 01/21/21 14:28 66 01/21/21 14:16 38.4 C H 01/21/21 12:00 98/45 L 01/21/21 11:39 38.3 C H 01/21/21 11:30 92 H 20 86 L 01/21/21 11:15 91 H 22 109/54 L 86 L 01/21/21 11:05 62 24 90 01/21/21 11:00 38.3 C H 91 H 25 H 01/21/21 10:45 95 H 25 H 87 L 01/21/21 10:30 90 24 111/56 L 87 L 01/21/21 10:15 91 H 23 126/65 87 L 01/21/21 10:00 90 21 117/63 87 L 01/21/21 09:45 87 27 H 89 L 01/21/21 09:30 93 H 25 H 88 L 01/21/21 09:15 87 26 H 88 L 01/21/21 09:00 84 24 90 01/21/21 08:45 82 23 119/64 93 01/21/21 08:30 78 23 109/59 L 90 01/21/21 08:15 74 25 H 102/56 L 90 01/21/21 08:00 76 28 H 125/65 90 01/21/21 07:55 37.2 C 01/21/21 07:45 62 24 97/56 L 90 01/21/21 07:40 62 24 90 01/21/21 07:30 60 23 93/53 L 89 L 01/21/21 07:15 61 25 H 102/56 L 89 L 01/21/21 07:00 61 25 H 90 01/21/21 06:45 63 25 H 90 01/21/21 06:30 66 29 H 97/54 L 90 01/21/21 06:15 63 24 98/53 L 90 01/21/21 06:00 61 24 89 L 01/21/21 05:45 58 L 24 88 L 01/21/21 05:30 54 L 24 89 L 01/21/21 05:15 55 L 24 99/50 L 89 L 01/21/21 05:00 55 L 24 90 01/21/21 04:45 55 L 24 101/53 L 90 01/21/21 04:30 56 L 24 91 01/21/21 04:15 57 L 24 95/46 L 90 01/21/21 04:00 37.3 C 58 L 24 116/48 L 86 L 01/21/21 03:57 60 28 H 88 L 01/21/21 03:45 54 L 24 89 L 01/21/21 03:30 54 L 24 89 L Lab & Micro Results (Past 24 Hours) RBC 2.90 M/uL (4.7-6.1) L 01/21/21 WBC 4.83 K/uL (4.8-10.8) 01/21/21 Hgb 9.5 g/dL (14.0-18.0) L 01/21/21 Hct 29.7 % (42-52) L 01/21/21 MCV 102.4 fL (80-100) H 01/21/21 MCH 32.8 pg (25-34) 01/21/21 MCHC 32.0 g/dL (32-36) 01/21/21 RDW Standard Deviation 49.0 fL (36.4-46.3) H 01/21/21 RDW Coefficient of Variation 13.0 % (11.5-14.5) 01/21/21 Plt Count 148 K/uL (130-400) 01/21/21 MPV 10.7 fL (7.4-10.4) H 01/21/21 Neutrophils (%) (Auto) 55.2 % 01/21/21 Lymphocytes (%) (Auto) 42.7 % 01/21/21 Monocytes # (Auto) 0.08 K/uL (0.11-0.59) L 01/21/21 Eosinophils # (Auto) 0.00 K/uL (0-0.5) 01/21/21 Immature Granulocyte % (Auto) 0.2 % 01/21/21 Neutrophils # (Auto) 2.67 K/uL (1.4-6.5) 01/21/21 Lymphocytes # (Auto) 2.06 K/uL (1.2-3.4) 01/21/21 Monocytes # (Auto) 0.08 K/uL (0.11-0.59) L 01/21/21 Eosinophils # (Auto) 0.00 K/uL (0-0.5) 01/21/21 Basophils # (Auto) 0.01 K/uL (0-0.2) 01/21/21 Immature Granulocyte # (Auto) 0.01 K/uL (0.00-0.02) 01/21/21 Na 139 mmol/L (136-145) 01/21/21 K 4.5 mmol/L (3.5-5.1) 01/21/21 Cl 107 mmol/L (98-107) 01/21/21 CO2 27 mmol/L (21-32) 01/21/21 Anion Gap 5.0 (3-11) 01/21/21 BUN 33 mg/dl (7-18) H 01/21/21 Creatinine 0.61 mg/dl (0.6-1.4) 01/21/21 Estimated GFR ( Amer) 117.3 ml/min 01/21/21 Estimated GFR (Non-Af Amer) 101.2 ml/min 01/21/21 BUN/Creatinine Ratio 54.2 (10-20) H 01/21/21 Glu 135 mg/dl (70-99) H 01/21/21 Ca 7.6 mg/dl (8.5-10.1) L 01/21/21 Phosphorus Level 2.5 mg/dl (2.5-4.9) 01/21/21 Mg 3.4 mg/dl (1.8-2.4) H 01/21/21 05:58 01/21/21 Calcium Level 7.6 mg/dl (8.5-10.1) L 01/21/21 05:58 01/21/21 Suresh Test NA 01/21/21 11:32 01/21/21 Microbiology 01/20/21 15:30 Gram Stain - Final Sputum,Vent Suction Sputum Culture - Preliminary Gram negative bacilli Gram negative bacilli#2 Diagnostic Findings (Past 24 Hours) Chest X-Ray 01/21/21 07:00 XR chest 1V portable HISTORY: 70 years-old Male resp failure acute respiratory failure COMPARISON: Chest radiograph 01/20/2014 TECHNIQUE: Portable AP view of the chest FINDINGS: The cardiomediastinal and hilar silhouettes are unchanged. Endotracheal tube overlies the midline approximately 4 cm superior to the gaviota. Right IJ central venous catheter is in stable positioning. Enteric tube courses below the diaphragm with distal tip outside the [id number]. No pneumothorax. Small pleural effusions redemonstrated. No pneumothorax. Interstitial coarsening with multifocal airspace opacities redemonstrated which appear stable from prior. No acute fracture. IMPRESSION: 1. Lines and tubes as above. 2. Unchanged multifocal airspace opacities with small pleural effusions. 3. No pneumothorax. ACT 112: Negative or not required by law. The above report was generated using voice recognition software. It may contain grammatical, syntax or spelling errors. Electronically signed by: Mitesh Kapadia M.D. 01/21/2021 8:05 AM I & O Totals 24 Hours 01/20/21 01/21/21 01/22/21 06:59 06:59 06:59 Intake Total 2297.457 / 2297.457 2859.545 / 2859.545 1448.907 / 1448.907 Output Total 1245 / 1245 1500 / 1500 460 / 460 Balance 1052.457 / 9174.653 1172.545 / 1359.545 988.907 / 988.907 Cumulative 01/08/21 14:08 thru 01/21/21 14:10 Intake Total 70385.569 Output Total 01417 Balance 2070.569 RT Ventilator Mngmt (Last Documented) Ventilator Ordered Settings Ventilator Support Mode Assist Control 01/21/21 11:05 Respiratory Rate 20 01/21/21 11:30 Ventilator Tidal Volume 450 01/21/21 11:05 Setting Minute Ventilation 10.8 01/21/21 11:05 Positive End Expiratory 12 01/21/21 11:05 Pressure Fraction of Inspired Oxygen 60 01/21/21 11:05 Machine Comment Settings increased after ABG 01/21/21 03:57 Ventilator - PT Measurements Respiratory Rate 20 Exhaled Tidal Volume 450 Minute Ventilation 10.8 Peak Inspiratory Airway 29 Pressure Plateau Pressure 22 Respiratory Cycle Inspiratory: 1:2.6 Expiratory Ratio Inspiratory Phase Time 0.7 End-Tidal CO2 32 Static Lung Compliance 45.00 Dynamic Lung Compliance 26.47 Normal Static Lung Compliance 47.00 Patient Measurements Comment etc02 not working Coding Level of Care Code Critical Care 1st 30-74 mins Diagnoses Pneumonia due to 2019-nCoV U07.1; J12.82 Acute hypoxemic respiratory failure J96.01 ARCELIA (obstructive sleep apnea) G47.33 DVT prophylaxis Z29.9 Time Spent (min) 55
[2021-01-21] MEDS ORDERED: PIPERACILL/TAZOBAC CONSULT ACTIVE PRN (15:40)
[2021-01-21] MEDS ORDERED: PIPERACILLIN/TAZOBACTAM 4.5 GM in DEXTROSE 5% 100 ML IV ONE (16:15)
[2021-01-21] MEDS ORDERED: VECURONIUM BROMIDE 10 MG VIAL IV STA (16:20)
[2021-01-21 17:04] LABS: iSTAT Arterial Blood Gas HCO3 25 meg/L (19-24); iSTAT Arterial Blood Gas pCO2 52 mmHg (35-46); iSTAT Arterial Blood Gas pH 7.28 (7.35-7.45); iSTAT Arterial Blood Gas pO2 64 mmHg (80-95); iSTAT Carbon Dioxide 26 mmol/L (24-31); iSTAT FiO2 75 %; iSTAT Site Art Line
--- NOTE | 2021-01-21 18:36 | Communication Note ---
Date of Service: January 21, 2021 Patient prone at 1800 for PF ratio 90 and increasing oxygenation requirements to 70%. Patient was trialed with bolus dose Vecuronium which helped with his desynchrony but not with his oxygenation. Patient had all his bony prominences padded. ETT was secured with commercial mars as well as manually by respiratory. Leads were placed to his back, and IV lines and Denson catheter transitioned to opposite side of bed. Patient was then cocooned with top and bottom sheets, he was then successfully placed in the prone position with left arm in the swimming position. His face was padded and rotated to his right. Patient will be prone for 16 hours. Supinated on 15December 1030. His saturations increased from 89% to 94% with proning, will continue to decrease his PEEP and FIO2 per ARDSnet. Will have bolus dosing for paralytics- if needed could add continuous infusion.
[2021-01-21] MEDS: MIDAZOLAM HCL 125 MG/250 ML BAG IV SCH (20:25)
[2021-01-21] MEDS: PIPERACILLIN/TAZOBACTAM 4.5 GM in DEXTROSE 5% 100 ML IV SCH (21:04)
[2021-01-22] MEDS: INSULIN ASPART PER UNIT SC SCH ×6 (00:52→20:37)
[2021-01-22] MEDS: ARTIFICIAL TEARS OP OINT 3.5 GM TUBE OP SCH ×6 (00:53→21:15)
[2021-01-22] MEDS: fentaNYL DRIP 1,250 MCG/250 ML BAG IV SCH ×6 (02:00→16:08)
[2021-01-22] MEDS: propofoL 1,000 MG/100 ML VIAL IV SCH ×6 (03:45→23:53)
[2021-01-22 04:45] LABS: iSTAT Arterial Blood Gas HCO3 27 meg/L (19-24); iSTAT Arterial Blood Gas pCO2 51 mmHg (35-46); iSTAT Arterial Blood Gas pH 7.34 (7.35-7.45); iSTAT Arterial Blood Gas pO2 70 mmHg (80-95); iSTAT Carbon Dioxide 29 mmol/L (24-31); iSTAT FiO2 80 %; iSTAT Site Art Line
[2021-01-22] MEDS: NOREPINEPHRINE/D5W 8 MG/508 ML BAG IV SCH ×2 (05:14→13:09)
[2021-01-22] MEDS: HEPARIN SOD 5,000 UNIT/0.5 ML VIAL SQ SCH ×3 (05:16→21:24)
[2021-01-22 05:53] LABS: Hematocrit (blood only) 29.8 % (42-52); Hemoglobin 9.6 g/dL (14.0-18.0); Mean Corpuscular Hgb Conc 32.2 g/dL (32-36); Mean Corpuscular Volume 102.4 fL (80-100); Mean Platelet Volume 10.7 fL (7.4-10.4); Platelet Count 136 K/uL (130-400); RDW Coefficient of Variation 12.6 % (11.5-14.5); RDW Standard Deviation 47.3 fL (36.4-46.3); Red Blood Count 2.91 M/uL (4.7-6.1); White Blood Count 2.87 K/uL (4.8-10.8)
[2021-01-22 06:27] LABS: BUN Creatinine Ratio 57.4 (10-20); Calcium 7.7 mg/dl (8.5-10.1); Creatinine Clr Calc Pharmacy 153.7 ml/min; Est GFR (African American) 119.7 ml/min; Est GFR (Non-African American) 103.3 ml/min; Potassium 4.7 mmol/L (3.5-5.1)
[2021-01-22 06:28] LABS: Phosphorus 2.9 mg/dl (2.5-4.9)
[2021-01-22] MEDS: PIPERACILLIN/TAZOBACTAM 4.5 GM in DEXTROSE 5% 100 ML IV SCH (06:30)
[2021-01-22] MEDS: DEXMEDETOMIDINE HCL 200 MCG in SODIUM CHLORIDE 0.9% 48 ML IV SCH ×4 (06:30→23:54)
[2021-01-22 06:31] LABS: Magnesium 3.1 mg/dl (1.8-2.4)
[2021-01-22] MEDS: ICU ELECTROLYTE REPLACEMENT PROTOCOL SCH ×2 (07:27→16:16)
[2021-01-22] MEDS: LACTULOSE SYRUP 20 GM/30 ML UDC PO SCH (07:57)
[2021-01-22] MEDS: ASPIRIN 81 MG CHEW PO SCH (07:57)
[2021-01-22] MEDS: MIDAZOLAM HCL 125 MG/250 ML BAG IV SCH ×2 (07:57→17:27)
[2021-01-22] MEDS: SENNOSIDES 8.8 MG/5 ML UDC PO SCH ×2 (07:57→21:24)
[2021-01-22] MEDS: INSULIN HUMAN NPH SC SCH (07:58)
[2021-01-22] MEDS: dexAMETHasone 20 MG in DEXTROSE 5% 25 ML IV SCH (07:58)
[2021-01-22] MEDS: INSULIN GLARGINE SOLOSTAR 100 UNITS/ML 3 ML PEN SC SCH (07:58)
[2021-01-22 08:02] LABS: Dohle Bodies 1+; Eosinophils # (auto) 0.01 K/uL (0-0.5); Eosinophils % (auto) 0.3 %; Lymphocytes # (auto) 1.24 K/uL (1.2-3.4); Lymphocytes % (auto) 43.2 %; Monocytes # (auto) 0.01 K/uL (0.11-0.59); Monocytes % (auto) 0.3 %; Neutrophils # (auto) 1.61 K/uL (1.4-6.5); Neutrophils % (auto) 56.2 %; Toxic Vacuolation 1+
--- NOTE | 2021-01-22 11:08 | XRay Report ---
SINGLE VIEW CHEST CLINICAL HISTORY: Respiratory failure. FINDINGS: An AP, portable, semierect chest radiograph is compared to study dated 01/21/2021 and corre lated with chest CT dated 01/16/2021. The examination is degraded by portable technique and apical blanca dotic positioning. An endotracheal tube, an enteric tube, and a right internal jugular central venous catheter are unchanged in position. The heart is enlarged. Multifocal airspace consolidation has not appreciably changed from yesterday. Small pleural effusions are suspected. No pneumothorax is seen. The skeletal structures are osteopenic. The bony thorax is grossly intact. IMPRESSION: 1. Stable lines and tubes. 2. Multifocal airspace consolidation has not appreciably changed from yesterday. 3. Suspect small pleural effusions. ACT 112: Negative or not required by law. Electronically signed by: Lee Sosa M.D. 01/22/2021 11:07 AM
[2021-01-22] MEDS: EPOPROSTENOL SODIUM (GLYCINE) 1.5 MG/5 ML INH PRN ×2 (11:16→16:03)
--- NOTE | 2021-01-22 11:37 | Critical Care Progress Note ---
Date of Service January 22, 2021 Assessment & Plan (1) Pneumonia due to 2019-nCoV: (2) Acute hypoxemic respiratory failure: (3) ARCELIA (obstructive sleep apnea): (4) DVT prophylaxis: Plan: Impression: 70-year-old male that was fully vaccinated with second vaccination 05/09/2020. Admitted 01/08/2021 for shortness of breath and hypoxia. Patient received 5 days of remdesivir. He failed conservative management and was intubated 01/17/2021 due to increased work of breathing and progressive hypoxemic respiratory failure. 24-hour events: Increase in his oxygenation requirements and decrease in his PF ratio overnight. Was prone for 16 hours and supinated this morning with no clinical benefit from proning. Has been intermittently down to 60% but is back up to 80% this morning. He is sedated on propofol, Precedex, fentanyl and Versed. Continue restraints. Will initiate inhaled epoprostenol therapy today. Recommendations: 1. Neuro: continue sedation with propofol, fentanyl, and Versed. Keep sedated until ventilatory parameters would allow for spontaneous breathing trials and daily sedation breaks. Will check triglyceride disease been on propofol for several days. May need to consider transition to Precedex. 2. Cardiovascular: Hemodynamically stable. Continue to follow closely. 3. Pulmonary: Severe ARDS. Day #6 mechanical ventilation continue ARDS net ventilator strategy with low PEEP high FiO2 to prevent additional barotrauma. Current vent settings assist control: 24/450/12/0.6 with a plateau of 28. Most recent blood gas 7. 3 7/45/59. P/F 98 decreased compared to yesterday. Poor lung compliance. No PE identified on CT angiogram. Diffuse groundglass opacities were identified. Continue late-phase ARDS dexamethasone protocol with 20 mg a day for 5 days followed by 10 mg a day for 5 days. Not a candidate for Baricitinib or ECMO. x-ray is unchanged but unfortunately oxygenation appears to be trending down. We are still able to maintain PaO2 greater than 55. Did not show clinical benefit from prone therapy and will initiate inhaled epoprostenol therpay today with goal >20% increase in Pa02, which would be a Pa02 of 84. 4. Renal: No acute issues. Electrolyte replacement protocol will be continued. BP magrinal this morning hold on diuretics today 5. GI: Continue tube feeding per dietary. On bowel protocol with senna, lactulose and as needed MiraLAX. GI prophylaxis in place, No PPI indicated 6. ID: Patient has 2 gram-negative rods identified in sputum- ECOLI- Zosyn de- escalated to Rocephin as both are sensitive. 7. Heme-onc: Mild anemia. No indication for transfusion currently. Continue to follow for now. Continue DVT proph. 8. Endocrine: ICU glycemic protocol. Lines: ETT, CVL, OGT, Denson, Arterial line- Continue use of these lines DISPO: Remain ICU Patient remains critically ill at this point in time with significant possibility of clinical deterioration and/or . Total of 45 minutes critical care time was spent in evaluation management stabilization as patient including discussion with respiratory therapy, as well as bedside critical care nurse. Family will be updated by the primary service Admission and Anticipated Discharge Date Admission Date: January 08, 2021 Subjective Patient rounded on with multidisciplinary team, evaluated in the [facility] ICU. Patient is HD 14 was intubated on 01/17/21 for hypoxic respiratory failure secondary to COVID 19 pneumonia. Patient completed course of Remdisivir, was started on DEXARDS dexamethasone dosing of 20mg IV x5 days and will continue with his 10mg IV for 5 days starting today. Patient had escelation in his FIo2 yesterday with PF ratio of 90s and was proned for 16 hours. He was successfully supinated this morning without any clinical improvement in his SPo2 and not clinically significant increase in his PaO2. We will trial inhaled Epoprostenol this morning- ICU staff attending aware and supports. Goal would be for 20% increase in his Pa02. Patient also noted with 2 types of Ecoli in his sputum- He was started empirically on Zosyn yesterday- will de-escalate to Rocephin today. Will continue supportive care however, patient appears to have plateaued and worsened over the past 24 hours. Review of Systems Review of Systems: Unable to complete secondary to mechanical ventilation and sedation Physical Exam Physical Exam: Constitutional: Sedated, Mechanically ventilated N: EVA -3, Unable to assess CAM, sedated with Precedex, Propofol, Midazolam. Pupils are sluggish but responsive R: Scattered rhonchi bilaterally decrease in the bases, intubated, CV: No ectopy, S1S2, no edema, no evidence of shock GI: OGT tolerating tube feeds, soft ntnd Denson to gravity skin- no open areas bony prominences padded Results & Data Results & Data ([facility]) Vital Signs (Past 12 Hours) Vital Signs Temp Pulse Resp BP Pulse Ox 01/22/21 11:21 72 24 101/41 L 91 01/22/21 08:52 71 01/22/21 08:00 71 25 H 114/49 L 90 01/22/21 04:20 69 24 91 01/22/21 04:00 68 113/40 L 01/22/21 03:00 37.6 C H 01/22/21 00:02 87 28 H 93 01/22/21 00:00 69 115/41 L Laboratory Results Abnormal lab results 01/21/21 01/21/21 01/21/21 Range/Units 16:21 16:49 19:32 WBC (4.8-10.8) K/uL RBC (4.7-6.1) M/uL Hgb (14.0-18.0) g/dL Hct (42-52) % MCV (80-100) fL RDW Std Deviation (36.4-46.3) fL MPV (7.4-10.4) fL Tift # (Auto) (0.11-0.59) K/uL POC pH 7.28 L (7.35-7.45) POC pCO2 52 H (35-46) mmHg POC pO2 64 L (80-95) mmHg POC HCO3 25 H (19-24) magaly/L POC Base Excess (-9-1.8) magaly/L POC ABG O2 Sat 89.0 L (90-95) % BUN (7-18) mg/dl Creatinine (0.6-1.4) mg/dl BUN/Creatinine Ratio (10-20) Glucose (70-99) mg/dl POC Glucose 199 H (70-99) mg/dl POC Glucose (other) 215 H (70-99) mg/dl Calcium (8.5-10.1) mg/dl Magnesium (1.8-2.4) mg/dl 01/22/21 01/22/21 01/22/21 Range/Units 00:06 03:36 04:16 WBC (4.8-10.8) K/uL RBC (4.7-6.1) M/uL Hgb (14.0-18.0) g/dL Hct (42-52) % MCV (80-100) fL RDW Std Deviation (36.4-46.3) fL MPV (7.4-10.4) fL Tift # (Auto) (0.11-0.59) K/uL POC pH 7.34 L (7.35-7.45) POC pCO2 51 H (35-46) mmHg POC pO2 70 L (80-95) mmHg POC HCO3 27 H (19-24) magaly/L POC Base Excess 2.0 H (-9-1.8) magaly/L POC ABG O2 Sat (90-95) % BUN (7-18) mg/dl Creatinine (0.6-1.4) mg/dl BUN/Creatinine Ratio (10-20) Glucose (70-99) mg/dl POC Glucose 176 H 152 H (70-99) mg/dl POC Glucose (other) (70-99) mg/dl Calcium (8.5-10.1) mg/dl Magnesium (1.8-2.4) mg/dl 01/22/21 01/22/21 01/22/21 Range/Units 05:24 05:24 07:42 WBC 2.87 L (4.8-10.8) K/uL RBC 2.91 L (4.7-6.1) M/uL Hgb 9.6 L (14.0-18.0) g/dL Hct 29.8 L (42-52) % MCV 102.4 H (80-100) fL RDW Std Deviation 47.3 H (36.4-46.3) fL MPV 10.7 H (7.4-10.4) fL Tift # (Auto) 0.01 L (0.11-0.59) K/uL POC pH (7.35-7.45) POC pCO2 (35-46) mmHg POC pO2 (80-95) mmHg POC HCO3 (19-24) magaly/L POC Base Excess (-9-1.8) magaly/L POC ABG O2 Sat (90-95) % BUN 33 H (7-18) mg/dl Creatinine 0.58 L (0.6-1.4) mg/dl BUN/Creatinine Ratio 57.4 H (10-20) Glucose 147 H (70-99) mg/dl POC Glucose 145 H (70-99) mg/dl POC Glucose (other) (70-99) mg/dl Calcium 7.7 L (8.5-10.1) mg/dl Magnesium 3.1 H (1.8-2.4) mg/dl 01/22/21 Range/Units 11:45 WBC (4.8-10.8) K/uL RBC (4.7-6.1) M/uL Hgb (14.0-18.0) g/dL Hct (42-52) % MCV (80-100) fL RDW Std Deviation (36.4-46.3) fL MPV (7.4-10.4) fL Tift # (Auto) (0.11-0.59) K/uL POC pH (7.35-7.45) POC pCO2 (35-46) mmHg POC pO2 (80-95) mmHg POC HCO3 (19-24) magaly/L POC Base Excess (-9-1.8) magaly/L POC ABG O2 Sat (90-95) % BUN (7-18) mg/dl Creatinine (0.6-1.4) mg/dl BUN/Creatinine Ratio (10-20) Glucose (70-99) mg/dl POC Glucose 153 H (70-99) mg/dl POC Glucose (other) (70-99) mg/dl Calcium (8.5-10.1) mg/dl Magnesium (1.8-2.4) mg/dl Diagnostic Findings SINGLE VIEW CHEST CLINICAL HISTORY: Respiratory failure. FINDINGS: An AP, portable, semierect chest radiograph is compared to study dated 01/21/2021 and correlated with chest CT dated 01/16/2021. The examination is degraded by portable technique and apical lordotic positioning. An endotracheal tube, an enteric tube, and a right internal jugular central venous catheter are unchanged in position. The heart is enlarged. Multifocal airspace consolidation has not appreciably changed from yesterday. Small pleural effusions are suspected. No pneumothorax is seen. The skeletal structures are osteopenic. The bony thorax is grossly intact. IMPRESSION: 1. Stable lines and tubes. 2. Multifocal airspace consolidation has not appreciably changed from yesterday. 3. Suspect small pleural effusions. Coding Level of Care Code Critical Care 1st 30-74 mins Diagnoses Pneumonia due to 2019-nCoV U07.1; J12.82 Acute hypoxemic respiratory failure J96.01 ARCELIA (obstructive sleep apnea) G47.33 DVT prophylaxis Z29.9
[2021-01-22] MEDS: PANTOprazole 40 MG in SYRINGE 0 ML IV SCH (12:43)
[2021-01-22] MEDS ORDERED: STAT IV Infusion **Titration per Protocol STA (13:00)
[2021-01-22 14:59] LABS: iSTAT Arterial Blood Gas HCO3 27 meg/L (19-24); iSTAT Arterial Blood Gas pCO2 65 mmHg (35-46); iSTAT Arterial Blood Gas pH 7.23 (7.35-7.45); iSTAT Arterial Blood Gas pO2 75 mmHg (80-95); iSTAT Carbon Dioxide 29 mmol/L (24-31); iSTAT FiO2 70 %; iSTAT Site Art Line
[2021-01-22] MEDS: cefTRIAXone SODIUM 2,000 MG in DEXTROSE 5% 50 ML IV SCH (15:13)
--- NOTE | 2021-01-22 16:22 | Hospitalist Progress Note ---
Date of Service January 22, 2021 Assessment & Plan (1) Acute hypoxemic respiratory failure: Plan: Acute respiratory failure with hypoxia COVID-19 pneumonia Severe ARDS -Intubated on 01/27/21 -CTA:Patchy groundglass opacities are present throughout both lungs characteristic of a viral type pneumonitis and early Covid 19 pneumonia. No PE H/O COVID Vaccination in May 2020 per patient H/O Asthma, ARCELIA on CPAP Procalcitonin 0.05 CRP 13.4> 6.48 >15 Blood cultures: Negative to date Sputum Cx: E.coli -Completed Remdesivir course Continue dexamethasone course Lasix , Nebs as needed Appreciate critical care input Not a candidate for Baricitinib or ECMO. 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 coli Review of Systems Review of Systems: Unobtainable due to endotracheal tube Physical Exam Physical Exam: Physical Exam: Vitals signs as noted above General Appearance:Moderately built and nourished, sedated and Intubated Head: normocephalic, Atraumatic Eyes: normal inspection Neck: supple, Trachea midline Respiratory/Chest: Decreased breath sounds, CTA Cardiovascular: S1, S2, No murmur Abdomen/GI:Soft, Non tender, Bowel sounds present Extremities/Musculoskeletal:normal inspection, no edema Neurologic/Psych:Sedated and Intubated Skin: normal color, warm Results & Data Results & Data ([facility]) Vital Signs (Past 12 Hours) Vital Signs Temp Pulse Resp BP Pulse Ox 01/22/21 16:00 93 H 28 H 111/46 L 90 01/22/21 15:01 92 H 28 H 89 L 01/22/21 15:00 37.3 C 94 H 27 H 145/68 H 89 L 01/22/21 14:43 93 H 24 108/45 L 89 L 01/22/21 14:00 37.3 C 91 H 24 140/79 90 01/22/21 13:18 83 24 168/59 H 92 01/22/21 13:00 37.3 C 73 24 105/52 L 90 01/22/21 12:29 73 24 102/43 L 91 01/22/21 12:00 37.3 C 72 25 H 109/54 L 93 01/22/21 11:25 75 27 H 89 L 01/22/21 11:21 72 24 101/41 L 91 01/22/21 11:00 37.4 C 73 24 107/50 L 92 01/22/21 10:00 37.4 C 70 26 H 141/62 H 89 L 01/22/21 09:00 37.5 C 71 23 136/59 L 90 01/22/21 08:52 71 01/22/21 08:00 37.4 C 70 23 140/60 90 01/22/21 07:00 37.5 C 71 24 142/61 H 91 01/22/21 06:00 37.5 C 69 24 142/64 H 91 01/22/21 04:20 69 24 91 Laboratory Results Short CBC 01/22/21 Range/Units 05:24 WBC 2.87 L (4.8-10.8) K/uL Hgb 9.6 L (14.0-18.0) g/dL Hct 29.8 L (42-52) % Plt Count 136 (130-400) K/uL BMP 01/22/21 05:24 Sodium 139 Potassium 4.7 Chloride 107 Carbon Dioxide 28 BUN 33 H Creatinine 0.58 L Glucose 147 H Calcium 7.7 L
[2021-01-22] MEDS: PEPTAMEN INTENSE VHP 1.0 CAL 1,000 ML BAG OG SCH (18:23)
[2021-01-22] MEDS: ACETAMINOPHEN 325 MG TAB PO PRN (20:38)
[2021-01-23] MEDS: fentaNYL DRIP 1,250 MCG/250 ML BAG IV SCH ×2 (01:34→19:45)
[2021-01-23] MEDS: ARTIFICIAL TEARS OP OINT 3.5 GM TUBE OP SCH ×6 (02:49→20:16)
[2021-01-23] MEDS: propofoL 1,000 MG/100 ML VIAL IV SCH ×5 (03:39→21:11)
[2021-01-23] MEDS: INSULIN ASPART PER UNIT SC SCH ×6 (03:43→20:21)
[2021-01-23 04:49] LABS: iSTAT Arterial Blood Gas HCO3 28 meg/L (19-24); iSTAT Arterial Blood Gas pCO2 57 mmHg (35-46); iSTAT Arterial Blood Gas pO2 74 mmHg (80-95); iSTAT Carbon Dioxide 30 mmol/L (24-31); iSTAT FiO2 70 %; iSTAT Site Art Line
[2021-01-23 06:09] LABS: Hematocrit (blood only) 33.2 % (42-52); Hemoglobin 10.4 g/dL (14.0-18.0); Mean Corpuscular Hemoglobin 32.9 pg (25-34); Mean Corpuscular Hgb Conc 31.3 g/dL (32-36); Mean Corpuscular Volume 105.1 fL (80-100); Mean Platelet Volume 11.1 fL (7.4-10.4); Platelet Count 183 K/uL (130-400); Red Blood Count 3.16 M/uL (4.7-6.1); White Blood Count 4.67 K/uL (4.8-10.8)
[2021-01-23] MEDS: ACETAMINOPHEN 325 MG TAB PO PRN ×2 (06:18→15:25)
[2021-01-23] MEDS: HEPARIN SOD 5,000 UNIT/0.5 ML VIAL SQ SCH ×3 (06:19→21:11)
[2021-01-23 06:27] LABS: BUN Creatinine Ratio 61.5 (10-20); Creatinine Clr Calc Pharmacy 133.1 ml/min; Est GFR (African American) 112.8 ml/min; Est GFR (Non-African American) 97.4 ml/min; Magnesium 3.7 mg/dl (1.8-2.4); Potassium 5.2 mmol/L (3.5-5.1)
[2021-01-23 06:28] LABS: Phosphorus 2.4 mg/dl (2.5-4.9)
[2021-01-23] MEDS: ICU ELECTROLYTE REPLACEMENT PROTOCOL SCH ×2 (07:22→19:45)
[2021-01-23] MEDS ORDERED: SODIUM PHOSPHATE 3 MMOL/1 ML INFUSION IV STA (07:27)
[2021-01-23] MEDS ORDERED: SODIUM PHOSPHATE 9 MMOL in SODIUM CHLORIDE 0.9% 250 ML IV ONE (07:45)
[2021-01-23] MEDS: ASPIRIN 81 MG CHEW PO SCH (08:19)
[2021-01-23] MEDS: LACTULOSE SYRUP 20 GM/30 ML UDC PO SCH (08:20)
[2021-01-23] MEDS: INSULIN HUMAN NPH SC SCH (08:21)
[2021-01-23] MEDS: INSULIN GLARGINE SOLOSTAR 100 UNITS/ML 3 ML PEN SC SCH (08:22)
[2021-01-23] MEDS ORDERED: FUROSEMIDE 40 MG/4 ML VIAL IV ONE (08:46)
[2021-01-23] MEDS ORDERED: INSULIN HUMAN NPH SC SCH (09:00)
--- NOTE | 2021-01-23 09:16 | XRay Report ---
XR chest 1V portable HISTORY: Respiratory failure. COMPARISON: Chest 01/22/2021. FINDINGS: No pneumothorax. No pleural effusions. Patchy bilateral hazy airspace opacities have slight ly improved. Lines and tubes remain unchanged in position with the endotracheal tube terminating 4.8 cm from the gaviota. IMPRESSION: 1. Satisfactory support line placement. 2. Slight improvement in the hazy bilateral airspace opacities consistent with a viral pneumonia. ACT 112: Negative or not required by law. Electronically signed by: Shahzad Amaya M.D. 01/23/2021 9:15 AM
[2021-01-23] MEDS: SENNOSIDES 8.8 MG/5 ML UDC PO SCH ×2 (09:40→20:17)
[2021-01-23] MEDS: PEPTAMEN INTENSE VHP 1.0 CAL 1,000 ML BAG OG SCH (09:40)
[2021-01-23] MEDS: fentaNYL citrate 2,500 MCG/250 ML BAG IV SCH (10:14)
[2021-01-23] MEDS: dexAMETHasone 20 MG in DEXTROSE 5% 25 ML IV SCH (10:23)
[2021-01-23] MEDS: DEXMEDETOMIDINE HCL 200 MCG in SODIUM CHLORIDE 0.9% 48 ML IV SCH ×3 (10:30→21:10)
[2021-01-23] MEDS: PANTOprazole 40 MG in SYRINGE 0 ML IV SCH (11:29)
[2021-01-23] MEDS: NOREPINEPHRINE/D5W 8 MG/508 ML BAG IV SCH (11:53)
--- NOTE | 2021-01-23 12:34 | Critical Care Progress Note ---
Date of Service January 23, 2021 Assessment & Plan (1) Pneumonia due to 2019-nCoV: (2) Acute hypoxemic respiratory failure: (3) ARCELIA (obstructive sleep apnea): (4) DVT prophylaxis: Plan: Impression: 70-year-old male that was fully vaccinated with second vaccination 05/09/2020. Admitted 01/08/2021 for shortness of breath and hypoxia. Patient received 5 days of remdesivir. He failed conservative management and was intubated 01/17/2021 due to increased work of breathing and progressive hypoxemic respiratory failure. He now has plateaued in his ability to decrease his PEEP and FIo2. He has failed prone therapy as well as inhaled Epoprostenol. 24-hour events: Increase in his oxygenation requirements and decrease in his PF ratio remains. Was prone for 16 hours and supinated with no clinical benefit from proning. Has been intermittently down to 60% but now has remained at 80% for the past 48 hours. He is sedated on propofol, Precedex, fentanyl and Versed. Continue restraints. Will initiate inhaled epoprostenol therapy today. Recommendations: 1. Neuro: continue sedation with propofol, fentanyl, and Versed. Keep sedated until ventilatory parameters would allow for spontaneous breathing trials and daily sedation breaks. Triglycerides ok while on propofol. 2. Cardiovascular: Hemodynamically stable. Continue to follow closely. 3. Pulmonary: Severe ARDS. Day # 6 mechanical ventilation continue ARDS net ventilator strategy with low PEEP high FiO2 to prevent additional barotrauma. Current vent settings assist control: 24/450/12/0.6 with a plateau of 28. Most recent blood gas 7. 3 7/45/59. P/F 98 decreased compared to yesterday. Poor lung compliance. No PE identified on CT angiogram. Diffuse groundglass opacities were identified. Continue late-phase ARDS dexamethasone protocol with 20 mg a day for 5 days followed by 10 mg a day for 5 days. Not a candidate for Baricitinib or ECMO. x-ray is unchanged but unfortunately oxygenation appears to be trending down. We are still able to maintain PaO2 greater than 55. Hopeful to maybe progress over the next few days. If not, he will likely not be able to be weaned off a ventilator. 4. Renal: No acute issues. Electrolyte replacement protocol will be continued. BP marginal this morning hold on diuretics today 5. GI: Continue tube feeding per dietary. On bowel protocol with senna, lactulose and as needed MiraLAX. GI prophylaxis in place, No PPI indicated 6. ID: Patient has 2 gram-negative rods identified in sputum- ECOLI- Zosyn de- escalated to Rocephin as both are sensitive. 7. Heme-onc: Mild anemia. No indication for transfusion currently. Continue to follow for now. Continue DVT proph. 8. Endocrine: ICU glycemic protocol. Lines: ETT, CVL, OGT, Denson, Arterial line- Continue use of these lines DISPO: Remain ICU I updated the today and she is unfortunatley recovering from COVID herself which has prevented her from coming to see her . She also is familiar with the end process of COVID as she had 2 brothers go through the same process and eventually from this disease. She is fearful for her , but understands what he is dealing with. She would like to continue to support him with the ventilator, but if he were to suffer cardiac or respiratory hypoxic arrest do not revive him. If we are unable to make any progress or he signif icantly worsens with inability to increase his oxygen levels she would want him to not suffer. She is coming in tomorrow for a visit with her daughter at the bedside and we can review his case with them at that time as well. Patient remains critically ill at this point in time with significant possibility of clinical deterioration and/or . Total of 40 minutes critical care time was spent in evaluation management stabilization as patient including discussion with respiratory therapy, as well as bedside critical care nurse. Family will be updated by the primary service Admission and Anticipated Discharge Date Admission Date: January 08, 2021 Subjective Patient rounded on with multidisciplinary team, evaluated in the [facility] ICU. Patient is HD 15 was intubated on 01/17/21 for hypoxic respiratory failure secondary to COVID 19 pneumonia. Patient completed course of Remdisivir, was started on DEXARDS dexamethasone dosing of 20mg IV x5 days and will continue with his 10 mg IV for 5 days starting today. Patient had escalation in his FIo2 on with PF ratio of 90s and was proned for 16 hours, without any clinical improvement in his SPo2 and not clinically significant increase in his PaO2. We trialed inhaled Epoprostenol [id number] without any increase in his Pa02 or his SPo2. We have not been able to make any adjustments to his ventilator for his PEEP or his FI02. His ABG this morning is acceptable with a PaO2 of 74- with PF ratio of 105. I will try and diurese him today as he is overall volume up this morning. He did have T-max last night of 39.1 blood cultures obtained this morning with one set from his CVL. His sputum is positive for E-coli 2 species pansensitive. He remains on Rocephin 2GM IV q24 hours. Physical Exam Physical Exam: Constitutional: Sedated, Mechanically ventilated N: EVA -3, Unable to assess CAM, sedated with Precedex, Propofol, Midazolam. Pupils are sluggish but responsive R: Scattered rhonchi bilaterally decrease in the bases, intubated, CV: No ectopy, S1S2, no edema, no evidence of shock GI: OGT tolerating tube feeds, soft ntnd Denson to gravity skin- no open areas bony prominences padded Results & Data Results & Data ([facility]) Vital Signs (Past 12 Hours) Vital Signs Temp Pulse Pulse Resp BP BP Pulse Ox 01/23/21 12:23 106 H 29 H 89 L 01/23/21 12:00 107 H 134/74 01/23/21 11:00 39 C H 99 H 38 H 157/81 H 90 01/23/21 09:15 39.0 C H 100 H 29 H 90 01/23/21 09:00 39.0 C H 102 H 28 H 90 01/23/21 08:45 39.1 C H 102 H 28 H 137/69 91 01/23/21 08:30 39.1 C H 99 H 28 H 90 01/23/21 08:15 39.1 C H 104 H 28 H 90 01/23/21 08:00 39.1 C H 104 H 28 H 137/77 90 01/23/21 07:52 104 H 29 H 89 L 01/23/21 07:45 39.0 C H 104 H 28 H 87 L 01/23/21 07:30 39.0 C H 104 H 28 H 87 L 01/23/21 07:15 39.0 C H 105 H 28 H 89 L 01/23/21 07:00 38.9 C H 106 H 104 H 28 H 140/74 89 L 01/23/21 06:45 38.9 C H 105 H 29 H 89 L 01/23/21 06:30 38.9 C H 105 H 28 H 147/71 H 89 L 01/23/21 06:15 38.9 C H 105 H 28 H 89 L 01/23/21 06:00 38.9 C H 104 H 28 H 90 01/23/21 05:45 38.9 C H 104 H 28 H 90 01/23/21 05:33 98 H 01/23/21 05:30 38.8 C H 102 H 28 H 90 01/23/21 05:15 38.8 C H 103 H 28 H 140/73 91 01/23/21 05:00 38.7 C H 103 H 28 H 89 L 01/23/21 04:45 38.7 C H 103 H 28 H 90 01/23/21 04:30 38.7 C H 102 H 28 H 149/79 H 90 01/23/21 04:15 38.7 C H 102 H 28 H 145/77 H 91 01/23/21 04:00 38.7 C H 102 H 28 H 138/75 92 01/23/21 03:45 38.6 C H 102 H 28 H 139/79 92 01/23/21 03:30 38.6 C H 102 H 28 H 140/79 92 01/23/21 03:15 38.6 C H 101 H 28 H 140/73 92 01/23/21 03:00 38.5 C H 101 H 28 H 140/80 92 01/23/21 02:51 107 H 29 H 92 01/23/21 02:45 38.5 C H 101 H 28 H 137/74 92 01/23/21 02:30 38.4 C H 101 H 28 H 136/80 92 01/23/21 02:15 38.4 C H 101 H 28 H 139/76 92 01/23/21 02:00 38.4 C H 100 H 28 H 143/72 H 92 01/23/21 01:45 38.4 C H 101 H 28 H 139/68 92 01/23/21 01:30 38.4 C H 101 H 28 H 146/72 H 92 01/23/21 01:15 38.4 C H 101 H 28 H 138/75 92 01/23/21 01:00 38.3 C H 100 H 28 H 135/76 92 01/23/21 00:45 38.3 C H 100 H 28 H 133/72 91 Laboratory Results Abnormal lab results 01/22/21 01/22/21 01/22/21 Range/Units 14:41 16:15 20:27 WBC (4.8-10.8) K/uL RBC (4.7-6.1) M/uL Hgb (14.0-18.0) g/dL Hct (42-52) % MCV (80-100) fL MCHC (32-36) g/dL RDW Std Deviation (36.4-46.3) fL MPV (7.4-10.4) fL POC pH 7.23 L (7.35-7.45) POC pCO2 65 H (35-46) mmHg POC pO2 75 L (80-95) mmHg POC HCO3 27 H (19-24) magaly/L POC Base Excess (-9-1.8) magaly/L Potassium (3.5-5.1) mmol/L BUN (7-18) mg/dl BUN/Creatinine Ratio (10-20) Glucose (70-99) mg/dl POC Glucose 212 H (70-99) mg/dl POC Glucose (other) 217 H (70-99) mg/dl Calcium (8.5-10.1) mg/dl Phosphorus (2.5-4.9) mg/dl Magnesium (1.8-2.4) mg/dl Procalcitonin (0-0.5) ng/ml 01/22/21 01/23/21 01/23/21 Range/Units 23:55 03:37 04:21 WBC (4.8-10.8) K/uL RBC (4.7-6.1) M/uL Hgb (14.0-18.0) g/dL Hct (42-52) % MCV (80-100) fL MCHC (32-36) g/dL RDW Std Deviation (36.4-46.3) fL MPV (7.4-10.4) fL POC pH 7.30 L (7.35-7.45) POC pCO2 57 H (35-46) mmHg POC pO2 74 L (80-95) mmHg POC HCO3 28 H (19-24) magaly/L POC Base Excess 2.0 H (-9-1.8) magaly/L Potassium (3.5-5.1) mmol/L BUN (7-18) mg/dl BUN/Creatinine Ratio (10-20) Glucose (70-99) mg/dl POC Glucose (70-99) mg/dl POC Glucose (other) 192 H 180 H (70-99) mg/dl Calcium (8.5-10.1) mg/dl Phosphorus (2.5-4.9) mg/dl Magnesium (1.8-2.4) mg/dl Procalcitonin (0-0.5) ng/ml 01/23/21 01/23/21 01/23/21 Range/Units 05:41 05:41 08:17 WBC 4.67 L (4.8-10.8) K/uL RBC 3.16 L (4.7-6.1) M/uL Hgb 10.4 L (14.0-18.0) g/dL Hct 33.2 L (42-52) % MCV 105.1 H (80-100) fL MCHC 31.3 L (32-36) g/dL RDW Std Deviation 50.0 H (36.4-46.3) fL MPV 11.1 H (7.4-10.4) fL POC pH (7.35-7.45) POC pCO2 (35-46) mmHg POC pO2 (80-95) mmHg POC HCO3 (19-24) magaly/L POC Base Excess (-9-1.8) magaly/L Potassium 5.2 H (3.5-5.1) mmol/L BUN 41 H (7-18) mg/dl BUN/Creatinine Ratio 61.5 H (10-20) Glucose 178 H (70-99) mg/dl POC Glucose 183 H (70-99) mg/dl POC Glucose (other) (70-99) mg/dl Calcium 8.0 L (8.5-10.1) mg/dl Phosphorus 2.4 L (2.5-4.9) mg/dl Magnesium 3.7 H (1.8-2.4) mg/dl Procalcitonin (0-0.5) ng/ml 01/23/21 01/23/21 Range/Units 09:44 11:54 WBC (4.8-10.8) K/uL RBC (4.7-6.1) M/uL Hgb (14.0-18.0) g/dL Hct (42-52) % MCV (80-100) fL MCHC (32-36) g/dL RDW Std Deviation (36.4-46.3) fL MPV (7.4-10.4) fL POC pH (7.35-7.45) POC pCO2 (35-46) mmHg POC pO2 (80-95) mmHg POC HCO3 (19-24) magaly/L POC Base Excess (-9-1.8) magaly/L Potassium (3.5-5.1) mmol/L BUN (7-18) mg/dl BUN/Creatinine Ratio (10-20) Glucose (70-99) mg/dl POC Glucose (70-99) mg/dl POC Glucose (other) 222 H (70-99) mg/dl Calcium (8.5-10.1) mg/dl Phosphorus (2.5-4.9) mg/dl Magnesium (1.8-2.4) mg/dl Procalcitonin 0.89 H (0-0.5) ng/ml Diagnostic Findings XR chest 1V portable HISTORY: Respiratory failure. COMPARISON: Chest 01/22/2021. FINDINGS: No pneumothorax. No pleural effusions. Patchy bilateral hazy airspace opacities have slightly improved. Lines and tubes remain unchanged in position with the endotracheal tube terminating 4.8 cm from the gaviota. IMPRESSION: 1. Satisfactory support line placement. 2. Slight improvement in the hazy bilateral airspace opacities consistent with a viral pneumonia. Coding Level of Care Code Critical Care 1st 30-74 mins Diagnoses Pneumonia due to 2019-nCoV U07.1; J12.82 Acute hypoxemic respiratory failure J96.01 ARCELIA (obstructive sleep apnea) G47.33 DVT prophylaxis Z29.9
[2021-01-23] MEDS: cefTRIAXone SODIUM 2,000 MG in DEXTROSE 5% 50 ML IV SCH (13:40)
[2021-01-23] MEDS: MIDAZOLAM HCL 125 MG/250 ML BAG IV SCH ×2 (13:58→19:44)
--- NOTE | 2021-01-23 18:34 | Hospitalist Progress Note ---
Date of Service January 23, 2021 Assessment & Plan (1) Acute hypoxemic respiratory failure: Plan: Acute respiratory failure with hypoxia COVID-19 pneumonia Severe ARDS -Intubated on 01/27/21 -CTA:Patchy groundglass opacities are present throughout both lungs characteristic of a viral type pneumonitis and early Covid 19 pneumonia. No PE H/O COVID Vaccination in May 2020 per patient H/O Asthma, ARCELIA on CPAP Procalcitonin 0.05 CRP 13.4> 6.48 >15 Blood cultures: Negative to date Sputum Cx: E.coli -Completed Remdesivir course Continue dexamethasone course Lasix , Nebs as needed Appreciate critical care input Not a candidate for Baricitinib or ECMO. 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 DM II Hold oral medications HbA1c 6.8 Continue insulin therapy while hospitalized Monitor BGs Prostate cancer S/P radiation CLL Follows with [facility] [place] Oncology Anemia of chronic disease 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 Monitor CBC Thrombocytopenia resolved H/O nephrolithiasis Microscopic hematuria History of prostate cancer Follow-up with urology as outpatient unless develops gross hematuria No hematuria currently DVT Px: SCDs Initially RE thrombocytopenia, Microscopic hematuria Heparin SQ Code Status Conditional Code Admission and Anticipated Discharge Date Admission Date: January 08, 2021 Subjective Patient is seen and examined at bedside Sedated and Intubated Remains on 70% FiO2, 14 PEEP On pressors, tube feeds Febrile today Blood Cultures obtained Review of Systems Review of Systems: All systems reviewed & are unremarkable except as noted in Subjective Physical Exam Physical Exam: Physical Exam: Vitals signs as noted above General Appearance:Moderately built and nourished, sedated and Intubated Head: normocephalic, Atraumatic Eyes: normal inspection Neck: supple, Trachea midline Respiratory/Chest: Decreased breath sounds, Scattered Rhonchi Cardiovascular: S1, S2, No murmur Abdomen/GI:Soft, Non tender, Bowel sounds present Extremities/Musculoskeletal:normal inspection, no edema Neurologic/Psych:Sedated and Intubated Skin: normal color, warm Results & Data Results & Data ([facility]) Vital Signs (Past 12 Hours) Vital Signs Temp Pulse Pulse Resp BP BP Pulse Ox 01/23/21 18:15 38.6 C H 102 H 28 H 90 01/23/21 18:00 38.6 C H 102 H 28 H 90 01/23/21 17:45 38.6 C H 102 H 28 H 90 01/23/21 17:30 38.6 C H 102 H 28 H 109/58 L 90 01/23/21 17:15 38.6 C H 102 H 28 H 89 L 01/23/21 17:00 38.7 C H 102 H 28 H 89 L 01/23/21 16:45 38.7 C H 102 H 28 H 89 L 01/23/21 16:30 38.7 C H 102 H 28 H 89 L 01/23/21 16:15 38.8 C H 102 H 28 H 89 L 01/23/21 16:02 102 H 01/23/21 16:00 38.9 C H 102 H 28 H 106/55 L 88 L 01/23/21 15:47 103 H 29 H 88 L 01/23/21 15:45 39.0 C H 103 H 28 H 109/51 L 87 L 01/23/21 15:30 38.9 C H 105 H 28 H 91 01/23/21 15:15 39.0 C H 105 H 28 H 91 01/23/21 15:00 39.0 C H 105 H 105 H 28 H 130/59 L 130/65 91 01/23/21 14:45 39.0 C H 104 H 28 H 90 01/23/21 14:30 39.0 C H 104 H 28 H 90 01/23/21 14:15 39.0 C H 103 H 28 H 90 01/23/21 14:00 39.0 C H 104 H 28 H 89 L 01/23/21 13:45 39.0 C H 105 H 28 H 89 L 01/23/21 13:30 39.0 C H 105 H 28 H 89 L 01/23/21 13:15 39.0 C H 106 H 28 H 89 L 01/23/21 13:00 39.0 C H 106 H 28 H 141/65 H 89 L 01/23/21 12:45 39.0 C H 106 H 28 H 88 L 01/23/21 12:30 39.0 C H 108 H 28 H 89 L 01/23/21 12:23 106 H 29 H 89 L 01/23/21 12:15 39.0 C H 106 H 28 H 126/66 90 01/23/21 12:00 39.0 C H 107 H 28 H 134/74 89 L 01/23/21 11:45 39.0 C H 105 H 28 H 124/71 90 01/23/21 11:30 39.0 C H 113 H 28 H 91 01/23/21 11:15 39.0 C H 107 H 28 H 91 01/23/21 11:00 39.0 C H 106 H 99 H 28 H 157/81 H 90 01/23/21 10:45 39.0 C H 106 H 28 H 89 L 01/23/21 10:30 39.0 C H 105 H 28 H 90 01/23/21 10:15 39.0 C H 105 H 29 H 90 01/23/21 10:00 39.0 C H 103 H 28 H 134/67 89 L 01/23/21 09:45 39.0 C H 100 H 31 H 89 L 01/23/21 09:30 39.0 C H 103 H 28 H 91 01/23/21 09:15 39.0 C H 100 H 29 H 90 01/23/21 09:00 39.0 C H 102 H 28 H 90 01/23/21 08:45 39.1 C H 102 H 28 H 137/69 91 01/23/21 08:30 39.1 C H 99 H 28 H 90 01/23/21 08:15 39.1 C H 104 H 28 H 90 01/23/21 08:00 39.1 C H 104 H 28 H 137/77 90 01/23/21 07:52 104 H 29 H 89 L 01/23/21 07:45 39.0 C H 104 H 28 H 87 L 01/23/21 07:30 39.0 C H 104 H 28 H 87 L 01/23/21 07:15 39.0 C H 105 H 28 H 89 L 01/23/21 07:00 38.9 C H 106 H 104 H 28 H 140/74 89 L 01/23/21 06:45 38.9 C H 105 H 29 H 89 L 01/23/21 06:30 38.9 C H 105 H 28 H 147/71 H 89 L Laboratory Results Short CBC 01/23/21 Range/Units 05:41 WBC 4.67 L (4.8-10.8) K/uL Hgb 10.4 L (14.0-18.0) g/dL Hct 33.2 L (42-52) % Plt Count 183 (130-400) K/uL BMP 01/23/21 05:41 Sodium 138 Potassium 5.2 H Chloride 107 Carbon Dioxide 28 BUN 41 H Creatinine 0.67 Glucose 178 H Calcium 8.0 L
[2021-01-24] MEDS: INSULIN ASPART PER UNIT SC SCH ×6 (00:05→22:17)
[2021-01-24] MEDS: propofoL 1,000 MG/100 ML VIAL IV SCH ×6 (00:05→21:40)
[2021-01-24] MEDS: ACETAMINOPHEN 325 MG TAB PO PRN ×3 (00:18→16:45)
[2021-01-24] MEDS: ARTIFICIAL TEARS OP OINT 3.5 GM TUBE OP SCH ×6 (01:48→20:01)
[2021-01-24] MEDS: fentaNYL citrate 2,500 MCG/250 ML BAG IV SCH ×2 (04:12→22:45)
[2021-01-24 05:09] LABS: iSTAT Arterial Blood Gas HCO3 29 meg/L (19-24); iSTAT Arterial Blood Gas pCO2 58 mmHg (35-46); iSTAT Arterial Blood Gas pH 7.31 (7.35-7.45); iSTAT Arterial Blood Gas pO2 54 mmHg (80-95); iSTAT Carbon Dioxide 31 mmol/L (24-31); iSTAT FiO2 70 %; iSTAT Site Art Line
[2021-01-24] MEDS: HEPARIN SOD 5,000 UNIT/0.5 ML VIAL SQ SCH ×3 (05:48→21:04)
[2021-01-24] MEDS: PEPTAMEN INTENSE VHP 1.0 CAL 1,000 ML BAG OG SCH (05:48)
--- NOTE | 2021-01-24 07:51 | XRay Report ---
XR chest 1V portable HISTORY: Respiratory failure. Follow-up. COMPARISON: Chest 01/23/2021. FINDINGS: No pneumothorax. The heart is top normal in size. Lines and tubes remain unchanged in posit ion with the endotracheal tube terminating 4.9 cm from the gaviota. Hazy bilateral airspace opacities most pronounced within the lung bases persists. Probable trace right pleural effusion. IMPRESSION: 1. Satisfactory line placement. 2. Hazy bilateral airspace opacities persist and likely represent a viral pneumonia. ACT 112: Negative or not required by law. Electronically signed by: Shahzad Amaya M.D. 01/24/2021 7:49 AM
[2021-01-24 07:55] LABS: Hematocrit (blood only) 33.3 % (42-52); Hemoglobin 10.4 g/dL (14.0-18.0); Mean Corpuscular Hemoglobin 33.3 pg (25-34); Mean Corpuscular Hgb Conc 31.2 g/dL (32-36); Mean Corpuscular Volume 106.7 fL (80-100); Mean Platelet Volume 11.1 fL (7.4-10.4); Platelet Count 192 K/uL (130-400); RDW Coefficient of Variation 13.1 % (11.5-14.5); RDW Standard Deviation 50.6 fL (36.4-46.3); Red Blood Count 3.12 M/uL (4.7-6.1); White Blood Count 6.46 K/uL (4.8-10.8)
[2021-01-24 08:21] LABS: BUN Creatinine Ratio 63.9 (10-20); Calcium 7.8 mg/dl (8.5-10.1); Creatinine Clr Calc Pharmacy 93.9 ml/min; Est GFR (African American) 93.6 ml/min; Est GFR (Non-African American) 80.8 ml/min; Magnesium 3.9 mg/dl (1.8-2.4); Phosphorus 2.7 mg/dl (2.5-4.9); Potassium 5.7 mmol/L (3.5-5.1)
[2021-01-24] MEDS: DEXMEDETOMIDINE HCL 200 MCG in SODIUM CHLORIDE 0.9% 48 ML IV SCH ×2 (08:41→19:35)
[2021-01-24] MEDS: ASPIRIN 81 MG CHEW PO SCH (08:43)
[2021-01-24] MEDS: INSULIN GLARGINE SOLOSTAR 100 UNITS/ML 3 ML PEN SC SCH (08:44)
[2021-01-24] MEDS: dexAMETHasone 10 MG in SYRINGE 0 ML IV SCH (08:44)
[2021-01-24] MEDS: LACTULOSE SYRUP 20 GM/30 ML UDC PO SCH (08:46)
[2021-01-24] MEDS: SENNOSIDES 8.8 MG/5 ML UDC PO SCH ×2 (08:47→20:01)
[2021-01-24] MEDS ORDERED: INSULIN HUMAN NPH SC SCH (09:00)
--- NOTE | 2021-01-24 09:15 | Critical Care Progress Note ---
Date of Service January 24, 2021 Assessment & Plan (1) Pneumonia due to 2019-nCoV: (2) Acute hypoxemic respiratory failure: (3) ARCELIA (obstructive sleep apnea): (4) DVT prophylaxis: Plan: Impression: 70-year-old male that was fully vaccinated with second vaccination 05/09/2020. Admitted 01/08/2021 for shortness of breath and hypoxia. Patient received 5 days of remdesivir. He failed conservative management and was intubated 01/17/2021 due to increased work of breathing and progressive hypoxemic respiratory failure. He now has plateaued in his ability to decrease his PEEP and FIo2. He has failed prone therapy as well as inhaled Epoprostenol. 24-hour events: Increase in his oxygenation requirements and decrease in his PF ratio remains. Was prone for 16 hours and supinated with no clinical benefit from proning on -22 January. Has been intermittently down to 60% but now has remained at 80% for the past 72 hours. He is sedated on propofol, Precedex, fentanyl and Versed. Continue restraints, has been paradoxical with the ventilator so will give bolus dose of Vecuronium this morning. Increase in his Potassium from 5.2-57 this morning. Remains febrile. Change ABX back to Zosyn today. Blood remains with NGTD and Sputum sample re-sent. Recommendations: 1. Neuro: continue sedation with propofol, fentanyl, and Versed. Keep sedated until ventilatory parameters would allow for spontaneous breathing trials and daily sedation breaks. Triglycerides ok while on propofol. 2. Cardiovascular: Low dose Levophed overnight. Continue to follow closely. 3. Pulmonary: Severe ARDS. Day # 6 mechanical ventilation continue ARDS net ventilator strategy with low PEEP high FiO2 to prevent additional barotrauma. Current vent settings assist control: 24/450/12/0.6 with a plateau of 28. Most recent blood gas 7. 3 7/45/59. P/F 98 decreased compared to yesterday. Poor lung compliance. No PE identified on CT angiogram. Diffuse ground-glass opacities were identified. Continue late-phase ARDS dexamethasone protocol with 20 mg a day for 5 days followed by 10 mg a day for 5 days. Not a candidate for Baricitinib or ECMO. x-ray is unchanged but unfortunately oxygenation appears to be trending down. We are still able to maintain PaO2 greater than 55. Hopeful to maybe progress over the next few days. If not, he will likely not be able to be weaned off a ventilator. 4. Renal: No acute issues. Electrolyte replacement protocol will be continued. Will diurese today with Lasix 60mg IV now. 5. GI: Continue tube feeding per dietary. On bowel protocol with senna, lactulose and as needed MiraLAX, will add Relistor today and suppository 6. ID: Patient has 2 gram-negative rods identified in sputum- ECOLI- Zosyn de- escalated to Rocephin as both are sensitive- he has had fevers over the past 48 hours post transition- will re-initiate Zosyn therapy 7. Heme-onc: Mild anemia. No indication for transfusion currently. Continue to follow for now. Continue DVT proph. 8. Endocrine: ICU glycemic protocol. Lines: ETT, CVL, OGT, Denson, Arterial line- Continue use of these lines DISPO: Remain ICU I updated the yesterday and she is unfortunately recovering from COVID herself which has prevented her from coming to see her . She also is familiar with the end process of COVID as she had 2 brothers go through the same process and eventually from this disease. She is fearful for her , but understands what he is dealing with. Her and her daughter visited today and was again updated on his current status. As he remains intubated with no progression of his ventilator with late stage ARDS fibrosis, she would like to give him another day on the ventilator as we are changing his antibiotics today and if we are unable to make any progress or he significantly worsens with inability to increase his oxygen levels she would want him to not suffer and would progress towards palliative extubation. She would like her to receive the last rights as he is a devoted judaism. We will attempt to arrange. Patient remains critically ill at this point in time with significant possibility of clinical deterioration and/or . Total of 50 minutes critical care time was spent in evaluation management stabilization as patient including discussion with respiratory therapy, as well as bedside critical care nurse. Family will be updated by the primary service Admission and Anticipated Discharge Date Admission Date: January 08, 2021 Subjective Patient rounded on with multidisciplinary team, evaluated in the [facility] ICU. Patient is HD 15 was intubated on 01/17/21 for hypoxic respiratory failure secondary to COVID 19 pneumonia. Patient completed course of Remdisivir, was started on DEXARDS dexamethasone dosing of 20mg IV x5 days and will continue with his 10 mg IV for 5 days starting today. Patient had escalation in his FIo2 on with PF ratio of 90s and was prone for 16 hours, without any clinical improvement in his SPo2 and not clinically significant increase in his PaO2. We trialed inhaled Epoprostenol [id number] without any increase in his Pa02 or his SPo2. We have not been able to make any adjustments to his ventilator for his PEEP or his FI02. His ABG this morning is acceptable with a PaO2 of 74- with PF ratio of 105. He did have T-max last night of 39.3 blood cultures obtained with one set from his CVL with NGTD and will repeat his sputum sample this morning. His sputum is positive for E-coli 2 species pansensitive from 01/20. His PJP PCR is still pending. Will place patient back on Zosyn today. His BUN has increased to 63 with increase in his [employer] to 0.91. K elevated from 5.2-5.7. Last BM was >3 days ago, will add Relistor and suppository today. Review of Systems Review of Systems: Unable to complete secondary to mechanical ventilation and sedation Physical Exam Physical Exam: Constitutional: Sedated, Mechanically ventilated N: EVA -3, Unable to assess CAM, sedated with Precedex, Propofol, Midazolam. Pupils are sluggish but responsive R: Scattered rhonchi bilaterally decrease in the bases, intubated, CV: No ectopy, S1S2, no edema, no evidence of shock GI: OGT tolerating tube feeds, soft ntnd Denson to gravity skin- no open areas bony prominences padded Results & Data Results & Data ([facility]) Vital Signs (Past 12 Hours) Vital Signs Temp Pulse Resp BP Pulse Ox 01/24/21 08:30 39.1 C H 109 H 28 H 01/24/21 08:03 28 H 87 L 01/24/21 08:00 38.9 C H 106 H 28 H 01/24/21 07:30 38.9 C H 103 H 28 H 01/24/21 07:00 39.2 C H 101 H 28 H 01/24/21 06:30 39.2 C H 99 H 28 H 100/46 L 89 L 01/24/21 06:15 39.3 C H 99 H 28 H 01/24/21 06:00 39.3 C H 98 H 28 H 01/24/21 05:45 39.3 C H 96 H 28 H 88 L 01/24/21 05:30 39.2 C H 97 H 28 H 93 01/24/21 05:15 39.2 C H 96 H 28 H 92 01/24/21 05:00 39.2 C H 96 H 28 H 91 01/24/21 04:45 39.1 C H 96 H 28 H 91 01/24/21 04:30 39.2 C H 98 H 28 H 90 01/24/21 04:15 39.2 C H 99 H 28 H 89 L 01/24/21 04:00 39.1 C H 100 H 28 H 89 L 01/24/21 03:45 39.1 C H 100 H 28 H 108/56 L 89 L 01/24/21 03:30 39.1 C H 100 H 28 H 89 L 01/24/21 03:15 39.1 C H 100 H 28 H 01/24/21 03:08 100 H 28 H 90 01/24/21 03:00 39.1 C H 100 H 28 H 103/54 L 90 01/24/21 02:45 39.1 C H 100 H 28 H 89 L 01/24/21 02:30 39.1 C H 100 H 28 H 109/50 L 90 01/24/21 02:15 39.1 C H 100 H 28 H 102/55 L 90 01/24/21 02:00 39.1 C H 100 H 28 H 102/54 L 90 01/24/21 01:45 39.1 C H 100 H 28 H 90 01/24/21 01:30 39.0 C H 101 H 28 H 102/57 L 90 01/24/21 01:15 39.0 C H 100 H 28 H 89 L 01/24/21 01:00 39.0 C H 100 H 28 H 90 01/24/21 00:45 39.0 C H 99 H 28 H 89 L 01/24/21 00:30 39.0 C H 100 H 28 H 104/57 L 90 01/24/21 00:21 104 H 01/24/21 00:15 39.0 C H 100 H 28 H 89 L 01/24/21 00:00 39.0 C H 98 H 28 H 89 L 01/23/21 23:45 38.9 C H 99 H 28 H 89 L 01/23/21 23:30 38.9 C H 100 H 28 H 100/55 L 89 L 01/23/21 23:15 38.9 C H 105 H 28 H 89 L 01/23/21 23:00 38.9 C H 105 H 28 H 89 L 01/23/21 22:45 38.9 C H 105 H 28 H 89 L 01/23/21 22:30 38.9 C H 105 H 28 H 89 L 01/23/21 22:15 38.9 C H 105 H 28 H 110/60 89 L 01/23/21 22:00 38.9 C H 105 H 28 H 89 L 01/23/21 21:45 38.9 C H 104 H 28 H 89 L 01/23/21 21:30 38.8 C H 103 H 28 H 89 L 01/23/21 21:15 38.8 C H 105 H 28 H 90 Laboratory Results Abnormal lab results 01/23/21 01/23/21 01/23/21 Range/Units 09:44 11:54 16:12 RBC (4.7-6.1) M/uL Hgb (14.0-18.0) g/dL Hct (42-52) % MCV (80-100) fL MCHC (32-36) g/dL RDW Std Deviation (36.4-46.3) fL MPV (7.4-10.4) fL POC pH (7.35-7.45) POC pCO2 (35-46) mmHg POC pO2 (80-95) mmHg POC HCO3 (19-24) magaly/L POC Base Excess (-9-1.8) magaly/L POC ABG O2 Sat (90-95) % Potassium (3.5-5.1) mmol/L BUN (7-18) mg/dl BUN/Creatinine Ratio (10-20) Glucose (70-99) mg/dl POC Glucose (70-99) mg/dl POC Glucose (other) 222 H 255 H (70-99) mg/dl Calcium (8.5-10.1) mg/dl Magnesium (1.8-2.4) mg/dl Procalcitonin 0.89 H (0-0.5) ng/ml 01/23/21 01/24/21 01/24/21 Range/Units 20:15 00:00 04:03 RBC (4.7-6.1) M/uL Hgb (14.0-18.0) g/dL Hct (42-52) % MCV (80-100) fL MCHC (32-36) g/dL RDW Std Deviation (36.4-46.3) fL MPV (7.4-10.4) fL POC pH (7.35-7.45) POC pCO2 (35-46) mmHg POC pO2 (80-95) mmHg POC HCO3 (19-24) magaly/L POC Base Excess (-9-1.8) magaly/L POC ABG O2 Sat (90-95) % Potassium (3.5-5.1) mmol/L BUN (7-18) mg/dl BUN/Creatinine Ratio (10-20) Glucose (70-99) mg/dl POC Glucose (70-99) mg/dl POC Glucose (other) 253 H 208 H 195 H (70-99) mg/dl Calcium (8.5-10.1) mg/dl Magnesium (1.8-2.4) mg/dl Procalcitonin (0-0.5) ng/ml 01/24/21 01/24/21 01/24/21 Range/Units 04:36 06:44 06:44 RBC 3.12 L (4.7-6.1) M/uL Hgb 10.4 L (14.0-18.0) g/dL Hct 33.3 L (42-52) % MCV 106.7 H (80-100) fL MCHC 31.2 L (32-36) g/dL RDW Std Deviation 50.6 H (36.4-46.3) fL MPV 11.1 H (7.4-10.4) fL POC pH 7.31 L (7.35-7.45) POC pCO2 58 H (35-46) mmHg POC pO2 54 L (80-95) mmHg POC HCO3 29 H (19-24) magaly/L POC Base Excess 3.0 H (-9-1.8) magaly/L POC ABG O2 Sat 84.0 L (90-95) % Potassium 5.7 H (3.5-5.1) mmol/L BUN 61 H (7-18) mg/dl BUN/Creatinine Ratio 63.9 H (10-20) Glucose 175 H (70-99) mg/dl POC Glucose (70-99) mg/dl POC Glucose (other) (70-99) mg/dl Calcium 7.8 L (8.5-10.1) mg/dl Magnesium 3.9 H (1.8-2.4) mg/dl Procalcitonin (0-0.5) ng/ml 01/24/21 01/24/21 Range/Units 08:12 08:13 RBC (4.7-6.1) M/uL Hgb (14.0-18.0) g/dL Hct (42-52) % MCV (80-100) fL MCHC (32-36) g/dL RDW Std Deviation (36.4-46.3) fL MPV (7.4-10.4) fL POC pH (7.35-7.45) POC pCO2 (35-46) mmHg POC pO2 (80-95) mmHg POC HCO3 (19-24) magaly/L POC Base Excess (-9-1.8) magaly/L POC ABG O2 Sat (90-95) % Potassium (3.5-5.1) mmol/L BUN (7-18) mg/dl BUN/Creatinine Ratio (10-20) Glucose (70-99) mg/dl POC Glucose 196 H (70-99) mg/dl POC Glucose (other) 205 H (70-99) mg/dl Calcium (8.5-10.1) mg/dl Magnesium (1.8-2.4) mg/dl Procalcitonin (0-0.5) ng/ml Diagnostic Findings XR chest 1V portable HISTORY: Respiratory failure. Follow-up. COMPARISON: Chest 01/23/2021. FINDINGS: No pneumothorax. The heart is top normal in size. Lines and tubes remain unchanged in position with the endotracheal tube terminating 4.9 cm from the gaviota. Hazy bilateral airspace opacities most pronounced within the lung bases persists. Probable trace right pleural effusion. IMPRESSION: 1. Satisfactory line placement. 2. Hazy bilateral airspace opacities persist and likely represent a viral pneumonia. Coding Level of Care Code Critical Care 1st 30-74 mins Diagnoses Pneumonia due to 2019-nCoV U07.1; J12.82 Acute hypoxemic respiratory failure J96.01 ARCELIA (obstructive sleep apnea) G47.33 DVT prophylaxis Z29.9
[2021-01-24] MEDS: VECURONIUM BROMIDE 10 MG VIAL IV PRN (09:41)
[2021-01-24] MEDS: ICU ELECTROLYTE REPLACEMENT PROTOCOL SCH (10:03)
[2021-01-24] MEDS ORDERED: PIPERACILLIN/TAZOBACTAM 4.5 GM in DEXTROSE 5% 100 ML IV ONE (10:30)
[2021-01-24] MEDS ORDERED: bisacodyL 10 MG SUPP PR ONE (10:45)
[2021-01-24] MEDS ORDERED: CALCIUM GLUCONATE 10% 2,000 MG in SODIUM CHLORIDE 0.9% 50 ML IV ONE (11:00)
[2021-01-24] MEDS ORDERED: FUROSEMIDE 40 MG/4 ML VIAL IV ONE (11:01)
[2021-01-24] MEDS: PANTOprazole 40 MG in SYRINGE 0 ML IV SCH (11:18)
[2021-01-24 11:41] LABS: Pneumocystis jirovecii PCRQual NOT DETECTED; Pneumocystis jirovecii Source SPUTUM
[2021-01-24] MEDS ORDERED: METHYLNALTREXONE BROMIDE 12 MG/0.6 ML VIAL SQ ONE (12:00)
[2021-01-24 12:20] LABS: BUN Creatinine Ratio 47.9 (10-20); Calcium 8.2 mg/dl (8.5-10.1); Creatinine Clr Calc Pharmacy 56.4 ml/min; Est GFR (African American) 50.6 ml/min; Est GFR (Non-African American) 43.7 ml/min; Potassium 6.4 mmol/L (3.5-5.1)
[2021-01-24] MEDS ORDERED: INSULIN HUMAN REGULAR PER UNIT 10 UNITS in SYRINGE 9.9 ML IV ONE (12:30)
[2021-01-24] MEDS: MIDAZOLAM HCL 125 MG/250 ML BAG IV SCH (12:32)
[2021-01-24] MEDS ORDERED: VANCOMYCIN CONSULT ACTIVE PRN ×2 (12:34)
[2021-01-24 12:41] LABS: Beta-Hydroxybutyrate 1.6 mg/dl (0.2-2.81)
[2021-01-24] MEDS ORDERED: VANCOMYCIN HCL 1 MG in SODIUM CHLORIDE 0.9% 250 ML IV SCH (12:45)
[2021-01-24] MEDS ORDERED: LACTATED RINGER'S 500 ML IV ONE ×3 (13:00→13:43)
[2021-01-24] MEDS ORDERED: VANCOMYCIN HCL 2,000 MG in SODIUM CHLORIDE 0.9% 500 ML IV STA (13:18)
[2021-01-24] MEDS ORDERED: STAT IV Infusion **Titration per Protocol STA ×2 (14:00→15:16)
[2021-01-24] MEDS ORDERED: INSULIN PROTOCOL GOAL RANGE ONE (14:00)
[2021-01-24] MEDS ORDERED: PIPERACILL/TAZOBAC CONSULT ACTIVE PRN (14:25)
[2021-01-24] MEDS: INSULIN REGULAR 250 UNITS in SODIUM CHLORIDE 0.9% 247.5 ML IV SCH (14:30)
--- NOTE | 2021-01-24 14:32 | Pharmacy Report ---
Pharmacy Abx Dose Short Note - Date of Service January 24, 2021 - Assessment & Plan Assessment 70 year old M receiving vancomycin/ceftazidime/zosyn for empiric treatment. Patient remain persistently febrile, reaching temp of 40.2 C today, white count is normal, acute kidney injury. Patient with sputum culture growing E. coli, had been de-escalated to ceftriaxone but broadening with acute worsening. Plan Vancomycin * Will give loading dose of 2000 mg x1, will obtain random level in AM for further dosing as patient has had an acute kidney injury, SCrr from 0.9 --> 1.58. Pharmacy will continue to follow and will adjust dose/frequency as necessary. Thank you.
[2021-01-24] MEDS ORDERED: LACTATED RINGER'S 500 ML IV SCH (14:45)
[2021-01-24 14:46] LABS: iSTAT Arterial Blood Gas HCO3 28 meg/L (19-24); iSTAT Arterial Blood Gas pCO2 79 mmHg (35-46); iSTAT Arterial Blood Gas pH 7.15 (7.35-7.45); iSTAT Arterial Blood Gas pO2 75 mmHg (80-95); iSTAT Carbon Dioxide 30 mmol/L (24-31); iSTAT FiO2 80 %; iSTAT Site Art Line
[2021-01-24 15:08] LABS: BUN Creatinine Ratio 45.9 (10-20); Calcium 7.8 mg/dl (8.5-10.1); Creatinine Clr Calc Pharmacy 52.8 ml/min; Est GFR (African American) 46.7 ml/min; Est GFR (Non-African American) 40.3 ml/min; Potassium 6.2 mmol/L (3.5-5.1)
[2021-01-24 15:23] LABS: iSTAT Arterial Blood Gas HCO3 26 meg/L (19-24); iSTAT Arterial Blood Gas pCO2 59 mmHg (35-46); iSTAT Arterial Blood Gas pH 7.25 (7.35-7.45); iSTAT Arterial Blood Gas pO2 83 mmHg (80-95); iSTAT Carbon Dioxide 28 mmol/L (24-31); iSTAT FiO2 80 %; iSTAT Site Art Line
[2021-01-24 15:29] LABS: Beta-Hydroxybutyrate 1.37 mg/dl (0.2-2.81)
[2021-01-24] MEDS ORDERED: VASOPRESSIN 20 UNITS in 0.9 % SODIUM CHLORIDE 100 ML IV PRN (15:30)
--- NOTE | 2021-01-24 15:35 | Pharmacy Report ---
Pharmacy Glycemic Short Note 2 - Date of Service January 24, 2021 - Glycemic Short BSG Results (Last 24 hours): 01/23/21 01/23/21 01/24/21 16:12 20:15 00:00 Glucose POC Glucose POC Glucose (other) 255 H 253 H 208 H 01/24/21 01/24/21 01/24/21 04:03 06:44 08:12 Glucose 175 H POC Glucose 196 H POC Glucose (other) 195 H 01/24/21 01/24/21 01/24/21 08:13 11:47 12:27 Glucose 305 H* POC Glucose POC Glucose (other) 205 H 310 H 01/24/21 14:23 Glucose 318 H* POC Glucose POC Glucose (other) OUTPATIENT ANTIDIABETIC REGIMEN: * Metformin 500 mg PO BIDM * HbA1c = 6.6% (01/10/21) ASSESSMENT: 01/24: * BSGs had been stable but trending up into the 300s today, patient with increasing pressor requirement, REGINO, worsening white count, therefore started insulin infusion * Dexamethasone changed to 10 mg daily today 01/20: * BSGs well controlled over the past 24 hours. Will monitor evening BSGs to ensure no consistent uptrending at this time. Will continue with current Lantus, NPH and NovoLog dosing. * Patient continues on dex 20mg. 01/19: * Abbe remains intubated on Nimbex and Levophed. Received 6 mg of IV dexamethasone yesterday but this has been increased to 20 mg daily starting today. No tube feeds started yet. * Received a total of 38 units of insulin yesterday (25 units NPH + 10 units Lantus + 3 units Novolog) * BSGs were well controlled: [phone] mg/dL * Fasting BSG remains well controlled this AM at 110 mg/dL' * No change in insulin regimen at this time. Expecting NPH and Novolog to need increased as 20 mg of Dexamethasone reaches steady state. Monitor for start of tube feeds. 01/17: * BSG's had been well controlled on current regimen and still are at this time. However, patient was intubated this morning, diet was discontinued, pressors were initiated, and data center operator is considering increasing dexamethasone dose (dependent on patient condition). * Will change to q4h Novolog * Will eliminate AM Lantus for now * BSG's may decrease 2nd NPO or increase 2nd increased stressors - may require PM adjustments today PLAN FOR INPATIENT GLYCEMIC CONTROL: * Hold outpatient oral diabetes medications (metformin) * Basal insulin * Lantus 10 units SC AM * NPH 25 units SC AM with IV dexamethasone * Both of these were placed on hold when insulin infusion started * Insulin infusion per protocol * Bolus insulin- on hold, per calculator * NovoLog per scale q4h * Goal Range: Low 110 mg/dL - High 140 mg/dL * Correction Factor: 15 mg/dL/unit * Nutritional / Prandial insulin per carb ratio of 1 unit per 5 grams CHO consumed PLAN FOR DISCHARGE: * HbA1c was 6.6% from this admission which is at goal. No adjustments necessary to outpatient insulin regimen.
--- NOTE | 2021-01-24 16:39 | Hospitalist Progress Note ---
Date of Service January 24, 2021 Assessment & Plan (1) Acute hypoxemic respiratory failure: Plan: Acute respiratory failure with hypoxia COVID-19 pneumonia Severe ARDS Septic Shock -Intubated on 01/27/21 -CTA:Patchy groundglass opacities are present throughout both lungs characteristic of a viral type pneumonitis and early Covid 19 pneumonia. No PE H/O COVID Vaccination in May 2020 per patient H/O Asthma, ARCELIA on CPAP Procalcitonin 0.05 CRP 13.4> 6.48 >15 Blood cultures: Negative to date Sputum Cx: E.coli -Completed Remdesivir course Continue dexamethasone course Lasix , Nebs as needed Appreciate critical care input Not a candidate for Baricitinib or ECMO. Currently on 70% FiO2, 14 PEEP Continue tube feeds Vent management as per critical care team Zosyn de-escalate to Rocephin>>On vancomycin, Zosyn, ceftazidime Heparin SQ for DVT Px No improvement with proning Febrile Today Increased requirement of pressors Repeat sputum culture pending Blood cultures negative to date Hyperkalemia Received calcium gluconate Also received Lasix Continue to monitor potassium levels Hypertension Hold amlodipine, losartan Was on tamsulosin ARCELIA Was on CPAP Lung nodules/hilar adenopathy as per records [place] [facility] DM II Hold oral medications HbA1c 6.8 Continue insulin therapy while hospitalized Monitor BGs Prostate cancer S/P radiation CLL [place] [facility] [place] Anemia of chronic disease 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 Monitor CBC Thrombocytopenia resolved H/O nephrolithiasis Microscopic hematuria History of prostate cancer Follow-up with urology as outpatient unless develops gross hematuria No hematuria currently DVT Px: SCDs Initially RE thrombocytopenia, Microscopic hematuria Heparin SQ Code Status Conditional Code Admission and Anticipated Discharge Date Admission Date: January 08, 2021 Subjective Patient is seen and examined at bedside Sedated and Intubated Clinically worsened today Febrile Increased requirement of pressors on 80% FiO2, 12 PEEP Hyperkalemia on labs Review of Systems Review of Systems: Unobtainable due to endotracheal tube Physical Exam Physical Exam: Physical Exam: Vitals signs as noted above General Appearance:Moderately built and nourished, sedated and Intubated Head: normocephalic, Atraumatic Eyes: normal inspection Neck: supple, Trachea midline Respiratory/Chest: Decreased breath sounds, Scattered Rhonchi Cardiovascular: S1, S2, No murmur Abdomen/GI:Soft, Non tender, Bowel sounds present Extremities/Musculoskeletal:normal inspection, no edema Neurologic/Psych:Sedated and Intubated Skin: normal color, warm Results & Data Results & Data ([facility]) Vital Signs (Past 12 Hours) Vital Signs Temp Pulse Resp BP Pulse Ox 01/24/21 15:06 134 H 33 H 92 01/24/21 14:45 136 H 32 H 91 01/24/21 14:30 137 H 28 H 98/51 L 89 L 01/24/21 14:15 137 H 28 H 104/58 L 90 01/24/21 14:03 136 H 28 H 89 L 01/24/21 13:45 136 H 28 H 01/24/21 13:30 135 H 28 H 102/53 L 90 01/24/21 13:15 135 H 28 H 01/24/21 13:00 40 C H 136 H 28 H 89 L 01/24/21 12:45 135 H 28 H 106/56 L 89 L 01/24/21 12:30 125 H 28 H 01/24/21 12:15 120 H 28 H 01/24/21 12:03 40.2 C H 01/24/21 12:00 120 H 28 H 88 L 01/24/21 11:48 118 H 28 H 88 L 01/24/21 11:45 116 H 28 H 01/24/21 11:30 120 H 28 H 01/24/21 11:15 39.6 C H 127 H 28 H 88 L 01/24/21 11:00 118 H 28 H 01/24/21 10:45 39.9 C H 117 H 28 H 84 L 01/24/21 10:30 39.9 C H 116 H 28 H 01/24/21 10:15 39.8 C H 115 H 28 H 01/24/21 10:00 39.8 C H 113 H 28 H 97/54 L 86 L 01/24/21 09:45 39.4 C H 116 H 28 H 01/24/21 09:30 39.4 C H 115 H 28 H 85 L 01/24/21 09:15 39.3 C H 113 H 28 H 01/24/21 09:00 39.3 C H 114 H 28 H 85 L 01/24/21 08:45 39.2 C H 111 H 28 H 01/24/21 08:30 39.1 C H 109 H 28 H 01/24/21 08:03 28 H 87 L 01/24/21 08:00 38.9 C H 106 H 28 H 01/24/21 07:30 38.9 C H 103 H 28 H 01/24/21 07:00 39.2 C H 101 H 28 H 01/24/21 06:30 39.2 C H 99 H 28 H 100/46 L 89 L 01/24/21 06:15 39.3 C H 99 H 28 H 01/24/21 06:00 39.3 C H 98 H 28 H 01/24/21 05:45 39.3 C H 96 H 28 H 88 L 01/24/21 05:30 39.2 C H 97 H 28 H 93 01/24/21 05:15 39.2 C H 96 H 28 H 92 01/24/21 05:00 39.2 C H 96 H 28 H 91 01/24/21 04:45 39.1 C H 96 H 28 H 91 Laboratory Results Short CBC 01/24/21 Range/Units 06:44 WBC 6.46 (4.8-10.8) K/uL Hgb 10.4 L (14.0-18.0) g/dL Hct 33.3 L (42-52) % Plt Count 192 (130-400) K/uL BMP 01/24/21 01/24/21 01/24/21 06:44 11:47 14:23 Sodium 138 135 L 135 L Potassium 5.7 H 6.4 H* 6.2 H* Chloride 106 103 105 Carbon Dioxide 28 28 26 BUN 61 H 76 H 78 H Creatinine 0.95 1.58 H D 1.69 H Glucose 175 H 305 H* 318 H* Calcium 7.8 L 8.2 L 7.8 L
[2021-01-24] MEDS: NOREPINEPHRINE/D5W 8 MG/508 ML BAG IV SCH (16:44)
[2021-01-24] MEDS: PIPERACILLIN/TAZOBACTAM 4.5 GM in DEXTROSE 5% 100 ML IV SCH ×2 (16:49→23:25)
[2021-01-24 20:10] LABS: BUN Creatinine Ratio 50.8 (10-20); Calcium 7.5 mg/dl (8.5-10.1); Creatinine Clr Calc Pharmacy 55.7 ml/min; Est GFR (African American) 49.9 ml/min; Potassium 5.9 mmol/L (3.5-5.1)
[2021-01-25 00:47] LABS: iSTAT Creatinine 1.6 mg/dl (0.6-1.3); iSTAT Hemoglobin 10.5 g/dl (14.0-18.0); iSTAT Ionized Calcium 1.11 mmol/l (1.12-1.32); iSTAT Potassium 5.3 mmol/L (3.3-5.0)
[2021-01-25] MEDS: DEXMEDETOMIDINE HCL 200 MCG in SODIUM CHLORIDE 0.9% 48 ML IV SCH ×4 (00:51→23:36)
[2021-01-25] MEDS ORDERED: CALCIUM GLUCONATE 10% 1,000 MG in SODIUM CHLORIDE 0.9% 50 ML IV ONE (00:59)
[2021-01-25] MEDS: ARTIFICIAL TEARS OP OINT 3.5 GM TUBE OP SCH ×6 (01:12→21:29)
[2021-01-25] MEDS: propofoL 1,000 MG/100 ML VIAL IV SCH ×7 (02:10→21:22)
[2021-01-25 02:19] LABS: BUN Creatinine Ratio 56.6 (10-20); Calcium 8.1 mg/dl (8.5-10.1); Creatinine Clr Calc Pharmacy 60.3 ml/min; Est GFR (African American) 54.8 ml/min; Est GFR (Non-African American) 47.3 ml/min; Potassium 5.3 mmol/L (3.5-5.1)
[2021-01-25 03:47] LABS: iSTAT Arterial Blood Gas HCO3 24 meg/L (19-24); iSTAT Arterial Blood Gas pCO2 55 mmHg (35-46); iSTAT Arterial Blood Gas pH 7.25 (7.35-7.45); iSTAT Arterial Blood Gas pO2 83 mmHg (80-95); iSTAT Carbon Dioxide 26 mmol/L (24-31); iSTAT FiO2 75 %; iSTAT Site Art Line
[2021-01-25] MEDS: NOREPINEPHRINE/D5W 8 MG/508 ML BAG IV SCH ×3 (06:00→19:48)
[2021-01-25] MEDS: HEPARIN SOD 5,000 UNIT/0.5 ML VIAL SQ SCH ×3 (06:00→21:29)
[2021-01-25] MEDS: INSULIN ASPART PER UNIT SC SCH ×3 (06:28→17:31)
[2021-01-25 06:38] LABS: Hematocrit (blood only) 32.9 % (42-52); Hemoglobin 10.5 g/dL (14.0-18.0); Mean Corpuscular Hemoglobin 33.9 pg (25-34); Mean Corpuscular Hgb Conc 31.9 g/dL (32-36); Mean Corpuscular Volume 106.1 fL (80-100); Nucleated RBC # (auto) 0.04 K/uL (0-0); Nucleated RBC % (auto) 0.3 %; Platelet Count 207 K/uL (130-400); RDW Coefficient of Variation 13.5 % (11.5-14.5); RDW Standard Deviation 52.2 fL (36.4-46.3); White Blood Count 12.14 K/uL (4.8-10.8)
[2021-01-25 07:08] LABS: BUN Creatinine Ratio 60.6 (10-20); Calcium 7.8 mg/dl (8.5-10.1); Creatinine Clr Calc Pharmacy 63.2 ml/min; Est GFR (African American) 58.1 ml/min; Est GFR (Non-African American) 50.1 ml/min; Magnesium 3.7 mg/dl (1.8-2.4); Potassium 4.9 mmol/L (3.5-5.1)
[2021-01-25 07:15] LABS: Phosphorus 3.8 mg/dl (2.5-4.9)
--- NOTE | 2021-01-25 07:38 | XRay Report ---
SINGLE VIEW CHEST CLINICAL HISTORY: Respiratory failure. FINDINGS: 2 AP, portable, upright chest radiographs are compared to study dated 01/24/2021 and correl ated with chest CT dated 01/16/2021. The examination is degraded by portable technique and apical lord otic positioning. An endotracheal tube has been pullback. The tip now projects above the thoracic inl et. An enteric tube and a right internal jugular central venous catheter are unchanged in position. T he heart is enlarged. Multifocal airspace consolidation has not appreciably changed from yesterday. S mall pleural effusions are suspected. No pneumothorax is seen. The skeletal structures are osteopenic . The bony thorax is grossly intact. IMPRESSION: 1. The endotracheal tube has been pulled back. The tip now projects above the thoracic inlet. 2. Remaining lines and tubes are stable. 3. Multifocal airspace consolidation has not appreciably changed from yesterday. ACT 112: Negative or not required by law. Electronically signed by: Lee Sosa M.D. 01/25/2021 7:37 AM
[2021-01-25] MEDS: ASPIRIN 81 MG CHEW PO SCH (07:45)
[2021-01-25] MEDS: dexAMETHasone 10 MG in SYRINGE 0 ML IV SCH (07:45)
[2021-01-25] MEDS: SENNOSIDES 8.8 MG/5 ML UDC PO SCH ×2 (07:45→21:29)
[2021-01-25] MEDS: LACTULOSE SYRUP 20 GM/30 ML UDC PO SCH (07:45)
[2021-01-25] MEDS: PIPERACILLIN/TAZOBACTAM 4.5 GM in DEXTROSE 5% 100 ML IV SCH ×2 (07:47→15:39)
[2021-01-25] MEDS: MIDAZOLAM HCL 125 MG/250 ML BAG IV SCH ×3 (08:14→16:35)
[2021-01-25] MEDS ORDERED: VANCOMYCIN HCL 1,500 MG in SODIUM CHLORIDE 0.9% 500 ML IV ONE (09:00)
--- NOTE | 2021-01-25 09:03 | Pharmacy Report ---
Pharmacy Vanc AUC Short Note - Date of Service January 25, 2021 - Assessment & Plan Assessment 70 year old M receiving vancomycin/ceftazidime/zosyn for empiric treatment in setting of increasing oxygenation, vasopressor requirements and fevers during a prolonged hospitalization. Pertinent microbiologic data includes: 01/20 sputum cx (+) E.coli X 2 sensitive to ceftriaxone, however broadened due to worsening clinical status. 01/23 BCx NGTD. 01/24 sputum cx pending. SCr improved today (1. 58 --> 1.41), UOP ~ 0.78mL/kg/hr yesterday. Day # 2 of antimicrobial therapy. Plan Vancomycin * AUC/OLEG is the preferred PK/PD target for vancomycin, however due to acutely changing renal function, dosing vancomycin by levels * Random vancomycin level this AM- 12.2mcg/mL, ~ 15.5hr level, which is therapeutic * Safe to re-dose --> Will order vancomycin 1500mg (~15mg/kg) X 1 now. * Random level ordered for 01/26 with AM labs. If renal function continues to improve, may be able to schedule a maintenance regimen tomorrow. Otherwise, plan to redose if random vancomycin level less than 20mcg/mL. Pharmacy will continue to follow and will adjust dose/frequency as necessary. Thank you.
[2021-01-25] MEDS ORDERED: bisacodyL 10 MG SUPP PR STA (11:50)
--- NOTE | 2021-01-25 11:55 | Critical Care Progress Note ---
Date of Service January 25, 2021 Assessment & Plan (1) Pneumonia due to 2019-nCoV: (2) Acute hypoxemic respiratory failure: (3) ARCELIA (obstructive sleep apnea): (4) DVT prophylaxis: Plan: Impression: 70-year-old male that was fully vaccinated with second vaccination 05/09/2020. Admitted 01/08/2021 for shortness of breath and hypoxia. Patient received 5 days of remdesivir. He failed conservative management and was intubated 01/17/2021 due to increased work of breathing and progressive hypoxemic respiratory failure. He now has plateaued in his ability to decrease his PEEP and FIo2. He has failed prone therapy as well as inhaled Epoprostenol. He is now stabilized following Septic shock on 01/24/21 with organ dysfunction. 24-hour events: Increase in his oxygenation requirements and decrease in his PF ratio remains. PF ratio 114. He was prone for 16 hours and supinated with no clinical benefit from proning on -22 January. He is requiring 70-80% FIO2 with PEEP down to 12. He is sedated on propofol, Precedex, fentanyl and Versed. Septic shock presumed from pulmonary source. Zosyn, Fortaz, Vancomycin, 2L Crystalloid resuscitation, Denson replaced, Levophed. Improved renal function and electrolyte profile this morning. Recommendations: 1. Neuro: continue sedation with propofol, fentanyl, and Versed. Keep sedated until ventilatory parameters would allow for spontaneous breathing trials and daily sedation breaks. Triglycerides ok while on propofol. EVA -3 to -4 2. Cardiovascular: Low dose Levophed overnight. Continue to follow closely. 3. Pulmonary: Severe ARDS. Day # 8 mechanical ventilation continue ARDS net ventilator strategy with low PEEP high FiO2 to prevent additional barotrauma. Current vent settings assist control: 32/510/12/0.7 with a plateau of 26. Most recent blood gas 7.25/55/83/. P/F 114 increased compared to yesterday. Poor lung compliance. No PE identified on CT angiogram. Diffuse ground-glass opacities continue. Continue late-phase ARDS dexamethasone protocol with 20 mg a day for 5 days followed by 10 mg a day for 5 days. Not a candidate for Baricitinib or ECMO. x-ray is unchanged but unfortunately oxygenation appears to be trending down. We are still able to maintain PaO2 greater than 55. Hopeful to maybe progress over the next few days, following broadening out his antibiotics. Will continue to attempt to wean ventilator settings treat with abx 72 hours and re-evaluate for progression. 4. Renal: No acute issues. Electrolyte replacement protocol will be continued. Will hold on diuresis today. Likely re-institute tomorrow 5. GI: Continue tube feeding per dietary. On bowel protocol with senna, lactulose and as needed MiraLAX, received Relistor and suppository yesterday with small BM. Bisacodyl suppository this morning. 6. ID: Patient has 2 gram-negative rods identified in sputum- ECOLI- Zosyn de- escalated to Rocephin as both were sensitive- he has had fevers and development of septic shock over the last 24 hours. Zosyn, Fortaz, Vancomycin Day #2. Sputum and blood culture from and 24 January remain with NGTD. CVL remains in place no erythema ETT remains in place Pina remains in place Denson changed 01/19/21 7. Heme-onc: Mild anemia. No indication for transfusion currently. Continue to follow for now. Continue DVT proph. 8. Endocrine: ICU glycemic protocol. Lines: ETT, CVL, OGT, Denson, Arterial line- Continue use of these lines DISPO: Remain ICU Patient received his last rights yesterday, with plan for possible palliative extubation this morning. Following his 24 hour events of septic shock and re- institustion of broad spectrum antibiotics, and minimal increase in his PaO2, we hold course for 24-48 hours. His daughter was able to visit today and we reviewed his case- We have had an increase in his PaO2 to 83- although we remain at PEEP of 12 and Fio2 70%. We will continue to attempt to decrease his Ventilator settings today and continue treatment with abx for 48-72 hours. If no improvement with infection treatment resulting in lowering his ventilator support will proceed with palliative extubation. If he decompensates again notify daughter and will proceed with palliative extubation. His unfortunately is feeling ill today and could not visit. Patient and family does not want him to be ventilator dependant or poor functional recovery as he was always very active and independant. Patient remains critically ill at this point in time with significant possibility of clinical deterioration and/or . Total of 50 minutes critical care time was spent in evaluation management stabilization as patient including discussion with respiratory therapy, as well as bedside critical care nurse. Discussion with family as above. Admission and Anticipated Discharge Date Admission Date: January 08, 2021 Subjective Patient rounded on with multidisciplinary team, evaluated in the [facility] ICU. Patient is HD 16 was intubated on 01/17/21 for hypoxic respiratory failure secondary to COVID 19 pneumonia. Patient completed course of Remdisivir, was started on DEXARDS dexamethasone dosing of 20mg IV x5 days and will continue with his 10 mg IV for 5 days starting today. Patient had escalation in his FIo2 on with PF ratio of 90s and was prone for 16 hours, without any clinical improvement in his SPo2 and not clinically significant increase in his PaO2. We trialed inhaled Epoprostenol [id number] without any increase in his Pa02 or his SPo2, 01/24/21 patient had SIRS response with septic shock with likely presumed source being his lungs. He suffered an REGINO and remained febrile to 40 C up until early last evening. He was volume resuscitated with 2L crystalloid and had increase of his Levophed to 0.1mcg/kg/min to maintain MAP >65. This morning his fever curve has stabilized and remains on cooling blanket as well, He had his antibiotics broadened out with dual gram negative coverage with Fortaz, Zosyn, and added Vancomycin. His HR is down from 130s to 90-110 this morning. His WBC are at 12 and his acid base status is better this morning. His renal indices have improved with his [facility] (1.6-->1.4) and his Potassium is back to acceptable range of 4.9, his glucose is better controlled with institution of insulin drip. His daughter was able to visit today and we reviewed his case- We have had an increase in his PaO2 to 83- although we remain at PEEP of 12 and Fio2 70%. We will continue to attempt to decrease his Ventilator settings today and continue treatment with abx for 48-72 hours. If no improvement with infection treatment resulting in lowering his ventilator support will proceed with palliative extubation. If he decompensates again notify daughter and will proceed with palliative extubation. His unfortunately is feeling ill today and could not visit. Review of Systems Review of Systems: Unable to complete secondary to mechanical ventilation and sedation Physical Exam Physical Exam: Constitutional: Sedated, Mechanically ventilated N: EVA -3, Unable to assess CAM, sedated with Precedex, Propofol, Midazolam. Pupils are sluggish but responsive R: Scattered rhonchi bilaterally decrease in the bases, intubated, CV: No ectopy, S1S2, no edema, no evidence of shock GI: OGT tolerating tube feeds, soft ntnd Denson to gravity skin- no open areas bony prominences padded Results & Data Results & Data ([facility]) Vital Signs (Past 12 Hours) Vital Signs Temp Pulse Resp BP Pulse Ox Pulse Ox 01/25/21 11:01 113 H 33 H 89 L 01/25/21 08:04 88 32 H 90 01/25/21 08:00 90 134/34 L 90 01/25/21 04:00 38.1 C H 95 H 134/39 L 01/25/21 03:00 123 H 01/25/21 02:46 113 H 34 H 93 01/25/21 00:30 114 H 32 H 107/61 93 01/25/21 00:15 115 H 32 H 104/65 93 01/25/21 00:00 37.7 C H 116 H 32 H 117/39 L 93 01/24/21 23:45 119 H 32 H 100/60 93 01/24/21 23:30 120 H 32 H 98/61 L 93 Coding Level of Care Code Critical Care 1st 30-74 mins Diagnoses Pneumonia due to 2019-nCoV U07.1; J12.82 Acute hypoxemic respiratory failure J96.01 ARCELIA (obstructive sleep apnea) G47.33 DVT prophylaxis Z29.9
[2021-01-25] MEDS: PANTOprazole 40 MG in SYRINGE 0 ML IV SCH (12:40)
[2021-01-25] MEDS: INSULIN REGULAR 250 UNITS in SODIUM CHLORIDE 0.9% 247.5 ML IV SCH ×2 (13:35→15:44)
[2021-01-25] MEDS: fentaNYL citrate 2,500 MCG/250 ML BAG IV SCH (15:37)
--- NOTE | 2021-01-25 16:40 | Hospitalist Progress Note ---
Date of Service January 25, 2021 Assessment & Plan (1) Acute hypoxemic respiratory failure: Plan: Acute respiratory failure with hypoxia COVID-19 pneumonia Severe ARDS Septic Shock -Intubated on 01/27/21 -CTA:Patchy groundglass opacities are present throughout both lungs characteristic of a viral type pneumonitis and early Covid 19 pneumonia. No PE H/O COVID Vaccination in May 2020 per patient H/O Asthma, ARCELIA on CPAP Procalcitonin 0.05 CRP 13.4> 6.48 >15 Blood cultures: Negative to date Sputum Cx: E.coli -Completed Remdesivir course Continue dexamethasone course Lasix , Nebs as needed Appreciate critical care input Not a candidate for Baricitinib or ECMO. Currently on 70% FiO2, 12 PEEP Continue tube feeds Vent management as per critical care team Zosyn de-escalate to Rocephin>>On vancomycin, Zosyn, ceftazidime Heparin SQ for DVT Px No improvement with proning Remains Febrile s Repeat sputum culture growing gram-negative bacilli Poor lung compliance In consideration for palliative extubation if patient shows no improvement in 48 to 72 hours Acute Kidney Injury Creatinine slightly better today Monitor renal function Avoid nephrotoxic agents as able Hyperkalemia Received calcium gluconate Also received Lasix Resolved Monitor Hypertension Hold amlodipine, losartan Was on tamsulosin ARCELIA Was on CPAP Lung nodules/hilar adenopathy as per records 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 DM II Hold oral medications HbA1c 6.8 Continue insulin therapy while hospitalized Monitor BGs Prostate cancer S/P radiation CLL Follows with [facility] [place] On[place] Anemia of chronic disease 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 Monitor CBC Thrombocytopenia resolved H/O nephrolithiasis Microscopic hematuria History of prostate cancer Follow-up with urology as outpatient unless develops gross hematuria No hematuria currently DVT Px: SCDs Initially RE thrombocytopenia, Microscopic hematuria Heparin SQ Code Status Conditional Code Admission and Anticipated Discharge Date Admission Date: January 08, 2021 Subjective Patient is seen and examined at bedside Remains sedated and intubated Febrile today Currently on 12 of PEEP, 70% FiO2 Remains critical Review of Systems Review of Systems: Unobtainable due to endotracheal tube Physical Exam Physical Exam: Physical Exam: Vitals signs as noted above General Appearance:Moderately built and nourished, sedated and Intubated Head: normocephalic, Atraumatic Eyes: normal inspection Neck: supple, Trachea midline Respiratory/Chest: Decreased breath sounds, Scattered Rhonchi Cardiovascular: S1, S2, No murmur Abdomen/GI:Soft, Non tender, Bowel sounds present Extremities/Musculoskeletal:normal inspection, no edema Neurologic/Psych:Sedated and Intubated Skin: normal color, warm Results & Data Results & Data ([facility]) Vital Signs (Past 12 Hours) Vital Signs Pulse Resp BP Pulse Ox Pulse Ox 01/25/21 15:33 100 H 33 H 89 L 01/25/21 13:15 97 H 32 H 90/54 L 91 01/25/21 13:00 111 H 32 H 88 L 01/25/21 12:45 114 H 33 H 91 01/25/21 12:30 108 H 32 H 120/66 88 L 01/25/21 12:15 109 H 32 H 89 L 01/25/21 12:00 109 H 32 H 116/65 88 L 01/25/21 11:45 110 H 32 H 88 L 01/25/21 11:30 112 H 32 H 89 L 01/25/21 11:15 113 H 32 H 114/63 89 L 01/25/21 11:01 113 H 33 H 89 L 01/25/21 11:00 114 H 32 H 89 L 01/25/21 10:45 114 H 32 H 89 L 01/25/21 10:30 115 H 32 H 89 L 01/25/21 10:15 115 H 32 H 90 01/25/21 10:00 115 H 32 H 90 01/25/21 09:45 116 H 32 H 90 01/25/21 09:30 115 H 32 H 90 01/25/21 09:15 111 H 32 H 90 01/25/21 09:00 113 H 32 H 91 01/25/21 08:58 113 H 32 H 91 01/25/21 08:30 111 H 32 H 102/62 90 01/25/21 08:15 110 H 32 H 106/58 L 89 L 01/25/21 08:04 88 32 H 90 01/25/21 08:00 111 H 32 H 99/62 L 89 L 90 01/25/21 07:45 111 H 32 H 101/68 89 L 01/25/21 07:30 112 H 32 H 108/62 93 01/25/21 07:15 110 H 32 H 104/66 93 01/25/21 07:00 109 H 32 H 107/68 93 Laboratory Results Short CBC 01/25/21 Range/Units 05:58 WBC 12.14 H (4.8-10.8) K/uL Hgb 10.5 L (14.0-18.0) g/dL Hct 32.9 L (42-52) % Plt Count 207 (130-400) K/uL BMP 01/24/21 01/25/21 01/25/21 19:43 00:10 05:58 Sodium 137 136 138 Potassium 5.9 H 5.3 H 4.9 Chloride 106 104 105 Carbon Dioxide 25 26 25 BUN 81 H 84 H 85 H Creatinine 1.60 H 1.48 H 1.41 H Glucose 275 H 233 H 188 H Calcium 7.5 L 8.1 L 7.8 L
[2021-01-25] MEDS: PEPTAMEN INTENSE VHP 1.0 CAL 1,000 ML BAG OG SCH (18:40)
[2021-01-26] MEDS: PIPERACILLIN/TAZOBACTAM 4.5 GM in DEXTROSE 5% 100 ML IV SCH ×2 (00:03→08:44)
[2021-01-26 01:12] LABS: iSTAT Creatinine 1.5 mg/dl (0.6-1.3); iSTAT Hemoglobin 8.5 g/dl (14.0-18.0); iSTAT Ionized Calcium 1.09 mmol/l (1.12-1.32); iSTAT Potassium 5.1 mmol/L (3.3-5.0)
[2021-01-26] MEDS: ARTIFICIAL TEARS OP OINT 3.5 GM TUBE OP SCH ×3 (02:26→08:45)
[2021-01-26] MEDS: propofoL 1,000 MG/100 ML VIAL IV SCH ×4 (02:26→08:18)
[2021-01-26] MEDS: MIDAZOLAM HCL 125 MG/250 ML BAG IV SCH (02:26)
[2021-01-26] MEDS: NOREPINEPHRINE/D5W 8 MG/508 ML BAG IV SCH (02:27)
[2021-01-26] MEDS: VECURONIUM BROMIDE 10 MG VIAL IV PRN (03:08)
[2021-01-26 04:55] LABS: iSTAT Arterial Blood Gas HCO3 26 meg/L (19-24); iSTAT Arterial Blood Gas pCO2 57 mmHg (35-46); iSTAT Arterial Blood Gas pH 7.26 (7.35-7.45); iSTAT Arterial Blood Gas pO2 68 mmHg (80-95); iSTAT Carbon Dioxide 27 mmol/L (24-31); iSTAT FiO2 70 %; iSTAT Site Art Line
[2021-01-26] MEDS: fentaNYL citrate 2,500 MCG/250 ML BAG IV SCH (04:59)
[2021-01-26] MEDS: INSULIN ASPART PER UNIT SC SCH ×2 (05:32)
[2021-01-26] MEDS: HEPARIN SOD 5,000 UNIT/0.5 ML VIAL SQ SCH (05:32)
[2021-01-26 07:01] LABS: Hematocrit (blood only) 31.5 % (42-52); Hemoglobin 9.8 g/dL (14.0-18.0); Mean Corpuscular Hemoglobin 32.5 pg (25-34); Mean Corpuscular Hgb Conc 31.1 g/dL (32-36); Mean Corpuscular Volume 104.3 fL (80-100); Mean Platelet Volume 11.6 fL (7.4-10.4); Platelet Count 222 K/uL (130-400); RDW Coefficient of Variation 13.5 % (11.5-14.5); Red Blood Count 3.02 M/uL (4.7-6.1); White Blood Count 16.03 K/uL (4.8-10.8)
[2021-01-26 07:29] LABS: BUN Creatinine Ratio 68.2 (10-20); Calcium 7.6 mg/dl (8.5-10.1); Creatinine Clr Calc Pharmacy 64.2 ml/min; Est GFR (African American) 59.1 ml/min; Magnesium 3.8 mg/dl (1.8-2.4); Potassium 5.2 mmol/L (3.5-5.1)
[2021-01-26] MEDS: INSULIN REGULAR 250 UNITS in SODIUM CHLORIDE 0.9% 247.5 ML IV SCH (07:29)
[2021-01-26] MEDS: MIDAZOLAM BOLUS FROM BAG IV PRN (07:35)
[2021-01-26 07:36] LABS: Phosphorus 4.8 mg/dl (2.5-4.9)
[2021-01-26] MEDS ORDERED: STAT IV Infusion **Titration per Protocol STA (07:42)
[2021-01-26] MEDS ORDERED: PHENYLEPHRINE HCL 20 MG in DEXTROSE 5% 500 ML IV SCH (07:45)
[2021-01-26] MEDS: PANTOprazole 40 MG in SYRINGE 0 ML IV SCH (08:00)
[2021-01-26] MEDS: LACTULOSE SYRUP 20 GM/30 ML UDC PO SCH (08:00)
[2021-01-26] MEDS: ASPIRIN 81 MG CHEW PO SCH (08:00)
[2021-01-26] MEDS: SENNOSIDES 8.8 MG/5 ML UDC PO SCH (08:00)
[2021-01-26] MEDS: DEXMEDETOMIDINE HCL 200 MCG in SODIUM CHLORIDE 0.9% 48 ML IV SCH (08:02)
[2021-01-26] MEDS: dexAMETHasone 10 MG in SYRINGE 0 ML IV SCH (08:44)
[2021-01-26] MEDS ORDERED: VANCOMYCIN HCL 1,250 MG in SODIUM CHLORIDE 0.9% 250 ML IV SCH (09:00)
--- NOTE | 2021-01-26 09:04 | Pharmacy Report ---
Pharmacy [facility] Short Note - Date of Service January 26, 2021 - Assessment & Plan Assessment 70 year old M receiving vancomycin/ceftazidime/zosyn for empiric treatment in setting of increasing oxygenation, vasopressor requirements and fevers during a prolonged hospitalization. Pertinent microbiologic data includes: 01/20 sputum cx (+) E.coli X 2 sensitive to ceftriaxone, however broadened due to worsening clinical status. 01/23 BCx NGTD. 01/24 sputum cx (+) GNB. SCr improving (1.58 -> 1.41 ->1.39). Day # 3 of antimicrobial therapy. Plan Vancomycin * Random level of 16.1mcg/mL (~21hr level) is therapeutic and safe to re-dose. Given improving renal function, will schedule a maintenance regimen. * Given likely additional accumulation given not at steady state, begin vancomycin 1250mg IV q24h. Monitor renal function closely. * Trough ordered for tomorrow AM. Pharmacy will continue to follow and will adjust dose/frequency as necessary. Thank you.
--- NOTE | 2021-01-26 09:15 | XRay Report ---
XR chest 1V portable HISTORY: 70 years-old Male Resp failure acute respiratory failure COMPARISON: Chest radiograph 01/25/2021 TECHNIQUE: Portable AP view of the chest FINDINGS: Cardiac silhouette is enlarged. Right IJ central venous catheter is unchanged. Enteric tube courses b elow the diaphragm with distal tip outside the [id number]. The endotracheal tube overlies the neck superior to the level the clavicular heads. No pneumothorax. Trace pleural effusions suggested. Foca l ill-defined bilateral airspace opacities are redemonstrated, generally unchanged from prior degener ative changes of the shoulders and spine. IMPRESSION: 1. Distal tip of endotracheal tube projects above the level of the clavicular heads. Advancement with follow-up imaging recommended. 2. Unchanged multifocal bilateral airspace opacities. 3. No pneumothorax. ACT 112: Negative or not required by law. The above report was generated using voice recognition software. It may contain grammatical, syntax o r spelling errors. Electronically signed by: Mitesh Kapadia M.D. 01/26/2021 9:13 AM
--- NOTE | 2021-01-26 09:33 | Critical Care Progress Note ---
Date of Service January 26, 2021 Assessment & Plan (1) Pneumonia due to 2019-nCoV: (2) Acute hypoxemic respiratory failure: (3) ARCELIA (obstructive sleep apnea): (4) DVT prophylaxis: Plan: Impression: 70-year-old male that was fully vaccinated with second vaccination 05/09/2020. Admitted 01/08/2021 for shortness of breath and hypoxia. Patient received 5 days of remdesivir. He failed conservative management and was intubated 01/17/2021 due to increased work of breathing and progressive hypoxemic respiratory failure. He now has plateaued in his ability to decrease his PEEP and FIo2. He has failed prone therapy as well as inhaled Epoprostenol. He is now stabilized following Septic shock on 01/24/21 with organ dysfunction. 24-hour events: Increase in his oxygenation requirements and decrease in his PF ratio remains. PF ratio 114. He was prone for 16 hours and supinated with no clinical benefit from proning on -22 January. He is requiring 70-80% FIO2 with PEEP 12-14. He is sedated on propofol, Precedex, fentanyl and Versed. Septic shock presumed from pulmonary source. Zosyn, Fortaz, Vancomycin, 2L Crystalloid resuscitation, Denson replaced, Levophed. His PF ratio is back down to <100 and his PaO2 is back in the 60s on PEEP 12 and FIo2 70%. Elevation in WBC again with continued fevers suppressed by cooling blanket. Recommendations: 1. Neuro: Continue sedation with propofol, fentanyl, and Versed. Keep sedated until ventilatory parameters would allow for spontaneous breathing trials and daily sedation breaks. Patient was re-sedated this morning with increase of his medications. Patient with poor overall poor outcome. 2. Cardiovascular: Levophed remained on 0.1mcg/kg/min overnight and despite this had another SIRS response requiring change to Neosynepherine. His HR increased up to 150s and is currently back to 100s without ectopy. His MAPS are being getting to 65 with 1mcg/kg/min Norsynephrine. 3. Pulmonary: Severe ARDS. Day # 9 mechanical ventilation continue ARDS net ventilator strategy with low PEEP high FiO2 to prevent additional barotrauma. Current vent settings assist control: 32/510/12/0.7 with a plateau of 20. Most recent blood gas 7.26/57/68/. P/F <100 decreased compared to yesterday. Poor lung compliance. No PE identified on CT angiogram. Diffuse ground-glass opacities continue. Continue late-phase ARDS dexamethasone protocol with 20 mg a day for 5 days followed by 10 mg a day for 5 days. Not a candidate for Baricitinib or ECMO. x-ray is unchanged but unfortunately oxygenation appears to be trending down. We are still able to maintain PaO2 greater than 55. Patient with worsening clinical picture today on Zosyn/Fortaz/Vanco, and worsening of his overall clinical picture with ARDS and septic shock. 4. Renal: No acute issues. Electrolyte replacement protocol will be continued. Will hold on diuresis today. Likely re-institute tomorrow 5. GI: Continue tube feeding per dietary. On bowel protocol with senna, lactulose and as needed MiraLAX, received Relistor and suppository yesterday with small BM. Bisacodyl suppository this morning. 6. ID: Patient has 2 gram-negative rods identified in sputum- ECOLI- Zosyn de- escalated to Rocephin as both were sensitive- he has had fevers and development of septic shock over the last 24 hours. Zosyn, Fortaz, Vancomycin Day #2. Sputum and blood culture from and 24 January remain with NGTD. CVL remains in place no erythema ETT remains in place Pina remains in place Denson changed 01/19/21 7. Heme-onc: Mild anemia. No indication for transfusion currently. Continue to follow for now. Continue DVT proph. 8. Endocrine: ICU glycemic protocol. Lines: ETT, CVL, OGT, Denson, Arterial line- Continue use of these lines DISPO: Remain ICU Patient received his last [id number]/17/21. Following his 24 hour events of septic shock and re-institution of broad spectrum antibiotics, and minimal increase in his PaO2, we hold course for 24-48 hours. This has worsened as above family is now at the bedside and as we discussed previously- he has not shown any response to therapy and worsening over the past 24 hours. We will make the patient palliative care and paliiative extubation this morning. Patient remains critically ill at this point in time with significant possibility of clinical deterioration and/or . Total of 50 minutes critical care time was spent in evaluation management stabilization as patient including discussion with respiratory therapy, as well as bedside critical care nurse. Discussion with family as above. Admission and Anticipated Discharge Date Admission Date: January 08, 2021 Subjective Patient rounded on with multidisciplinary team, evaluated in the [facility] ICU. Patient is HD 17 was intubated on 01/17/21 for hypoxic respiratory failure secondary to COVID 19 pneumonia. Patient completed course of Remdisivir, was started on DEXARDS dexamethasone dosing of 20mg IV x5 days and will continue with his 10 mg IV for 5 days starting today. Patient had escalation in his FIo2 on with PF ratio of 90s and was prone for 16 hours, without any clinical improvement in his SPo2 and not clinically significant increase in his PaO2. We trialed inhaled Epoprostenol [id number] without any increase in his Pa02 or his SPo2, 01/24/21 patient had SIRS response with septic shock with likely presumed source being his lungs. He was volume resuscitated with 2L c rystalloid and had increase of his Levophed to 0.1mcg/kg/min to maintain MAP >65. This morning his fever curve has stabilized and remains on cooling blanket as well, He had his antibiotics broadened out with dual gram negative coverage with Fortaz, Zosyn, and added Vancomycin. This morning patient's WBC count is elevated back to 16, he is diaphoretic on cooling blanket with Temp 36.4. Patient also hypotensive on Levophed. Received 500ml LR bolus and changed his vasopressor over to Neosynepherine. 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 I discussed the patient's status with the daughter and as we discussed yesterday and again this morning if he would worsen then we would likely move to palliative extubation. Family is on their way in at this time. Decision was made for palliative extubation. He was extubated at 10:17. Time of was 10:23. Review of Systems Review of Systems: unable to perform secondary to intubation and sedation Physical Exam Physical Exam: Constitutional: Sedated, Mechanically ventilated N: EVA -3, Unable to assess CAM, sedated with Precedex, Propofol, Midazolam. Pupils are sluggish but responsive R: Scattered rhonchi bilaterally decrease in the bases, intubated, CV: No ectopy, S1S2, no edema, no evidence of shock, tachycardic diaphoretic GI: OGT tolerating tube feeds, soft ntnd Denson to gravity draining light yellow urine skin- no open areas bony prominences padded Results & Data Results & Data ([facility] [place]) Vital Signs (Past 12 Hours) Vital Signs Temp Pulse Resp BP Pulse Ox 01/26/21 08:56 108 H 33 H 95 01/26/21 08:30 147 H 32 H 89 L 01/26/21 08:00 147 H 32 H 103/50 L 93 01/26/21 07:30 118 H 32 H 01/26/21 07:00 111 H 32 H 98/60 L 90 01/26/21 06:30 113 H 32 H 01/26/21 06:00 115 H 32 H 97/61 L 90 01/26/21 05:30 114 H 32 H 104/60 89 L 01/26/21 05:00 113 H 32 H 95/62 L 88 L 01/26/21 04:30 111 H 32 H 100/60 88 L 01/26/21 04:11 97 H 01/26/21 04:00 110 H 32 H 108/59 L 89 L 01/26/21 03:45 108 H 32 H 01/26/21 03:30 110 H 32 H 96/58 L 89 L 01/26/21 03:15 110 H 32 H 91/55 L 01/26/21 03:00 36.2 C L 110 H 27 H 01/26/21 02:52 109 H 33 H 89 L 01/26/21 02:45 109 H 32 H 106/57 L 88 L 01/26/21 02:30 107 H 33 H 101/59 L 88 L 01/26/21 02:15 107 H 32 H 112/59 L 89 L 01/26/21 02:00 106 H 33 H 01/26/21 01:45 106 H 32 H 94/56 L 89 L 01/26/21 01:30 105 H 31 H 01/26/21 01:15 102 H 32 H 01/26/21 01:00 102 H 32 H 88/51 L 90 01/26/21 00:45 101 H 33 H 96/54 L 90 01/26/21 00:30 100 H 34 H 91 01/26/21 00:15 99 H 33 H 91/51 L 91 01/26/21 00:00 98 H 26 H 01/25/21 23:46 89 33 H 91 01/25/21 23:45 100 H 33 H 109/70 92 01/25/21 23:30 99 H 32 H 01/25/21 23:15 101 H 31 H 91 01/25/21 23:00 36.4 C L 100 H 32 H 91 01/25/21 22:45 101 H 32 H 90 01/25/21 22:30 101 H 32 H 01/25/21 22:15 97 H 32 H 90/51 L 90 01/25/21 22:00 96 H 32 H 77/45 L 91 01/25/21 21:45 96 H 32 H 82/42 L 91 Laboratory Results Abnormal lab results 01/25/21 01/25/21 01/25/21 Range/Units 09:56 10:56 12:36 WBC (4.8-10.8) K/uL RBC (4.7-6.1) M/uL Hgb (14.0-18.0) g/dL POC Hgb (14.0-18.0) g/dl Hct (42-52) % POC Hct (42-52) % MCV (80-100) fL MCHC (32-36) g/dL RDW Std Deviation (36.4-46.3) fL MPV (7.4-10.4) fL POC pH (7.35-7.45) POC pCO2 (35-46) mmHg POC pO2 (80-95) mmHg POC HCO3 (19-24) magaly/L POC Sodium (135-144) mmol/L POC Potassium (3.3-5.0) mmol/L Potassium (3.5-5.1) mmol/L POC Anion Gap (16-25) mmol/L POC BUN (7-18) mg/dl BUN (7-18) mg/dl POC Creatinine (0.6-1.3) mg/dl BUN/Creatinine Ratio (10-20) Glucose (70-99) mg/dl POC Glucose (other) 174 H 176 H 192 H (70-99) mg/dl Calcium (8.5-10.1) mg/dl POC Ioniz Calcium Alden (1.12-1.32) mmol/l Magnesium (1.8-2.4) mg/dl 01/25/21 01/25/21 01/25/21 Range/Units 13:43 14:28 15:38 WBC (4.8-10.8) K/uL RBC (4.7-6.1) M/uL Hgb (14.0-18.0) g/dL POC Hgb (14.0-18.0) g/dl Hct (42-52) % POC Hct (42-52) % MCV (80-100) fL MCHC (32-36) g/dL RDW Std Deviation (36.4-46.3) fL MPV (7.4-10.4) fL POC pH (7.35-7.45) POC pCO2 (35-46) mmHg POC pO2 (80-95) mmHg POC HCO3 (19-24) magaly/L POC Sodium (135-144) mmol/L POC Potassium (3.3-5.0) mmol/L Potassium (3.5-5.1) mmol/L POC Anion Gap (16-25) mmol/L POC BUN (7-18) mg/dl BUN (7-18) mg/dl POC Creatinine (0.6-1.3) mg/dl BUN/Creatinine Ratio (10-20) Glucose (70-99) mg/dl POC Glucose (other) 178 H 183 H 178 H (70-99) mg/dl Calcium (8.5-10.1) mg/dl POC Ioniz Calcium Alden (1.12-1.32) mmol/l Magnesium (1.8-2.4) mg/dl 01/25/21 01/25/21 01/25/21 Range/Units 16:32 17:30 19:34 WBC (4.8-10.8) K/uL RBC (4.7-6.1) M/uL Hgb (14.0-18.0) g/dL POC Hgb (14.0-18.0) g/dl Hct (42-52) % POC Hct (42-52) % MCV (80-100) fL MCHC (32-36) g/dL RDW Std Deviation (36.4-46.3) fL MPV (7.4-10.4) fL POC pH (7.35-7.45) POC pCO2 (35-46) mmHg POC pO2 (80-95) mmHg POC HCO3 (19-24) magaly/L POC Sodium (135-144) mmol/L POC Potassium (3.3-5.0) mmol/L Potassium (3.5-5.1) mmol/L POC Anion Gap (16-25) mmol/L POC BUN (7-18) mg/dl BUN (7-18) mg/dl POC Creatinine (0.6-1.3) mg/dl BUN/Creatinine Ratio (10-20) Glucose (70-99) mg/dl POC Glucose (other) 171 H 168 H 155 H (70-99) mg/dl Calcium (8.5-10.1) mg/dl POC Ioniz Calcium Alden (1.12-1.32) mmol/l Magnesium (1.8-2.4) mg/dl 01/25/21 01/25/21 01/26/21 Range/Units 21:33 23:33 01:00 WBC (4.8-10.8) K/uL RBC (4.7-6.1) M/uL Hgb (14.0-18.0) g/dL POC Hgb 8.5 L (14.0-18.0) g/dl Hct (42-52) % POC Hct 25 L (42-52) % MCV (80-100) fL MCHC (32-36) g/dL RDW Std Deviation (36.4-46.3) fL MPV (7.4-10.4) fL POC pH (7.35-7.45) POC pCO2 (35-46) mmHg POC pO2 (80-95) mmHg POC HCO3 (19-24) magaly/L POC Sodium 134 L (135-144) mmol/L POC Potassium 5.1 H (3.3-5.0) mmol/L Potassium (3.5-5.1) mmol/L POC Anion Gap 12.0 L (16-25) mmol/L POC BUN 108 H* (7-18) mg/dl BUN (7-18) mg/dl POC Creatinine 1.5 H (0.6-1.3) mg/dl BUN/Creatinine Ratio (10-20) Glucose (70-99) mg/dl POC Glucose (other) 125 H 107 H 119 H (70-99) mg/dl Calcium (8.5-10.1) mg/dl POC Ioniz Calcium Alden 1.09 L (1.12-1.32) mmol/l Magnesium (1.8-2.4) mg/dl 01/26/21 01/26/21 01/26/21 Range/Units 02:07 03:03 04:04 WBC (4.8-10.8) K/uL RBC (4.7-6.1) M/uL Hgb (14.0-18.0) g/dL POC Hgb (14.0-18.0) g/dl Hct (42-52) % POC Hct (42-52) % MCV (80-100) fL MCHC (32-36) g/dL RDW Std Deviation (36.4-46.3) fL MPV (7.4-10.4) fL POC pH (7.35-7.45) POC pCO2 (35-46) mmHg POC pO2 (80-95) mmHg POC HCO3 (19-24) magaly/L POC Sodium (135-144) mmol/L POC Potassium (3.3-5.0) mmol/L Potassium (3.5-5.1) mmol/L POC Anion Gap (16-25) mmol/L POC BUN (7-18) mg/dl BUN (7-18) mg/dl POC Creatinine (0.6-1.3) mg/dl BUN/Creatinine Ratio (10-20) Glucose (70-99) mg/dl POC Glucose (other) 148 H 160 H 153 H (70-99) mg/dl Calcium (8.5-10.1) mg/dl POC Ioniz Calcium Alden (1.12-1.32) mmol/l Magnesium (1.8-2.4) mg/dl 01/26/21 01/26/21 01/26/21 Range/Units 04:42 04:55 06:16 WBC (4.8-10.8) K/uL RBC (4.7-6.1) M/uL Hgb (14.0-18.0) g/dL POC Hgb (14.0-18.0) g/dl Hct (42-52) % POC Hct (42-52) % MCV (80-100) fL MCHC (32-36) g/dL RDW Std Deviation (36.4-46.3) fL MPV (7.4-10.4) fL POC pH 7.26 L (7.35-7.45) POC pCO2 57 H (35-46) mmHg POC pO2 68 L (80-95) mmHg POC HCO3 26 H (19-24) magaly/L POC Sodium (135-144) mmol/L POC Potassium (3.3-5.0) mmol/L Potassium 5.2 H (3.5-5.1) mmol/L POC Anion Gap (16-25) mmol/L POC BUN (7-18) mg/dl BUN 95 H (7-18) mg/dl POC Creatinine (0.6-1.3) mg/dl BUN/Creatinine Ratio 68.2 H (10-20) Glucose 140 H (70-99) mg/dl POC Glucose (other) 151 H (70-99) mg/dl Calcium 7.6 L (8.5-10.1) mg/dl POC Ioniz Calcium Alden (1.12-1.32) mmol/l Magnesium 3.8 H (1.8-2.4) mg/dl 01/26/21 01/26/21 Range/Units 06:16 07:19 WBC 16.03 H (4.8-10.8) K/uL RBC 3.02 L (4.7-6.1) M/uL Hgb 9.8 L (14.0-18.0) g/dL POC Hgb (14.0-18.0) g/dl Hct 31.5 L (42-52) % POC Hct (42-52) % MCV 104.3 H (80-100) fL MCHC 31.1 L (32-36) g/dL RDW Std Deviation 51.0 H (36.4-46.3) fL MPV 11.6 H (7.4-10.4) fL POC pH (7.35-7.45) POC pCO2 (35-46) mmHg POC pO2 (80-95) mmHg POC HCO3 (19-24) magaly/L POC Sodium (135-144) mmol/L POC Potassium (3.3-5.0) mmol/L Potassium (3.5-5.1) mmol/L POC Anion Gap (16-25) mmol/L POC BUN (7-18) mg/dl BUN (7-18) mg/dl POC Creatinine (0.6-1.3) mg/dl BUN/Creatinine Ratio (10-20) Glucose (70-99) mg/dl POC Glucose (other) 131 H (70-99) mg/dl Calcium (8.5-10.1) mg/dl POC Ioniz Calcium Alden (1.12-1.32) mmol/l Magnesium (1.8-2.4) mg/dl Diagnostic Findings XR chest 1V portable HISTORY: 70 years-old Male Resp failure acute respiratory failure COMPARISON: Chest radiograph 01/25/2021 TECHNIQUE: Portable AP view of the chest FINDINGS: Cardiac silhouette is enlarged. Right IJ central venous catheter is unchanged. Enteric tube courses below the diaphragm with distal tip outside the [id number]. The endotracheal tube overlies the neck superior to the level the clavicular heads. No pneumothorax. Trace pleural effusions suggested. Focal ill- defined bilateral airspace opacities are redemonstrated, generally unchanged from prior degenerative changes of the shoulders and spine. IMPRESSION: 1. Distal tip of endotracheal tube projects above the level of the clavicular heads. Advancement with follow-up imaging recommended. 2. Unchanged multifocal bilateral airspace opacities. 3. No pneumothorax. Coding Level of Care Code Critical Care 1st 30-74 mins Diagnoses Pneumonia due to 2019-nCoV U07.1; J12.82 Acute hypoxemic respiratory failure J96.01 ARCELIA (obstructive sleep apnea) G47.33 DVT prophylaxis Z29.9
[2021-01-26] MEDS ORDERED: MoRPHine SULFATE 4 MG/ML 1 ML CARP\\VIAL IV PRN (09:57)
[2021-01-26] MEDS ORDERED: ONDANSETRON INJ 2 MG/ML 2 ML VIAL IV PRN (09:57)
[2021-01-26] MEDS ORDERED: MIDAZOLAM BOLUS FROM BAG IV PRN (10:02)
[2021-01-26] MEDS ORDERED: GLYCOPYRROLATE 0.2 MG/ML VIAL IV PRN (10:06)
--- NOTE | 2021-01-26 10:56 | Death Pronouncement Note ---
Date of Service January 26, 2021 Pronouncement Note Admission Date Admission Date: January 08, 2021 Date and Time of Date of : 01/26/21 Time of : 10:23 PCOD Preliminary cause of : 2019 novel coronavirusinfected pneumonia (NCIP) Contributing Factors (1) Pneumonia due to 2019-nCoV: (2) Acute hypoxemic respiratory failure: (3) ARCELIA (obstructive sleep apnea): (4) DVT prophylaxis: (5) Pneumonia: (6) Septic shock: (7) MODS (multiple organ dysfunction syndrome): Summary Additional details: PRONOUNCEMENT NOTE - Date: 01/26/21 Time: 10:23 Patient was transitioned to palliative care with the family at the bedside. The decision was made this morning with the family to palliatively extubate the patient secondary to worsening in clinical picture and worsening of his hypoxia at day 9 of intubation. In short, 70-year-old male that was fully vaccinated with second vaccination 05/09/2020. Admitted 01/08/2021 for shortness of breath and hypoxia. Patient received 5 days of remdesivir. He failed conservative management and was intubated 01/17/2021 due to increased work of breathing and progressive hypoxemic respiratory failure. He now has plateaued in his ability to decrease his PEEP and FIo2. He has failed prone therapy as well as inhaled Epoprostenol. He had developed septic shock and continued to clinically worsen. I discussed the patient's status with the daughter and as we discussed yesterday and again this morning if he would worsen then we would likely move to palliative extubation. Family is on their way in at this time. Decision was made for palliative extubation. He was extubated at 10:17. Time of was 10:23. (Description of hospital/ICU course) Assessment: I presented to the patients room for evaluation. Upon assessment, the patient was found to be in a terminal state. Pupils were fixed and dilated without response. No palpable pulses appreciated. No spontaneous breaths noted. Heart sounds were absent. No response to painful stimuli. Time of : 10:23 as pronounced by myself. Family [x] present at bedside. Appropriate response to grief appreciated. Condolences provided. Questions were addressed and emotional support was provided. Patients primary service was contacted and made aware of patient demise. Pronouncement section of the Certificate was filled out and signed by myself. Cause of : COVID 19, Pneumonia Primary - x Secondary - septic shock Contributing Causes of - hypoxia, ARDS, Shock Please feel free to contact me with any questions regarding the above-mentioned course. Additional Data Attending physician: Vini Cueto MD
--- NOTE | 2021-01-26 13:13 | Discharge Summary ---
Date of Service January 26, 2021 Admission HPI Per Admitting Provider History obtained from patient and records. Medical history significant for hypertension, hyperlipidemia, asthma, ARCELIA on CPAP, lung nodules/hilar adenopathy as per records, DM2 on oral medications, prostate cancer status post radiation, CLL, chronic anemia (baseline hemoglobin of 13), chronic thrombocytopenia. 3 days history of cough symptoms later productive of junky yellow sputum with worsening shortness of breath. No actual chest pain as per patient. Illness somewhat different from usual asthma attack. Sick COVID-19 contacts at home. Patient completed COVID-19 vaccination. Outpatient COVID-19 test from 2 days ago was positive. Patient directed to ER by PCP's office. Lowest O2 sats at the ER 89% on room air Patient given Decadron and neb treatment at the ER. 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 Admission Exam Per Admitting Provider Physical Exam Physical Exam: GENERAL: Slightly uncomfortable, pleasant, obese, no respiratory distress SKIN: Normal color, warm HEENT: Partial alopecia, bespectacled, [place] palpebral conjunctivae, no ptosis, dry buccal mucosa, nasal cannula in place NECK : Supple, no tenderness CHEST : Decreased breath sounds, occasional expiratory wheezes, no tenderness HEART : RRR, no obvious murmurs ABDOMEN: Some distention, nontender EXTREMITIES : No LE swelling/tenderness, no other conspicuous deformities noted NEUROLOGIC : Coherent, no facial asymmetry, no other gross focality Principal Diagnosis Acute respiratory failure with hypoxia COVID-19 pneumonia Severe ARDS Septic Shock Acute Kidney Injury Hyperkalemia H/O Prostate cancer Discharge Data Allergies Allergy/AdvReac Type Severity Reaction Status Date / Time clindamycin Allergy Intermediate RED RASH, Verified 01/18/21 07:02 ITCHY Sulfa (Sulfonamide Allergy Mild HIVES Verified 01/08/21 18:14 Antibiotics) STACIE Inhibitors AdvReac Mild cough Verified 01/18/21 07:53 metoprolol AdvReac Mild Cough Verified 01/18/21 07:02 mometasone furoate AdvReac Mild sore throat Verified 01/18/21 07:02 [From [facility]ita] Consultations 01/08/21 21:28 ED Decision to Admit Stat 01/15/21 00:56 Consult Pulmonology Routine Ordered Studies 01/08/21 18:16 CT angio chest PE protocol Stat 01/16/21 11:39 CT angio chest PE protocol Routine Hospital Course (1) Acute hypoxemic respiratory failure: Acute respiratory failure with hypoxia COVID-19 pneumonia Severe ARDS Septic Shock -Intubated on 01/27/21 -CTA:Patchy groundglass opacities are present throughout both lungs characteristic of a viral type pneumonitis and early Covid 19 pneumonia. No PE H/O COVID Vaccination in May 2020 per patient H/O Asthma, ARCELIA on CPAP Procalcitonin 0.05 CRP 13.4> 6.48 >15 Blood cultures: Negative to date Sputum Cx: E.coli -Completed Remdesivir course Continue dexamethasone course Lasix , Nebs as needed Appreciate critical care input Not a candidate for Baricitinib or ECMO. Currently on 70% FiO2, 12 PEEP Continue tube feeds Vent management as per critical care team Zosyn de-escalate to Rocephin>>On vancomycin, Zosyn, ceftazidime Heparin SQ for DVT Px No improvement with proning Remains Febrile s Repeat sputum culture growing gram-negative bacilli Poor lung compliance ICU team discussed with family as patient is clinically deteriorating despite aggressive measures. 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 DM II Hold oral medications HbA1c 6.8 Continue insulin therapy while hospitalized Monitor BGs Prostate cancer S/P radiation CLL Follows with [facility] [place] Anemia of chronic disease 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 Monitor CBC Thrombocytopenia resolved H/O nephrolithiasis Microscopic hematuria History of prostate cancer Follow-up with urology as outpatient unless develops gross hematuria No hematuria currently DVT Px: SCDs Initially RE thrombocytopenia, Microscopic hematuria Heparin SQ Code Status Conditional Code Disposition Total Time Total Time Spent Total Time Spent (In Minutes): 40 minutes Discharge Plan Discharge Items Patient Disposition: Discharge Diagnosis: Acute respiratory failure with hypoxia COVID-19 pneumonia Severe ARDS Septic Shock Hyperkalemia REGINO Other Date/Time: 01/26/21 10:23
[2021-01-27] MEDS ORDERED: VANCOMYCIN TROUGH ONE (08:30)
--- NOTE | 2021-01-28 06:39 | Electrocardiogram Report ---
Test Reason : Blood Pressure : / mmHG Vent. Rate : 134 BPM Atrial Rate : 134 BPM P-R Int : 142 ms QRS Dur : 116 ms QT Int : 282 ms P-R-T Axes : 063 054 014 degrees QTc Int : 421 ms Sinus tachycardia with occasional Premature ventricular complexes and Fusion complexes Incomplete right bundle branch block Nonspecific T wave abnormality Abnormal ECG When compared with ECG of 08-Jan-2021 18:01, HR has increased by 42 bpm Confirmed by Peter Leal ([id number]) on 01/28/2021 6:38:37 AM Referred By: REFERRED SELF Confirmed By:Peter Leal
== END 2021-01-26 11:45 | disposition expired | DRG 207 ==
LOC: ED 14:23 → SUATTDRO 21:01 → EDINP 21:01 → 2W 01-10 22:06 → 2E 01-16 07:39